=== PATIENT | male | born 1945 | race Caucasian/White ===

== ENCOUNTER 2017-04-23 14:21 | Inpatient (IN) | payer OTHER, BC ==
[2017-04-23 14:28] VITALS: BMI 35.6
--- NOTE | 2017-04-23 14:47 | PDOC ---
History of Present Illness - General History Source: Patient Exam Limitations: No Limitations <Ora Villa - Last Filed: 04/23/17 18:58> <Levon Pathak - Last Filed: 04/24/17 09:22> - General Chief Complaint: Shortness of Breath Stated Complaint: SENT BY PCP Time Seen by Provider: 04/23/17 14:33 - History of Present Illness Initial Comments: 04/23/17 18:59 Patient is a 72 year old female with a significant past medical history of hypertension, hyperlipidemia, type II diabetes, CAD, CABG and pacemaker, legally blind who presents to the ED with SOB. Patient notes that he has been experiencing SOB for over few months that got worse today. Patient states that that he was seen in Dr. Yi in the office yesterday for a routine visit. Patient states that at the rewinder operator his sat O2 level was 81. Patient was sent to Dr. Peres for further evaluation who prompted him to present to the ED today. Patient tawana reports positional dizziness. Patient notes that he is on CPAP at night. Patient was first told that he has low O2 in November. He denies any new pain or chest discomfort. He denies any hx of lung disease or COPD. He denies diarrhea. Resource Coordinator - Dr. Morgan Agricultural Equipment Mechanic - Dr. Peres PCP - Dr. 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) Seizures: No Thyroid Disease: No - Surgical History Abdominal Surgery: Yes (SIGMOID RESECTION, TEMP COLOSTOMY, REVERSED) Appendectomy: Yes Cardiac Surgery: Yes (S/P CABG, PACEMAKER, TRIPLE BYPASS) Cholecystectomy: Yes Lung Surgery: No Neurologic Surgery: No Orthopedic Surgery: No - Psycho/Social/Smoking Cessation Hx Anxiety: No Suicidal Ideation: No Smoking Status: Yes Smoking History: Never smoked Have you smoked in the past 12 months: No Number of Cigarettes Smoked Daily: 0 If you are a former smoker, when did you quit?: 30YRS AGO Hx Alcohol Use: No Drug/Substance Use Hx: No Substance Use Type: None <Levon Pathak - Last Filed: 04/24/17 09:22> - Past Medical History Allergies/Adverse Reactions: Allergies Allergy/AdvReac Type Severity Reaction Status Date / Time codeine [Codeine] Allergy Severe Itching Verified 04/23/17 14:28 Home Medications: Ambulatory Orders Aspirin [Ecotrin] 81 mg PO DAILY 04/23/17 Canagliflozin [Invokana] 100 mg PO DAILY 04/23/17 Ergocalciferol (Vitamin D2) [Vitamin D2] 2,000 unit PO DAILY 04/23/17 Escitalopram Oxalate [Lexapro -] 10 mg PO DAILY 04/23/17 Furosemide [Lasix] 40 mg PO BID 04/23/17 Glimepiride [Amaryl] 2 mg PO BID 04/23/17 Insulin Aspart Prot/Insuln Asp [Novolog Mix 70-30 Flexpen Syrn] 35 unit SQ HS Levothyroxine [Synthroid -] 25 mcg PO DAILY 04/23/17 Metoprolol Succinate [Toprol Xl -] 25 mg PO HS 04/23/17 Mirabegron [Myrbetriq] 25 mg PO DAILY 04/23/17 Naratriptan HCl 2.5 mg PO DAILY 04/23/17 Polyethylene Glycol 3350 [Miralax (For Bowel Prep) -] 17 gm PO DAILY 04/23/17 Spironolactone [Aldactone] 25 mg PO BID 04/23/17 Cardiac Specific PMH - Complaint Specific PMHX Pacemaker: Yes (medtronic. checked 2-3 weeks ago) <Levon Pathak - Last Filed: 04/24/17 09:22> Review of Systems - Review of Systems Able to Perform ROS?: Yes <Ora Villa - Last Filed: 04/23/17 18:58> <Levon Pathak - Last Filed: 04/24/17 09:22> - Review of Systems Comments:: 04/23/17 18:59 CONSTITUTIONAL: No reported: Fever, Chills, Diaphoresis, Generalized Weakness, Malaise, Loss of Appetite HEENT: No reported: Rhinorrhea, Nasal Congestion, Throat Pain, Throat Swelling, Difficulty Swallowing, Mouth Swelling, Ear Pain, Eye Pain, Visual Changes CARDIOVASCULAR: No reported: Chest Pain, Syncope, Palpitations, Irregular Heart Rate, Lightheadedness, Peripheral Edema RESPIRATORY: Reported: cough, SOB, SOB with exertion No reported: Orthopnea, Wheezing, Stridor, Hemoptysis GASTROINTESTINAL: No reported: Abdominal pain, Abdominal Distension, Nausea, Vomiting, Diarrhea, Constipation, Melena, Hematochezia GENITOURINARY: No reported: Dysuria, Frequency, Urgency, Hesitancy, Flank Pain, Genital Pain MUSCULOSKELETAL: No reported: Myalgia, Arthralgia, Joint Swelling, Back pain, Neck Pain SKIN: No reported: Rash, Itching, Pallor HEMEATOLOGIC/IMMUNOLOGIC: No reported: Easy Bleeding, Easy Bruising, Lymphadenopathy, Frequent infections ENDOCRINE: No reported: Unexplained Weight Gain, Unexplained Weight Loss, Heat Intolerance , Cold Intolerance NEUROLOGIC: No reported: Headache, Focal Weakness, Paresthesias, Vertigo, Lightheadedness, Unsteady Gait, Seizure, Mental Status Changes, Incontinence PSYCHIATRIC: No reported: Anxiety, Depression (Ora Villa) *Physical Exam <Ora Villa - Last Filed: 04/23/17 18:58> <Levon Pathak - Last Filed: 04/24/17 09:22> - Vital Signs Last Vital Signs Temp Pulse Resp BP Pulse Ox 97.9 F 72 20 97/51 94 L 04/24/17 05:57 04/24/17 05:57 04/24/17 05:57 04/24/17 05:57 04/23/17 19:00 - Physical Exam Comments: 04/23/17 18:59 GENERAL: The patient is awake, alert, and fully oriented, Nontoxic - in no acute distress. HEAD: Normocephalic, atraumatic. EYES: extraocular movements intact, sclera anicteric, conjunctiva clear. ENT: Normal voice, Moist mucous membranes. NECK: Normal range of motion, supple LUNGS: Breath sounds equal, clear to auscultation bilaterally. No wheezes, no rhonchi, no rales. HEART: Regular rate and rhythm, normal S1 and S2 without murmur, rub or gallop. ABDOMEN: Soft, nontender, normoactive bowel sounds. No guarding, no rebound. . No CVA tenderness EXTREMITIES: Normal range of motion, no edema. No clubbing or cyanosis. No cords, erythema, or tenderness. NEUROLOGICAL: No facial assymetry, Normal speech, PSYCH: Normal mood, normal affect. SKIN: Warm, Dry, normal turgor (Ora Villa) Heart Score/ECG Review <Ora Villa - Last Filed: 04/23/17 18:58> <Levon Pathak - Last Filed: 04/24/17 09:22> - ECG Impressions Comment:: 04/23/17 19:20 ventricular paced rate of 71 no signs of acute ischemia vs sgarbossa criteria (Levon Pathak) ED Treatment Course - LABORATORY CBC & Chemistry Diagram: 04/23/17 14:50 04/23/17 14:50 <Ora Villa - Last Filed: 04/23/17 18:58> - LABORATORY CBC & Chemistry Diagram: 04/24/17 06:00 04/24/17 06:00 <Levon Pathak - Last Filed: 04/24/17 09:22> - ADDITIONAL ORDERS Additional order review: 04/23/17 14:50 RBC 5.48 D MCV 89.9 MCHC 33.0 RDW 15.7 MPV 8.0 Neutrophils % 60.7 Lymphocytes % 22.1 D Monocytes % 12.9 H Eosinophils % 3.1 Basophils % 1.2 - RADIOLOGY Radiology Studies Ordered: Category Date Time Status CHEST CT WITHOUT CONTRAST [CT] Stat CT Scan 04/23/17 16:33 Completed CHEST X-RAY PORTABLE* [RAD] Stat Radiology 04/23/17 14:50 Completed Medical Decision Making <Ora Villa - Last Filed: 04/23/17 18:58> <Levon Pathak - Last Filed: 04/24/17 09:22> - Medical Decision Making 04/23/17 14:45 72y M hx of CAD s/p bypass (2016), chf, moderate , pulm htn, paroxysmal a flutter (not on a/c due to prior esopageal varicies) htn, dm, hl, presents with complaint of sob. for several weeks. noted to be hypoxic by cardiologsit/pulm and sent to ED for evaluation. pt denies any cp, coug,m hemoptsysis, leg swelling. pts exam is unremarakble and vitals notable for severe hypoxia )pt is relatively well appearing relative to his hypoxia) differential includes possible anemia, ?chf, ?pna, will obtain blood work, cxr, pt placed on supplemetnal o2 cardiac monitior will reasess and d/w Pmd 04/23/17 16:33 labs reviewed unremarkble cxr negative fora cute process pt hypxia improved to mid-high 90s on 2L of NC will obtain CT to r/o pathology pts cr isborderline, will defer contrast case was d/w dr. alvarez agree with management will admit to tele for further management Case discussed in detail with admitting physician including history, physical exam and ancillary studies. Admitting physician has assumed care for the patient, will follow all pending diagnostics and will complete the evaluation and treatment. 04/24/17 09:21 (Levon Pathak) *DC/Admit/Observation/Transfer <Ora Villa - Last Filed: 04/23/17 18:58> - Discharge Dispostion Admit: Yes <Levon Pathak - Last Filed: 04/24/17 09:22> Diagnosis at time of Disposition: Hypoxia, SOB (shortness of breath) on exertion - Attestations Scribe Attestion: 04/23/17 18:59 Documentation prepared by UMA Trotter, acting as medical facilities section director for Levon Pathak MD. (Ora Villa)
[2017-04-23 15:21] LABS: VENOUS BLOOD GAS HCO3 24.5 meq/L (19-25); VENOUS PH 7.39 (7.32-7.42)
[2017-04-23 15:31] LABS: BASOPHIL 1.2 % (0-2.0); EOSINOPHIL 3.1 % (0-4.5); MCH 29.7 pg (25.7-33.7); MEAN CELL VOLUME 89.9 fl (80-96); NEUTROPHILS 60.7 % (42.8-82.8); PLATELET COUNT 148 K/MM3 (134-434); RDW 15.7 % (11.9-15.9); WHITE BLOOD COUNT 6.5 K/mm3 (4.0-10.0)
[2017-04-23 15:43] LABS: ALBUMIN 3.4 g/dl (3.4-5.0); ANION GAP 12 (8-16); CALCIUM 8.6 mg/dL (8.5-10.1); CO2 23 mmol/L (21-32); CREATININE 1.6 mg/dL (0.7-1.3); GLUCOSE,RANDOM 112 mg/dL (74-106); SGPT/ALT 44 U/L (12-78)
[2017-04-23 15:47] LABS: ALK PHOS 93 U/L (45-117); BILIRUBIN,TOTAL 2.7 mg/dL (0.2-1.0); TOT PROT 7.3 g/dl (6.4-8.2); TROPONIN I < 0.02 ng/ml (0.00-0.05)
[2017-04-23 15:49] LABS: SGOT/AST 88 U/L (15-37)
[2017-04-23 16:41] LABS: INR 1.08 (0.82-1.09); PROTHROMBIN TIME (PATIENT) 11.9 SEC (9.98-11.88)
[2017-04-23] MEDS ORDERED: ACETAMINOPHEN 325 MG TABLET (FP) PO PRN (16:56)
[2017-04-23] MEDS ORDERED: ONDANSETRON 4 MG/2 ML VIAL IVPB PRN (16:56)
[2017-04-23] MEDS ORDERED: SODIUM CHLORIDE 1,000 ML IV SCH ×2 (17:00→17:15)
--- NOTE | 2017-04-23 17:10 | HP ---
Admitting History and Physical - Primary Care Physician PCP: Addison Reyes - Admission Chief Complaint: Oliverio quiñones History of Present Illness: Mr Rodriguez is a very pleasant 72 year old male who comes in with shortness of breath. He says it began in August. At that time it was minimal and he thought it was secondary to allergies. However even after the allergies were treated, he did not improve. In fact he slowly worsened. He was seen by his child care attendant school and says he had multiple tests done, particularly concerning his valve. These were within normal limits. He continued to worsen and was referred to pulmonary. He went there today and was found to be hypoxic and sent here. He says that he is short of breath at rest and on exertion, but worse with exertion. He cannot walk more than 10 feet without getting short of breath. If he exerts himself too much he becomes lightheaded, but has not passed out. He says it is worse lying flat, but this improved with CPAP. He has chest pain associated with the shortness of breath. He has a productive cough with it as well. He denies fevers, chills, abdominal pain, nausea, vomiting, diarrhea, constipation, difficulty or pain on urination. He has swelling secondary to his liver but this is improved with diuresis. 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: Other (congenital glaucoma with blindness) Cardiovascular: Yes: CAD, HTN Gastrointestinal: Yes: GERD Hepatobiliary: Yes: Cirrhosis (NAFLD) Endocrine: Yes: Diabetes Mellitus - Past Surgical History Past Surgical History: Yes: CABG (3v), Cholecystectomy, Permanent Pacemaker, TURP - Smoking History Smoking history: Never smoked Have you smoked in the past 12 months: No Aproximately how many cigarettes per day: 0 If you are a former smoker, when did you quit?: 30YRS AGO - Alcohol/Substance Use Hx Alcohol Use: No History of Substance Use: reports: None - Social History Usual Living Arrangement: Yes: With Spouse ADL: Independent History of Recent Travel: No Home Medications - Allergies Allergies/Adverse Reactions: Allergies Allergy/AdvReac Type Severity Reaction Status Date / Time codeine [Codeine] Allergy Severe Itching Verified 04/23/17 14:28 - Home Medications Home Medications: Ambulatory Orders Aspirin [Ecotrin] 81 mg PO DAILY 04/23/17 Canagliflozin [Invokana] 100 mg PO DAILY 04/23/17 Ergocalciferol (Vitamin D2) [Vitamin D2] 2,000 unit PO DAILY 04/23/17 Escitalopram Oxalate [Lexapro -] 10 mg PO DAILY 04/23/17 Furosemide [Lasix] 40 mg PO BID 04/23/17 Glimepiride [Amaryl] 2 mg PO BID 04/23/17 Insulin Aspart Prot/Insuln Asp [Novolog Mix 70-30 Flexpen Syrn] 35 unit SQ HS Levothyroxine [Synthroid -] 25 mcg PO DAILY 04/23/17 Metoprolol Succinate [Toprol Xl -] 25 mg PO HS 04/23/17 Mirabegron [Myrbetriq] 25 mg PO DAILY 04/23/17 Naratriptan HCl 2.5 mg PO DAILY 04/23/17 Polyethylene Glycol 3350 [Miralax (For Bowel Prep) -] 17 gm PO DAILY 04/23/17 Spironolactone [Aldactone] 25 mg PO BID 04/23/17 Family Disease History - Family Disease History Family Disease History: Heart Disease: Father, Mother Review of Systems Findings/Remarks: full review of systems obtained, as per HPI and otherwise negative Physical Examination Vital Signs: Vital Signs Temperature 97.5 F L 04/23/17 14:25 Pulse Rate 70 04/23/17 15:27 Respiratory Rate 20 04/23/17 15:27 Blood Pressure 96/58 04/23/17 15:27 O2 Sat by Pulse Oximetry (%) 100 04/23/17 15:27 Constitutional: Yes: No Distress, Calm, Obese HENT: Yes: Atraumatic, Normocephalic Cardiovascular: Yes: Regular Rate and Rhythm. No: Gallop, Murmur, Rub Respiratory: Yes: Regular, CTA Bilaterally, Cough, Other (visibly short of breath on exam). No: Rales, Rhonchi, Wheezes Gastrointestinal: Yes: Normal Bowel Sounds, Soft, Ascites. No: Tenderness Extremities: Yes: WNL Edema: No Labs: CBC, BMP 04/23/17 14:50 04/23/17 14:50 Imaging - Results Chest X-ray: Report Reviewed, Image Reviewed Problem List - Problems (1) Hypoxia Assessment/Plan: -unclear source -case d/w Dr Malcolm, has undergone extensive cardiac work up which was negative -CT scan ordered -ABG ordered -admit to telemetry -pulmonary consult -lung exam sounds clear, will hold on bronchodilators until seen by pulmonary -supplemental oxygen Code(s): R09.02 - HYPOXEMIA (2) Hyperkalemia Assessment/Plan: -secondary to diuresis and aldactone -hydration -hold aldactone -recheck in tonight and in am Code(s): E87.5 - HYPERKALEMIA (3) LEFTY (acute kidney injury) Assessment/Plan: -secondary to overdiuresis -hold lasix and aldactone -hydration Code(s): N17.9 - ACUTE KIDNEY FAILURE, UNSPECIFIED (4) CAD (coronary artery disease) Assessment/Plan: -quiescent -cardiology consult -continue home regimen Code(s): I25.10 - ATHSCL HEART DISEASE OF [place] CORONARY ARTERY W/O ANG PCTRS (5) HTN (hypertension) Assessment/Plan: -low normal today -hold diuretics -continue toprol -hydration Code(s): I10 - ESSENTIAL (PRIMARY) HYPERTENSION (6) Diabetes Assessment/Plan: -continue home regimen -diabetic diet -FSBS and SSI Code(s): E11.9 - TYPE 2 DIABETES MELLITUS WITHOUT COMPLICATIONS
[2017-04-23] MEDS: GLIMEPIRIDE 2 MG TABLET (FP) PO SCH (21:52)
[2017-04-23] MEDS: INSULIN DETEMIR 100 UNITS/ML MDV SQ SCH (21:52)
[2017-04-23] MEDS: INSULIN SLIDING SCALE (NOVOLOG) 1 VIAL SQ SCH (21:53)
[2017-04-23] MEDS: METOPROLOL SUCCINATE 25 MG TAB.SR.24H (FP) PO SCH (22:00)
[2017-04-23] MEDS: HEPARIN NA (PORCINE) 5,000 UNITS/ML 1ML VIAL SQ SCH (22:00)
[2017-04-23] MEDS ORDERED: PATIENT'S OWN MEDICATION (NON-FORMULARY) (Insulin Aspart Prot/Insuln Asp [Novolog Mix 70-3 SQ SCH (22:00)
[2017-04-24] MEDS: GLIMEPIRIDE 2 MG TABLET (FP) PO SCH ×2 (06:09→17:41)
[2017-04-24] MEDS: HEPARIN NA (PORCINE) 5,000 UNITS/ML 1ML VIAL SQ SCH ×2 (06:09→18:25)
[2017-04-24] MEDS: INSULIN SLIDING SCALE (NOVOLOG) 1 VIAL SQ SCH ×4 (06:09→22:18)
[2017-04-24 07:40] LABS: EOSINOPHIL 5.6 % (0-4.5); MCH 30.2 pg (25.7-33.7); MCHC 33.4 g/dl (32.0-35.9); MEAN CELL VOLUME 90.5 fl (80-96); MEAN PLT VOLUME 7.2 fl (7.5-11.1); NEUTROPHILS 57.5 % (42.8-82.8); PLATELET COUNT 102 K/MM3 (134-434); RDW 15.4 % (11.9-15.9); WHITE BLOOD COUNT 4.3 K/mm3 (4.0-10.0)
[2017-04-24 08:41] LABS: ALBUMIN 3.3 g/dl (3.4-5.0); ALK PHOS 71 U/L (45-117); ANION GAP 10 (8-16); BILIRUBIN,TOTAL 2.7 mg/dL (0.2-1.0); CALCIUM 8.7 mg/dL (8.5-10.1); CO2 28 mmol/L (21-32); CREATININE 1.1 mg/dL (0.7-1.3); GLUCOSE,RANDOM 87 mg/dL (74-106); MAGNESIUM 2.4 mg/dL (1.8-2.4); PHOSPHOROUS 3.5 mg/dL (2.5-4.9); SGOT/AST 37 U/L (15-37); SGPT/ALT 38 U/L (12-78); TOT PROT 6.4 g/dl (6.4-8.2)
[2017-04-24] MEDS ORDERED: PATIENT'S OWN MEDICATION (NON-FORMULARY) (Mirabegron [Myrbetriq] 25 MG) PO SCH (10:00)
[2017-04-24] MEDS ORDERED: PATIENT'S OWN MEDICATION (NON-FORMULARY) (Canagliflozin [Invokana] 100 MG) PO SCH ×2 (10:00)
[2017-04-24] MEDS ORDERED: NARATRIPTAN HCL 2.5 MG PO SCH (10:00)
[2017-04-24] MEDS ORDERED: POLYETHYLENE GLYCOL 3350 255 GM BTL PO SCH (10:00)
--- NOTE | 2017-04-24 10:00 | PN ---
Progress Note (short form) - Note Progress Note: Patient seen and examined.
[2017-04-24] MEDS: POLYETHYLENE GLYCOL 3350 119 GM BTL PO SCH ×2 (10:03→22:27)
--- NOTE | 2017-04-24 10:20 | CON.PULM ---
Consult Consult Specialty:: PULMONARY Referred by:: JOSE D Reason for Consultation:: HYPOXEMIA - History of Present Illness Chief Complaint: SOB History of Present Illness: Mr Rodriguez was sent from my office with spo2 84% on room air and sob. He says it began in August. At that time it was minimal and he thought it was secondary to allergies. However even after the allergies were treated, he did not improve. In fact he slowly worsened. He was seen by his windmill mechanic and says he had multiple tests done. These were within normal limits. He continued to worsen and was referred to me. He says that he is short of breath at rest and on exertion, but worse with exertion. He cannot walk more than 10 feet without getting short of breath. If he exerts himself too much he becomes lightheaded, but has not passed out. He says it is worse lying flat, but this improved with CPAP. He has chest pain associated with the shortness of breath. He has a productive cough with it as well. He denies fevers, chills, abdominal pain, nausea, vomiting, diarrhea, constipation. 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 No: Alzheimer's Cardio/Vascular: Yes: Aortic Stenosis, CAD, HTN Pulmonary: Yes: O2 Dependent, Pulmonary Fibrosis, Sleep Apnea Gastrointestinal: Yes: GERD Hepatobiliary: Yes: Cirrhosis (NAFLD) Renal/: Yes: Renal Inusuff Heme/Onc: No: Anemia Infectious Disease: No: AIDS Psych: No: Addictions Endocrine: Yes: Diabetes Mellitus - Past Surgical History Past Surgical History: Yes: CABG (3v), Cholecystectomy, Permanent Pacemaker, TURP - Alcohol/Substance Use Hx Alcohol Use: No History of Substance Use: reports: None - Smoking History Smoking history: Never smoked Have you smoked in the past 12 months: No Aproximately how many cigarettes per day: 0 If you are a former smoker, when did you quit?: 30YRS AGO - Social History Usual Living Arrangement: With Spouse ADL: Independent Place of : [facility] History of Recent Travel: No Home Medications - Allergies Allergies/Adverse Reactions: Allergies Allergy/AdvReac Type Severity Reaction Status Date / Time codeine [Codeine] Allergy Severe Itching Verified 04/23/17 14:28 - Home Medications Home Medications: Ambulatory Orders Aspirin [Ecotrin] 81 mg PO DAILY 04/23/17 Canagliflozin [Invokana] 100 mg PO DAILY 04/23/17 Ergocalciferol (Vitamin D2) [Vitamin D2] 2,000 unit PO DAILY 04/23/17 Escitalopram Oxalate [Lexapro -] 10 mg PO DAILY 04/23/17 Furosemide [Lasix] 40 mg PO BID 04/23/17 Glimepiride [Amaryl] 2 mg PO BID 04/23/17 Insulin Aspart Prot/Insuln Asp [Novolog Mix 70-30 Flexpen Syrn] 35 unit SQ HS Levothyroxine [Synthroid -] 25 mcg PO DAILY 04/23/17 Metoprolol Succinate [Toprol Xl -] 25 mg PO HS 04/23/17 Mirabegron [Myrbetriq] 25 mg PO DAILY 04/23/17 Naratriptan HCl 2.5 mg PO DAILY 04/23/17 Polyethylene Glycol 3350 [Miralax (For Bowel Prep) -] 17 gm PO DAILY 04/23/17 Spironolactone [Aldactone] 25 mg PO BID 04/23/17 Family Disease History - Family Disease History Family Disease History: Heart Disease: Father, Mother Review of Systems - Review of Systems Constitutional: denies: Chills Eyes: reports: Other (blindness) HENT: reports: No Symptoms Neck: reports: No Symptoms Cardiovascular: reports: Chest Pain, Shortness of Breath Respiratory: reports: SOB, SOB on Exertion. denies: Hemoptysis Gastrointestinal: reports: No Symptoms Integumentary: reports: No Symptoms Neurological: reports: No Symptoms Physical Exam Vital Sings: Vital Signs Temperature 97.9 F 04/24/17 05:57 Pulse Rate 72 04/24/17 05:57 Respiratory Rate 20 04/24/17 05:57 Blood Pressure 97/51 04/24/17 05:57 O2 Sat by Pulse Oximetry (%) 94 L 04/23/17 19:00 Constitutional: Yes: Calm Eyes: Yes: EOM Intact HENT: Yes: Normocephalic Neck: Yes: Trachea Midline Cardiovascular: Yes: Regular Rate and Rhythm, S1, S2 Respiratory: Yes: Rales (chronic sounding b/l insp crackles) ...Clubbing: No Gastrointestinal: Yes: Normal Bowel Sounds Renal/: Yes: WNL Breast(s): Yes: WNL Musculoskeletal: Yes: WNL Edema: No Neurological: Yes: Alert Labs: CBC, BMP 04/24/17 06:00 04/24/17 06:00 rest reviewed Imaging - Results Chest X-ray: Image Reviewed Cat Scan: Image Reviewed Problem List - Problems (1) CAD (coronary artery disease) Code(s): I25.10 - ATHSCL HEART DISEASE OF [place] CORONARY ARTERY W/O ANG PCTRS (2) Diabetes Code(s): E11.9 - TYPE 2 DIABETES MELLITUS WITHOUT COMPLICATIONS (3) HTN (hypertension) Code(s): I10 - ESSENTIAL (PRIMARY) HYPERTENSION (4) Hypoxia Code(s): R09.02 - HYPOXEMIA (5) SOB (shortness of breath) on exertion Code(s): R06.02 - SHORTNESS OF BREATH (6) Acute respiratory failure with hypoxia Code(s): J96.01 - ACUTE RESPIRATORY FAILURE WITH HYPOXIA Assessment/Plan ACUTE HYPOXEMIC RESP FAILURE ON BASIS OF PROGRESSIVE ILD ETIOLOGY OF WHICH IS TO BE DETERMINED OF NOTE IS A CT ABD DONE 2011 WITH CLEAR B/L MID AND BASILAR LUNG LAWSON MULTIPLE CO-MORBID CONDITIONS A LISTED WOULD TRIAL COURSE OF STEROIDS/DIURETICS WILL NEED HOME O2 UPON DISCHARGE WITH O2 TITRATED INTO HIS NIPPV FOR OSAS WILL FOLLOW [facility] JC MD
--- NOTE | 2017-04-24 10:31 | CON.CARD ---
Consult Consult Specialty:: Cardiology Referred by:: Addison Reyes MD Reason for Consultation:: Hypoxia - History of Present Illness Chief Complaint: Dyspnea on exertion History of Present Illness: Mr Rodriguez is a 72 year old male h/o CAD s/p CABG 05/2006 (MCCAULEY->LAD, free radial ->LAD-D1, SVG->RPDA) patent on 11/03/2016 cath, diastolic dysfunction, paroxysmal aflutter post cardioversion on no a/c therapy due to chronic liver disease with varices, sick sinus syndrome post PPM, mod-severe NICK 1.4 cm^2, severe pulm HTN PA pressure 71/25, hypertensive cardiovascular disease, DM, chol, OSAS presented with spo2 84% on room air and sob. He says it began in August. At that time it was minimal and he thought it was secondary to allergies. However even after the allergies were treated, he did not improve. In fact he slowly worsened. 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 These were within normal limits. He continued to worsen and was referred to me. He says that he is short of breath at rest and on exertion, but worse with exertion. He cannot walk more than 10 feet without getting short of breath. If he exerts himself too much he becomes lightheaded, but has not passed out. He says it is worse lying flat, but this improved with CPAP. He has chest pain associated with the shortness of breath. He has a productive cough with it as well. He denies fevers, chills, abdominal pain, nausea, vomiting, diarrhea, constipation, palpitations, near or true syncope, PND or LE edema. - History Source History Provided By: Patient Limitations to Obtaining History: No Limitations - Past Medical History BUSINESS OBJECTS CONSULTANT: Yes: Other (congenital glaucoma with blindness). No: Alzheimer's Cardio/Vascular: Yes: Aortic Stenosis, CAD, HTN Pulmonary: Yes: O2 Dependent, Pulmonary Fibrosis, Sleep Apnea Gastrointestinal: Yes: GERD Hepatobiliary: Yes: Cirrhosis (NAFLD) Renal/: Yes: Renal Inusuff Infectious Disease: No: AIDS Psych: No: Addictions Endocrine: Yes: Diabetes Mellitus - Past Surgical History Past Surgical History: Yes: CABG (3v), Cholecystectomy, Permanent Pacemaker, TURP - Alcohol/Substance Use Hx Alcohol Use: No History of Substance Use: reports: None - Smoking History Smoking history: Never smoked Have you smoked in the past 12 months: No Aproximately how many cigarettes per day: 0 If you are a former smoker, when did you quit?: 30YRS AGO - Social History Usual Living Arrangement: With Spouse ADL: Independent History of Recent Travel: No Home Medications - Allergies Allergies/Adverse Reactions: Allergies Allergy/AdvReac Type Severity Reaction Status Date / Time codeine [Codeine] Allergy Severe Itching Verified 04/23/17 14:28 - Home Medications Home Medications: Ambulatory Orders Aspirin [Ecotrin] 81 mg PO DAILY 04/23/17 Canagliflozin [Invokana] 100 mg PO DAILY 04/23/17 Ergocalciferol (Vitamin D2) [Vitamin D2] 2,000 unit PO DAILY 04/23/17 Escitalopram Oxalate [Lexapro -] 10 mg PO DAILY 04/23/17 Furosemide [Lasix] 40 mg PO BID 04/23/17 Glimepiride [Amaryl] 2 mg PO BID 04/23/17 Insulin Aspart Prot/Insuln Asp [Novolog Mix 70-30 Flexpen Syrn] 35 unit SQ HS Levothyroxine [Synthroid -] 25 mcg PO DAILY 04/23/17 Metoprolol Succinate [Toprol Xl -] 25 mg PO HS 04/23/17 Mirabegron [Myrbetriq] 25 mg PO DAILY 04/23/17 Naratriptan HCl 2.5 mg PO DAILY 04/23/17 Polyethylene Glycol 3350 [Miralax (For Bowel Prep) -] 17 gm PO DAILY 04/23/17 Spironolactone [Aldactone] 25 mg PO BID 04/23/17 Family Disease History - Family Disease History Family Disease History: Heart Disease: Father, Mother Review of Systems - Review of Systems Respiratory: reports: Cough, Exercise Intolerance, SOB on Exertion Vital Signs: Vital Signs Temperature 97.9 F 04/24/17 05:57 Pulse Rate 72 04/24/17 05:57 Respiratory Rate 20 04/24/17 05:57 Blood Pressure 97/51 04/24/17 05:57 O2 Sat by Pulse Oximetry (%) 94 L 04/23/17 19:00 Constitutional: Yes: No Distress, Calm Neck: Yes: Supple Respiratory: Yes: Regular, Diminished, On Nasal O2, SOB on Exertion Gastrointestinal: Yes: Normal Bowel Sounds, Soft, Abdomen, Obese Cardiovascular: Yes: Regular Rate and Rhythm JVD: No Carotid Bruit: No Heart Sounds: Yes: S1, S2 Murmur: Yes: Systolic Murmur, Grade 2 Edema: No - Other Data Labs, Other Data: CBC, BMP 04/24/17 06:00 04/24/17 06:00 INR, PTT INR 1.08 (0.82-1.09) 04/23/17 16:00 V-paced at 71 Prior Cardiac Procedures: CABG, Cardiac Catheterization Ejection Fraction %: LVEF > or = 40 % Imaging - Results Cat Scan: Report Reviewed (Bilateral interstitial thickening, hepatic cirrhosis , splenomegaly) Problem List - Problems (1) Acute respiratory failure with hypoxia Code(s): J96.01 - ACUTE RESPIRATORY FAILURE WITH HYPOXIA (2) CAD (coronary artery disease) Code(s): I25.10 - ATHSCL HEART DISEASE OF [place] CORONARY ARTERY W/O ANG PCTRS Qualifiers: Coronary Disease-Associated Artery/Lesion type: [place] artery [place] vs. transplanted heart: [place] heart Associated angina: without angina Qualified Code(s): I25.10 - Atherosclerotic heart disease of [place] coronary artery without angina pectoris (3) Diabetes Code(s): E11.9 - TYPE 2 DIABETES MELLITUS WITHOUT COMPLICATIONS Qualifiers: Diabetes mellitus type: type 2 Diabetes mellitus complication status: with ophthalmic complications Diabetes mellitus complication detail: with diabetic retinopathy (4) HTN (hypertension) Code(s): I10 - ESSENTIAL (PRIMARY) HYPERTENSION Qualifiers: Hypertension type: essential hypertension Qualified Code(s): I10 - Essential (primary) hypertension (5) SOB (shortness of breath) on exertion Code(s): R06.02 - SHORTNESS OF BREATH (6) S/P CABG x 3 Code(s): Z95.1 - PRESENCE OF AORTOCORONARY BYPASS GRAFT (7) Hypothyroidism Code(s): E03.9 - HYPOTHYROIDISM, UNSPECIFIED Qualifiers: Hypothyroidism type: unspecified Qualified Code(s): E03.9 - Hypothyroidism, unspecified (8) Pulmonary hypertension Code(s): I27.2 - OTHER SECONDARY PULMONARY HYPERTENSION (9) Interstitial lung disease Code(s): J84.9 - INTERSTITIAL PULMONARY DISEASE, UNSPECIFIED (10) Moderate aortic valve stenosis Code(s): I35.0 - NONRHEUMATIC AORTIC (VALVE) STENOSIS (11) LEFTY (acute kidney injury) Code(s): N17.9 - ACUTE KIDNEY FAILURE, UNSPECIFIED (12) Hyperkalemia Code(s): E87.5 - HYPERKALEMIA Assessment/Plan 12/09/2016 Echo: Mod degree of LVH, normal LV function EF 75%, mild LAE 4.5 cm, mod NICK 1.4 cm^2, MG 20 mmHg 11/03/2016 R&LHC: 3 vessel CAD patent MCCAULEY->LAD, free radial->LAD-D1, SVG->RPDA, normal LVEF 55%, MG 26 mmHg, NICK 0.93 cm^2, severe pulm HTN PAP 71/25 mmHg, PCWP 21 mmHg, LVEDP 17 mmHg 10/07/2016 Lexiscan MPI: No ischemia, LVEF 65% 02/17/2017 PFTs Mild restriction, moderate decrease in DLCO 1. Acute hypoxemic respiratory failure referable to progressive ILD 2. CAD s/p CABG, angina pectoris 3. HTN 4. Type 2 DM 5. OSAS 6. Diastolic dysfunction with moderate NICK 0.93 cm^2 MG 26 mmHg and severe pulm HTN 7. SSS s/p PPM ([employer]) 8. Persistent afib, paroxysmal aflutter not on a/c due to liver cirrhosis and esophageal varices 9. Labile HTN/HCVD with orthostasis 10. Type 2 DM 11. Hyperlipidemia 12. Hypothyroidisn 13. LEFTY resolving P:1. Trial of steroids, BD, O2 as needed, cpap nightly, V/Q scan rule out chronic PE 2. Continue Toprol XL 25 qd, Accupril 5 qd, ASA 81 qd, resume at lower dose Lasix 40 qd and Aldactone 25 qd 3. Thank you for consultative opportunity
[2017-04-24] MEDS: CHOLECALCIFEROL (VITAMIN D3) 1,000 UNIT TABLET (FP) PO SCH (10:39)
[2017-04-24] MEDS: ESCITALOPRAM OXALATE 10 MG TABLET (FP) PO SCH (10:40)
[2017-04-24] MEDS: ASPIRIN COATED 81 MG TABLET.EC PO SCH (10:40)
[2017-04-24] MEDS: QUINAPRIL HCL 5 MG TABLET (FP) PO SCH (13:03)
--- NOTE | 2017-04-24 17:25 | EKG ---
Test Reason : Blood Pressure : / mmHG Vent. Rate : 071 BPM Atrial Rate : 064 BPM P-R Int : 000 ms QRS Dur : 214 ms QT Int : 536 ms P-R-T Axes : 000 -55 126 degrees QTc Int : 582 ms Ventricular-paced rhythm ABNORMAL ECG WHEN COMPARED WITH ECG OF 14-JUL-2013 12:09, NO SIGNIFICANT CHANGE WAS FOUND Confirmed by MD POTTS GREGORY ([id number]) on 04/24/2017 5:24:55 PM Referred By: Confirmed By:ADAMA POTTS MD
--- NOTE | 2017-04-24 19:06 | PN ---
Progress Note, Physician Chief Complaint: Shortness of breath even on a few steps of exertion. History of Present Illness: Patient with multiple comorbidities including diabetes mellitus, cirrhosis, esophageal varices, history of CHF, blindness and obesity has been having progressive shortness of breath over several months. He has been followed recently by the pulmonary Dr. who suspected he might have interstitial lung disease. He has seen a heart failure specialist associated with [facility] and has visited Dr. Gerry Yuan. An outpatient trial of diuretics did not succeed in improving his shortness of breath. When seen in the drapery maker office yesterday his O2 sat was 84 and admission to the hospital was advised. He is now on nasal O2 and is feeling more comfortable. Pulmonology and cardiology recommended a trial of steroids and resuming diuretics with both Lasix and Aldactone and those medications have been ordered.a CAT scan in the ER without contrast revealed evidence of interstitial lung disease but no CHF or tumor mass. - Current Medication List Current Medications: Active Medications Acetaminophen (Tylenol -) 650 mg PO Q4H PRN PRN Reason: FEVER OR PAIN Aspirin (Ecotrin -) 81 mg PO DAILY [facility] Last Admin: 04/24/17 10:40 Dose: 81 mg Cholecalciferol (Vitamin D3 -) 2,000 unit PO DAILY [facility] Last Admin: 04/24/17 10:39 Dose: 2,000 unit Escitalopram Oxalate (Lexapro -) 10 mg PO DAILY [facility] Last Admin: 04/24/17 10:40 Dose: 10 mg Furosemide (Lasix -) 40 mg PO DAILY [facility] Glimepiride (Amaryl -) 2 mg PO BIDAC [facility] Last Admin: 04/24/17 17:41 Dose: 2 mg Heparin Sodium (Porcine) (Heparin -) 5,000 unit SQ Q8H-IV [facility] Last Admin: 04/24/17 06:09 Dose: 5,000 unit Insulin Aspart (Novolog Vial Sliding Scale -) 0 vial SQ ACHS [facility] PRN Reason: Protocol Last Admin: 04/24/17 17:42 Dose: 2 units Insulin Detemir (Levemir Vial) 35 units SQ HS [facility] Last Admin: 04/23/17 21:52 Dose: Not Given Levothyroxine Sodium (Synthroid -) 25 mcg PO DAILY@0700 [facility] Metoprolol Succinate (Toprol Xl -) 25 mg PO HS [facility] Last Admin: 04/23/17 22:00 Dose: 25 mg Non-Formulary Medication (Mirabegron [Myrbetriq]) 25 mg PO DAILY [facility] Non-Formulary Medication (Naratriptan Hcl [Naratriptan Hcl]) 2.5 mg PO DAILY [facility] Non-Formulary Medication (Canagliflozin [Invokana]) 100 mg PO DAILY [facility] Ondansetron HCl (Zofran Injection) 4 mg IVPB Q6H PRN PRN Reason: NAUSEA Polyethylene Glycol (Miralax (For Daily Use) -) 17 gm PO BID [facility] Last Admin: 04/24/17 10:03 Dose: 17 grams Quinapril HCl (Accupril -) 5 mg PO DAILY [facility] Last Admin: 04/24/17 13:03 Dose: 5 mg Spironolactone (Aldactone -) 25 mg PO DAILY [facility] - Objective Vital Signs: Vital Signs Temperature 98 F 04/24/17 14:53 Pulse Rate 70 04/24/17 14:53 Respiratory Rate 20 04/24/17 14:53 Blood Pressure 132/62 04/24/17 14:53 O2 Sat by Pulse Oximetry (%) 93 L 04/24/17 10:55 Constitutional: Yes: Calm Eyes: Yes: Other (corneal opacities noted) HENT: Yes: Atraumatic Neck: Yes: Supple Cardiovascular: Yes: Regular Rate and Rhythm Respiratory: Yes: Diminished, On Nasal O2, Other (rare rhonchi at the bases) Gastrointestinal: Yes: Soft, Hepatomegaly Genitourinary: No: Sinclair Present Edema: No Neurological: Yes: Alert, Oriented ( Patient is blind) Labs: CBC, BMP 04/24/17 06:00 04/24/17 06:00 INR, PTT INR 1.08 (0.82-1.09) 04/23/17 16:00 - ....Imaging Cat Scan: Report Reviewed Problem List - Problems (1) Interstitial lung disease Assessment/Plan: CAT scan shows evidence of interstitial lung disease Question his etiology and whether treatment can help Code(s): J84.9 - INTERSTITIAL PULMONARY DISEASE, UNSPECIFIED (2) Hypoxia Assessment/Plan: O2 sat 84 in the ER. O2 sat was improved to 94 this morning on nasal O2 Code(s): R09.02 - HYPOXEMIA (3) Diabetes Assessment/Plan: BGM ordered. Glucose may become elevated, although low dose steroid, prednisone 10 mg twice a day was ordered as per suggestion from cardiology and pulmonary Dr. Code(s): E11.9 - TYPE 2 DIABETES MELLITUS WITHOUT COMPLICATIONS Qualifiers: Diabetes mellitus type: type 2 Diabetes mellitus complication status: with ophthalmic complications Diabetes mellitus complication detail: with diabetic retinopathy (4) CAD (coronary artery disease) Assessment/Plan: history of triple bypass. Recent cardiology workup demonstrates no cardiac cause for current problems Code(s): I25.10 - ATHSCL HEART DISEASE OF [place] CORONARY ARTERY W/O ANG PCTRS Qualifiers: Coronary Disease-Associated Artery/Lesion type: [place] artery [place] vs. transplanted heart: [place] heart Associated angina: without angina Qualified Code(s): I25.10 - Atherosclerotic heart disease of [place] coronary artery without angina pectoris (5) S/P CABG x 3 Assessment/Plan: stable regarding recent workup Code(s): Z95.1 - PRESENCE OF AORTOCORONARY BYPASS GRAFT
[2017-04-24] MEDS: predniSONE 10 MG TABLET (UD) PO SCH (22:15)
[2017-04-24] MEDS: METOPROLOL SUCCINATE 25 MG TAB.SR.24H (FP) PO SCH (22:15)
[2017-04-24] MEDS: INSULIN DETEMIR 100 UNITS/ML MDV SQ SCH (22:16)
[2017-04-25] MEDS: HEPARIN NA (PORCINE) 5,000 UNITS/ML 1ML VIAL SQ SCH ×3 (01:00→21:18)
[2017-04-25] MEDS: LEVOTHYROXINE NA 25 MCG TABLET (FP) PO SCH (06:28)
[2017-04-25] MEDS: INSULIN SLIDING SCALE (NOVOLOG) 1 VIAL SQ SCH ×4 (06:29→21:13)
[2017-04-25] MEDS: GLIMEPIRIDE 2 MG TABLET (FP) PO SCH ×2 (06:29→17:17)
--- NOTE | 2017-04-25 07:06 | PN ---
Progress Note (short form) - Note Progress Note: Chief Complaint: Events noted, notes reviewed, dyspnea persists with minimal physical exertion, denies any chest pain History of Present Illness: Seen and examined on telemetry. Events noted, notes reviewed, dyspnea persists with minimal physical exertion, denies any chest pain Echocardiography dated 12/09/2016 revealed moderate degree of LVH, normal LV systolic function with LV EF 75%, mild LAE 4.5 cm, moderate NICK 1.4 cm^2, Right and left heart cardiac catherterization coronary angiography dated 2016 revealed 3 vessel CAD patent MCCAULEY->LAD, patent free radial->LAD-D1, patent SVG->RPDA, normal LVEF 55%, NICK 0.93 cm^2, severe pulm HTN PAP 71/25 mmHg, PCWP 21 mmHg, LVEDP 17 mmHg Medications: Current Medications Acetaminophen (Tylenol -) 650 mg PO Q4H PRN PRN Reason: FEVER OR PAIN Aspirin (Ecotrin -) 81 mg PO DAILY [facility] Last Admin: 04/24/17 10:40 Dose: 81 mg Cholecalciferol (Vitamin D3 -) 2,000 unit PO DAILY [facility] Last Admin: 04/24/17 10:39 Dose: 2,000 unit Escitalopram Oxalate (Lexapro -) 10 mg PO DAILY [facility] Last Admin: 04/24/17 10:40 Dose: 10 mg Furosemide (Lasix -) 40 mg PO DAILY [facility] Glimepiride (Amaryl -) 2 mg PO BIDAC [facility] Last Admin: 04/25/17 06:29 Dose: 2 mg Heparin Sodium (Porcine) (Heparin -) 5,000 unit SQ Q8H-IV [facility] Last Admin: 04/25/17 01:00 Dose: 5,000 unit Insulin Aspart (Novolog Vial Sliding Scale -) 0 vial SQ ACHS [facility] PRN Reason: Protocol Last Admin: 04/25/17 06:29 Dose: 2 units Insulin Detemir (Levemir Vial) 35 units SQ [facility] Last Admin: 04/24/17 22:16 Dose: Not Given Levothyroxine Sodium (Synthroid -) 25 mcg PO DAILY@0700 [facility] Last Admin: 04/25/17 06:28 Dose: 25 mcg Metoprolol Succinate (Toprol Xl -) 25 mg PO [facility] Last Admin: 04/24/17 22:15 Dose: 25 mg Non-Formulary Medication (Mirabegron [Myrbetriq]) 25 mg PO DAILY [facility] Non-Formulary Medication (Naratriptan Hcl [Naratriptan Hcl]) 2.5 mg PO DAILY [facility] Non-Formulary Medication (Canagliflozin [Invokana]) 100 mg PO DAILY [facility] Ondansetron HCl (Zofran Injection) 4 mg IVPB Q6H PRN PRN Reason: NAUSEA Polyethylene Glycol (Miralax (For Daily Use) -) 17 gm PO BID [facility] Last Admin: 04/24/17 22:27 Dose: 17 grams Prednisone (Deltasone -) 10 mg PO BID [facility] Last Admin: 04/24/17 22:15 Dose: 10 mg Quinapril HCl (Accupril -) 5 mg PO DAILY [facility] Last Admin: 04/24/17 13:03 Dose: 5 mg Spironolactone (Aldactone -) 25 mg PO DAILY [facility] Review of Systems Cardiovascular: As noted above Respiratory: denies: Cough or Sputum Production Gastrointestinal: denies: Nausea, Vomiting, Diarrhea, Constipation or Abdominal Discomfort Musculoskeletal: No Symptoms Reported Endocrine: No Symptoms Reported Vital Signs: Last Vital Signs Temp Pulse Resp BP Pulse Ox 97.4 F L 71 18 141/57 93 L 04/25/17 01:00 04/25/17 05:00 04/25/17 05:00 04/25/17 05:00 04/24/17 21:00 Constitutional: No Distress, Calm Neck: Supple Negative JVD Respiratory: Bilateral Course Crepitus Cardiovascular: S1 S2 Regular Rate and Rhythm Grade 2/6 SAM Gastrointestinal: Soft Benign Normal Bowel Sounds Ext: No Edema Labs: CBC, BMP 04/25/17 05:35 04/25/17 05:35 Hepatic Panel Total Bilirubin 2.7 mg/dL (0.2-1.0) H 04/24/17 06:00 AST 37 U/L (15-37) D 04/24/17 06:00 ALT 38 U/L (12-78) 04/24/17 06:00 Alkaline Phosphatase 71 U/L (45-117) D 04/24/17 06:00 Albumin 3.3 g/dl (3.4-5.0) L 04/24/17 06:00 INR, PTT INR 1.08 (0.82-1.09) 04/23/17 16:00 Assessment/Plan ASSESSMENT: 1. Acute hypoxemic respiratory failure referable to progressive ILD ( interstitial lung disease) 2. CAD post CABG, angina pectoris 3. Diastolic dysfunction with chronic class I-II DANIELLE classification LV failure , compensated 4. Moderate 5. Severe pulm HTN 6. Persistent atrail fibrillation, paroxysmal atrial flutter not on A/C due to liver cirrhosis and esophageal varices 7. Sick sinus syndrome post PPM 8. HTN 9. DM 10. Hypothyroidism 11. OSAS 13. Acute renal insufficiency, resolving PLAN: 1. Steroids and bronchodilators as per pulmonary team 2. Continue Toprol XL 3. Continue Accupril 4. Continue Lasix and Aldactone with caution and close monitoring of renal function 5. Continue ASA 6. Evaluation of causes of ILD (interstitial lung disease) as per the pulmonary team Brayan Yi M.D.
[2017-04-25 07:35] LABS: BASOPHIL 0.9 % (0-2.0); EOSINOPHIL 0.9 % (0-4.5); MCH 29.8 pg (25.7-33.7); MCHC 33.1 g/dl (32.0-35.9); MEAN CELL VOLUME 90.1 fl (80-96); MEAN PLT VOLUME 7.5 fl (7.5-11.1); NEUTROPHILS 71.7 % (42.8-82.8); PLATELET COUNT 100 K/MM3 (134-434); RDW 14.9 % (11.9-15.9); WHITE BLOOD COUNT 3.6 K/mm3 (4.0-10.0)
[2017-04-25 08:39] LABS: ANION GAP 9 (8-16); CALCIUM 8.6 mg/dL (8.5-10.1); CO2 25 mmol/L (21-32); GLUCOSE,RANDOM 166 mg/dL (74-106)
[2017-04-25] MEDS: FUROSEMIDE 40 MG TABLET (FP) PO SCH (10:22)
[2017-04-25] MEDS: SPIRONOLACTONE 25 MG TABLET (FP) PO SCH (10:22)
[2017-04-25] MEDS: ASPIRIN COATED 81 MG TABLET.EC PO SCH (10:22)
[2017-04-25] MEDS: predniSONE 10 MG TABLET (UD) PO SCH (10:22)
[2017-04-25] MEDS: ESCITALOPRAM OXALATE 10 MG TABLET (FP) PO SCH (10:22)
[2017-04-25] MEDS: CHOLECALCIFEROL (VITAMIN D3) 1,000 UNIT TABLET (FP) PO SCH (10:22)
[2017-04-25] MEDS ORDERED: PT OWN MED DRAWER 7, Y5N ONE (10:24)
[2017-04-25] MEDS: QUINAPRIL HCL 5 MG TABLET (FP) PO SCH (10:25)
[2017-04-25] MEDS: POLYETHYLENE GLYCOL 3350 119 GM BTL PO SCH ×3 (10:49→21:18)
--- NOTE | 2017-04-25 13:21 | PN ---
Progress Note (short form) - Note Progress Note: PULMONARY SUBJECTIVE IMPROVEMENT VSS ANICTERIC B/L INSP CRACKLES S1S2 OBESE MILD LOWER EXT EDEMA LABS/MEDS/NOTES/IMAGING REVIEWED ACUTE HYPOXEMIC RESP FAILURE ON BASIS OF PROGRESSIVE ILD ETIOLOGY OF WHICH IS TO BE DETERMINED OF NOTE IS A CT ABD DONE 2011 WITH CLEAR B/L MID AND BASILAR LUNG LAWOSN MULTIPLE CO-MORBID CONDITIONS A LISTED WOULD TRIAL COURSE OF STEROIDS (ORAL PRED STOPPED,SHORT COURSE MEDROL ORDERED)/ DIURETICS WILL NEED HOME O2 UPON DISCHARGE WITH O2 TITRATED INTO HIS NIPPV FOR OSAS R BAIBTA TAYLOR Problem List - Problems (1) CAD (coronary artery disease) Code(s): I25.10 - ATHSCL HEART DISEASE OF [place] CORONARY ARTERY W/O ANG PCTRS Qualifiers: Coronary Disease-Associated Artery/Lesion type: [place] artery [place] vs. transplanted heart: [place] heart Associated angina: without angina Qualified Code(s): I25.10 - Atherosclerotic heart disease of [place] coronary artery without angina pectoris (2) Diabetes Code(s): E11.9 - TYPE 2 DIABETES MELLITUS WITHOUT COMPLICATIONS Qualifiers: Diabetes mellitus type: type 2 Diabetes mellitus complication status: with ophthalmic complications Diabetes mellitus complication detail: with diabetic retinopathy (3) HTN (hypertension) Code(s): I10 - ESSENTIAL (PRIMARY) HYPERTENSION Qualifiers: Hypertension type: essential hypertension Qualified Code(s): I10 - Essential (primary) hypertension (4) Hypoxia Code(s): R09.02 - HYPOXEMIA (5) SOB (shortness of breath) on exertion Code(s): R06.02 - SHORTNESS OF BREATH (6) Acute respiratory failure with hypoxia Code(s): J96.01 - ACUTE RESPIRATORY FAILURE WITH HYPOXIA
[2017-04-25] MEDS: methylPREDNISolone NA SUCC 40 MG/1 ML VIAL IVPB SCH ×2 (14:25→17:17)
--- NOTE | 2017-04-25 16:04 | PN ---
Progress Note (short form) - Note Progress Note: Breathing is OK No fever or chest pain O/E Vital Signs Period Temp Pulse Resp BP Sys/Levi Pulse Ox Last 24 Hr 97.4 F-98.4 F 64-75 18-20 123-160/57-96 93-94 Heart regular\ Lungs fw scattered rales+ Abd soft Ext no edema Current Medications Acetaminophen (Tylenol -) 650 mg PO Q4H PRN PRN Reason: FEVER OR PAIN Aspirin (Ecotrin -) 81 mg PO DAILY [facility] Last Admin: 04/25/17 10:22 Dose: 81 mg Cholecalciferol (Vitamin D3 -) 2,000 unit PO DAILY [facility] Last Admin: 04/25/17 10:22 Dose: 2,000 unit Escitalopram Oxalate (Lexapro -) 10 mg PO DAILY [facility] Last Admin: 04/25/17 10:22 Dose: 10 mg Furosemide (Lasix -) 40 mg PO DAILY [facility] Last Admin: 04/25/17 10:22 Dose: 40 mg Glimepiride (Amaryl -) 2 mg PO BIDAC [facility] Last Admin: 04/25/17 06:29 Dose: 2 mg Heparin Sodium (Porcine) (Heparin -) 5,000 unit SQ Q8H-IV [facility] Last Admin: 04/25/17 10:23 Dose: 5,000 unit Insulin Aspart (Novolog Vial Sliding Scale -) 0 vial SQ ACHS [facility] PRN Reason: Protocol Last Admin: 04/25/17 11:49 Dose: 4 units Insulin Detemir (Levemir Vial) 35 units SQ HS [facility] Last Admin: 04/24/17 22:16 Dose: Not Given Levothyroxine Sodium (Synthroid -) 25 mcg PO DAILY@0700 [facility] Last Admin: 04/25/17 06:28 Dose: 25 mcg Methylprednisolone Sodium Succinate (Solu-Medrol -) 40 mg IVPB Q8H-IV [facility] Last Admin: 04/25/17 14:25 Dose: 40 mg Metoprolol Succinate (Toprol Xl -) 25 mg PO HS [facility] Last Admin: 04/24/17 22:15 Dose: 25 mg Non-Formulary Medication (Mirabegron [Myrbetriq]) 25 mg PO DAILY [facility] Non-Formulary Medication (Naratriptan Hcl [Naratriptan Hcl]) 2.5 mg PO DAILY [facility] Non-Formulary Medication (Canagliflozin [Invokana]) 100 mg PO DAILY [facility] Ondansetron HCl (Zofran Injection) 4 mg IVPB Q6H PRN PRN Reason: NAUSEA Polyethylene Glycol (Miralax (For Daily Use) -) 17 gm PO BID [facility] Last Admin: 04/25/17 10:49 Dose: 17 grams Quinapril HCl (Accupril -) 5 mg PO DAILY [facility] Last Admin: 04/25/17 10:25 Dose: 5 mg Spironolactone (Aldactone -) 25 mg PO DAILY [facility] Last Admin: 04/25/17 10:22 Dose: 25 mg Laboratory Results - last 24 hr 04/24/17 04/25/17 04/25/17 22:14 05:35 05:35 WBC 3.6 L RBC 5.28 Hgb 15.7 Hct 47.6 MCV 90.1 MCHC 33.1 RDW 14.9 Plt Count 100 L MPV 7.5 Neutrophils % 71.7 D Lymphocytes % 18.6 Monocytes % 7.9 Eosinophils % 0.9 D Basophils % 0.9 Sodium 138 Potassium 5.0 Chloride 104 Carbon Dioxide 25 Anion Gap 9 BUN 24 H D Creatinine 1.0 POC Glucometer 154 Random Glucose 166 H D Calcium 8.6 04/25/17 04/25/17 06:05 11:36 WBC RBC Hgb Hct MCV MCHC RDW Plt Count MPV Neutrophils % Lymphocytes % Monocytes % Eosinophils % Basophils % Sodium Potassium Chloride Carbon Dioxide Anion Gap BUN Creatinine POC Glucometer 157 226 Random Glucose Calcium - Problems (1) Interstitial lung disease Assessment/Plan: CAT scan shows evidence of interstitial lung disease cont present care and evaluated for home Oxygen Code(s): J84.9 - INTERSTITIAL PULMONARY DISEASE, UNSPECIFIED (2) Hypoxia Assessment/Plan: O2 sat 84 in the ER. O2 sat was improved to 94 . Is awaiting Resp for Oxygen eval Code(s): R09.02 - HYPOXEMIA (3) Diabetes Assessment/Plan: Cont present care Code(s): E11.9 - TYPE 2 DIABETES MELLITUS WITHOUT COMPLICATIONS Qualifiers: Diabetes mellitus type: type 2 Diabetes mellitus complication status: with ophthalmic complications Diabetes mellitus complication detail: with diabetic retinopathy (4) CAD (coronary artery disease) Assessment/Plan: history of triple bypass. Recent cardiology workup demonstrates no cardiac cause for current problems Code(s): I25.10 - ATHSCL HEART DISEASE OF [place] CORONARY ARTERY W/O ANG PCTRS Qualifiers: Coronary Disease-Associated Artery/Lesion type: [place] artery [place] vs. transplanted heart: [place] heart Associated angina: without angina Qualified Code(s): I25.10 - Atherosclerotic heart disease of [place] coronary artery without angina pectoris (5) S/P CABG x 3 Assessment/Plan: stable regarding recent workup Code(s): Z95.1 - PRESENCE OF AORTOCORONARY BYPASS GRAFT
[2017-04-25] MEDS: INSULIN DETEMIR 100 UNITS/ML MDV SQ SCH (21:13)
[2017-04-25] MEDS: METOPROLOL SUCCINATE 25 MG TAB.SR.24H (FP) PO SCH (21:14)
[2017-04-26] MEDS: HEPARIN NA (PORCINE) 5,000 UNITS/ML 1ML VIAL SQ SCH ×3 (02:05→17:21)
[2017-04-26] MEDS: methylPREDNISolone NA SUCC 40 MG/1 ML VIAL IVPB SCH ×3 (02:06→17:21)
[2017-04-26] MEDS: INSULIN SLIDING SCALE (NOVOLOG) 1 VIAL SQ SCH ×4 (06:27→22:42)
[2017-04-26] MEDS: GLIMEPIRIDE 2 MG TABLET (FP) PO SCH ×2 (06:27→17:21)
[2017-04-26] MEDS: LEVOTHYROXINE NA 25 MCG TABLET (FP) PO SCH (06:27)
--- NOTE | 2017-04-26 08:53 | PN ---
Progress Note (short form) - Note Progress Note: Chief Complaint: Events noted, notes reviewed, dyspnea persists but improving with therapy, denies any chest pain History of Present Illness: Seen and examined on telemetry. Events noted, notes reviewed, dyspnea persists but improving with therapy, denies any chest pain Echocardiography dated 12/09/2016 revealed moderate degree of LVH, normal LV systolic function with LV EF 75%, mild LAE 4.5 cm, moderate NICK 1.4 cm^2, Right and left heart cardiac catherterization coronary angiography dated 2016 revealed 3 vessel CAD patent MCCAULEY->LAD, patent free radial->LAD-D1, patent SVG->RPDA, normal LVEF 55%, NICK 0.93 cm^2, severe pulm HTN PAP 71/25 mmHg, PCWP 21 mmHg, LVEDP 17 mmHg Medications: Current Medications Acetaminophen (Tylenol -) 650 mg PO Q4H PRN PRN Reason: FEVER OR PAIN Aspirin (Ecotrin -) 81 mg PO DAILY [facility] Last Admin: 04/25/17 10:22 Dose: 81 mg Cholecalciferol (Vitamin D3 -) 2,000 unit PO DAILY [facility] Last Admin: 04/25/17 10:22 Dose: 2,000 unit Escitalopram Oxalate (Lexapro -) 10 mg PO DAILY [facility] Last Admin: 04/25/17 10:22 Dose: 10 mg Furosemide (Lasix -) 40 mg PO DAILY [facility] Last Admin: 04/25/17 10:22 Dose: 40 mg Glimepiride (Amaryl -) 2 mg PO BIDAC [facility] Last Admin: 04/26/17 06:27 Dose: 2 mg Heparin Sodium (Porcine) (Heparin -) 5,000 unit SQ Q8H-IV [facility] Last Admin: 04/26/17 02:05 Dose: 5,000 unit Insulin Aspart (Novolog Vial Sliding Scale -) 0 vial SQ ACHS [facility] PRN Reason: Protocol Last Admin: 04/26/17 06:27 Dose: 2 units Insulin Detemir (Levemir Vial) 35 units SQ HS [facility] Last Admin: 04/25/17 21:13 Dose: 35 unit Levothyroxine Sodium (Synthroid -) 25 mcg PO DAILY@0700 [facility] Last Admin: 04/26/17 06:27 Dose: 25 mcg Methylprednisolone Sodium Succinate (Solu-Medrol -) 40 mg IVPB Q8H-IV [facility] Last Admin: 04/26/17 02:06 Dose: 40 mg Metoprolol Succinate (Toprol Xl -) 25 mg PO HS [facility] Last Admin: 04/25/17 21:14 Dose: 25 mg Non-Formulary Medication (Mirabegron [Myrbetriq]) 25 mg PO DAILY [facility] Non-Formulary Medication (Naratriptan Hcl [Naratriptan Hcl]) 2.5 mg PO DAILY [facility] Non-Formulary Medication (Canagliflozin [Invokana]) 100 mg PO DAILY [facility] Ondansetron HCl (Zofran Injection) 4 mg IVPB Q6H PRN PRN Reason: NAUSEA Polyethylene Glycol (Miralax (For Daily Use) -) 17 gm PO BID [facility] Last Admin: 04/25/17 21:18 Dose: Not Given Quinapril HCl (Accupril -) 5 mg PO DAILY [facility] Last Admin: 04/25/17 10:25 Dose: 5 mg Spironolactone (Aldactone -) 25 mg PO DAILY [facility] Last Admin: 04/25/17 10:22 Dose: 25 mg Review of Systems Cardiovascular: As noted above Respiratory: denies: Cough or Sputum Production Gastrointestinal: denies: Nausea, Vomiting, Diarrhea, Constipation or Abdominal Discomfort Musculoskeletal: No Symptoms Reported Endocrine: No Symptoms Reported Vital Signs: Last Vital Signs Temp Pulse Resp BP Pulse Ox 98 F 79 20 147/72 94 L 04/26/17 02:00 04/26/17 06:00 04/26/17 06:00 04/26/17 06:00 04/25/17 09:00 Constitutional: No Distress, Calm Neck: Supple Negative JVD Respiratory: Bilateral Course Crepitus Cardiovascular: S1 S2 Regular Rate and Rhythm Grade 2/6 SAM Gastrointestinal: Soft Benign Normal Bowel Sounds Ext: No Edema Labs: CBC, BMP 04/25/17 05:35 04/25/17 05:35 Assessment/Plan ASSESSMENT: 1. Acute hypoxemic respiratory failure referable to progressive ILD ( interstitial lung disease) 2. CAD post CABG, angina pectoris 3. Diastolic dysfunction with chronic class I-II DANIELLE classification LV failure , compensated (euvolemic) 4. Moderate 5. Severe pulm HTN 6. Persistent atrail fibrillation, paroxysmal atrial flutter not on A/C due to liver cirrhosis and esophageal varices, [id number] score of 5 7. Sick sinus syndrome post PPM 8. HTN 9. DM 10. Hypothyroidism 11. OSAS 13. Acute renal insufficiency, resolving PLAN: 1. Steroids and bronchodilators as per pulmonary team, patient will require home O2 therapy 2. Continue Toprol XL 3. Continue Accupril 4. Continue Lasix and Aldactone with caution and close monitoring of renal function 5. Continue ASA 6. Evaluation of causes of ILD (interstitial lung disease) as per the pulmonary team Brayan Yi M.D.
[2017-04-26] MEDS ORDERED: PT OWN MED DRAWER 7, Y5N ONE (09:49)
[2017-04-26] MEDS: FUROSEMIDE 40 MG TABLET (FP) PO SCH (09:50)
[2017-04-26] MEDS: QUINAPRIL HCL 5 MG TABLET (FP) PO SCH (09:50)
[2017-04-26] MEDS: ASPIRIN COATED 81 MG TABLET.EC PO SCH (09:51)
[2017-04-26] MEDS: CHOLECALCIFEROL (VITAMIN D3) 1,000 UNIT TABLET (FP) PO SCH (09:51)
[2017-04-26] MEDS: SPIRONOLACTONE 25 MG TABLET (FP) PO SCH (09:51)
[2017-04-26] MEDS: ESCITALOPRAM OXALATE 10 MG TABLET (FP) PO SCH (09:52)
[2017-04-26] MEDS: POLYETHYLENE GLYCOL 3350 119 GM BTL PO SCH ×2 (09:52→22:42)
--- NOTE | 2017-04-26 12:42 | PN ---
Progress Note (short form) - Note Progress Note: PULMONARY SUBJECTIVE IMPROVEMENT ON MEDROL VSS ANICTERIC B/L INSP CRACKLES S1S2 OBESE MILD LOWER EXT EDEMA LABS/MEDS/NOTES/IMAGING REVIEWED ACUTE HYPOXEMIC RESP FAILURE ON BASIS OF PROGRESSIVE ILD ETIOLOGY OF WHICH IS TO BE DETERMINED OF NOTE IS A CT ABD DONE 2011 WITH CLEAR B/L MID AND BASILAR LUNG [place] MULTIPLE CO-MORBID CONDITIONS A LISTED WOULD TRIAL COURSE OF STEROIDS (ORAL PRED STOPPED,SHORT COURSE MEDROL ORDERED)/ DIURETICS WILL NEED HOME O2 UPON DISCHARGE WITH O2 TITRATED INTO HIS NIPPV FOR OSAS DECISION FOR VAT WEDGE WILL BE MADE IF CLINICAL SX PROGRESS R BABITA TAYLOR Problem List - Problems (1) CAD (coronary artery disease) Code(s): I25.10 - ATHSCL HEART DISEASE OF [place] CORONARY ARTERY W/O ANG PCTRS Qualifiers: Coronary Disease-Associated Artery/Lesion type: [place] artery [place] vs. transplanted heart: [place] heart Associated angina: without angina Qualified Code(s): I25.10 - Atherosclerotic heart disease of [place] coronary artery without angina pectoris (2) Diabetes Code(s): E11.9 - TYPE 2 DIABETES MELLITUS WITHOUT COMPLICATIONS Qualifiers: Diabetes mellitus type: type 2 Diabetes mellitus complication status: with ophthalmic complications Diabetes mellitus complication detail: with diabetic retinopathy (3) HTN (hypertension) Code(s): I10 - ESSENTIAL (PRIMARY) HYPERTENSION Qualifiers: Hypertension type: essential hypertension Qualified Code(s): I10 - Essential (primary) hypertension (4) Hypoxia Code(s): R09.02 - HYPOXEMIA (5) SOB (shortness of breath) on exertion Code(s): R06.02 - SHORTNESS OF BREATH (6) Acute respiratory failure with hypoxia Code(s): J96.01 - ACUTE RESPIRATORY FAILURE WITH HYPOXIA
--- NOTE | 2017-04-26 12:56 | PN ---
Progress Note (short form) - Note Progress Note: Breathing is better No chest pain O/E Heart regular Lungs clear Abd soft Ext no edema Laboratory Results - last 24 hr 04/25/17 04/25/17 04/26/17 17:11 21:09 06:25 POC Glucometer 292 326 182 04/26/17 11:42 POC Glucometer 240 Current Medications Acetaminophen (Tylenol -) 650 mg PO Q4H PRN PRN Reason: FEVER OR PAIN Aspirin (Ecotrin -) 81 mg PO DAILY [facility] Last Admin: 04/26/17 09:51 Dose: 81 mg Cholecalciferol (Vitamin D3 -) 2,000 unit PO DAILY [facility] Last Admin: 04/26/17 09:51 Dose: 2,000 unit Escitalopram Oxalate (Lexapro -) 10 mg PO DAILY [facility] Last Admin: 04/26/17 09:52 Dose: 10 mg Furosemide (Lasix -) 40 mg PO DAILY [facility] Last Admin: 04/26/17 09:50 Dose: 40 mg Glimepiride (Amaryl -) 2 mg PO BIDAC [facility] Last Admin: 04/26/17 06:27 Dose: 2 mg Heparin Sodium (Porcine) (Heparin -) 5,000 unit SQ Q8H-IV [facility] Last Admin: 04/26/17 09:51 Dose: 5,000 unit Insulin Aspart (Novolog Vial Sliding Scale -) 0 vial SQ ACHS [facility] PRN Reason: Protocol Last Admin: 04/26/17 11:48 Dose: 2 units Insulin Detemir (Levemir Vial) 35 units SQ HS [facility] Last Admin: 04/25/17 21:13 Dose: 35 unit Levothyroxine Sodium (Synthroid -) 25 mcg PO DAILY@0700 [facility] Last Admin: 04/26/17 06:27 Dose: 25 mcg Methylprednisolone Sodium Succinate (Solu-Medrol -) 40 mg IVPB Q8H-IV [facility] Last Admin: 04/26/17 09:50 Dose: 40 mg Metoprolol Succinate (Toprol Xl -) 25 mg PO HS [facility] Last Admin: 04/25/17 21:14 Dose: 25 mg Non-Formulary Medication (Mirabegron [Myrbetriq]) 25 mg PO DAILY [facility] Non-Formulary Medication (Naratriptan Hcl [Naratriptan Hcl]) 2.5 mg PO DAILY [facility] Non-Formulary Medication (Canagliflozin [Invokana]) 100 mg PO DAILY [facility] Ondansetron HCl (Zofran Injection) 4 mg IVPB Q6H PRN PRN Reason: NAUSEA Polyethylene Glycol (Miralax (For Daily Use) -) 17 gm PO BID [facility] Last Admin: 04/26/17 09:52 Dose: 17 grams Quinapril HCl (Accupril -) 5 mg PO DAILY [facility] Last Admin: 04/26/17 09:50 Dose: 5 mg Spironolactone (Aldactone -) 25 mg PO DAILY [facility] Last Admin: 04/26/17 09:51 Dose: 25 mg Vital Signs Period Temp Pulse Resp BP Sys/Levi Pulse Ox Last 24 Hr 98 F-98.4 F 70-79 18-20 134-166/64-79 Problems (1) Interstitial lung disease Assessment/Plan: CAT scan shows evidence of interstitial lung disease cont present care and evaluated for home Oxygen Code(s): J84.9 - INTERSTITIAL PULMONARY DISEASE, UNSPECIFIED (2) Hypoxia Assessment/Plan: O2 sat 84 in the ER. O2 sat was improved to 94 . Still awaiting Resp for Oxygen eval and proceed with discharge planning Code(s): R09.02 - HYPOXEMIA (3) Diabetes Assessment/Plan: Cont present care Code(s): E11.9 - TYPE 2 DIABETES MELLITUS WITHOUT COMPLICATIONS Qualifiers: Diabetes mellitus type: type 2 Diabetes mellitus complication status: with ophthalmic complications Diabetes mellitus complication detail: with diabetic retinopathy (4) CAD (coronary artery disease) Assessment/Plan: history of triple bypass. Recent cardiology workup demonstrates no cardiac cause for current problems Code(s): I25.10 - ATHSCL HEART DISEASE OF [place] CORONARY ARTERY W/O ANG PCTRS Qualifiers: Coronary Disease-Associated Artery/Lesion type: [place] artery [place] vs. transplanted heart: [place] heart Associated angina: without angina Qualified Code(s): I25.10 - Atherosclerotic heart disease of [place] coronary artery without angina pectoris (5) S/P CABG x 3 Assessment/Plan: stable regarding recent workup Code(s): Z95.1 - PRESENCE OF AORTOCORONARY BYPASS GRAFT
[2017-04-26] MEDS: METOPROLOL SUCCINATE 25 MG TAB.SR.24H (FP) PO SCH (22:42)
[2017-04-26] MEDS: INSULIN DETEMIR 100 UNITS/ML MDV SQ SCH (22:42)
[2017-04-27] MEDS: HEPARIN NA (PORCINE) 5,000 UNITS/ML 1ML VIAL SQ SCH ×3 (03:00→18:05)
[2017-04-27] MEDS: methylPREDNISolone NA SUCC 40 MG/1 ML VIAL IVPB SCH ×3 (03:00→18:05)
[2017-04-27] MEDS: GLIMEPIRIDE 2 MG TABLET (FP) PO SCH ×2 (06:25→18:05)
[2017-04-27] MEDS: LEVOTHYROXINE NA 25 MCG TABLET (FP) PO SCH (06:25)
[2017-04-27] MEDS: INSULIN SLIDING SCALE (NOVOLOG) 1 VIAL SQ SCH ×4 (06:27→22:47)
[2017-04-27 07:23] LABS: BASOPHIL 0.1 % (0-2.0); MCH 29.7 pg (25.7-33.7); MCHC 33.1 g/dl (32.0-35.9); MEAN CELL VOLUME 89.7 fl (80-96); MEAN PLT VOLUME 7.5 fl (7.5-11.1); PLATELET COUNT 104 K/MM3 (134-434); RDW 15.2 % (11.9-15.9); WHITE BLOOD COUNT 6.8 K/mm3 (4.0-10.0)
[2017-04-27 07:53] LABS: ANION GAP 10 (8-16); CO2 23 mmol/L (21-32); GLUCOSE,RANDOM 114 mg/dL (74-106)
--- NOTE | 2017-04-27 09:32 | PN ---
Progress Note, Physician History of Present Illness: Dyspnea slowly improving. - Current Medication List Current Medications: Active Medications Acetaminophen (Tylenol -) 650 mg PO Q4H PRN PRN Reason: FEVER OR PAIN Aspirin (Ecotrin -) 81 mg PO DAILY [facility] Last Admin: 04/26/17 09:51 Dose: 81 mg Cholecalciferol (Vitamin D3 -) 2,000 unit PO DAILY [facility] Last Admin: 04/26/17 09:51 Dose: 2,000 unit Escitalopram Oxalate (Lexapro -) 10 mg PO DAILY [facility] Last Admin: 04/26/17 09:52 Dose: 10 mg Furosemide (Lasix -) 40 mg PO DAILY [facility] Last Admin: 04/26/17 09:50 Dose: 40 mg Glimepiride (Amaryl -) 2 mg PO BIDAC [facility] Last Admin: 04/27/17 06:25 Dose: 2 mg Heparin Sodium (Porcine) (Heparin -) 5,000 unit SQ Q8H-IV [facility] Last Admin: 04/27/17 03:00 Dose: 5,000 unit Insulin Aspart (Novolog Vial Sliding Scale -) 0 vial SQ ACHS [facility] PRN Reason: Protocol Last Admin: 04/27/17 06:27 Dose: Not Given Insulin Detemir (Levemir Vial) 35 units SQ HS [facility] Last Admin: 04/26/17 22:42 Dose: 35 unit Levothyroxine Sodium (Synthroid -) 25 mcg PO DAILY@0700 [facility] Last Admin: 04/27/17 06:25 Dose: 25 mcg Methylprednisolone Sodium Succinate (Solu-Medrol -) 40 mg IVPB Q8H-IV [facility] Last Admin: 04/27/17 03:00 Dose: 40 mg Metoprolol Succinate (Toprol Xl -) 25 mg PO HS [facility] Last Admin: 04/26/17 22:42 Dose: 25 mg Non-Formulary Medication (Mirabegron [Myrbetriq]) 25 mg PO DAILY [facility] Non-Formulary Medication (Naratriptan Hcl [Naratriptan Hcl]) 2.5 mg PO DAILY [facility] Non-Formulary Medication (Canagliflozin [Invokana]) 100 mg PO DAILY [facility] Ondansetron HCl (Zofran Injection) 4 mg IVPB Q6H PRN PRN Reason: NAUSEA Polyethylene Glycol (Miralax (For Daily Use) -) 17 gm PO BID [facility] Last Admin: 04/26/17 22:42 Dose: Not Given Quinapril HCl (Accupril -) 5 mg PO DAILY [facility] Last Admin: 04/26/17 09:50 Dose: 5 mg Spironolactone (Aldactone -) 25 mg PO DAILY [facility] Last Admin: 04/26/17 09:51 Dose: 25 mg - Objective Vital Signs: Vital Signs Temperature 97.4 F L 04/27/17 06:00 Pulse Rate 76 04/27/17 06:00 Respiratory Rate 20 04/27/17 06:00 Blood Pressure 118/65 04/27/17 06:00 O2 Sat by Pulse Oximetry (%) 96 04/26/17 21:00 Constitutional: Yes: No Distress, Calm Neck: Yes: Supple Cardiovascular: Yes: Regular Rate and Rhythm, Murmur (2/6 SM) Respiratory: Yes: Regular, Diminished, On Nasal O2 Gastrointestinal: Yes: Normal Bowel Sounds, Soft, Abdomen, Obese Edema: No Labs: CBC, BMP 04/27/17 05:35 04/27/17 05:35 INR, PTT INR 1.08 (0.82-1.09) 04/23/17 16:00 - ....Imaging EKG: Report Reviewed (Tele: V-paced) Problem List - Problems (1) Acute respiratory failure with hypoxia Code(s): J96.01 - ACUTE RESPIRATORY FAILURE WITH HYPOXIA (2) CAD (coronary artery disease) Code(s): I25.10 - ATHSCL HEART DISEASE OF [place] CORONARY ARTERY W/O ANG PCTRS Qualifiers: Qualified Code(s): I25.10 - Atherosclerotic heart disease of [place] coronary artery without angina pectoris (3) Diabetes Code(s): E11.9 - TYPE 2 DIABETES MELLITUS WITHOUT COMPLICATIONS (4) HTN (hypertension) Code(s): I10 - ESSENTIAL (PRIMARY) HYPERTENSION Qualifiers: Qualified Code(s): I10 - Essential (primary) hypertension (5) SOB (shortness of breath) on exertion Code(s): R06.02 - SHORTNESS OF BREATH (6) S/P CABG x 3 Code(s): Z95.1 - PRESENCE OF AORTOCORONARY BYPASS GRAFT (7) Hypothyroidism Code(s): E03.9 - HYPOTHYROIDISM, UNSPECIFIED Qualifiers: Qualified Code(s): E03.9 - Hypothyroidism, unspecified (8) Pulmonary hypertension Code(s): I27.2 - OTHER SECONDARY PULMONARY HYPERTENSION (9) Interstitial lung disease Code(s): J84.9 - INTERSTITIAL PULMONARY DISEASE, UNSPECIFIED (10) Moderate aortic valve stenosis Code(s): I35.0 - NONRHEUMATIC AORTIC (VALVE) STENOSIS (11) LEFTY (acute kidney injury) Code(s): N17.9 - ACUTE KIDNEY FAILURE, UNSPECIFIED Assessment/Plan Echocardiography dated 12/09/2016 revealed moderate degree of LVH, normal LV systolic function with LV EF 75%, mild LAE 4.5 cm, moderate NICK 1.4 cm^2, Right and left heart cardiac catherterization coronary angiography dated 2016 revealed 3 vessel CAD patent MCCAULEY->LAD, patent free radial->LAD-D1, patent SVG->RPDA, normal LVEF 55%, NICK 0.93 cm^2, severe pulm HTN PAP 71/25 mmHg, PCWP 21 mmHg, LVEDP 17 mmHg 1. Acute hypoxemic respiratory failure referable to progressive ILD ( interstitial lung disease) 2. CAD post CABG, angina pectoris 3. Diastolic dysfunction with chronic class I-II DANIELLE classification LV failure , compensated (euvolemic) 4. Moderate 5. Severe pulm HTN 6. Persistent atrail fibrillation, paroxysmal atrial flutter not on A/C due to liver cirrhosis and esophageal varices, [id number] score of 5 7. Sick sinus syndrome post PPM 8. HTN 9. DM 10. Hypothyroidism 11. OSAS 12. Acute renal insufficiency, resolving PLAN: 1. IV steroids and bronchodilators as per pulmonary team, patient will require home O2 therapy, NIPPV for OSAS 2. Continue Toprol XL 25 qhs 3. Continue Accupril 5 qd 4. Continue Lasix 40 qd and Aldactone 25 qd with caution and close monitoring of renal function 5. Continue ASA 81 qd 6. Evaluation of causes of ILD (interstitial lung disease) including decision for VATS-wedge as per the pulmonary team
[2017-04-27] MEDS: CHOLECALCIFEROL (VITAMIN D3) 1,000 UNIT TABLET (FP) PO SCH (09:48)
[2017-04-27] MEDS: QUINAPRIL HCL 5 MG TABLET (FP) PO SCH (09:49)
[2017-04-27] MEDS: FUROSEMIDE 40 MG TABLET (FP) PO SCH (09:49)
[2017-04-27] MEDS: ASPIRIN COATED 81 MG TABLET.EC PO SCH (09:49)
[2017-04-27] MEDS: SPIRONOLACTONE 25 MG TABLET (FP) PO SCH (09:49)
[2017-04-27] MEDS: ESCITALOPRAM OXALATE 10 MG TABLET (FP) PO SCH (09:49)
[2017-04-27] MEDS: POLYETHYLENE GLYCOL 3350 119 GM BTL PO SCH ×2 (09:50→22:46)
--- NOTE | 2017-04-27 09:50 | PN ---
Progress Note (short form) - Note Progress Note: Patient feels less SOB on IV steroids and would like to go home Thursday. He is on IV steroids and I will await Pulmonary MD followup Re: outpatient dose of steroids. He is on 3L/min O2 and I can arrange home o2 and VNS. No chest pains or coughing. Seen By Cardiology MD also. Last BGM 117. On Exam: Vital Signs Temp 98.2 F 04/27/17 09:42 Pulse 72 04/27/17 09:42 Resp 16 04/27/17 09:42 BP 126/70 04/27/17 09:42 Pulse Ox 96 04/26/17 21:00 Intake & Output 04/26/17 04/26/17 04/27/17 11:59 23:59 11:59 Weight 201 lb 200 lb 6 oz Other: Voiding Method Toilet Toilet Weight Measurement Method Standing Scale Standing Scale Alert Blind Chest: Decreased breath sounds with a few rhonchi at the bases. 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 dose steroids Home O2 and VNS F/U Lab Redo O2 sat for home O2 Problem List - Problems (1) Interstitial lung disease Code(s): J84.9 - INTERSTITIAL PULMONARY DISEASE, UNSPECIFIED (2) Hypoxia Code(s): R09.02 - HYPOXEMIA (3) Diabetes Code(s): E11.9 - TYPE 2 DIABETES MELLITUS WITHOUT COMPLICATIONS Qualifiers: Diabetes mellitus type: type 2 Diabetes mellitus complication status: with ophthalmic complications Diabetes mellitus complication detail: with diabetic retinopathy (4) CAD (coronary artery disease) Code(s): I25.10 - ATHSCL HEART DISEASE OF [place] CORONARY ARTERY W/O ANG PCTRS Qualifiers: Coronary Disease-Associated Artery/Lesion type: [place] artery [place] vs. transplanted heart: [place] heart Associated angina: without angina Qualified Code(s): I25.10 - Atherosclerotic heart disease of [place] coronary artery without angina pectoris (5) S/P CABG x 3 Code(s): Z95.1 - PRESENCE OF AORTOCORONARY BYPASS GRAFT
--- NOTE | 2017-04-27 10:58 | PN ---
Progress Note, Physician History of Present Illness: pulmonary alert,feeling better,less dyspneic. +O2 desaturation with exercise - Current Medication List Current Medications: Active Medications Acetaminophen (Tylenol -) 650 mg PO Q4H PRN PRN Reason: FEVER OR PAIN Aspirin (Ecotrin -) 81 mg PO DAILY [facility] Last Admin: 04/27/17 09:49 Dose: 81 mg Cholecalciferol (Vitamin D3 -) 2,000 unit PO DAILY [facility] Last Admin: 04/27/17 09:48 Dose: 2,000 unit Escitalopram Oxalate (Lexapro -) 10 mg PO DAILY [facility] Last Admin: 04/27/17 09:49 Dose: 10 mg Furosemide (Lasix -) 40 mg PO DAILY [facility] Last Admin: 04/27/17 09:49 Dose: 40 mg Glimepiride (Amaryl -) 2 mg PO BIDAC [facility] Last Admin: 04/27/17 06:25 Dose: 2 mg Heparin Sodium (Porcine) (Heparin -) 5,000 unit SQ Q8H-IV [facility] Last Admin: 04/27/17 09:49 Dose: 5,000 unit Insulin Aspart (Novolog Vial Sliding Scale -) 0 vial SQ [facility] PRN Reason: Protocol Last Admin: 04/27/17 06:27 Dose: Not Given Insulin Detemir (Levemir Vial) 35 units SQ [facility] Last Admin: 04/26/17 22:42 Dose: 35 unit Levothyroxine Sodium (Synthroid -) 25 mcg PO DAILY@0700 [facility] Last Admin: 04/27/17 06:25 Dose: 25 mcg Methylprednisolone Sodium Succinate (Solu-Medrol -) 40 mg IVPB Q8H-IV [facility] Last Admin: 04/27/17 09:49 Dose: 40 mg Metoprolol Succinate (Toprol Xl -) 25 mg PO HS [facility] Last Admin: 04/26/17 22:42 Dose: 25 mg Non-Formulary Medication (Mirabegron [Myrbetriq]) 25 mg PO DAILY [facility] Non-Formulary Medication (Naratriptan Hcl [Naratriptan Hcl]) 2.5 mg PO DAILY [facility] Non-Formulary Medication (Canagliflozin [Invokana]) 100 mg PO DAILY [facility] Ondansetron HCl (Zofran Injection) 4 mg IVPB Q6H PRN PRN Reason: NAUSEA Polyethylene Glycol (Miralax (For Daily Use) -) 17 gm PO BID [facility] Last Admin: 04/27/17 09:50 Dose: 17 grams Quinapril HCl (Accupril -) 5 mg PO DAILY [facility] Last Admin: 04/27/17 09:49 Dose: 5 mg Spironolactone (Aldactone -) 25 mg PO DAILY [facility] Last Admin: 04/27/17 09:49 Dose: 25 mg - Objective Vital Signs: Vital Signs Temperature 98.2 F 04/27/17 09:42 Pulse Rate 72 04/27/17 09:42 Respiratory Rate 16 04/27/17 09:42 Blood Pressure 126/70 04/27/17 09:42 O2 Sat by Pulse Oximetry (%) 96 04/26/17 21:00 Constitutional: Yes: Well Nourished, Calm Eyes: Yes: WNL HENT: Yes: WNL Neck: Yes: WNL Cardiovascular: Yes: Pulse Irregular, S1, S2 Respiratory: Yes: Rales (BIBASILAR CRACKLES) Gastrointestinal: Yes: Normal Bowel Sounds, Soft Extremities: Yes: WNL Edema: No Labs: CBC, BMP 04/27/17 05:35 04/27/17 05:35 INR, PTT INR 1.08 (0.82-1.09) 04/23/17 16:00 Assessment/Plan ACUTE HYPOXEMIC RESP FAILURE ON BASIS OF PROGRESSIVE ILD DIASTOLIC HF ASHD S/P CABG AFIB PUL HTN DM OLLIE PLAN STEROIDS HOME O2 INHALED BRONCHODILATORS PREDNISONE PULMONARY REHAB DR DAS Problem List - Problems (1) CAD (coronary artery disease) Code(s): I25.10 - ATHSCL HEART DISEASE OF [place] CORONARY ARTERY W/O ANG PCTRS Qualifiers: Coronary Disease-Associated Artery/Lesion type: [place] artery [place] vs. transplanted heart: [place] heart Associated angina: without angina Qualified Code(s): I25.10 - Atherosclerotic heart disease of [place] coronary artery without angina pectoris (2) Diabetes Code(s): E11.9 - TYPE 2 DIABETES MELLITUS WITHOUT COMPLICATIONS Qualifiers: Diabetes mellitus type: type 2 Diabetes mellitus complication status: with ophthalmic complications Diabetes mellitus complication detail: with diabetic retinopathy (3) HTN (hypertension) Code(s): I10 - ESSENTIAL (PRIMARY) HYPERTENSION Qualifiers: Hypertension type: essential hypertension Qualified Code(s): I10 - Essential (primary) hypertension (4) Hypoxia Code(s): R09.02 - HYPOXEMIA (5) SOB (shortness of breath) on exertion Code(s): R06.02 - SHORTNESS OF BREATH (6) Acute respiratory failure with hypoxia Code(s): J96.01 - ACUTE RESPIRATORY FAILURE WITH HYPOXIA
[2017-04-27] MEDS: METOPROLOL SUCCINATE 25 MG TAB.SR.24H (FP) PO SCH (22:42)
[2017-04-27] MEDS: INSULIN DETEMIR 100 UNITS/ML MDV SQ SCH (22:46)
[2017-04-28] MEDS: HEPARIN NA (PORCINE) 5,000 UNITS/ML 1ML VIAL SQ SCH ×2 (03:26→10:04)
[2017-04-28] MEDS: INSULIN SLIDING SCALE (NOVOLOG) 1 VIAL SQ SCH (06:02)
[2017-04-28] MEDS: LEVOTHYROXINE NA 25 MCG TABLET (FP) PO SCH (06:02)
[2017-04-28] MEDS: GLIMEPIRIDE 2 MG TABLET (FP) PO SCH (06:02)
[2017-04-28 08:37] LABS: ANION GAP 6 (8-16); CALCIUM 9.5 mg/dL (8.5-10.1); CO2 30 mmol/L (21-32); GLUCOSE,RANDOM 64 mg/dL (74-106)
[2017-04-28 08:44] LABS: THYROID STIMULATING HORMONE 1.74 uIU/ml (0.358-3.74)
[2017-04-28 08:45] VITALS: BP 126/70; PULSE 70; TEMP 98.2
--- NOTE | 2017-04-28 09:41 | PN ---
Progress Note, Physician Chief Complaint: PULMONARY ALET,NAD,-CP ,LESS DYSPNEIC - Current Medication List Current Medications: Active Medications Acetaminophen (Tylenol -) 650 mg PO Q4H PRN PRN Reason: FEVER OR PAIN Aspirin (Ecotrin -) 81 mg PO DAILY [facility] Last Admin: 04/27/17 09:49 Dose: 81 mg Cholecalciferol (Vitamin D3 -) 2,000 unit PO DAILY [facility] Last Admin: 04/27/17 09:48 Dose: 2,000 unit Escitalopram Oxalate (Lexapro -) 10 mg PO DAILY [facility] Last Admin: 04/27/17 09:49 Dose: 10 mg Furosemide (Lasix -) 40 mg PO DAILY [facility] Last Admin: 04/27/17 09:49 Dose: 40 mg Glimepiride (Amaryl -) 2 mg PO BIDAC [facility] Last Admin: 04/28/17 06:02 Dose: 2 mg Heparin Sodium (Porcine) (Heparin -) 5,000 unit SQ Q8H-IV [facility] Last Admin: 04/28/17 03:26 Dose: 5,000 unit Insulin Aspart (Novolog Vial Sliding Scale -) 0 vial SQ [facility] PRN Reason: Protocol Last Admin: 04/28/17 06:02 Dose: Not Given Insulin Detemir (Levemir Vial) 35 units SQ [facility] Last Admin: 04/27/17 22:46 Dose: 35 unit Levothyroxine Sodium (Synthroid -) 25 mcg PO DAILY@0700 [facility] Last Admin: 04/28/17 06:02 Dose: 25 mcg Metoprolol Succinate (Toprol Xl -) 25 mg PO HS [facility] Last Admin: 04/27/17 22:42 Dose: 25 mg Non-Formulary Medication (Mirabegron [Myrbetriq]) 25 mg PO DAILY [facility] Non-Formulary Medication (Naratriptan Hcl [Naratriptan Hcl]) 2.5 mg PO DAILY [facility] Non-Formulary Medication (Canagliflozin [Invokana]) 100 mg PO DAILY [facility] Ondansetron HCl (Zofran Injection) 4 mg IVPB Q6H PRN PRN Reason: NAUSEA Polyethylene Glycol (Miralax (For Daily Use) -) 17 gm PO BID [facility] Last Admin: 04/27/17 22:46 Dose: 17 grams Prednisone (Deltasone -) 60 mg PO DAILY [facility] Quinapril HCl (Accupril -) 5 mg PO DAILY [facility] Last Admin: 04/27/17 09:49 Dose: 5 mg Spironolactone (Aldactone -) 25 mg PO DAILY [facility] Last Admin: 04/27/17 09:49 Dose: 25 mg - Objective Vital Signs: Vital Signs Temperature 98.2 F 04/28/17 08:00 Pulse Rate 70 04/28/17 08:00 Respiratory Rate 14 04/28/17 08:00 Blood Pressure 126/70 04/28/17 08:00 O2 Sat by Pulse Oximetry (%) 94 L 04/27/17 21:00 Constitutional: Yes: Well Nourished, Calm Eyes: Yes: WNL HENT: Yes: WNL Neck: Yes: WNL Cardiovascular: Yes: Regular Rate and Rhythm, S1, S2 Respiratory: Yes: Rales (VIDA CRACKLES) Gastrointestinal: Yes: Normal Bowel Sounds, Soft Extremities: Yes: WNL Edema: No Labs: CBC, BMP 04/28/17 05:48 INR, PTT INR 1.08 (0.82-1.09) 04/23/17 16:00 Assessment/Plan ACUTE HYPOXEMIC RESP FAILURE ON BASIS OF PROGRESSIVE ILD DIASTOLIC HF ASHD S/P CABG AFIB PUL HTN DM OLLIE PLAN HOME O2 INHALED BRONCHODILATORS PREDNISONE PULMONARY REHAB DR DAS Problem List - Problems (1) CAD (coronary artery disease) Code(s): I25.10 - ATHSCL HEART DISEASE OF [place] CORONARY ARTERY W/O ANG PCTRS Qualifiers: Coronary Disease-Associated Artery/Lesion type: [place] artery [place] vs. transplanted heart: [place] heart Associated angina: without angina Qualified Code(s): I25.10 - Atherosclerotic heart disease of [place] coronary artery without angina pectoris (2) Diabetes Code(s): E11.9 - TYPE 2 DIABETES MELLITUS WITHOUT COMPLICATIONS Qualifiers: Diabetes mellitus type: type 2 Diabetes mellitus complication status: with ophthalmic complications Diabetes mellitus complication detail: with diabetic retinopathy (3) HTN (hypertension) Code(s): I10 - ESSENTIAL (PRIMARY) HYPERTENSION Qualifiers: Hypertension type: essential hypertension Qualified Code(s): I10 - Essential (primary) hypertension (4) Hypoxia Code(s): R09.02 - HYPOXEMIA (5) SOB (shortness of breath) on exertion Code(s): R06.02 - SHORTNESS OF BREATH (6) Acute respiratory failure with hypoxia Code(s): J96.01 - ACUTE RESPIRATORY FAILURE WITH HYPOXIA
[2017-04-28] MEDS ORDERED: predniSONE 20 MG TABLET (UD) PO SCH (10:00)
[2017-04-28] MEDS: SPIRONOLACTONE 25 MG TABLET (FP) PO SCH (10:04)
[2017-04-28] MEDS: FUROSEMIDE 40 MG TABLET (FP) PO SCH (10:04)
[2017-04-28] MEDS: ESCITALOPRAM OXALATE 10 MG TABLET (FP) PO SCH (10:04)
[2017-04-28] MEDS: CHOLECALCIFEROL (VITAMIN D3) 1,000 UNIT TABLET (FP) PO SCH (10:04)
[2017-04-28] MEDS: QUINAPRIL HCL 5 MG TABLET (FP) PO SCH (10:05)
[2017-04-28] MEDS: ASPIRIN COATED 81 MG TABLET.EC PO SCH (10:05)
[2017-04-28] MEDS: POLYETHYLENE GLYCOL 3350 119 GM BTL PO SCH (10:06)
--- NOTE | 2017-04-28 10:41 | PN ---
Progress Note, Physician History of Present Illness: Dyspnea slowly improving. - Current Medication List Current Medications: Active Medications Acetaminophen (Tylenol -) 650 mg PO Q4H PRN PRN Reason: FEVER OR PAIN Aspirin (Ecotrin -) 81 mg PO DAILY [facility] Last Admin: 04/28/17 10:05 Dose: 81 mg Cholecalciferol (Vitamin D3 -) 2,000 unit PO DAILY [facility] Last Admin: 04/28/17 10:04 Dose: 2,000 unit Escitalopram Oxalate (Lexapro -) 10 mg PO DAILY [facility] Last Admin: 04/28/17 10:04 Dose: 10 mg Furosemide (Lasix -) 40 mg PO DAILY [facility] Last Admin: 04/28/17 10:04 Dose: 40 mg Glimepiride (Amaryl -) 2 mg PO BIDAC [facility] Last Admin: 04/28/17 06:02 Dose: 2 mg Heparin Sodium (Porcine) (Heparin -) 5,000 unit SQ Q8H-IV [facility] Last Admin: 04/28/17 10:04 Dose: 5,000 unit Insulin Aspart (Novolog Vial Sliding Scale -) 0 vial SQ [facility] PRN Reason: Protocol Last Admin: 04/28/17 06:02 Dose: Not Given Insulin Detemir (Levemir Vial) 35 units SQ HS [facility] Last Admin: 04/27/17 22:46 Dose: 35 unit Levothyroxine Sodium (Synthroid -) 25 mcg PO DAILY@0700 [facility] Last Admin: 04/28/17 06:02 Dose: 25 mcg Metoprolol Succinate (Toprol Xl -) 25 mg PO HS [facility] Last Admin: 04/27/17 22:42 Dose: 25 mg Non-Formulary Medication (Mirabegron [Myrbetriq]) 25 mg PO DAILY [facility] Non-Formulary Medication (Naratriptan Hcl [Naratriptan Hcl]) 2.5 mg PO DAILY [facility] Non-Formulary Medication (Canagliflozin [Invokana]) 100 mg PO DAILY [facility] Ondansetron HCl (Zofran Injection) 4 mg IVPB Q6H PRN PRN Reason: NAUSEA Polyethylene Glycol (Miralax (For Daily Use) -) 17 gm PO BID [facility] Last Admin: 04/28/17 10:06 Dose: 17 grams Prednisone (Deltasone -) 60 mg PO DAILY [facility] Last Admin: 04/28/17 10:04 Dose: 60 mg Quinapril HCl (Accupril -) 5 mg PO DAILY [facility] Last Admin: 04/28/17 10:05 Dose: 5 mg Spironolactone (Aldactone -) 25 mg PO DAILY [facility] Last Admin: 04/28/17 10:04 Dose: 25 mg - Objective Vital Signs: Vital Signs Temperature 98.2 F 04/28/17 08:00 Pulse Rate 70 04/28/17 08:00 Respiratory Rate 14 04/28/17 08:00 Blood Pressure 126/70 04/28/17 08:00 O2 Sat by Pulse Oximetry (%) 94 L 04/27/17 21:00 Constitutional: Yes: No Distress, Calm Neck: Yes: Supple Cardiovascular: Yes: Regular Rate and Rhythm, Murmur (2/6 SM) Respiratory: Yes: Regular, Diminished Gastrointestinal: Yes: Normal Bowel Sounds, Soft, Abdomen, Obese Edema: No Labs: CBC, BMP 04/27/17 05:35 04/28/17 05:48 INR, PTT INR 1.08 (0.82-1.09) 04/23/17 16:00 - ....Imaging EKG: Report Reviewed (Tele: Underlying afib, v-paced) Problem List - Problems (1) Acute respiratory failure with hypoxia Code(s): J96.01 - ACUTE RESPIRATORY FAILURE WITH HYPOXIA (2) CAD (coronary artery disease) Code(s): I25.10 - ATHSCL HEART DISEASE OF [place] CORONARY ARTERY W/O ANG PCTRS Qualifiers: Coronary Disease-Associated Artery/Lesion type: [place] artery [place] vs. transplanted heart: [place] heart Associated angina: without angina Qualified Code(s): I25.10 - Atherosclerotic heart disease of [place] coronary artery without angina pectoris (3) Diabetes Code(s): E11.9 - TYPE 2 DIABETES MELLITUS WITHOUT COMPLICATIONS Qualifiers: Diabetes mellitus type: type 2 Diabetes mellitus complication status: with ophthalmic complications Diabetes mellitus complication detail: with diabetic retinopathy (4) HTN (hypertension) Code(s): I10 - ESSENTIAL (PRIMARY) HYPERTENSION Qualifiers: Hypertension type: essential hypertension Qualified Code(s): I10 - Essential (primary) hypertension (5) SOB (shortness of breath) on exertion Code(s): R06.02 - SHORTNESS OF BREATH (6) S/P CABG x 3 Code(s): Z95.1 - PRESENCE OF AORTOCORONARY BYPASS GRAFT (7) Hypothyroidism Code(s): E03.9 - HYPOTHYROIDISM, UNSPECIFIED Qualifiers: Hypothyroidism type: unspecified Qualified Code(s): E03.9 - Hypothyroidism, unspecified (8) Pulmonary hypertension Code(s): I27.2 - OTHER SECONDARY PULMONARY HYPERTENSION (9) Interstitial lung disease Code(s): J84.9 - INTERSTITIAL PULMONARY DISEASE, UNSPECIFIED (10) Moderate aortic valve stenosis Code(s): I35.0 - NONRHEUMATIC AORTIC (VALVE) STENOSIS (11) LEFTY (acute kidney injury) Code(s): N17.9 - ACUTE KIDNEY FAILURE, UNSPECIFIED Assessment/Plan Echocardiography dated 12/09/2016 revealed moderate degree of LVH, normal LV systolic function with LV EF 75%, mild LAE 4.5 cm, moderate NICK 1.4 cm^2, Right and left heart cardiac catherterization coronary angiography dated 2016 revealed 3 vessel CAD patent MCCAULEY->LAD, patent free radial->LAD-D1, patent SVG->RPDA, normal LVEF 55%, NICK 0.93 cm^2, severe pulm HTN PAP 71/25 mmHg, PCWP 21 mmHg, LVEDP 17 mmHg 1. Acute hypoxemic respiratory failure referable to progressive ILD ( interstitial lung disease) 2. CAD post CABG, angina pectoris 3. Diastolic dysfunction with chronic class I-II DANIELLE classification LV failure , compensated (euvolemic) 4. Moderate 5. Severe pulm HTN 6. Persistent atrail fibrillation, paroxysmal atrial flutter not on A/C due to liver cirrhosis and esophageal varices, [id number] score of 5 7. Sick sinus syndrome post PPM 8. HTN 9. DM 10. Hypothyroidism 11. OSAS 12. Acute renal insufficiency, resolving PLAN: 1. Oral steroid taper and bronchodilators as per pulmonary team, patient will require home O2 therapy, NIPPV for OSAS, pulmonary rehab 2. Continue Toprol XL 25 qhs 3. Continue Accupril 5 qd 4. Continue Lasix 40 qd and Aldactone 25 qd with caution and close monitoring of renal function 5. Continue ASA 81 qd 6. Evaluation of causes of ILD (interstitial lung disease) including decision for VATS-wedge as per the pulmonary team
--- NOTE | 2017-04-28 10:55 | DS ---
Physical Examination Vital Signs: Vital Signs Temperature 98.2 F 04/28/17 08:00 Pulse Rate 70 04/28/17 08:00 Respiratory Rate 14 04/28/17 08:00 Blood Pressure 126/70 04/28/17 08:00 O2 Sat by Pulse Oximetry (%) 94 L 04/27/17 21:00 Constitutional: Yes: Calm Eyes: Yes: Other (opaque sclera) HENT: No: Hoarseness Cardiovascular: Yes: Regular Rate and Rhythm (pacemaker rhythm) Respiratory: Yes: Diminished. No: Rales, Wheezes Gastrointestinal: Yes: Soft, Abdomen, Obese. No: Tenderness Edema: LLE: Trace, RLE: Trace Neurological: Yes: Alert, Oriented Labs: CBC, BMP 04/27/17 05:35 04/28/17 05:48 Discharge Summary Reason For Visit: SHORTNESS OF BREATH ON EXERTION; HYPOXIA Current Active Problems LEFTY (acute kidney injury) (Acute) Acute respiratory failure with hypoxia (Acute) CAD (coronary artery disease) (Acute) Diabetes (Acute) HTN (hypertension) (Acute) Hyperkalemia (Acute) Hypothyroidism (Acute) Hypoxia (Acute) Interstitial lung disease (Acute) Moderate aortic valve stenosis (Acute) Pulmonary hypertension (Acute) S/P CABG x 3 (Acute) SOB (shortness of breath) on exertion (Acute) Pacemaker 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 While you while home. We will taper down his prednisone from 60 mg a day for 2 days down to 40 mg for 7 days down to 30 mg until you see the pulmonary DrParul as an outpatient. Your sugar may be elevated because of these changes. Try to followup with both Dr. Reyes and Dr. Ferrer within 2 weeks. VNS will visit tomorrow. The heart MD here has lowered your lasix and spironolactone to once a day and added Quinapril 1 tab a day. Referrals: Quoc Ferrer MD [Staff Physician] - Brayan Yi MD [Staff Physician] - Addison Reyes MD [Primary Care Provider] - [facility] - Home Medications Comprehensive Discharge Medication List: Ambulatory Orders Aspirin [Ecotrin] 81 mg PO DAILY 04/23/17 Canagliflozin [Invokana] 100 mg PO DAILY 04/23/17 Ergocalciferol (Vitamin D2) [Vitamin D2] 2,000 unit PO DAILY 04/23/17 Escitalopram Oxalate [Lexapro -] 10 mg PO DAILY 04/23/17 Glimepiride [Amaryl] 2 mg PO BID 04/23/17 Insulin Aspart Prot/Insuln Asp [Novolog Mix 70-30 Flexpen Syrn] 35 unit SQ HS Levothyroxine [Synthroid -] 25 mcg PO DAILY 04/23/17 Metoprolol Succinate [Toprol XL -] 25 mg PO HS 04/23/17 Mirabegron [Myrbetriq] 25 mg PO DAILY 04/23/17 Naratriptan HCl 2.5 mg PO DAILY 04/23/17 Polyethylene Glycol 3350 [Miralax 255 gm Btl -] 17 gm PO DAILY 04/23/17 Acetaminophen [Tylenol .Regular Strength -] 650 mg PO Q4H PRN #0 tablet Furosemide [Lasix -] 40 mg PO DAILY tablet 04/28/17 Prednisone [Deltasone -] 60 mg PO DAILY #90 tablet 04/28/17 Quinapril HCl [Accupril -] 5 mg PO DAILY #0 tablet 04/28/17 Spironolactone [Aldactone -] 25 mg PO DAILY tablet 04/28/17
[2017-04-30 00:07] LABS: A/G RATIO 1.1 (0.7-1.7); ALBUMIN 3.6 g/dL (2.9-4.4); ALPHA-1-GLOBULIN 0.2 g/dL (0.0-0.4); BETA GLOBULIN 1.3 g/dL (0.7-1.3); GAMMA GLOBULIN 1.1 g/dL (0.4-1.8); GLOBULIN, TOTAL 3.4 g/dL (2.2-3.9); M-SPIKE Not Observed g/dL (Not Observed)
== END 2017-04-28 13:13 | disposition home health service (06) | DRG 196 ==
LOC: JER 14:21 → JERBED 16:38 → J4W 19:22
PROVIDERS: ADMIT Internal Medicine; ATTEND Internal Medicine
DX: J84.9 Interstitial pulmonary disease, unspecified (principal); J96.01 Acute respiratory failure with hypoxia; I48.92 Unspecified atrial flutter; N17.9 Acute kidney failure, unspecified; I48.1 Persistent atrial fibrillation; I50.32 Chronic diastolic (congestive) heart failure; E87.5 Hyperkalemia; E11.9 Type 2 diabetes mellitus without complications; I25.10 Atherosclerotic heart disease of native coronary artery without angina pectoris; Z95.0 Presence of cardiac pacemaker; H54.8 Legal blindness, as defined in USA; Z95.1 Presence of aortocoronary bypass graft; Z79.4 Long term (current) use of insulin; I35.0 Nonrheumatic aortic (valve) stenosis; I27.2 Other secondary pulmonary hypertension; I11.0 Hypertensive heart disease with heart failure; G47.33 Obstructive sleep apnea (adult) (pediatric); E78.5 Hyperlipidemia, unspecified; E03.9 Hypothyroidism, unspecified; K74.60 Unspecified cirrhosis of liver; E66.9 Obesity, unspecified; Z68.35 Body mass index [BMI] 35.0-35.9, adult
CPT/HCPCS: 36415; 71010-TC; 71250-TC; 80048; 80053; 82550; 82784; 82803; 83735; 83880; 84100; 84155; 84165; 84443; 84484; 85025; 85379; 85610; 85651; 86038; 86334; 87040; 93005; 93010; 94761; 99283-25; J1644

== ENCOUNTER 2018-02-13 11:22 | Inpatient (IN) | payer OTHER, BC ==
[2018-02-13 11:30] VITALS: BMI 39.1
--- NOTE | 2018-02-13 11:59 | PDOC ---
History of Present Illness - General Chief Complaint: Shortness of Breath Stated Complaint: SOB (PCP SENT) Time Seen by Provider: 02/13/18 11:58 History Source: Patient, Spouse Exam Limitations: No Limitations - History of Present Illness Initial Comments: 02/13/18 16:21 Pt is a blind 72 yo M with PMHx of ILD and COPD, LEFTY, CAD, DM, PHTN, Cirrhosis secondary to LUNA, gastric varices presenting today with worsenign shortness of breath and weight gain. Patient uses home oxygen for ILD, but has noticed increased breathlessness resulting from generalized fluid retention despite lasix and spironolone. A week ago, pt tripped over the pet dog and scrapped his LUQ and R wallace. Pt takes aspirin and plavix but did not hit his head. He has increased urinary frequency, which he attributes to the diuretics, but no hematuria, no dysuria, no cough or palpitations. No syncope, seizures or weakness of any side of the body. This morning, the patient's made a call to his outdoor adventure leader, Dr Yi, who asked them to come to the emergency room. 02/13/18 16:43 Timing/Duration: getting worse Severity: moderate Associated Symptoms: denies: chest pain, cough, fever/chills, headaches Past History - Travel Traveled outside of the country in the last 30 days: No Close contact w/someone who was outside of country & ill: No - Past Medical History Allergies/Adverse Reactions: Allergies Allergy/AdvReac Type Severity Reaction Status Date / Time codeine [Codeine] Allergy Severe Itching Verified 02/13/18 11:29 Home Medications: Ambulatory Orders Aspirin [Ecotrin] 81 mg PO DAILY 04/23/17 Canagliflozin [Invokana] 100 mg PO DAILY 04/23/17 Ergocalciferol (Vitamin D2) [Vitamin D2] 2,000 unit PO DAILY 04/23/17 Escitalopram Oxalate [Lexapro -] 10 mg PO DAILY 04/23/17 Glimepiride [Amaryl] 2 mg PO BID 04/23/17 Insulin Aspart Prot/Insuln Asp [Novolog Mix 70-30 Flexpen Syrn] 20 unit SQ HS Levothyroxine [Synthroid -] 25 mcg PO DAILY 04/23/17 Metoprolol Succinate [Toprol XL -] 25 mg PO HS 04/23/17 Naratriptan HCl 2.5 mg PO DAILY 04/23/17 Polyethylene Glycol 3350 [Miralax 255 gm Btl -] 17 gm PO DAILY 04/23/17 Acetaminophen [Tylenol .Regular Strength -] 650 mg PO Q4H PRN #0 tablet Furosemide [Lasix -] 40 mg PO DAILY tablet 04/28/17 Quinapril HCl [Accupril -] 5 mg PO DAILY #0 tablet 04/28/17 Spironolactone [Aldactone -] 25 mg PO DAILY tablet 04/28/17 Clopidogrel Bisulfate [Plavix] 75 mg PO DAILY 02/13/18 Tadalafil [Adcirca] 20 mg PO DAILY 02/13/18 predniSONE [Deltasone -] 10 mg PO DAILY 02/13/18 Anemia: No Asthma: No Cancer: No Cardiac Disorders: Yes (ASHD, AF) CVA: No COPD: Yes CHF: Yes Dementia: No Diabetes: Yes (IDDM) GI Disorders: Yes (GERD, HH, DIVERTICULITIS, ULCER) Disorders: No HTN: Yes Hypercholesterolemia: No Liver Disease: Yes (CIRRHOSIS SECONDARY TO LUNA) Seizures: No Thyroid Disease: No Other medical history: intersticial lung disease - Surgical History Abdominal Surgery: Yes (SIGMOID RESECTION, TEMP COLOSTOMY, REVERSED) Appendectomy: Yes Cardiac Surgery: Yes (S/P CABG, PACEMAKER, TRIPLE BYPASS) Cholecystectomy: Yes Lung Surgery: No Neurologic Surgery: No Orthopedic Surgery: No - Suicide/Smoking/Psychosocial Hx Smoking Status: Yes Smoking History: Never smoked Have you smoked in the past 12 months: No Number of Cigarettes Smoked Daily: 0 If you are a former smoker, when did you quit?: 30YRS AGO Hx Alcohol Use: No Drug/Substance Use Hx: No Substance Use Type: None *Physical Exam - Vital Signs Last Vital Signs Temp Pulse Resp BP Pulse Ox 98 F 75 20 131/62 97 02/13/18 11:24 02/13/18 11:24 02/13/18 11:24 02/13/18 11:24 02/13/18 11:24 - Physical Exam General Appearance: Yes: Apparent Distress HEENT: negative: Scleral Icterus (L), Sinus Tenderness Neck: positive: Supple Respiratory/Chest: positive: Crackles (bilateral basal creps) Cardiovascular: positive: Regular Rate, S1, S2, Murmur (systolic ejection murmur grade 3/6 L sternal border radiating to apex) Vascular Pulses: Dorsalis-Pedis (R): 2+, Doralis-Pedis (L): 2+ Gastrointestinal/Abdominal: positive: Distended (dull to percussion) Musculoskeletal: positive: Other (L costochondral bruise) Extremity: positive: Other (R wallace bruise, ) Neurologic: positive: Alert, Other (Opaque L cornea). negative: Abnormal Cranial NS, EOM Palsy, Numbness ED Treatment Course - LABORATORY CBC & Chemistry Diagram: 02/13/18 12:25 02/13/18 12:25 Medical Decision Making - Medical Decision Making 02/13/18 16:35 EKG, trops, ABG, CBC, CMPs, Coags, UA, Urine culture, CXR, BNP, Lactic acid were ordered Patient received iv 8omg lasix 02/13/18 16:51 BNP is greater than 1000 With his ILD CXR was difficult to interprete based on report but increased cardiac silhouette noted 02/13/18 17:11 Pt is able to pass urine and is feeling less dyspneic Is however being admitted to Tele under Dr Reyes's service 02/13/18 17:16 *DC/Admit/Observation/Transfer Diagnosis at time of Disposition: Acute respiratory failure with hypoxia, Pulmonary hypertension, SOB (shortness of breath) on exertion, CHF (congestive heart failure) Diabetes Qualifiers: Diabetes mellitus type: type 2 Diabetes mellitus complication status: with ophthalmic complications Diabetes mellitus complication detail: with diabetic retinopathy CAD (coronary artery disease) Qualifiers: Coronary Disease-Associated Artery/Lesion type: [place] artery [place] vs. transplanted heart: [place] heart Associated angina: without angina Qualified Code(s): I25.10 - Atherosclerotic heart disease of [place] coronary artery without angina pectoris HTN (hypertension) Qualifiers: Hypertension type: essential hypertension Qualified Code(s): I10 - Essential ( primary) hypertension - Discharge Dispostion Condition at time of disposition: Fair Admit: Yes Decision to Admit order Date/Time: 02/13/18 16:12 Dr Knox spoke with Dr Reyes and he has accepted Mr Rodriguez 's admission under him for telemetry - Referrals Referrals: Addison Reyes MD [Primary Care Provider] - - Patient Instructions - Post Discharge Activity - Attestations Physician Attestion: 02/13/18 16:12 Jayna Hopkins MD
--- NOTE | 2018-02-13 12:12 | PDOC ---
Attending Attestation - Resident Resident Name: Jayna Hopkins I - HPI HPI: 02/13/18 14:05 The patient is a year old male, with a significant past medical history of hypertension, hyperlipidemia, type II diabetes, CAD, CABG and pacemaker, legally blind, ILD (2 liters in the morning and 3 liters at night), LEFTY, and cirrhosis, who presents to the emergency department with, abdominal distention, edema, and increased weight gain. As per patient, he fell when walking his dog a week ago and acquired multiple bruises and feels uncomfortable. He reports to be on Lasix. Secondary to his symptoms, he reports his chronic shortness of breath to worsen since the abdominal distension occurred. He denies any recent fevers, chills, headache or dizziness. He denies any recent nausea, vomit, diarrhea or constipation. He denies any recent chest pain or shortness of breath. He denies any recent dysuria, frequency, urgency or hematuria. Allergies: Codeine. Primary Care Physician: Dr. Reyes - Physicial Exam PE: 02/13/18 15:45 GENERAL: The patient is awake, alert, and fully oriented, Nontoxic - in no acute distress. HEAD: Normocephalic, atraumatic. EYES: Legally blind. Opaque left cornea. ENT: Normal voice, moist mucous membranes. NECK: Normal range of motion, supple without lymphadenopathy, JVD, or masses. (+)LUNGS: Crackles. No wheezes, no rales. HEART: Regular rate and rhythm, normal S1 and S2 without murmur, rub or gallop. (+)ABDOMEN: Distended. Ascites with thrills. Soft, nontender, normoactive bowel sounds. No guarding, no rebound. No masses. (+)EXTREMITIES: Edema of the bilateral lower extremities. Normal range of motion. No clubbing or cyanosis. No cords, erythema, or tenderness. NEUROLOGICAL: Fully Oriented, Alert, Normal Mood/Affect, Motor Strength 5/5. No facial assymetry, Normal speech (+)SKIN: Bruises without branches on the bilateral lower extremities and upper abdomen (healing) from a fall 1 week ago. Warm, Dry, normal turgor, no rashes or lesions noted. - Medical Decision Making 02/13/18 15:18 EKG performed at: 13 February 2018 Vent Rate 72 bpm ND interval 186 ms QRS duration 164 ms QT/QTc 496/543 ms P-R-T axes * -48 138 AV dual-paced rhythm Abnormal ECG <Ashok Carroll - Last Filed: 02/13/18 15:53> - Medical Decision Making I, Dr. Laura Knox, attest that the scribes documentation that appears above has been prepared under my direction and personally reviewed by me. I confirmed that the note above accurately reflects all work, treatment, procedures, and medical decision-making performed by me. Pt's labs noted and reviewed, Pt given lasix 80mg IVP in ED to help with sob, Pt is feeling better after lasix but will admit to tele and continue to monitor pt and continue diuresis. 02/13/18 16:33 02/13/18 16:36 Case discussed with admitting physician Dr. Reyes <Laura Knox - Last Filed: 02/13/18 16:36> Attestations - Attestations 02/13/18 14:06 Documentation prepared by Ashok Carroll, acting as medical records custodian for Laura Knox MD. <Ashok Carroll - Last Filed: 02/13/18 15:53>
[2018-02-13 12:36] LABS: MCH 31.9 pg (25.7-33.7)
[2018-02-13 12:37] LABS: VENOUS PC02 45.5 mmHg (38-52); VENOUS PH 7.39 (7.32-7.42)
[2018-02-13 12:44] LABS: BASO % 0.8 % (0-2.0); EOS % 2.8 % (0-4.5); HEMATOCRIT 31.5 % (35.4-49); HEMOGLOBIN 10.6 GM/dL (11.7-16.9); LYMPH % 11.9 % (8-40); MCHC 33.5 g/dl (32.0-35.9); MEAN PLT VOLUME 7.2 fl (7.5-11.1); MONO % 7.9 % (3.8-10.2); NEUT % 76.6 % (42.8-82.8); PLATELET COUNT 99 K/MM3 (134-434); RBC 3.32 M/mm3 (4.00-5.60); RDW 17.2 % (11.9-15.9); WHITE BLOOD COUNT 4.5 K/mm3 (4.0-10.0)
[2018-02-13] MEDS ORDERED: FUROSEMIDE 100 MG/10 ML INJECTABLE VIAL IVPB ONE (12:54)
[2018-02-13 13:03] LABS: PROTHROMBIN TIME (PATIENT) 11.3 SEC (9.98-11.88)
[2018-02-13 13:08] LABS: ALBUMIN 3.4 g/dl (3.4-5.0); ALK PHOS 79 U/L (45-117); ANION GAP 6 (8-16); BILIRUBIN,TOTAL 1.1 mg/dL (0.2-1.0); BLOOD UREA NITROGEN 46 mg/dL (7-18); CALCIUM 8.5 mg/dL (8.5-10.1); CHLORIDE 106 mmol/L (98-107); CO2 29 mmol/L (21-32); CREATININE 1.6 mg/dL (0.7-1.3); GLUCOSE,RANDOM 195 mg/dL (74-106); POTASSIUM 4.6 mmol/L (3.5-5.1); SGOT/AST 37 U/L (15-37); SGPT/ALT 32 U/L (12-78); SODIUM 141 mmol/L (136-145)
[2018-02-13 13:11] LABS: URINE APPEARANCE CLEAR; URINE BILIRUBIN NEGATIVE (<2.0 mg/dL); URINE COLOR STRAW; URINE GLUCOSE (UA) 3+ (NEGATIVE); URINE KETONE NEGATIVE (NEGATIVE); URINE LEUK ESTERASE NEGATIVE (NEGATIVE); URINE NITRITE NEGATIVE (NEGATIVE); URINE PROTEIN NEGATIVE (NEGATIVE); URINE UROBILINOGEN NEGATIVE mg/dL (0.2-1.0)
[2018-02-13 13:20] LABS: N-TERMINAL BNP 1044.21 pg/ml (5-125)
[2018-02-13] MEDS ORDERED: FUROSEMIDE 40 MG/4 ML INJECTABLE VIAL ONE (13:46)
--- NOTE | 2018-02-13 15:06 | PN ---
Progress Note (short form) - Note Progress Note: Chief Complaint: Events noted, reviewed, Persistent/progressive dyspnea in a patient with known history of coronary artery disease post coronary artery bypass grafting status post percutaneous coronary intervention stenting angina pectoris, diastolic left ventricular dysfunction, paroxysmal atrial fibrillation , sick sinus syndrome post permanent pacemaker implantation, interstitial lung disease and advance pulmonary hypertension. History of Present Illness: Seen and examined in the emergency room. Full consult dictated Right and left heart cardiac catheterization coronary angiography performed at [facility] under care of Dr. Ronnie Sanon August 26, 2017 revealed evidence of triple vessel obstructive coronary artery disease, patent MCCAULEY to LAD, patent free radial artery to LAD-D1, patent SVG to RPDA, obstructive LCx proximal and mid lesions for which rotational atherectomy and JORDI implant was performed successfully, RV pressure of 57 over 3 mmHg, PA pressure of 56 over 12 mmHg and moderate degree of aortic valve stenosis (no valve area calculation). Echocardiography performed October 15, 2017 revealed concentric left ventricular hypertrophy with overall preserved left ventricular systolic function, left atrial dilatation measuring 4.7 cm, aortic valve leaflet sclerosis and calcification with a mean trans-valvular gradient of 33 mmHg and a peak trans-valvular gradient of 57 mmHg and calculated aortic valve area of 0.6 cm consistent with severe degree of aortic valve stenosis, aortic root sclerosis, mitral annular calcification, mild mitral and tricuspid valve regurgitation with no evidence of pulmonary hypertension CT scan of the chest without contrast performed April 23, 2017 revealed nonspecific diffuse bilateral interstitial thickening seen in both upper and lower lung daniels differential diagnosis of which included infectious, inflammatory, toxic, allergic or neoplastic. CT angiogram of the chest performed December 11, 2016 revealed no evidence of pulmonary embolus, main pulmonary artery borderline enlarged, pulmonary hypertension to be excluded clinically, questionable slight nodularity of the partially included liver and partially included spleen appears prominent, no evidence of significant fibrotic changes within the lung with scattered minimal linear scarring. Echocardiography performed December 09, 2016 revealed moderate degree of left ventricular hypertrophy with normal left ventricular systolic function and estimated left ventricular ejection fraction of 75%, left atrial dilatation measuring 4.5 cm, moderate degree of aortic valve calcification with calculated aortic valve area of 1.4 cm consistent with moderate degree of aortic valve stenosis and mean trans-valvular gradient of 20 mmHg, no mitral or aortic valve regurgitation was noted (technically suboptimal study). [employer]etium PYP study performed December 18, 2016 revealed no significant uptake of isotope within the myocardium (study not suggestive of TTR/Transthyretin cardiac amyloidosis). Sleep study performed December 12, 2016 revealed mild degree of obstructive sleep apnea. Right and left heart cardiac catheterization coronary angiography performed November 03, 2016 revealed evidence of triple vessel obstructive coronary artery disease, patent MCCAULEY to mid LAD, patent free radial artery to LAD-D1 branch and patent SVG to RPDA, normal left ventricular systolic function with estimated left ventricular ejection fraction of 55%, mean trans-valvular gradient across the aortic valve of 26 mmHg and a peak trans-valvular gradient across the aortic valve of 37 mmHg and calculated aortic valve area 0.93 cm consistent with moderate degree of aortic valve stenosis, moderate to severe degree of pulmonary hypertension (PA pressure of 71/25 mmHg), pulmonary artery wedge pressure of 21 mmHg and left ventricular end-diastolic pressure of 17 mmHg ( mild gradient across the mitral valve). Carotid Doppler study performed October 01, 2016 revealed mild heterogeneous plaque in the common carotid artery bifurcation bilaterally extending into the internal carotid artery with less than 50% diameter stenosis. Echocardiography performed September 26, 2016 revealed concentric left ventricular hypertrophy with overall preserved left ventricular systolic function, aortic valve leaflet sclerosis and calcification with a mean trans- valvular gradient of 19 mmHg and a peak trans-valvular gradient of 30 mmHg and calculated aortic valve area of 0.8 cm consistent with moderate to severe degree of aortic valve stenosis, aortic root sclerosis, mitral annular calcification, mild mitral and tricuspid valve regurgitation with no evidence of pulmonary hypertension. Pharmacologic Lexiscan myocardial perfusion imaging study performed September revealed moderate size inferior wall defect compatible with diaphragmatic attenuation with normal left ventricular contraction pattern on LV gated analysis with calculated left ventricular ejection fraction of 65% at rest and 62% post Lexiscan infusion. Carotid Doppler study performed September 25, 2015 revealed moderate degree of atherosclerotic plaque with evidence of 60-79% diameter stenosis of the right internal carotid artery. Echocardiography performed November 08, 2015 revealed concentric left ventricular hypertrophy with overall preserved left ventricular systolic function, aortic valve leaflet sclerosis and calcification with transvalvular gradient and calculated aortic valve area of 0.8 cm consistent with moderate to severe degree of aortic valve stenosis, aortic root sclerosis, mitral annular calcification, mild mitral and tricuspid valve regurgitation with no evidence of pulmonary hypertension. Pharmacologic Dipyridamole myocardial perfusion imaging study performed November 12, 2010 reveal small to moderate size inferior wall defect compatible with diaphragmatic attenuation with normal left ventricular contraction pattern on LV gated analysis with calculated left ventricular ejection fraction of 67%. Allergies: Codeine intolerance. Medical therapy currently includes: 1. Toprol-XL 25 mg once a day. 2. Accupril 5 mg once a day, Therapy currently on hold. 3. Lasix 40 mg once to twice a day, depending on daily weights. 4. Aldactone 25 mg once to twice a day, depending on daily weights. 5. Ecotrin 81 mg once a day. 6. Plavix 75 mg once a day. 7. Adcirca 20 mg once a day. 8. Amaryl 2 mg twice a day. 9. Invokana (Canagliflozin) 100 mg once a day, Therapy currently on hold. 10. Insulin as prescribed by his primary care provider. 11. Levothyroxine 25 g once a day. 12. Zantac 150 mg twice a day. 13. Vitamin D 2000 IUs once a day. 14. Naratriptan (Amerge) 2.5 mg once a day as needed. 15. Lexapro 10 mg once a day. 16. MiraLax 17 g once a day as needed. 17. Prednisone 10 mg once a day, note decrease in dosage. 18. Eyedrops including Temaril-P (Trimeprazine/Prednisolone) as prescribed. Review of Systems: Constitutional: Denies fever, chills or weight loss Head and Neck: Denies headache, legally blind as noted above Respiratory: Denies cough or sputum production Cardiovascular: As noted above Gastrointestinal: Denies nausea, vomiting, diarrhea, constipation or abdominal discomfort Genitourinary: Denies frequency, urgency or hesitancy Musculoskeletal: No symptoms reported Endocrine: Hypothyroidism and insulin-dependent diabetes mellitus Physical Examination: Last Vital Signs Temp Pulse Resp BP Pulse Ox 98 F 75 20 131/62 97 02/13/18 11:24 02/13/18 11:24 02/13/18 11:24 02/13/18 11:24 02/13/18 11:24 Intake & Output 02/10/18 02/11/18 02/12/18 02/13/18 23:59 23:59 23:59 23:59 Weight 221 lb Constitutional: Awake, alert, oriented and calm Eyes: Bilateral corneal opacification noted external ocular muscles are intact anicteric sclera Neck: Supple negative JVD no bruits appreciated Heart: S1-S2 regular grade 2-3/6 systolic ejection murmur no clicks or gallops Lungs: Bilateral coarse crepitus at the apices and bases bilaterally Chest: No chest wall deformity or chest wall tenderness Abdomen: Protuberant soft benign normoactive bowel sounds no organomegaly Extremities: 1+ bilateral edema and intact distal pulses no calf tenderness ECG: Atrial pacing with AV sequential ventricular pacing appropriate sensing and capture. Lab Data: Troponin, BNP 02/13/18 12:25 Troponin I 0.03 D B-Natriuretic Peptide 1044.21 H CBC, BMP 02/13/18 12:25 02/13/18 12:25 Hepatic Panel Total Bilirubin 1.1 mg/dL (0.2-1.0) H D 02/13/18 12:25 AST 37 U/L (15-37) 02/13/18 12:25 ALT 32 U/L (12-78) D 02/13/18 12:25 Alkaline Phosphatase 79 U/L (45-117) 02/13/18 12:25 Albumin 3.4 g/dl (3.4-5.0) 02/13/18 12:25 INR, PTT INR 1.00 (0.82-1.09) 02/13/18 12:25 ASSESSMENT: 1. Clinical presentation is consistent with acute on chronic class I-II [place] [employer] classification left ventricular failure, 2. In addition right-sided heart failure related to pulmonary hypertension exacerbated by probable chronic liver disease/hepatic cirrhosis 3. Coronary artery disease status post coronary artery bypass grafting negative pharmacologic Lexiscan myocardial perfusion imaging study for myocardial ischemia with patent grafts on coronary angiography November 03, 2016 and August 26, 2017 post percutaneous coronary intervention JORDI LCx August angina pectoris. 4. Aortic valve disease aortic valve stenosis severe in severity aortic valve area of 0.6 cm on echocardiography performed October 15, 2017, 0.8 cm on echocardiography performed September 26, 2016, 0.93 cm on cardiac catheterization coronary angiography performed November 03, 2016 and aortic valve area of 1.4 cm on echocardiography performed December 09, 2016. 5. Idiopathic interstitial lung disease/pulmonary fibrosis with pulmonary hypertension moderate to severe in severity (PA pressure of 71/25 mmHg on right heart cardiac catheterization November 03, 2016 and PA pressure of 56/12 mmHg on right heart cardiac catheterization August 26, 2017). 6. Paroxysmal atrial fibrillation in a patient with known history of paroxysmal atrial flutter status post cardioversion [id number] score of 5 currently on no anti-coagulation therapy related to history of chronic liver disease with esophageal varices. 7. Sick sinus syndrome post permanent pacemaker implantation ([employer] device). 8. Mitral valve regurgitation mild in severity of no clinical significance. 9. Tricuspid valve regurgitation mild in severity. 10. History of hypertensive cardiovascular disease. 11. Insulin-dependent diabetes mellitus. 12. Hypercholesterolemia. 13. Carotid artery disease mild in severity, asymptomatic. 14. History of migraine headaches. 15. History of diabetic retinopathy. 16. History of glaucoma, legally blind. 17. Hypothyroidism. 18. History of obstructive sleep apnea. 19. History of chronic liver disease/hepatic cirrhosis with esophageal varices. 20. Anemia/thrombocytopenia 21. Exogenous obesity. PLAN: 1. Initiate IV diuretics Lasix at 40 mg twice daily with close monitoring of renal function and electrolytes. 2. Continue Aldactone therapy at 25 mg twice daily with close monitoring of renal function and electrolytes. 3. Continue Toprol-XL therapy. 4. Continue Adcirca therapy. 5. Continue dual antiplatelet agent therapy administration, Ecotrin and Plavix with caution considering the above-noted anemia/thrombocytopenia. 6. Obtain abdominal ultrasound for evaluation of ascites and if significant ascites is noted consideration for paracentesis. Brayan Yi M.D.
--- NOTE | 2018-02-13 16:41 | CONS ---
DATE OF CONSULTATION: 02/13/[address] Reyes. CHIEF COMPLAINT: Increasing dyspnea, increasing bilateral lower extremity edema. A 72-year-old, morbidly obese male, well known to our service, with known history of coronary artery disease post-coronary artery bypass grafting May 2006, status post percutaneous coronary intervention/drug-eluting stent August 26, 2017, angina pectoris, diastolic left ventricular dysfunction with chronic class I to II [place] Heart [employer] classification left ventricular failure, paroxysmal atrial fibrillation, CHADS-Vasc score of 5, on no anticoagulation therapy related to a history of chronic liver disease with esophageal varices, paroxysmal atrial flutter post cardioversion, sick sinus syndrome post permanent pacemaker implantation, aortic valve disease, aortic valve stenosis moderate to severe in severity, aortic valve area 0.8 cm square on echocardiography performed September 26, 2016, and 0.6 cm square on echocardiography performed October 15, 2017, a [id number] degree of pulmonary hypertension, mitral valve regurgitation mild in severity, tricuspid valve regurgitation mild in severity, hypertensive cardiovascular disease, insulin-dependent diabetes mellitus, hypercholesterolemia, carotid stenosis mild in severity, diabetic retinopathy, glaucoma, legally blind, migraine headaches, hypothyroidism, interstitial pulmonary fibrosis, recently initiated on CellCept therapy and subsequently CellCept therapy was discontinued, obstructive sleep apnea, chronic liver disease, hepatic cirrhosis with esophageal varices, who was evaluated in the office January 18, 2018. Subsequent to the above evaluation, patient reported progressive exertional dyspnea. Symptoms worsened today, in view of which patient presented to the emergency room for further evaluation and management. Dyspnea has been noted with minimal physical activity and in addition, the patient reported increasing bilateral lower extremity edema. The patient reported orthopnea, but denied any paroxysmal nocturnal dyspnea. The patient denies any chest discomfort. The patient denies any palpitations, but reports intermittent dizziness which is exacerbated by postural changes. The patient denies any syncopal episodes. The patient has been reporting progressive fatigue and tiredness. PAST MEDICAL HISTORY: Coronary artery disease, post coronary artery bypass grafting; angina pectoris, post percutaneous coronary intervention/drug-eluting stent; diastolic left ventricular dysfunction with chronic class I to II [place] Heart [employer] classification left ventricular failure; paroxysmal atrial fibrillation with CHADS-Vasc score of 5 on no anticoagulation therapy; paroxysmal atrial flutter, post cardioversion; sick sinus syndrome, post permanent pacemaker implantation; aortic valve stenosis, moderate to severe in severity; pulmonary hypertension; mitral valve regurgitation, mild in severity; tricuspid valve regurgitation, mild in severity; hypertensive cardiovascular disease; insulin-dependent diabetes mellitus; hypercholesterolemia; carotid stenosis, mild in severity; diabetic retinopathy; glaucoma; legally blind; migraine headaches; hypothyroidism; interstitial pulmonary fibrosis; obstructive sleep apnea; and chronic liver disease with hepatic cirrhosis and esophageal varices. SOCIAL HISTORY: Remote history of smoking. FAMILY HISTORY: Positive coronary artery disease. ALLERGIES: Intolerant to CODEINE. MEDICAL THERAPY AT HOME: Included: 1. Toprol XL of 25 mg once a day. 2. Lasix 40 mg once to twice a day depending on daily weights. 3. Aldactone 25 mg once to twice a day depending on daily weights. 4. Ecotrin 81 mg once a day. 5. Plavix 75 mg once a day. 6. Adcirca 20 mg once a day. 7. Amaryl of 2 mg twice a day. 8. Insulin as prescribed. 9. Levothyroxine 25 mcg once a day. 10. Zantac 150 mg twice a day. 11. Vitamin D of 2000 units once a day. 12. Naratriptan 2.5 mg once a day as needed. 13. Lexapro 10 mg once a day. 14. MiraLAX 17 g once a day. 15. Prednisone as prescribed. 16. Eye drops as prescribed. REVIEW OF SYSTEMS: Head and neck: Denies headache, photophobia, blurring of vision. Respiratory: No cough or sputum production. Cardiovascular: As noted above. Gastrointestinal: Denies nausea, vomiting, diarrhea, but reports abdominal distention. Genitourinary: No symptoms reported. Musculoskeletal: Gait instability. PHYSICAL EXAMINATION: Vital signs: Blood pressure 131/62 mmHg, pulse rate is 75 beats per minute. Head and neck: Bilateral corneal opacification. External ocular muscles are intact. Anicteric sclerae. Neck supple. Negative JVD. No bruit appreciated. Chest: Bilateral course crepitus. Cardiovascular: S1, S2, regular. A grade 2 to 3 over 6 systolic ejection murmur. No clicks or gallops. Abdomen: Protuberant. Soft. Benign. Normoactive bowel sounds. Extremities: Bilateral 1+ edema. Intact distal pulses. No calf tenderness. Electrocardiogram reveals atrial pacing with AV sequential ventricular pacing, appropriate sensing and capture. Chest x-ray was noted. Troponin 0.03, b-type natriuretic peptide was 1044. CBC revealed a white cell count of 4.5, hemoglobin 10.6, platelet count 99. Basic metabolic profile revealed a sodium of 141, potassium 4.6, BUN of 46, creatinine 1.6, glucose 195. ASSESSMENT: 1. Clinical presentation consistent with acute on chronic class I to II [place] [employer] classification left ventricle failure. 2. In addition, right-sided heart failure related to the above-noted pulmonary hypertension exacerbated by probable chronic liver disease/hepatic cirrhosis. 3. Coronary artery disease. Post coronary artery bypass grafting. Negative pharmacologic Lexiscan myocardial perfusion imaging study for myocardial ischemia. Post percutaneous coronary intervention, drug-eluting stent, August 26, 2017. Angina pectoris. 4. Aortic valve disease, aortic valve stenosis moderate to severe in severity. 5. Idiopathic interstitial lung disease, pulmonary fibrosis, with moderate-to- severe degree of pulmonary hypertension. 6. Paroxysmal atrial fibrillation and paroxysmal atrial flutter, post cardioversion. CHADS-Vasc score of 5. Currently on no anticoagulation therapy related to a history of chronic liver disease with esophageal varices. 7. Sick sinus syndrome. Post permanent pacemaker implantation. 8. Mitral valve regurgitation, mild in severity. 9. Tricuspid valve regurgitation, mild in severity. 10. Hypertensive cardiovascular disease. Currently normotensive and intermittent hypotension symptomatic. 11. Insulin-dependent diabetes mellitus. 12. Hypercholesterolemia. 13. Carotid artery disease, mild in severity, asymptomatic. 14. History of migraine headaches. 15. History of diabetic retinopathy. 16. History of glaucoma, legally blind. 17. Hypothyroidism. 18. History of obstructive sleep apnea. 19. History of chronic liver disease, hepatic cirrhosis, with esophageal varices. 20. Anemia/thrombocytopenia. 21. Exogenous obesity. RECOMMENDATIONS: 1. Initiation of IV diuretics with Lasix at 40 mg twice daily with close monitoring of renal function and electrolytes. 2. Continuation of Aldactone therapy 25 mg twice daily with close monitoring of renal function. 3. Continuation of Toprol XL therapy. 4. Continuation of Adcirca. 5. Continue dual-antiplatelet agent therapy administration Ecotrin and Plavix with caution, considering the above-noted anemia/thrombocytopenia. 6. Obtain abdominal ultrasound for evaluation of ascites and if significant ascites is noted, consideration for paracentesis. Thank you for the kind referral. NATHALIE VASQUEZ M.D. [id number] MTDD
[2018-02-13] MEDS ORDERED: ACETAMINOPHEN 325 MG TABLET (FP) PO PRN (17:29)
[2018-02-13] MEDS ORDERED: INSULIN REGULAR HUMAN 100 UNITS/ML *VIAL SQ ONE (18:23)
[2018-02-13] MEDS ORDERED: INSULIN REGULAR HUMAN 100 UNITS/ML *VIAL ONE (18:26)
[2018-02-13 19:21] LABS: ANION GAP 8 (8-16); BLOOD UREA NITROGEN 51 mg/dL (7-18); CALCIUM 8.3 mg/dL (8.5-10.1); CHLORIDE 102 mmol/L (98-107); CO2 27 mmol/L (21-32); POTASSIUM 5.4 mmol/L (3.5-5.1); SODIUM 137 mmol/L (136-145)
[2018-02-13 19:22] LABS: GLUCOSE,RANDOM 456 mg/dL (74-106)
[2018-02-13] MEDS: metoPROLOL SUCCINATE 25 MG TAB.SR.24H (FP) PO SCH (21:35)
[2018-02-13] MEDS ORDERED: INSULIN (LEVEMIR) 100 UNITS/ML UNITS SQ SCH (22:00)
--- NOTE | 2018-02-13 22:24 | EKG ---
Test Reason : Blood Pressure : / mmHG Vent. Rate : 072 BPM Atrial Rate : 068 BPM P-R Int : 000 ms QRS Dur : 164 ms QT Int : 496 ms P-R-T Axes : 000 -48 138 degrees QTc Int : 543 ms AV dual-paced rhythm ABNORMAL ECG WHEN COMPARED WITH ECG OF 23-APR-2017 15:20, NO SIGNIFICANT CHANGE WAS FOUND Confirmed by MAR LINARES MD ([id number]) on 02/13/2018 10:24:09 PM Referred By: Confirmed By:MAR LINARES MD
[2018-02-14] MEDS: LEVOTHYROXINE NA 25 MCG TABLET (FP) PO SCH (06:17)
[2018-02-14] MEDS: INSULIN SLIDING SCALE (NOVOLOG) 1 VIAL SQ SCH ×3 (06:17→17:33)
[2018-02-14] MEDS ORDERED: INSULIN (NOVOLOG) ASPART 100 UNITS/ML 10ML VIAL ONE (06:23)
[2018-02-14 08:01] LABS: EOS % 3.9 % (0-4.5); HEMATOCRIT 33.9 % (35.4-49); HEMOGLOBIN 11.2 GM/dL (11.7-16.9); LYMPH % 18.7 % (8-40); MCHC 33.2 g/dl (32.0-35.9); MEAN CELL VOLUME 96.4 fl (80-96); MEAN PLT VOLUME 7.4 fl (7.5-11.1); MONO % 8.8 % (3.8-10.2); NEUT % 67.6 % (42.8-82.8); PLATELET COUNT 100 K/MM3 (134-434); RBC 3.51 M/mm3 (4.00-5.60); RDW 17.4 % (11.9-15.9); WHITE BLOOD COUNT 4.2 K/mm3 (4.0-10.0)
[2018-02-14 08:27] LABS: ALBUMIN 3.4 g/dl (3.4-5.0); ANION GAP 8 (8-16); BLOOD UREA NITROGEN 47 mg/dL (7-18); CALCIUM 8.4 mg/dL (8.5-10.1); CHLORIDE 105 mmol/L (98-107); CO2 27 mmol/L (21-32); CREATININE 1.5 mg/dL (0.7-1.3); GLUCOSE,RANDOM 158 mg/dL (74-106); POTASSIUM 4.4 mmol/L (3.5-5.1); SGOT/AST 32 U/L (15-37); SGPT/ALT 30 U/L (12-78); SODIUM 140 mmol/L (136-145)
[2018-02-14 08:38] LABS: ALK PHOS 67 U/L (45-117); BILIRUBIN,TOTAL 1.3 mg/dL (0.2-1.0); TOT PROT 6.1 g/dl (6.4-8.2)
[2018-02-14] MEDS ORDERED: PT OWN MED DRAWER 7, Y5N ONE ×2 (09:08→09:43)
[2018-02-14] MEDS: CLOPIDOGREL BISULFATE 75 MG TABLET (FP) PO SCH (09:13)
[2018-02-14] MEDS: predniSONE 10 MG TABLET (UD) PO SCH (09:13)
[2018-02-14] MEDS: ESCITALOPRAM OXALATE 10 MG TABLET (FP) PO SCH (09:13)
[2018-02-14] MEDS: ASPIRIN COATED 81 MG TABLET.EC PO SCH (09:13)
[2018-02-14] MEDS: SPIRONOLACTONE 25 MG TABLET (FP) PO SCH (09:13)
[2018-02-14] MEDS: CHOLECALCIFEROL (VITAMIN D3) 1,000 UNIT TABLET (FP) PO SCH (09:13)
[2018-02-14] MEDS: POLYETHYLENE GLYCOL 3350 255 GM BTL PO SCH (09:14)
--- NOTE | 2018-02-14 09:52 | PN ---
Progress Note (short form) - Note Progress Note: Chief Complaint: Events noted, reviewed, dyspnea persists but improved, denies any chest pain, reports persistent bilateral peripheral edema. History of Present Illness: Seen and examined on telemetry. Events noted, reviewed, dyspnea persists but improved, denies any chest pain, reports persistent bilateral peripheral edema. Abdominal U/S small amount of scattered ascitis noted Right and left heart cardiac catheterization coronary angiography performed at [facility] under care of Dr. Ronnie Sanon August 26, 2017 revealed evidence of triple vessel obstructive coronary artery disease, patent MCCAULEY to LAD, patent free radial artery to LAD-D1, patent SVG to RPDA, obstructive LCx proximal and mid lesions for which rotational atherectomy and JORDI implant was performed successfully, RV pressure of 57 over 3 mmHg, PA pressure of 56 over 12 mmHg and moderate degree of aortic valve stenosis (no valve area calculation). Echocardiography performed October 15, 2017 revealed concentric left ventricular hypertrophy with overall preserved left ventricular systolic function, left atrial dilatation measuring 4.7 cm, aortic valve leaflet sclerosis and calcification with a mean trans-valvular gradient of 33 mmHg and a peak trans-valvular gradient of 57 mmHg and calculated aortic valve area of 0.6 cm consistent with severe degree of aortic valve stenosis, aortic root sclerosis, mitral annular calcification, mild mitral and tricuspid valve regurgitation with no evidence of pulmonary hypertension CT scan of the chest without contrast performed April 23, 2017 revealed nonspecific diffuse bilateral interstitial thickening seen in both upper and lower lung daniels differential diagnosis of which included infectious, inflammatory, toxic, allergic or neoplastic. CT angiogram of the chest performed December 11, 2016 revealed no evidence of pulmonary embolus, main pulmonary artery borderline enlarged, pulmonary hypertension to be excluded clinically, questionable slight nodularity of the partially included liver and partially included spleen appears prominent, no evidence of significant fibrotic changes within the lung with scattered minimal linear scarring. Echocardiography performed December 09, 2016 revealed moderate degree of left ventricular hypertrophy with normal left ventricular systolic function and estimated left ventricular ejection fraction of 75%, left atrial dilatation measuring 4.5 cm, moderate degree of aortic valve calcification with calculated aortic valve area of 1.4 cm consistent with moderate degree of aortic valve stenosis and mean trans-valvular gradient of 20 mmHg, no mitral or aortic valve regurgitation was noted (technically suboptimal study). Technetium PYP study performed December 18, 2016 revealed no significant uptake of isotope within the myocardium (study not suggestive of TTR/Transthyretin cardiac amyloidosis). Sleep study performed December 12, 2016 revealed mild degree of obstructive sleep apnea. Right and left heart cardiac catheterization coronary angiography performed November 03, 2016 revealed evidence of triple vessel obstructive coronary artery disease, patent MCCAULEY to mid LAD, patent free radial artery to LAD-D1 branch and patent SVG to RPDA, normal left ventricular systolic function with estimated left ventricular ejection fraction of 55%, mean trans-valvular gradient across the aortic valve of 26 mmHg and a peak trans-valvular gradient across the aortic valve of 37 mmHg and calculated aortic valve area 0.93 cm consistent with moderate degree of aortic valve stenosis, moderate to severe degree of pulmonary hypertension (PA pressure of 71/25 mmHg), pulmonary artery wedge pressure of 21 mmHg and left ventricular end-diastolic pressure of 17 mmHg ( mild gradient across the mitral valve). Carotid Doppler study performed October 01, 2016 revealed mild heterogeneous plaque in the common carotid artery bifurcation bilaterally extending into the internal carotid artery with less than 50% diameter stenosis. Echocardiography performed September 26, 2016 revealed concentric left ventricular hypertrophy with overall preserved left ventricular systolic function, aortic valve leaflet sclerosis and calcification with a mean trans- valvular gradient of 19 mmHg and a peak trans-valvular gradient of 30 mmHg and calculated aortic valve area of 0.8 cm consistent with moderate to severe degree of aortic valve stenosis, aortic root sclerosis, mitral annular calcification, mild mitral and tricuspid valve regurgitation with no evidence of pulmonary hypertension. Pharmacologic Lexiscan myocardial perfusion imaging study performed September revealed moderate size inferior wall defect compatible with diaphragmatic attenuation with normal left ventricular contraction pattern on LV gated analysis with calculated left ventricular ejection fraction of 65% at rest and 62% post Lexiscan infusion. Carotid Doppler study performed September 25, 2015 revealed moderate degree of atherosclerotic plaque with evidence of 60-79% diameter stenosis of the right internal carotid artery. Echocardiography performed November 08, 2015 revealed concentric left ventricular hypertrophy with overall preserved left ventricular systolic function, aortic valve leaflet sclerosis and calcification with transvalvular gradient and calculated aortic valve area of 0.8 cm consistent with moderate to severe degree of aortic valve stenosis, aortic root sclerosis, mitral annular calcification, mild mitral and tricuspid valve regurgitation with no evidence of pulmonary hypertension. Pharmacologic Dipyridamole myocardial perfusion imaging study performed November 12, 2010 reveal small to moderate size inferior wall defect compatible with diaphragmatic attenuation with normal left ventricular contraction pattern on LV gated analysis with calculated left ventricular ejection fraction of 67%. Allergies: Codeine intolerance. Current Medications Acetaminophen (Tylenol -) 650 mg PO Q4H PRN PRN Reason: FEVER Aspirin (Ecotrin -) 81 mg PO DAILY [facility] Last Admin: 02/14/18 09:13 Dose: 81 mg Cholecalciferol (Vitamin D3 -) 2,000 unit PO DAILY [facility] Last Admin: 02/14/18 09:13 Dose: 2,000 unit Clopidogrel Bisulfate (Plavix -) 75 mg PO DAILY [facility] Last Admin: 02/14/18 09:13 Dose: 75 mg Escitalopram Oxalate (Lexapro -) 10 mg PO DAILY [facility] Last Admin: 02/14/18 09:13 Dose: 10 mg Insulin Aspart (Novolog Vial Sliding Scale -) 1 vial SQ TIDAC [facility] PRN Reason: Protocol Last Admin: 02/14/18 06:17 Dose: 2 units Insulin Detemir (Levemir Vial) 12 units SQ [facility] Last Admin: 02/13/18 21:35 Dose: 12 unit Levothyroxine Sodium (Synthroid -) 25 mcg PO ACBK [facility] Last Admin: 02/14/18 06:17 Dose: 25 mcg Metoprolol Succinate (Toprol Xl -) 25 mg PO HS [facility] Last Admin: 02/13/18 21:35 Dose: 25 mg Non-Formulary Medication (Naratriptan Hcl [Naratriptan Hcl]) 2.5 mg PO DAILY [facility] Non-Formulary Medication (Tadalafil [Adcirca]) 20 mg PO DAILY [facility] Polyethylene Glycol (Miralax (For Bowel Prep) -) 17 gm PO DAILY [facility] Last Admin: 02/14/18 09:14 Dose: 17 gm Prednisone (Deltasone -) 10 mg PO DAILY [facility] Last Admin: 02/14/18 09:13 Dose: 10 mg Spironolactone (Aldactone -) 25 mg PO DAILY [facility] Last Admin: 02/14/18 09:13 Dose: 25 mg Review of Systems: Constitutional: Denies fever, chills or weight loss Head and Neck: Denies headache, legally blind as noted above Respiratory: Denies cough or sputum production Cardiovascular: As noted above Gastrointestinal: Denies nausea, vomiting, diarrhea, constipation or abdominal discomfort Genitourinary: Denies frequency, urgency or hesitancy Musculoskeletal: No symptoms reported Endocrine: Hypothyroidism and insulin-dependent diabetes mellitus Physical Examination: Last Vital Signs Temp Pulse Resp BP Pulse Ox 97.9 F 75 22 127/63 97 02/14/18 05:20 02/14/18 05:20 02/14/18 05:20 02/14/18 05:20 02/13/18 20:30 Intake & Output 02/11/18 02/12/18 02/13/18 02/14/18 23:59 23:59 23:59 23:59 Intake Total 110 100 Output Total 250 160 Balance -140 -60 Weight 221 lb 218 lb 12.8 oz Constitutional: Awake, alert, oriented and calm Eyes: Bilateral corneal opacification noted external ocular muscles are intact anicteric sclera Neck: Supple negative JVD no bruits appreciated Heart: S1-S2 regular grade 2-3/6 systolic ejection murmur no clicks or gallops Lungs: Bilateral coarse crepitus at the apices and bases bilaterally Chest: No chest wall deformity or chest wall tenderness Abdomen: Protuberant soft benign normoactive bowel sounds no organomegaly Extremities: 1+ bilateral edema and intact distal pulses no calf tenderness ECG: Atrial pacing with AV sequential ventricular pacing appropriate sensing and capture. Lab Data: Troponin, BNP 02/13/18 12:25 Troponin I 0.03 D B-Natriuretic Peptide 1044.21 H CBC, BMP 02/14/18 06:00 02/14/18 06:00 Hepatic Panel Total Bilirubin 1.3 mg/dL (0.2-1.0) H 02/14/18 06:00 AST 32 U/L (15-37) 02/14/18 06:00 ALT 30 U/L (12-78) 02/14/18 06:00 Alkaline Phosphatase 67 U/L (45-117) 02/14/18 06:00 Albumin 3.4 g/dl (3.4-5.0) 02/14/18 06:00 INR, PTT INR 1.00 (0.82-1.09) 02/13/18 12:25 ASSESSMENT: 1. Clinical presentation is consistent with acute on chronic class I-II [place] [employer] classification left ventricular failure, resolving 2. In addition right-sided heart failure related to pulmonary hypertension exacerbated by probable chronic liver disease/hepatic cirrhosis 3. Coronary artery disease status post coronary artery bypass grafting negative pharmacologic Lexiscan myocardial perfusion imaging study for myocardial ischemia with patent grafts on coronary angiography November 03, 2016 and August 26, 2017 post percutaneous coronary intervention JORDI LCx August angina pectoris. 4. Aortic valve disease aortic valve stenosis severe in severity aortic valve area of 0.6 cm on echocardiography performed October 15, 2017, 0.8 cm on echocardiography performed September 26, 2016, 0.93 cm on cardiac catheterization coronary angiography performed November 03, 2016 and aortic valve area of 1.4 cm on echocardiography performed December 09, 2016. 5. Idiopathic interstitial lung disease/pulmonary fibrosis with pulmonary hypertension moderate to severe in severity (PA pressure of 71/25 mmHg on right heart cardiac catheterization November 03, 2016 and PA pressure of 56/12 mmHg on right heart cardiac catheterization August 26, 2017). 6. Paroxysmal atrial fibrillation in a patient with known history of paroxysmal atrial flutter status post cardioversion [id number] score of 5 currently on no anti-coagulation therapy related to history of chronic liver disease with esophageal varices. 7. Sick sinus syndrome post permanent pacemaker implantation ([employer] device). 8. Mitral valve regurgitation mild in severity of no clinical significance. 9. Tricuspid valve regurgitation mild in severity. 10. History of hypertensive cardiovascular disease. 11. Insulin-dependent diabetes mellitus. 12. Hypercholesterolemia. 13. Carotid artery disease mild in severity, asymptomatic. 14. History of migraine headaches. 15. History of diabetic retinopathy. 16. History of glaucoma, legally blind. 17. Hypothyroidism. 18. History of obstructive sleep apnea. 19. History of chronic liver disease/hepatic cirrhosis with esophageal varices. 20. Anemia/thrombocytopenia 21. Exogenous obesity. PLAN: 1. Continue IV Lasix at 40 mg twice daily with close monitoring of renal function and electrolytes. 2. Continue Aldactone therapy at 25 mg twice daily with close monitoring of renal function and electrolytes. 3. Continue Toprol-XL therapy. 4. Continue Adcirca therapy. 5. Continue dual antiplatelet agent therapy administration, Ecotrin and Plavix with caution considering the above-noted anemia/thrombocytopenia. Brayan Yi M.D.
[2018-02-14] MEDS ORDERED: NARATRIPTAN HCL 2.5 MG PO SCH (10:00)
--- NOTE | 2018-02-14 11:36 | HP ---
Admitting History and Physical - Primary Care Physician PCP: Addison Reyes - Admission Chief Complaint: Worsening swelling and SOB History of Present Illness: 72 yrs old man multiple medical C0-morbidities including HTN, T2DM< CAD , dHF, Pulmonary fibrosis, Morbid Obesity, OLLIE, Pulmonary HTN, predominant Rt sided HF chronic ascites and LE edema, yesterday present to ED with c/o gradually worsening SOB, LE and abdominal distention with wt gain came to Ed for evaluation, in the ED w/ushows Decompensated CHF admitted for further management of decompensated CHF, in the ED evaluated by his PMD Extrusion Technician, denies ant chest pain, Plapittaion, fever abd pain, nausea or vomiting. - Past Medical History COLLEGE RECRUITER: Yes: Other (congenital glaucoma with blindness). No: Alzheimer's Cardiovascular: Yes: Aortic Stenosis, CAD, HTN Pulmonary: Yes: O2 Dependent, Pulmonary Fibrosis, Sleep Apnea Gastrointestinal: Yes: GERD Hepatobiliary: Yes: Cirrhosis (NAFLD) Renal/: Yes: Renal Inusuff Endocrine: Yes: Diabetes Mellitus - Past Surgical History Past Surgical History: Yes: CABG (3v), Cholecystectomy, Permanent Pacemaker, TURP - Smoking History Smoking history: Former smoker Have you smoked in the past 12 months: No Aproximately how many cigarettes per day: 0 If you are a former smoker, when did you quit?: 20 YRS AGO - Alcohol/Substance Use Hx Alcohol Use: No History of Substance Use: reports: None - Social History ADL: Independent History of Recent Travel: No Home Medications - Allergies Allergies/Adverse Reactions: Allergies Allergy/AdvReac Type Severity Reaction Status Date / Time codeine [Codeine] Allergy Severe Itching Verified 02/13/18 11:29 - Home Medications Home Medications: Ambulatory Orders Aspirin [Ecotrin] 81 mg PO DAILY 04/23/17 Canagliflozin [Invokana] 100 mg PO DAILY 04/23/17 Ergocalciferol (Vitamin D2) [Vitamin D2] 2,000 unit PO DAILY 04/23/17 Escitalopram Oxalate [Lexapro -] 10 mg PO DAILY 04/23/17 Glimepiride [Amaryl] 2 mg PO BID 04/23/17 Insulin Aspart Prot/Insuln Asp [Novolog Mix 70-30 Flexpen Syrn] 20 unit SQ HS Levothyroxine [Synthroid -] 25 mcg PO DAILY 04/23/17 Metoprolol Succinate [Toprol XL -] 25 mg PO HS 04/23/17 Naratriptan HCl 2.5 mg PO DAILY 04/23/17 Polyethylene Glycol 3350 [Miralax 255 gm Btl -] 17 gm PO DAILY 04/23/17 Acetaminophen [Tylenol .Regular Strength -] 650 mg PO Q4H PRN #0 tablet Furosemide [Lasix -] 40 mg PO DAILY tablet 04/28/17 Spironolactone [Aldactone -] 25 mg PO DAILY tablet 04/28/17 Clopidogrel Bisulfate [Plavix] 75 mg PO DAILY 02/13/18 Tadalafil [Adcirca] 20 mg PO DAILY 02/13/18 predniSONE [Deltasone -] 10 mg PO DAILY 02/13/18 Family Disease History - Family Disease History Family Disease History: Heart Disease: Father, Mother Review of Systems - Review of Systems Constitutional: denies: Chills, Diaphoresis Eyes: denies: Blurred Vision, Double Vision HENT: denies: Difficult Swallowing, Ear Discharge, Epistaxis Neck: denies: Decreased ROM, Lumps, Pain on Movement Cardiovascular: reports: Edema, Shortness of Breath. denies: Chest Pain, Palpitations Respiratory: reports: Exercise Intolerance, Orthopnea, PND, Snoring, SOB, SOB on Exertion. denies: Hemoptysis Gastrointestinal: reports: Bloating. denies: Melena, Nausea, Rectal Bleeding Genitourinary: denies: Burning, Discharge, Flank Pain Musculoskeletal: reports: Back Pain. denies: Crepitus, Decreased ROM Integumentary: reports: Change in Color. denies: Blister, Bruising Neurological: denies: Change in LOC, Change in Speech, Confusion Endocrine: denies: Excessive Sweating, Flushing, Increased Hunger Hematology/Lymphatic: denies: Easily Bruised, Excessive Bleeding Physical Examination Vital Signs: Vital Signs Temperature 98.4 F 02/14/18 09:56 Pulse Rate 76 02/14/18 09:56 Respiratory Rate 18 02/14/18 09:56 Blood Pressure 115/53 02/14/18 09:56 O2 Sat by Pulse Oximetry (%) 97 02/14/18 09:00 Elderly man c/o SOB mild distress HEENT: Mm moist, anemia, PERRLA, EOMI NECK: JVD +, no Bruit CHEST: B/L Crepts CVS: S1S2 R SM AA ABD: Distended non tebder BS + EXT: ++ Edema, chronic Venous stasis COLLEGE RECRUITER: AOX3 non focal Labs: CBC, BMP 02/14/18 06:00 02/14/18 06:00 Imaging - Results X-ray: Report Reviewed (Cardiomegaly Pulmonary congestion) EKG: Report Reviewed (Paced Rhythm) Problem List - Problems (1) Heart failure, diastolic, with acute decompensation Assessment/Plan: Known case of diastolic HF predominant Rt sided present with worsening SOB, LE swelling and CAMARENA, elevated BNP< Pulmonary congestion, recived O2 inhalation, IV Lasix, feels improved will F/U ECHO and cardiology recommendations. Code(s): I50.33 - ACUTE ON CHRONIC DIASTOLIC (CONGESTIVE) HEART FAILURE (2) T2DM (type 2 diabetes mellitus) Assessment/Plan: F/U accuchecks, cont current regimen optimize Glycemic control as per FS. Code(s): E11.9 - TYPE 2 DIABETES MELLITUS WITHOUT COMPLICATIONS Qualifiers: Diabetes mellitus retirement insulin use: with retirement use Diabetes mellitus complication status: with kidney complications Diabetes mellitus complication detail: with nephropathy Qualified Code(s): E11.21 - Type 2 diabetes mellitus with diabetic nephropathy; Z79.4 - MCFP (current) use of insulin; Z79.4 - MCFP (current) use of insulin; Z79.4 - MCFP (current ) use of insulin; Z79.4 - MCFP (current) use of insulin (3) HTN (hypertension) Assessment/Plan: ConT all home meds optimize as indicated Code(s): I10 - ESSENTIAL (PRIMARY) HYPERTENSION Qualifiers: Hypertension type: essential hypertension Qualified Code(s): I10 - Essential (primary) hypertension (4) Pulmonary hypertension Assessment/Plan: Due to OLLIE cont CPAP at night Code(s): I27.2 - OTHER SECONDARY PULMONARY HYPERTENSION * DO NOT USE * (5) ILD (interstitial lung disease) Assessment/Plan: Cont IV Steroids F/U Pulmonary input and Duo Neb treatment. Code(s): J84.9 - INTERSTITIAL PULMONARY DISEASE, UNSPECIFIED (6) Hypothyroidism Assessment/Plan: Cont Levothyroxine F/U TSH Code(s): E03.9 - HYPOTHYROIDISM, UNSPECIFIED Qualifiers: Hypothyroidism type: unspecified Qualified Code(s): E03.9 - Hypothyroidism , unspecified (7) Morbidly obese Assessment/Plan: Nutritional consult as out patient Code(s): E66.01 - MORBID (SEVERE) OBESITY DUE TO EXCESS CALORIES (8) Cirrhosis Assessment/Plan: Most likely LUNA F/U LFTs and GI Prophylaxis Code(s): K74.60 - UNSPECIFIED CIRRHOSIS OF LIVER Qualifiers: Hepatic cirrhosis type: unspecified hepatic cirrhosis Ascites presence: with ascites Qualified Code(s): K74.60 - Unspecified cirrhosis of liver
[2018-02-14] MEDS: FUROSEMIDE 100 MG/10 ML INJECTABLE VIAL IVPB SCH (15:17)
[2018-02-14] MEDS ORDERED: INSULIN (NOVOLOG) ASPART 100 UNITS/ML 10ML VIAL SQ ONE (17:30)
[2018-02-14] MEDS: metoPROLOL SUCCINATE 25 MG TAB.SR.24H (FP) PO SCH (21:36)
[2018-02-14] MEDS: INSULIN (LEVEMIR) 100 UNITS/ML UNITS SQ SCH (21:37)
[2018-02-15] MEDS: INSULIN SLIDING SCALE (NOVOLOG) 1 VIAL SQ SCH ×3 (06:14→17:41)
[2018-02-15] MEDS: FUROSEMIDE 100 MG/10 ML INJECTABLE VIAL IVPB SCH ×2 (06:14→13:33)
[2018-02-15] MEDS: LEVOTHYROXINE NA 25 MCG TABLET (FP) PO SCH (06:15)
[2018-02-15 07:38] LABS: BASO % 0.8 % (0-2.0); EOS % 3.9 % (0-4.5); HEMOGLOBIN 10.6 GM/dL (11.7-16.9); LYMPH % 18.8 % (8-40); MCH 32.1 pg (25.7-33.7); MCHC 34.1 g/dl (32.0-35.9); MEAN CELL VOLUME 94.2 fl (80-96); MEAN PLT VOLUME 7.3 fl (7.5-11.1); NEUT % 66.5 % (42.8-82.8); PLATELET COUNT 96 K/MM3 (134-434); RBC 3.29 M/mm3 (4.00-5.60); RDW 17.3 % (11.9-15.9); WHITE BLOOD COUNT 3.9 K/mm3 (4.0-10.0)
[2018-02-15 08:19] LABS: ALBUMIN 3.2 g/dl (3.4-5.0); ANION GAP 6 (8-16); BLOOD UREA NITROGEN 44 mg/dL (7-18); CALCIUM 8.5 mg/dL (8.5-10.1); CHLORIDE 106 mmol/L (98-107); CO2 29 mmol/L (21-32); GLUCOSE,RANDOM 194 mg/dL (74-106); POTASSIUM 4.4 mmol/L (3.5-5.1); SODIUM 141 mmol/L (136-145)
[2018-02-15 08:22] LABS: ALK PHOS 74 U/L (45-117); BILIRUBIN,TOTAL 1.4 mg/dL (0.2-1.0); CREATININE 1.3 mg/dL (0.7-1.3); SGOT/AST 30 U/L (15-37); SGPT/ALT 29 U/L (12-78); TOT PROT 5.9 g/dl (6.4-8.2)
[2018-02-15] MEDS: SPIRONOLACTONE 25 MG TABLET (FP) PO SCH (09:01)
[2018-02-15] MEDS: CLOPIDOGREL BISULFATE 75 MG TABLET (FP) PO SCH (09:01)
[2018-02-15] MEDS: CHOLECALCIFEROL (VITAMIN D3) 1,000 UNIT TABLET (FP) PO SCH (09:01)
[2018-02-15] MEDS: predniSONE 10 MG TABLET (UD) PO SCH (09:01)
[2018-02-15] MEDS: ESCITALOPRAM OXALATE 10 MG TABLET (FP) PO SCH (09:01)
[2018-02-15] MEDS: POLYETHYLENE GLYCOL 3350 255 GM BTL PO SCH (09:01)
[2018-02-15] MEDS: ASPIRIN COATED 81 MG TABLET.EC PO SCH (09:01)
--- NOTE | 2018-02-15 09:39 | PN ---
Progress Note, Physician History of Present Illness: Dyspnea and LE edema improved with diuresis. - Current Medication List Current Medications: Active Medications Acetaminophen (Tylenol -) 650 mg PO Q4H PRN PRN Reason: FEVER Aspirin (Ecotrin -) 81 mg PO DAILY [facility] Last Admin: 02/15/18 09:01 Dose: 81 mg Cholecalciferol (Vitamin D3 -) 2,000 unit PO DAILY [facility] Last Admin: 02/15/18 09:01 Dose: 2,000 unit Clopidogrel Bisulfate (Plavix -) 75 mg PO DAILY [facility] Last Admin: 02/15/18 09:01 Dose: 75 mg Escitalopram Oxalate (Lexapro -) 10 mg PO DAILY [facility] Last Admin: 02/15/18 09:01 Dose: 10 mg Furosemide (Lasix Injection -) 40 mg IVPB BIDLASIX [facility] Last Admin: 02/15/18 06:14 Dose: 40 mg Insulin Aspart (Novolog Vial Sliding Scale -) 1 vial SQ TIDAC [facility] PRN Reason: Protocol Last Admin: 02/15/18 06:14 Dose: 4 units Insulin Detemir (Levemir Vial) 15 units SQ HS [facility] Last Admin: 02/14/18 21:37 Dose: 15 units Levothyroxine Sodium (Synthroid -) 25 mcg PO ACBK [facility] Last Admin: 02/15/18 06:15 Dose: 25 mcg Metoprolol Succinate (Toprol Xl -) 25 mg PO HS [facility] Last Admin: 02/14/18 21:36 Dose: 25 mg Non-Formulary Medication (Naratriptan Hcl [Naratriptan Hcl]) 2.5 mg PO DAILY [facility] Non-Formulary Medication (Tadalafil [Adcirca]) 20 mg PO DAILY [facility] Polyethylene Glycol (Miralax (For Bowel Prep) -) 17 gm PO DAILY [facility] Last Admin: 02/15/18 09:01 Dose: 17 gm Prednisone (Deltasone -) 10 mg PO DAILY [facility] Last Admin: 02/15/18 09:01 Dose: 10 mg Spironolactone (Aldactone -) 25 mg PO DAILY [facility] Last Admin: 02/15/18 09:01 Dose: 25 mg - Objective Vital Signs: Vital Signs Temperature 98.2 F 02/15/18 05:30 Pulse Rate 74 02/15/18 05:30 Respiratory Rate 20 02/15/18 05:30 Blood Pressure 118/53 02/15/18 05:30 O2 Sat by Pulse Oximetry (%) 96 02/14/18 21:00 Constitutional: Yes: No Distress, Calm Neck: Yes: Supple Cardiovascular: Yes: Regular Rate and Rhythm, Murmur (2/6 SM) Respiratory: Yes: Regular, Diminished, On Nasal O2 Gastrointestinal: Yes: Normal Bowel Sounds, Soft, Abdomen, Obese Edema: Yes Edema: LLE: 1+, RLE: 1+ Labs: CBC, BMP 02/15/18 06:20 02/15/18 06:20 INR, PTT INR 1.00 (0.82-1.09) 02/13/18 12:25 - ....Imaging Ultrasound: Report Reviewed (02/13/2018 Mild amount of ascites) Problem List - Problems (1) CAD (coronary artery disease) Code(s): I25.10 - ATHSCL HEART DISEASE OF [place] CORONARY ARTERY W/O ANG PCTRS Qualifiers: Coronary Disease-Associated Artery/Lesion type: [place] artery [place] vs. transplanted heart: [place] heart Associated angina: without angina Qualified Code(s): I25.10 - Atherosclerotic heart disease of [place] coronary artery without angina pectoris (2) CHF (congestive heart failure) Code(s): I50.9 - HEART FAILURE, UNSPECIFIED Qualifiers: Heart failure type: diastolic Heart failure chronicity: acute on chronic Qualified Code(s): I50.33 - Acute on chronic diastolic (congestive) heart failure (3) Cirrhosis Code(s): K74.60 - UNSPECIFIED CIRRHOSIS OF LIVER Qualifiers: Hepatic cirrhosis type: unspecified hepatic cirrhosis Ascites presence: with ascites Qualified Code(s): K74.60 - Unspecified cirrhosis of liver (4) HTN (hypertension) Code(s): I10 - ESSENTIAL (PRIMARY) HYPERTENSION Qualifiers: Hypertension type: essential hypertension Qualified Code(s): I10 - Essential (primary) hypertension (5) Heart failure, diastolic, with acute decompensation Code(s): I50.33 - ACUTE ON CHRONIC DIASTOLIC (CONGESTIVE) HEART FAILURE (6) ILD (interstitial lung disease) Code(s): J84.9 - INTERSTITIAL PULMONARY DISEASE, UNSPECIFIED (7) Morbidly obese Code(s): E66.01 - MORBID (SEVERE) OBESITY DUE TO EXCESS CALORIES (8) Pulmonary hypertension Code(s): I27.2 - OTHER SECONDARY PULMONARY HYPERTENSION * DO NOT USE * (9) SOB (shortness of breath) on exertion Code(s): R06.02 - SHORTNESS OF BREATH (10) T2DM (type 2 diabetes mellitus) Code(s): E11.9 - TYPE 2 DIABETES MELLITUS WITHOUT COMPLICATIONS (11) LEFTY (acute kidney injury) Code(s): N17.9 - ACUTE KIDNEY FAILURE, UNSPECIFIED (12) Hypothyroidism Code(s): E03.9 - HYPOTHYROIDISM, UNSPECIFIED Qualifiers: Hypothyroidism type: unspecified Qualified Code(s): E03.9 - Hypothyroidism , unspecified (13) Interstitial lung disease Code(s): J84.9 - INTERSTITIAL PULMONARY DISEASE, UNSPECIFIED (14) Moderate aortic valve stenosis Code(s): I35.0 - NONRHEUMATIC AORTIC (VALVE) STENOSIS (15) S/P CABG x 3 Code(s): Z95.1 - PRESENCE OF AORTOCORONARY BYPASS GRAFT (16) S/P coronary artery stent placement Code(s): Z95.5 - PRESENCE OF CORONARY ANGIOPLASTY IMPLANT AND GRAFT Assessment/Plan Right and left heart cardiac catheterization coronary angiography performed at [facility] under care of Dr. Ronnie Sanon August 26, 2017 revealed evidence of triple vessel obstructive coronary artery disease, patent MCCAULEY to LAD, patent free radial artery to LAD-D1, patent SVG to RPDA, obstructive LCx proximal and mid lesions for which rotational atherectomy and JORDI implant was performed successfully, RV pressure of 57 over 3 mmHg, PA pressure of 56 over 12 mmHg and moderate degree of aortic valve stenosis (no valve area calculation). Echocardiography performed October 15, 2017 revealed concentric left ventricular hypertrophy with overall preserved left ventricular systolic function, left atrial dilatation measuring 4.7 cm, aortic valve leaflet sclerosis and calcification with a mean trans-valvular gradient of 33 mmHg and a peak trans-valvular gradient of 57 mmHg and calculated aortic valve area of 0.6 cm consistent with severe degree of aortic valve stenosis, aortic root sclerosis, mitral annular calcification, mild mitral and tricuspid valve regurgitation with no evidence of pulmonary hypertension 1. Clinical presentation is consistent with acute on chronic class I-II [place] Heart [employer] classification left ventricular failure, resolving 2. In addition right-sided heart failure related to pulmonary hypertension exacerbated by probable chronic liver disease/hepatic cirrhosis 3. Coronary artery disease status post coronary artery bypass grafting negative pharmacologic Lexiscan myocardial perfusion imaging study for myocardial ischemia with patent grafts on coronary angiography November 03, 2016 and August 26, 2017 post percutaneous coronary intervention JORDI LCx August angina pectoris. 4. Aortic valve disease aortic valve stenosis severe in severity aortic valve area of 0.6 cm on echocardiography performed October 15, 2017, 0.8 cm on echocardiography performed September 26, 2016, 0.93 cm on cardiac catheterization coronary angiography performed November 03, 2016 and aortic valve area of 1.4 cm on echocardiography performed December 09, 2016. 5. Idiopathic interstitial lung disease/pulmonary fibrosis with pulmonary hypertension moderate to severe in severity (PA pressure of 71/25 mmHg on right heart cardiac catheterization November 03, 2016 and PA pressure of 56/12 mmHg on right heart cardiac catheterization August 26, 2017). 6. Paroxysmal atrial fibrillation in a patient with known history of paroxysmal atrial flutter status post cardioversion [id number] score of 5 currently on no anti-coagulation therapy related to history of chronic liver disease with esophageal varices. 7. Sick sinus syndrome post permanent pacemaker implantation ([employer] device). 8. Mitral valve regurgitation mild in severity of no clinical significance. 9. Tricuspid valve regurgitation mild in severity. 10. History of hypertensive cardiovascular disease. 11. Insulin-dependent diabetes mellitus. 12. Hypercholesterolemia. 13. Carotid artery disease mild in severity, asymptomatic. 14. History of migraine headaches. 15. History of diabetic retinopathy. 16. History of glaucoma, legally blind. 17. Hypothyroidism. 18. History of obstructive sleep apnea. 19. History of chronic liver disease/hepatic cirrhosis with esophageal varices. 20. Anemia/thrombocytopenia 21. Exogenous obesity. 22. Acute on CKD improving PLAN: 1. Continue IV Lasix at 40 mg twice daily with close monitoring of diuretic response, renal function and electrolytes. 2. Continue Aldactone therapy at 25 mg daily with close monitoring of renal function and electrolytes. 3. Continue Toprol-XL 25 qhs therapy. 4. Continue Adcirca therapy. 5. Continue dual antiplatelet agent therapy administration, Ecotrin 81 qd and Plavix 75 qd with caution considering the above-noted anemia/thrombocytopenia.
--- NOTE | 2018-02-15 09:57 | PN ---
Progress Note (short form) - Note Progress Note: Dr. Hull / LAKSHMI Mart will document today.
--- NOTE | 2018-02-15 11:55 | PN ---
Progress Note, Physician Chief Complaint: Mr Rodriguez says he is feeling better. He is still short of breath but much improved. No cp or n/v. - Current Medication List Current Medications: Active Medications Acetaminophen (Tylenol -) 650 mg PO Q4H PRN PRN Reason: FEVER Aspirin (Ecotrin -) 81 mg PO DAILY [facility] Last Admin: 02/15/18 09:01 Dose: 81 mg Cholecalciferol (Vitamin D3 -) 2,000 unit PO DAILY [facility] Last Admin: 02/15/18 09:01 Dose: 2,000 unit Clopidogrel Bisulfate (Plavix -) 75 mg PO DAILY [facility] Last Admin: 02/15/18 09:01 Dose: 75 mg Escitalopram Oxalate (Lexapro -) 10 mg PO DAILY [facility] Last Admin: 02/15/18 09:01 Dose: 10 mg Furosemide (Lasix Injection -) 40 mg IVPB BIDLASIX [facility] Last Admin: 02/15/18 06:14 Dose: 40 mg Insulin Aspart (Novolog Vial Sliding Scale -) 1 vial SQ TIDAC [facility] PRN Reason: Protocol Last Admin: 02/15/18 06:14 Dose: 4 units Insulin Detemir (Levemir Vial) 15 units SQ HS [facility] Last Admin: 02/14/18 21:37 Dose: 15 units Levothyroxine Sodium (Synthroid -) 25 mcg PO ACBK [facility] Last Admin: 02/15/18 06:15 Dose: 25 mcg Metoprolol Succinate (Toprol Xl -) 25 mg PO HS [facility] Last Admin: 02/14/18 21:36 Dose: 25 mg Non-Formulary Medication (Naratriptan Hcl [Naratriptan Hcl]) 2.5 mg PO DAILY [facility] Non-Formulary Medication (Tadalafil [Adcirca]) 20 mg PO DAILY [facility] Polyethylene Glycol (Miralax (For Bowel Prep) -) 17 gm PO DAILY [facility] Last Admin: 02/15/18 09:01 Dose: 17 gm Prednisone (Deltasone -) 10 mg PO DAILY [facility] Last Admin: 02/15/18 09:01 Dose: 10 mg Spironolactone (Aldactone -) 25 mg PO DAILY [facility] Last Admin: 02/15/18 09:01 Dose: 25 mg - Objective Vital Signs: Vital Signs Temperature 37.1 C 02/15/18 10:10 Pulse Rate 77 04/23/18 10:10 Respiratory Rate 18 02/15/18 10:10 Blood Pressure 98/38 02/15/18 10:10 O2 Sat by Pulse Oximetry (%) 96 02/15/18 09:00 Constitutional: Yes: No Distress, Calm, Obese Cardiovascular: Yes: Regular Rate and Rhythm, Murmur. No: Gallop, Rub Respiratory: Yes: Regular, CTA Bilaterally, On Nasal O2. No: Rales, Rhonchi, Wheezes Gastrointestinal: Yes: Normal Bowel Sounds, Soft. No: Distention, Tenderness Extremities: Yes: WNL Edema: Yes Edema: LLE: 1+, RLE: 1+ Labs: CBC, BMP 02/15/18 06:20 02/15/18 06:20 INR, PTT INR 1.00 (0.82-1.09) 02/13/18 12:25 Problem List - Problems (1) CHF (congestive heart failure) Assessment/Plan: -appreciate cardiology assistance and case discussed -continue lasix 40mg IV bid -continue aldactone -continue toprol xl -improving but not at baseline Code(s): I50.9 - HEART FAILURE, UNSPECIFIED Qualifiers: Heart failure type: diastolic Heart failure chronicity: acute on chronic Qualified Code(s): I50.33 - Acute on chronic diastolic (congestive) heart failure (2) Diabetes Assessment/Plan: -glucose elevated yesterday -monitor on levemir 15 units qhs -may benefit from bid dosing -continue diabetic diet and SSI Code(s): E11.9 - TYPE 2 DIABETES MELLITUS WITHOUT COMPLICATIONS Qualifiers: Diabetes mellitus type: type 2 Diabetes mellitus complication status: with ophthalmic complications Diabetes mellitus complication detail: with diabetic retinopathy (3) HTN (hypertension) Assessment/Plan: -controlled -continue home dose of aldactone and toprol xl -continue lasix 40mg IV bid Code(s): I10 - ESSENTIAL (PRIMARY) HYPERTENSION Qualifiers: Hypertension type: essential hypertension Qualified Code(s): I10 - Essential (primary) hypertension (4) CAD (coronary artery disease) Assessment/Plan: -quiescent -continue aspirin -continue home regimen Code(s): I25.10 - ATHSCL HEART DISEASE OF [place] CORONARY ARTERY W/O ANG PCTRS Qualifiers: Coronary Disease-Associated Artery/Lesion type: [place] artery [place] vs. transplanted heart: [place] heart Associated angina: without angina Qualified Code(s): I25.10 - Atherosclerotic heart disease of [place] coronary artery without angina pectoris (5) Cirrhosis Assessment/Plan: -continue diuretics Code(s): K74.60 - UNSPECIFIED CIRRHOSIS OF LIVER Qualifiers: Hepatic cirrhosis type: unspecified hepatic cirrhosis Ascites presence: with ascites Qualified Code(s): K74.60 - Unspecified cirrhosis of liver (6) ILD (interstitial lung disease) Assessment/Plan: -continue prednisone Code(s): J84.9 - INTERSTITIAL PULMONARY DISEASE, UNSPECIFIED (7) Pulmonary hypertension Assessment/Plan: -continue tadalafil Code(s): I27.2 - OTHER SECONDARY PULMONARY HYPERTENSION * DO NOT USE * (8) Hypothyroidism Assessment/Plan: -continue levothyroxine Code(s): E03.9 - HYPOTHYROIDISM, UNSPECIFIED Qualifiers: Hypothyroidism type: unspecified Qualified Code(s): E03.9 - Hypothyroidism , unspecified
[2018-02-15] MEDS: metoPROLOL SUCCINATE 25 MG TAB.SR.24H (FP) PO SCH (22:03)
[2018-02-15] MEDS: INSULIN (LEVEMIR) 100 UNITS/ML UNITS SQ SCH (22:03)
[2018-02-16] MEDS: FUROSEMIDE 100 MG/10 ML INJECTABLE VIAL IVPB SCH ×2 (05:36→14:01)
[2018-02-16] MEDS: INSULIN SLIDING SCALE (NOVOLOG) 1 VIAL SQ SCH ×3 (06:02→17:19)
[2018-02-16] MEDS: LEVOTHYROXINE NA 25 MCG TABLET (FP) PO SCH (06:04)
[2018-02-16 07:29] LABS: BASO % 1.1 % (0-2.0); EOS % 4.1 % (0-4.5); HEMATOCRIT 32.5 % (35.4-49); LYMPH % 18.3 % (8-40); MCH 31.9 pg (25.7-33.7); MCHC 33.8 g/dl (32.0-35.9); MEAN CELL VOLUME 94.4 fl (80-96); MEAN PLT VOLUME 7.3 fl (7.5-11.1); MONO % 8.5 % (3.8-10.2); PLATELET COUNT 104 K/MM3 (134-434); RBC 3.45 M/mm3 (4.00-5.60); RDW 17.3 % (11.9-15.9); WHITE BLOOD COUNT 4.4 K/mm3 (4.0-10.0)
[2018-02-16 07:59] LABS: ANION GAP 6 (8-16); BLOOD UREA NITROGEN 43 mg/dL (7-18); CALCIUM 8.4 mg/dL (8.5-10.1); CHLORIDE 106 mmol/L (98-107); CO2 27 mmol/L (21-32); GLUCOSE,RANDOM 220 mg/dL (74-106); MAGNESIUM 2.3 mg/dL (1.8-2.4); POTASSIUM 4.3 mmol/L (3.5-5.1); SODIUM 139 mmol/L (136-145)
--- NOTE | 2018-02-16 07:59 | PN ---
Progress Note (short form) - Note Progress Note: Chief Complaint: Events noted, reviewed, dyspnea persists but continues to improve, denies any chest pain, reports persistent bilateral peripheral edema but improving. History of Present Illness: Seen and examined on telemetry. Events noted, reviewed, dyspnea persists but continues to improve, denies any chest pain, reports persistent bilateral peripheral edema but improving Abdominal U/S small amount of scattered ascitis noted Right and left heart cardiac catheterization coronary angiography performed at [facility] under care of Dr. Ronnie Sanon August 26, 2017 revealed evidence of triple vessel obstructive coronary artery disease, patent MCCAULEY to LAD, patent free radial artery to LAD-D1, patent SVG to RPDA, obstructive LCx proximal and mid lesions for which rotational atherectomy and JORDI implant was performed successfully, RV pressure of 57 over 3 mmHg, PA pressure of 56 over 12 mmHg and moderate degree of aortic valve stenosis (no valve area calculation). Echocardiography performed October 15, 2017 revealed concentric left ventricular hypertrophy with overall preserved left ventricular systolic function, left atrial dilatation measuring 4.7 cm, aortic valve leaflet sclerosis and calcification with a mean trans-valvular gradient of 33 mmHg and a peak trans-valvular gradient of 57 mmHg and calculated aortic valve area of 0.6 cm consistent with severe degree of aortic valve stenosis, aortic root sclerosis, mitral annular calcification, mild mitral and tricuspid valve regurgitation with no evidence of pulmonary hypertension CT scan of the chest without contrast performed April 23, 2017 revealed nonspecific diffuse bilateral interstitial thickening seen in both upper and lower lung daniels differential diagnosis of which included infectious, inflammatory, toxic, allergic or neoplastic. CT angiogram of the chest performed December 11, 2016 revealed no evidence of pulmonary embolus, main pulmonary artery borderline enlarged, pulmonary hypertension to be excluded clinically, questionable slight nodularity of the partially included liver and partially included spleen appears prominent, no evidence of significant fibrotic changes within the lung with scattered minimal linear scarring. Echocardiography performed December 09, 2016 revealed moderate degree of left ventricular hypertrophy with normal left ventricular systolic function and estimated left ventricular ejection fraction of 75%, left atrial dilatation measuring 4.5 cm, moderate degree of aortic valve calcification with calculated aortic valve area of 1.4 cm consistent with moderate degree of aortic valve stenosis and mean trans-valvular gradient of 20 mmHg, no mitral or aortic valve regurgitation was noted (technically suboptimal study). Technetium PYP study performed December 18, 2016 revealed no significant uptake of isotope within the myocardium (study not suggestive of TTR/Transthyretin cardiac amyloidosis). Sleep study performed December 12, 2016 revealed mild degree of obstructive sleep apnea. Right and left heart cardiac catheterization coronary angiography performed November 03, 2016 revealed evidence of triple vessel obstructive coronary artery disease, patent MCCAULEY to mid LAD, patent free radial artery to LAD-D1 branch and patent SVG to RPDA, normal left ventricular systolic function with estimated left ventricular ejection fraction of 55%, mean trans-valvular gradient across the aortic valve of 26 mmHg and a peak trans-valvular gradient across the aortic valve of 37 mmHg and calculated aortic valve area 0.93 cm consistent with moderate degree of aortic valve stenosis, moderate to severe degree of pulmonary hypertension (PA pressure of 71/25 mmHg), pulmonary artery wedge pressure of 21 mmHg and left ventricular end-diastolic pressure of 17 mmHg ( mild gradient across the mitral valve). Carotid Doppler study performed October 01, 2016 revealed mild heterogeneous plaque in the common carotid artery bifurcation bilaterally extending into the internal carotid artery with less than 50% diameter stenosis. Echocardiography performed September 26, 2016 revealed concentric left ventricular hypertrophy with overall preserved left ventricular systolic function, aortic valve leaflet sclerosis and calcification with a mean trans- valvular gradient of 19 mmHg and a peak trans-valvular gradient of 30 mmHg and calculated aortic valve area of 0.8 cm consistent with moderate to severe degree of aortic valve stenosis, aortic root sclerosis, mitral annular calcification, mild mitral and tricuspid valve regurgitation with no evidence of pulmonary hypertension. Pharmacologic Lexiscan myocardial perfusion imaging study performed September revealed moderate size inferior wall defect compatible with diaphragmatic attenuation with normal left ventricular contraction pattern on LV gated analysis with calculated left ventricular ejection fraction of 65% at rest and 62% post Lexiscan infusion. Carotid Doppler study performed September 25, 2015 revealed moderate degree of atherosclerotic plaque with evidence of 60-79% diameter stenosis of the right internal carotid artery. Echocardiography performed November 08, 2015 revealed concentric left ventricular hypertrophy with overall preserved left ventricular systolic function, aortic valve leaflet sclerosis and calcification with transvalvular gradient and calculated aortic valve area of 0.8 cm consistent with moderate to severe degree of aortic valve stenosis, aortic root sclerosis, mitral annular calcification, mild mitral and tricuspid valve regurgitation with no evidence of pulmonary hypertension. Pharmacologic Dipyridamole myocardial perfusion imaging study performed November 12, 2010 reveal small to moderate size inferior wall defect compatible with diaphragmatic attenuation with normal left ventricular contraction pattern on LV gated analysis with calculated left ventricular ejection fraction of 67%. Allergies: Codeine intolerance Medical therapy currently. Current Medications Acetaminophen (Tylenol -) 650 mg PO Q4H PRN PRN Reason: FEVER Aspirin (Ecotrin -) 81 mg PO DAILY [facility] Last Admin: 02/15/18 09:01 Dose: 81 mg Cholecalciferol (Vitamin D3 -) 2,000 unit PO DAILY [facility] Last Admin: 02/15/18 09:01 Dose: 2,000 unit Clopidogrel Bisulfate (Plavix -) 75 mg PO DAILY [facility] Last Admin: 02/15/18 09:01 Dose: 75 mg Escitalopram Oxalate (Lexapro -) 10 mg PO DAILY [facility] Last Admin: 02/15/18 09:01 Dose: 10 mg Furosemide (Lasix Injection -) 40 mg IVPB BIDLASIX [facility] Last Admin: 02/16/18 05:36 Dose: 40 mg Insulin Aspart (Novolog Vial Sliding Scale -) 1 vial SQ TIDAC [facility] PRN Reason: Protocol Last Admin: 02/16/18 06:02 Dose: 8 units Insulin Detemir (Levemir Vial) 15 units SQ [facility] Last Admin: 02/15/18 22:03 Dose: 15 units Levothyroxine Sodium (Synthroid -) 25 mcg PO ACBK [facility] Last Admin: 02/16/18 06:04 Dose: 25 mcg Metoprolol Succinate (Toprol Xl -) 25 mg PO [facility] Last Admin: 02/15/18 22:03 Dose: 25 mg Non-Formulary Medication (Naratriptan Hcl [Naratriptan Hcl]) 2.5 mg PO DAILY [facility] Non-Formulary Medication (Tadalafil [Adcirca]) 20 mg PO DAILY [facility] Polyethylene Glycol (Miralax (For Bowel Prep) -) 17 gm PO DAILY [facility] Last Admin: 02/15/18 09:01 Dose: 17 gm Prednisone (Deltasone -) 10 mg PO DAILY [facility] Last Admin: 02/15/18 09:01 Dose: 10 mg Spironolactone (Aldactone -) 25 mg PO DAILY [facility] Last Admin: 02/15/18 09:01 Dose: 25 mg Review of Systems: Constitutional: Denies fever, chills or weight loss Head and Neck: Denies headache, legally blind as noted above Respiratory: Denies cough or sputum production Cardiovascular: As noted above Gastrointestinal: Denies nausea, vomiting, diarrhea, constipation or abdominal discomfort Genitourinary: Denies frequency, urgency or hesitancy Musculoskeletal: No symptoms reported Endocrine: Hypothyroidism and insulin-dependent diabetes mellitus Physical Examination: Last Vital Signs Temp Pulse Resp BP Pulse Ox 98.2 F 72 18 109/52 96 02/16/18 05:14 02/16/18 05:14 02/16/18 05:14 02/16/18 05:14 02/15/18 20:46 Intake & Output 02/13/18 02/14/18 02/15/18 02/16/18 23:59 23:59 23:59 23:59 Intake Total 110 500 780 120 Output Total 188 487 4066 400 Balance -140 340 -1820 -280 Weight 221 lb 218 lb 12.8 oz 217 lb 9.6 oz 217 lb Constitutional: Awake, alert, oriented and calm Eyes: Bilateral corneal opacification noted external ocular muscles are intact anicteric sclera Neck: Supple negative JVD no bruits appreciated Heart: S1-S2 regular grade 2-3/6 systolic ejection murmur no clicks or gallops Lungs: Bilateral coarse crepitus at the apices and bases bilaterally Chest: No chest wall deformity or chest wall tenderness Abdomen: Protuberant soft benign normoactive bowel sounds no organomegaly Extremities: 1+ bilateral edema and intact distal pulses no calf tenderness Lab Data: CBC, BMP 02/16/18 06:37 Hepatic Panel Total Bilirubin 1.4 mg/dL (0.2-1.0) H 02/15/18 06:20 AST 30 U/L (15-37) 02/15/18 06:20 ALT 29 U/L (12-78) 02/15/18 06:20 Alkaline Phosphatase 74 U/L (45-117) 02/15/18 06:20 Albumin 3.2 g/dl (3.4-5.0) L 02/15/18 06:20 ASSESSMENT: 1. Diastolic LV dysfunction with acute on chronic class I-II [place] [employer] classification left ventricular failure, resolving 2. In addition right-sided heart failure related to pulmonary hypertension exacerbated by probable chronic liver disease/hepatic cirrhosis 3. Coronary artery disease status post coronary artery bypass grafting post percutaneous coronary intervention JORDI LCx angina pectoris. 4. Aortic valve disease aortic valve stenosis severe in severity aortic valve area of 0.6 cm on echocardiography performed October 15, 2017, 0.8 cm on echocardiography performed September 26, 2016, 0.93 cm on cardiac catheterization coronary angiography performed November 03, 2016 and aortic valve area of 1.4 cm on echocardiography performed December 09, 2016. 5. Idiopathic interstitial lung disease/pulmonary fibrosis with pulmonary hypertension moderate to severe in severity (PA pressure of 71/25 mmHg on right heart cardiac catheterization November 03, 2016 and PA pressure of 56/12 mmHg on right heart cardiac catheterization August 26, 2017). 6. Paroxysmal atrial fibrillation in a patient with known history of paroxysmal atrial flutter status post cardioversion [id number] score of 5 currently on no anti-coagulation therapy related to history of chronic liver disease with esophageal varices. 7. Sick sinus syndrome post permanent pacemaker implantation ([employer] device). 8. Mitral valve regurgitation mild in severity of no clinical significance. 9. Tricuspid valve regurgitation mild in severity. 10. History of hypertensive cardiovascular disease. 11. Insulin-dependent diabetes mellitus. 12. Hypercholesterolemia. 13. Carotid artery disease mild in severity, asymptomatic. 14. History of migraine headaches. 15. History of diabetic retinopathy. 16. History of glaucoma, legally blind. 17. Hypothyroidism. 18. History of obstructive sleep apnea. 19. History of chronic liver disease/hepatic cirrhosis with esophageal varices. 20. Anemia/thrombocytopenia 21. Exogenous obesity. PLAN: 1. Continue IV Lasix but increase dosage to 60 mg twice daily with close monitoring of renal function and electrolytes. 2. Continue Aldactone therapy at 25 mg twice daily with close monitoring of renal function and electrolytes. 3. Continue Toprol-XL therapy. 4. Continue Adcirca therapy. 5. Continue dual antiplatelet agent therapy administration, Ecotrin and Plavix with caution considering the above-noted anemia/thrombocytopenia. Brayan Yi M.D.
[2018-02-16 08:00] LABS: CREATININE 1.2 mg/dL (0.7-1.3); PHOSPHOROUS 3.2 mg/dL (2.5-4.9)
[2018-02-16] MEDS ORDERED: FUROSEMIDE 40 MG/4 ML INJECTABLE VIAL IVPUSH ONE (08:00)
[2018-02-16] MEDS ORDERED: PT OWN MED DRAWER 7, Y5N ONE (09:27)
[2018-02-16] MEDS: predniSONE 10 MG TABLET (UD) PO SCH (09:34)
[2018-02-16] MEDS: CLOPIDOGREL BISULFATE 75 MG TABLET (FP) PO SCH (09:34)
[2018-02-16] MEDS: ASPIRIN COATED 81 MG TABLET.EC PO SCH (09:34)
[2018-02-16] MEDS: SPIRONOLACTONE 25 MG TABLET (FP) PO SCH ×2 (09:34→21:50)
[2018-02-16] MEDS: ESCITALOPRAM OXALATE 10 MG TABLET (FP) PO SCH (09:35)
[2018-02-16] MEDS: CHOLECALCIFEROL (VITAMIN D3) 1,000 UNIT TABLET (FP) PO SCH (09:35)
[2018-02-16] MEDS: POLYETHYLENE GLYCOL 3350 255 GM BTL PO SCH (09:36)
[2018-02-16] MEDS ORDERED: INSULIN (NOVOLOG) ASPART 100 UNITS/ML 10ML VIAL ONE (12:11)
--- NOTE | 2018-02-16 12:21 | PN ---
Progress Note, Physician Chief Complaint: Mr Rodriguez says he is feels better today but still with some shortness of breath. No cp or n/v. - Current Medication List Current Medications: Active Medications Acetaminophen (Tylenol -) 650 mg PO Q4H PRN PRN Reason: FEVER Aspirin (Ecotrin -) 81 mg PO DAILY [facility] Last Admin: 02/16/18 09:34 Dose: 81 mg Cholecalciferol (Vitamin D3 -) 2,000 unit PO DAILY [facility] Last Admin: 02/16/18 09:35 Dose: 2,000 unit Clopidogrel Bisulfate (Plavix -) 75 mg PO DAILY [facility] Last Admin: 02/16/18 09:34 Dose: 75 mg Escitalopram Oxalate (Lexapro -) 10 mg PO DAILY [facility] Last Admin: 02/16/18 09:35 Dose: 10 mg Furosemide (Lasix Injection -) 60 mg IVPB BIDLASIX [facility] Insulin Aspart (Novolog Vial Sliding Scale -) 1 vial SQ TIDAC [facility] PRN Reason: Protocol Last Admin: 02/16/18 12:13 Dose: 8 units Insulin Detemir (Levemir Vial) 15 units SQ BID@0700,2200 [facility] Levothyroxine Sodium (Synthroid -) 25 mcg PO ACBK [facility] Last Admin: 02/16/18 06:04 Dose: 25 mcg Metoprolol Succinate (Toprol Xl -) 25 mg PO HS [facility] Last Admin: 02/15/18 22:03 Dose: 25 mg Non-Formulary Medication (Naratriptan Hcl [Naratriptan Hcl]) 2.5 mg PO DAILY [facility] Non-Formulary Medication (Tadalafil [Adcirca]) 20 mg PO DAILY [facility] Polyethylene Glycol (Miralax (For Bowel Prep) -) 17 gm PO DAILY [facility] Last Admin: 02/16/18 09:36 Dose: 17 gm Prednisone (Deltasone -) 10 mg PO DAILY [facility] Last Admin: 02/16/18 09:34 Dose: 10 mg Spironolactone (Aldactone -) 25 mg PO BID [facility] Last Admin: 02/16/18 09:34 Dose: 25 mg - Objective Vital Signs: Vital Signs Temperature 36.6 C 02/16/18 09:00 Pulse Rate 74 02/16/18 09:00 Respiratory Rate 18 02/16/18 09:00 Blood Pressure 113/61 02/16/18 09:00 O2 Sat by Pulse Oximetry (%) 98 02/16/18 09:00 Constitutional: Yes: No Distress, Calm, Obese Cardiovascular: Yes: Regular Rate and Rhythm, Murmur. No: Gallop, Rub Respiratory: Yes: Regular, On Nasal O2, Rales. No: CTA Bilaterally, Rhonchi, Wheezes Gastrointestinal: Yes: Normal Bowel Sounds, Soft. No: Distention, Tenderness, Rebound Extremities: Yes: WNL Edema: Yes Edema: LLE: 1+, RLE: 1+ Labs: CBC, BMP 02/16/18 06:37 02/16/18 06:37 INR, PTT INR 1.00 (0.82-1.09) 02/13/18 12:25 Problem List - Problems (1) CHF (congestive heart failure) Code(s): I50.9 - HEART FAILURE, UNSPECIFIED Qualifiers: Heart failure type: diastolic Heart failure chronicity: acute on chronic Qualified Code(s): I50.33 - Acute on chronic diastolic (congestive) heart failure (2) Diabetes Code(s): E11.9 - TYPE 2 DIABETES MELLITUS WITHOUT COMPLICATIONS Qualifiers: Diabetes mellitus type: type 2 Diabetes mellitus complication status: with ophthalmic complications Diabetes mellitus complication detail: with diabetic retinopathy (3) HTN (hypertension) Code(s): I10 - ESSENTIAL (PRIMARY) HYPERTENSION Qualifiers: Hypertension type: essential hypertension Qualified Code(s): I10 - Essential (primary) hypertension (4) CAD (coronary artery disease) Code(s): I25.10 - ATHSCL HEART DISEASE OF [place] CORONARY ARTERY W/O ANG PCTRS Qualifiers: Coronary Disease-Associated Artery/Lesion type: [place] artery [place] vs. transplanted heart: [place] heart Associated angina: without angina Qualified Code(s): I25.10 - Atherosclerotic heart disease of [place] coronary artery without angina pectoris (5) Cirrhosis Code(s): K74.60 - UNSPECIFIED CIRRHOSIS OF LIVER Qualifiers: Hepatic cirrhosis type: unspecified hepatic cirrhosis Ascites presence: with ascites Qualified Code(s): K74.60 - Unspecified cirrhosis of liver (6) ILD (interstitial lung disease) Code(s): J84.9 - INTERSTITIAL PULMONARY DISEASE, UNSPECIFIED (7) Pulmonary hypertension Code(s): I27.2 - OTHER SECONDARY PULMONARY HYPERTENSION * DO NOT USE * (8) Hypothyroidism Code(s): E03.9 - HYPOTHYROIDISM, UNSPECIFIED Qualifiers: Hypothyroidism type: unspecified Qualified Code(s): E03.9 - Hypothyroidism , unspecified Assessment/Plan (1) CHF (congestive heart failure) Assessment/Plan: -appreciate cardiology assistance and note reviewed -increase lasix to 60mg IV bid -increase aldactone to 25mg bid -continue toprol xl -improving Code(s): I50.9 - HEART FAILURE, UNSPECIFIED Qualifiers: Heart failure type: diastolic Heart failure chronicity: acute on chronic Qualified Code(s): I50.33 - Acute on chronic diastolic (congestive) heart failure (2) Diabetes Assessment/Plan: -case d/w patient and -on bid 70/30 at home -will increase levemir to 15 units bid -continue diabetic diet and SSI Code(s): E11.9 - TYPE 2 DIABETES MELLITUS WITHOUT COMPLICATIONS Qualifiers: Diabetes mellitus type: type 2 Diabetes mellitus complication status: with ophthalmic complications Diabetes mellitus complication detail: with diabetic retinopathy (3) HTN (hypertension) Assessment/Plan: -controlled -aldactone and lasix increased -continue toprol xl Code(s): I10 - ESSENTIAL (PRIMARY) HYPERTENSION Qualifiers: Hypertension type: essential hypertension Qualified Code(s): I10 - Essential (primary) hypertension (4) CAD (coronary artery disease) Assessment/Plan: -quiescent -continue aspirin and plavix per cardiology -continue home regimen Code(s): I25.10 - ATHSCL HEART DISEASE OF [place] CORONARY ARTERY W/O ANG PCTRS Qualifiers: Coronary Disease-Associated Artery/Lesion type: [place] artery [place] vs. transplanted heart: [place] heart Associated angina: without angina Qualified Code(s): I25.10 - Atherosclerotic heart disease of [place] coronary artery without angina pectoris (5) Cirrhosis Assessment/Plan: -continue diuretics Code(s): K74.60 - UNSPECIFIED CIRRHOSIS OF LIVER Qualifiers: Hepatic cirrhosis type: unspecified hepatic cirrhosis Ascites presence: with ascites Qualified Code(s): K74.60 - Unspecified cirrhosis of liver (6) ILD (interstitial lung disease) Assessment/Plan: -continue prednisone Code(s): J84.9 - INTERSTITIAL PULMONARY DISEASE, UNSPECIFIED (7) Pulmonary hypertension Assessment/Plan: -instructed to bring in home adcirca as not on formulary here and is currently not receiving Code(s): I27.2 - OTHER SECONDARY PULMONARY HYPERTENSION * DO NOT USE * (8) Hypothyroidism Assessment/Plan: -continue levothyroxine Code(s): E03.9 - HYPOTHYROIDISM, UNSPECIFIED Qualifiers: Hypothyroidism type: unspecified Qualified Code(s): E03.9 - Hypothyroidism , unspecified
[2018-02-16] MEDS ORDERED: INSULIN (NOVOLOG) ASPART 100 UNITS/ML 10ML VIAL SQ ONE ×2 (18:15→22:30)
[2018-02-16] MEDS: INSULIN (LEVEMIR) 100 UNITS/ML UNITS SQ SCH (21:48)
[2018-02-16] MEDS: metoPROLOL SUCCINATE 25 MG TAB.SR.24H (FP) PO SCH (21:48)
[2018-02-17] MEDS: INSULIN (LEVEMIR) 100 UNITS/ML UNITS SQ SCH ×2 (06:12→22:06)
[2018-02-17] MEDS: FUROSEMIDE 100 MG/10 ML INJECTABLE VIAL IVPB SCH (06:13)
[2018-02-17] MEDS: INSULIN SLIDING SCALE (NOVOLOG) 1 VIAL SQ SCH ×4 (06:13→22:18)
[2018-02-17] MEDS: LEVOTHYROXINE NA 25 MCG TABLET (FP) PO SCH (06:26)
[2018-02-17 06:50] LABS: BASO % 0.9 % (0-2.0); EOS % 3.8 % (0-4.5); HEMATOCRIT 31.4 % (35.4-49); HEMOGLOBIN 10.7 GM/dL (11.7-16.9); MCH 32.1 pg (25.7-33.7); MCHC 34.1 g/dl (32.0-35.9); MEAN CELL VOLUME 94.2 fl (80-96); MEAN PLT VOLUME 7.4 fl (7.5-11.1); MONO % 11.8 % (3.8-10.2); NEUT % 64.5 % (42.8-82.8); PLATELET COUNT 94 K/MM3 (134-434); RBC 3.33 M/mm3 (4.00-5.60); RDW 17.4 % (11.9-15.9); WHITE BLOOD COUNT 4.7 K/mm3 (4.0-10.0)
[2018-02-17 07:23] LABS: ANION GAP 5 (8-16); BLOOD UREA NITROGEN 45 mg/dL (7-18); CALCIUM 8.4 mg/dL (8.5-10.1); CHLORIDE 105 mmol/L (98-107); CO2 30 mmol/L (21-32); CREATININE 1.2 mg/dL (0.7-1.3); GLUCOSE,RANDOM 187 mg/dL (74-106); MAGNESIUM 2.4 mg/dL (1.8-2.4); PHOSPHOROUS 3.7 mg/dL (2.5-4.9); POTASSIUM 4.1 mmol/L (3.5-5.1); SODIUM 140 mmol/L (136-145)
[2018-02-17] MEDS ORDERED: INSULIN SLIDING SCALE (NOVOLOG) 1 VIAL SQ SCH (09:05)
--- NOTE | 2018-02-17 09:07 | PN ---
Progress Note (short form) - Note Progress Note: Dr. 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 BP lower and Glucose higher HS
--- NOTE | 2018-02-17 09:31 | PN ---
Progress Note, Physician History of Present Illness: Dyspnea and LE edema improved with diuresis. - Current Medication List Current Medications: Active Medications Acetaminophen (Tylenol -) 650 mg PO Q4H PRN PRN Reason: FEVER Aspirin (Ecotrin -) 81 mg PO DAILY [facility] Last Admin: 02/16/18 09:34 Dose: 81 mg Cholecalciferol (Vitamin D3 -) 2,000 unit PO DAILY [facility] Last Admin: 02/16/18 09:35 Dose: 2,000 unit Clopidogrel Bisulfate (Plavix -) 75 mg PO DAILY [facility] Last Admin: 02/16/18 09:34 Dose: 75 mg Escitalopram Oxalate (Lexapro -) 10 mg PO DAILY [facility] Last Admin: 02/16/18 09:35 Dose: 10 mg Furosemide (Lasix Injection -) 60 mg IVPB BIDLASIX [facility] Last Admin: 02/17/18 06:13 Dose: 60 mg Insulin Aspart (Novolog Vial Sliding Scale -) 1 vial SQ ACHS [facility] PRN Reason: Protocol Insulin Detemir (Levemir Vial) 15 units SQ BID@0700,2200 [facility] Last Admin: 02/17/18 06:12 Dose: 15 units Levothyroxine Sodium (Synthroid -) 25 mcg PO ACBK [facility] Last Admin: 02/17/18 06:26 Dose: 25 mcg Metoprolol Succinate (Toprol Xl -) 25 mg PO HS [facility] Last Admin: 02/16/18 21:48 Dose: 25 mg Non-Formulary Medication (Naratriptan Hcl [Naratriptan Hcl]) 2.5 mg PO DAILY [facility] Non-Formulary Medication (Tadalafil [Adcirca]) 20 mg PO DAILY [facility] Polyethylene Glycol (Miralax (For Bowel Prep) -) 17 gm PO DAILY [facility] Last Admin: 02/16/18 09:36 Dose: 17 gm Prednisone (Deltasone -) 10 mg PO DAILY [facility] Last Admin: 02/16/18 09:34 Dose: 10 mg Spironolactone (Aldactone -) 25 mg PO BID [facility] Last Admin: 02/16/18 21:50 Dose: 25 mg - Objective Vital Signs: Vital Signs Temperature 97.8 F 02/17/18 02:00 Pulse Rate 76 02/17/18 02:00 Respiratory Rate 20 02/17/18 02:00 Blood Pressure 101/52 02/17/18 02:00 O2 Sat by Pulse Oximetry (%) 98 02/16/18 20:17 Constitutional: Yes: No Distress, Calm Neck: Yes: Supple Cardiovascular: Yes: Regular Rate and Rhythm, Murmur (2/6 SM) Respiratory: Yes: Regular, Diminished, On Nasal O2 Gastrointestinal: Yes: Normal Bowel Sounds, Soft, Abdomen, Obese Edema: Yes Edema: LLE: 1+, RLE: 1+ Labs: CBC, BMP 02/17/18 06:25 02/17/18 06:25 INR, PTT INR 1.00 (0.82-1.09) 02/13/18 12:25 Problem List - Problems (1) CAD (coronary artery disease) Code(s): I25.10 - ATHSCL HEART DISEASE OF [place] CORONARY ARTERY W/O ANG PCTRS Qualifiers: Coronary Disease-Associated Artery/Lesion type: [place] artery [place] vs. transplanted heart: [place] heart Associated angina: without angina Qualified Code(s): I25.10 - Atherosclerotic heart disease of [place] coronary artery without angina pectoris (2) CHF (congestive heart failure) Code(s): I50.9 - HEART FAILURE, UNSPECIFIED Qualifiers: Heart failure type: diastolic Heart failure chronicity: acute on chronic Qualified Code(s): I50.33 - Acute on chronic diastolic (congestive) heart failure (3) Cirrhosis Code(s): K74.60 - UNSPECIFIED CIRRHOSIS OF LIVER Qualifiers: Hepatic cirrhosis type: unspecified hepatic cirrhosis Ascites presence: with ascites Qualified Code(s): K74.60 - Unspecified cirrhosis of liver (4) HTN (hypertension) Code(s): I10 - ESSENTIAL (PRIMARY) HYPERTENSION Qualifiers: Hypertension type: essential hypertension Qualified Code(s): I10 - Essential (primary) hypertension (5) Heart failure, diastolic, with acute decompensation Code(s): I50.33 - ACUTE ON CHRONIC DIASTOLIC (CONGESTIVE) HEART FAILURE (6) ILD (interstitial lung disease) Code(s): J84.9 - INTERSTITIAL PULMONARY DISEASE, UNSPECIFIED (7) Morbidly obese Code(s): E66.01 - MORBID (SEVERE) OBESITY DUE TO EXCESS CALORIES (8) Pulmonary hypertension Code(s): I27.2 - OTHER SECONDARY PULMONARY HYPERTENSION * DO NOT USE * (9) SOB (shortness of breath) on exertion Code(s): R06.02 - SHORTNESS OF BREATH (10) T2DM (type 2 diabetes mellitus) Code(s): E11.9 - TYPE 2 DIABETES MELLITUS WITHOUT COMPLICATIONS (11) LEFTY (acute kidney injury) Code(s): N17.9 - ACUTE KIDNEY FAILURE, UNSPECIFIED (12) Hypothyroidism Code(s): E03.9 - HYPOTHYROIDISM, UNSPECIFIED Qualifiers: Hypothyroidism type: unspecified Qualified Code(s): E03.9 - Hypothyroidism , unspecified (13) Interstitial lung disease Code(s): J84.9 - INTERSTITIAL PULMONARY DISEASE, UNSPECIFIED (14) Moderate aortic valve stenosis Code(s): I35.0 - NONRHEUMATIC AORTIC (VALVE) STENOSIS (15) S/P CABG x 3 Code(s): Z95.1 - PRESENCE OF AORTOCORONARY BYPASS GRAFT (16) S/P coronary artery stent placement Code(s): Z95.5 - PRESENCE OF CORONARY ANGIOPLASTY IMPLANT AND GRAFT Assessment/Plan Right and left heart cardiac catheterization coronary angiography performed at [facility] under care of Dr. Ronnie Sanon August 26, 2017 revealed evidence of triple vessel obstructive coronary artery disease, patent MCCAULEY to LAD, patent free radial artery to LAD-D1, patent SVG to RPDA, obstructive LCx proximal and mid lesions for which rotational atherectomy and JORDI implant was performed successfully, RV pressure of 57 over 3 mmHg, PA pressure of 56 over 12 mmHg and moderate degree of aortic valve stenosis (no valve area calculation). Echocardiography performed October 15, 2017 revealed concentric left ventricular hypertrophy with overall preserved left ventricular systolic function, left atrial dilatation measuring 4.7 cm, aortic valve leaflet sclerosis and calcification with a mean trans-valvular gradient of 33 mmHg and a peak trans-valvular gradient of 57 mmHg and calculated aortic valve area of 0.6 cm consistent with severe degree of aortic valve stenosis, aortic root sclerosis, mitral annular calcification, mild mitral and tricuspid valve regurgitation with no evidence of pulmonary hypertension 1. Clinical presentation is consistent with acute on chronic class I-II [place] Heart [employer] classification left ventricular failure, resolving 2. In addition right-sided heart failure related to pulmonary hypertension exacerbated by probable chronic liver disease/hepatic cirrhosis 3. Coronary artery disease status post coronary artery bypass grafting negative pharmacologic Lexiscan myocardial perfusion imaging study for myocardial ischemia with patent grafts on coronary angiography November 03, 2016 and August 26, 2017 post percutaneous coronary intervention JORDI LCx August angina pectoris. 4. Aortic valve disease aortic valve stenosis severe in severity aortic valve area of 0.6 cm on echocardiography performed October 15, 2017, 0.8 cm on echocardiography performed September 26, 2016, 0.93 cm on cardiac catheterization coronary angiography performed November 03, 2016 and aortic valve area of 1.4 cm on echocardiography performed December 09, 2016. 5. Idiopathic interstitial lung disease/pulmonary fibrosis with pulmonary hypertension moderate to severe in severity (PA pressure of 71/25 mmHg on right heart cardiac catheterization November 03, 2016 and PA pressure of 56/12 mmHg on right heart cardiac catheterization August 26, 2017). 6. Paroxysmal atrial fibrillation in a patient with known history of paroxysmal atrial flutter status post cardioversion [id number] score of 5 currently on no anti-coagulation therapy related to history of chronic liver disease with esophageal varices. 7. Sick sinus syndrome post permanent pacemaker implantation ([employer] device). 8. Mitral valve regurgitation mild in severity of no clinical significance. 9. Tricuspid valve regurgitation mild in severity. 10. History of hypertensive cardiovascular disease. 11. Insulin-dependent diabetes mellitus. 12. Hypercholesterolemia. 13. Carotid artery disease mild in severity, asymptomatic. 14. History of migraine headaches. 15. History of diabetic retinopathy. 16. History of glaucoma, legally blind. 17. Hypothyroidism. 18. History of obstructive sleep apnea. 19. History of chronic liver disease/hepatic cirrhosis with esophageal varices. 20. Anemia/thrombocytopenia 21. Exogenous obesity. 22. Acute on CKD improving PLAN: 1. Decrease Lasix 40 mg IV twice daily with close monitoring of diuretic response, renal function and electrolytes. 2. Continue Aldactone therapy at 25 mg daily with close monitoring of renal function and electrolytes. 3. Continue Toprol-XL 25 qhs therapy. 4. Continue Adcirca therapy. 5. Continue dual antiplatelet agent therapy administration, Ecotrin 81 qd and Plavix 75 qd with caution considering the above-noted anemia/thrombocytopenia.
[2018-02-17] MEDS: ASPIRIN COATED 81 MG TABLET.EC PO SCH (09:53)
[2018-02-17] MEDS: CHOLECALCIFEROL (VITAMIN D3) 1,000 UNIT TABLET (FP) PO SCH (09:53)
[2018-02-17] MEDS: predniSONE 10 MG TABLET (UD) PO SCH (09:53)
[2018-02-17] MEDS: SPIRONOLACTONE 25 MG TABLET (FP) PO SCH ×2 (09:53→22:06)
[2018-02-17] MEDS: ESCITALOPRAM OXALATE 10 MG TABLET (FP) PO SCH (09:53)
[2018-02-17] MEDS: CLOPIDOGREL BISULFATE 75 MG TABLET (FP) PO SCH (09:53)
[2018-02-17] MEDS: POLYETHYLENE GLYCOL 3350 255 GM BTL PO SCH (09:53)
--- NOTE | 2018-02-17 11:47 | PN ---
Progress Note, Physician Chief Complaint: Mr Rodriguez continues to improve. Says walking around and is less short of breath. No cp or n/v. Still with leg selling that is unchanged. - Current Medication List Current Medications: Active Medications Acetaminophen (Tylenol -) 650 mg PO Q4H PRN PRN Reason: FEVER Aspirin (Ecotrin -) 81 mg PO DAILY [facility] Last Admin: 02/17/18 09:53 Dose: 81 mg Cholecalciferol (Vitamin D3 -) 2,000 unit PO DAILY [facility] Last Admin: 02/17/18 09:53 Dose: 2,000 unit Clopidogrel Bisulfate (Plavix -) 75 mg PO DAILY [facility] Last Admin: 02/17/18 09:53 Dose: 75 mg Escitalopram Oxalate (Lexapro -) 10 mg PO DAILY [facility] Last Admin: 02/17/18 09:53 Dose: 10 mg Furosemide (Lasix Injection -) 40 mg IVPB BIDLASIX [facility] Insulin Aspart (Novolog Vial Sliding Scale -) 1 vial SQ ACHS [facility] PRN Reason: Protocol Insulin Detemir (Levemir Vial) 15 units SQ BID@0700,2200 [facility] Last Admin: 02/17/18 06:12 Dose: 15 units Levothyroxine Sodium (Synthroid -) 25 mcg PO ACBK [facility] Last Admin: 02/17/18 06:26 Dose: 25 mcg Metoprolol Succinate (Toprol Xl -) 25 mg PO HS [facility] Last Admin: 02/16/18 21:48 Dose: 25 mg Non-Formulary Medication (Naratriptan Hcl [Naratriptan Hcl]) 2.5 mg PO DAILY [facility] Polyethylene Glycol (Miralax (For Bowel Prep) -) 17 gm PO DAILY [facility] Last Admin: 02/17/18 09:53 Dose: 17 gm Prednisone (Deltasone -) 10 mg PO DAILY [facility] Last Admin: 02/17/18 09:53 Dose: 10 mg Spironolactone (Aldactone -) 25 mg PO BID [facility] Last Admin: 02/17/18 09:53 Dose: 25 mg - Objective Vital Signs: Vital Signs Temperature 36.6 C 02/17/18 09:45 Pulse Rate 77 02/17/18 09:45 Respiratory Rate 20 02/17/18 09:45 Blood Pressure 99/52 02/17/18 09:45 O2 Sat by Pulse Oximetry (%) 97 02/17/18 09:00 Constitutional: Yes: No Distress, Calm, Obese Cardiovascular: Yes: Regular Rate and Rhythm. No: Gallop, Murmur, Rub Respiratory: Yes: Regular, CTA Bilaterally, On Nasal O2. No: Rales, Rhonchi, Wheezes Gastrointestinal: Yes: Normal Bowel Sounds, Soft. No: Distention, Tenderness Extremities: Yes: WNL Edema: LLE: 2+, RLE: 2+ Labs: CBC, BMP 02/17/18 06:25 02/17/18 06:25 INR, PTT INR 1.00 (0.82-1.09) 02/13/18 12:25 Problem List - Problems (1) CHF (congestive heart failure) Code(s): I50.9 - HEART FAILURE, UNSPECIFIED Qualifiers: Heart failure type: diastolic Heart failure chronicity: acute on chronic Qualified Code(s): I50.33 - Acute on chronic diastolic (congestive) heart failure (2) Diabetes Code(s): E11.9 - TYPE 2 DIABETES MELLITUS WITHOUT COMPLICATIONS Qualifiers: Diabetes mellitus type: type 2 Diabetes mellitus complication status: with ophthalmic complications Diabetes mellitus complication detail: with diabetic retinopathy (3) HTN (hypertension) Code(s): I10 - ESSENTIAL (PRIMARY) HYPERTENSION Qualifiers: Hypertension type: essential hypertension Qualified Code(s): I10 - Essential (primary) hypertension (4) CAD (coronary artery disease) Code(s): I25.10 - ATHSCL HEART DISEASE OF [place] CORONARY ARTERY W/O ANG PCTRS Qualifiers: Coronary Disease-Associated Artery/Lesion type: [place] artery [place] vs. transplanted heart: [place] heart Associated angina: without angina Qualified Code(s): I25.10 - Atherosclerotic heart disease of [place] coronary artery without angina pectoris (5) Cirrhosis Code(s): K74.60 - UNSPECIFIED CIRRHOSIS OF LIVER Qualifiers: Hepatic cirrhosis type: unspecified hepatic cirrhosis Ascites presence: with ascites Qualified Code(s): K74.60 - Unspecified cirrhosis of liver (6) ILD (interstitial lung disease) Code(s): J84.9 - INTERSTITIAL PULMONARY DISEASE, UNSPECIFIED (7) Pulmonary hypertension Code(s): I27.2 - OTHER SECONDARY PULMONARY HYPERTENSION * DO NOT USE * (8) Hypothyroidism Code(s): E03.9 - HYPOTHYROIDISM, UNSPECIFIED Qualifiers: Hypothyroidism type: unspecified Qualified Code(s): E03.9 - Hypothyroidism , unspecified Assessment/Plan (1) CHF (congestive heart failure) Assessment/Plan: -continues to improve -case d/w cardiology -lasix decreased to 40mg IV bid secondary to hypotension -continue toprol xl and aldactone at current dose Code(s): I50.9 - HEART FAILURE, UNSPECIFIED Qualifiers: Heart failure type: diastolic Heart failure chronicity: acute on chronic Qualified Code(s): I50.33 - Acute on chronic diastolic (congestive) heart failure (2) Diabetes Assessment/Plan: -levemir increased to 15 units bid -first morning dose today -already received 8 units today -will change levemir to 20 units bid and see if improves Code(s): E11.9 - TYPE 2 DIABETES MELLITUS WITHOUT COMPLICATIONS Qualifiers: Diabetes mellitus type: type 2 Diabetes mellitus complication status: with ophthalmic complications Diabetes mellitus complication detail: with diabetic retinopathy (3) HTN (hypertension) Assessment/Plan: -low normal today -aldactone increased this admission -lasix decreased to 40mg IV bid -continue toprol xl Code(s): I10 - ESSENTIAL (PRIMARY) HYPERTENSION Qualifiers: Hypertension type: essential hypertension Qualified Code(s): I10 - Essential (primary) hypertension (4) CAD (coronary artery disease) Assessment/Plan: -quiescent -continue aspirin and plavix per cardiology -continue home regimen Code(s): I25.10 - ATHSCL HEART DISEASE OF [place] CORONARY ARTERY W/O ANG PCTRS Qualifiers: Coronary Disease-Associated Artery/Lesion type: [place] artery [place] vs. transplanted heart: [place] heart Associated angina: without angina Qualified Code(s): I25.10 - Atherosclerotic heart disease of [place] coronary artery without angina pectoris (5) Cirrhosis Assessment/Plan: -continue diuretics Code(s): K74.60 - UNSPECIFIED CIRRHOSIS OF LIVER Qualifiers: Hepatic cirrhosis type: unspecified hepatic cirrhosis Ascites presence: with ascites Qualified Code(s): K74.60 - Unspecified cirrhosis of liver (6) ILD (interstitial lung disease) Assessment/Plan: -continue prednisone Code(s): J84.9 - INTERSTITIAL PULMONARY DISEASE, UNSPECIFIED (7) Pulmonary hypertension Assessment/Plan: - brought in adcirca from home -to start tonight Code(s): I27.2 - OTHER SECONDARY PULMONARY HYPERTENSION * DO NOT USE * (8) Hypothyroidism Assessment/Plan: -continue levothyroxine Code(s): E03.9 - HYPOTHYROIDISM, UNSPECIFIED Qualifiers: Hypothyroidism type: unspecified Qualified Code(s): E03.9 - Hypothyroidism , unspecified
[2018-02-17] MEDS: TADALAFIL 20 MG PO SCH ×2 (11:57→22:08)
[2018-02-17] MEDS: FUROSEMIDE 40 MG/4 ML INJECTABLE VIAL IVPB SCH (14:10)
[2018-02-17] MEDS ORDERED: PT OWN MED DRAWER 7, Y5N ONE (15:01)
[2018-02-17] MEDS ORDERED: Insulin (LOG) Aspart 100 UNITS/ML VIAL SQ ONE (18:08)
[2018-02-17] MEDS: metoPROLOL SUCCINATE 25 MG TAB.SR.24H (FP) PO SCH (22:09)
[2018-02-17] MEDS ORDERED: INSULIN (NOVOLOG) ASPART 100 UNITS/ML 10ML VIAL SQ ONE (23:15)
[2018-02-18] MEDS: LEVOTHYROXINE NA 25 MCG TABLET (FP) PO SCH (06:43)
[2018-02-18] MEDS: FUROSEMIDE 40 MG/4 ML INJECTABLE VIAL IVPB SCH ×2 (06:43→13:13)
[2018-02-18] MEDS: INSULIN (LEVEMIR) 100 UNITS/ML UNITS SQ SCH ×2 (06:55→21:18)
[2018-02-18] MEDS: INSULIN SLIDING SCALE (NOVOLOG) 1 VIAL SQ SCH ×3 (06:56→21:19)
[2018-02-18 07:12] LABS: EOS % 3.8 % (0-4.5); HEMATOCRIT 30.5 % (35.4-49); HEMOGLOBIN 10.5 GM/dL (11.7-16.9); LYMPH % 19.4 % (8-40); MCH 32.2 pg (25.7-33.7); MCHC 34.5 g/dl (32.0-35.9); MEAN CELL VOLUME 93.3 fl (80-96); MEAN PLT VOLUME 7.5 fl (7.5-11.1); MONO % 9.8 % (3.8-10.2); PLATELET COUNT 93 K/MM3 (134-434); RBC 3.27 M/mm3 (4.00-5.60); RDW 17.2 % (11.9-15.9); WHITE BLOOD COUNT 3.7 K/mm3 (4.0-10.0)
[2018-02-18 07:15] LABS: ANION GAP 6 (8-16); BLOOD UREA NITROGEN 48 mg/dL (7-18); CALCIUM 8.4 mg/dL (8.5-10.1); CHLORIDE 106 mmol/L (98-107); CO2 29 mmol/L (21-32); CREATININE 1.2 mg/dL (0.7-1.3); GLUCOSE,RANDOM 192 mg/dL (74-106); MAGNESIUM 2.4 mg/dL (1.8-2.4); PHOSPHOROUS 3.6 mg/dL (2.5-4.9); POTASSIUM 4.2 mmol/L (3.5-5.1); SODIUM 141 mmol/L (136-145)
--- NOTE | 2018-02-18 08:51 | PN ---
Progress Note (short form) - Note Progress Note: Dr. 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 Weight no change at 213 lbs. He had been on Invokana at home for DM but not on formulary here.
[2018-02-18] MEDS: SPIRONOLACTONE 25 MG TABLET (FP) PO SCH ×2 (09:06→21:18)
[2018-02-18] MEDS: CHOLECALCIFEROL (VITAMIN D3) 1,000 UNIT TABLET (FP) PO SCH (09:06)
[2018-02-18] MEDS: ESCITALOPRAM OXALATE 10 MG TABLET (FP) PO SCH (09:06)
[2018-02-18] MEDS: ASPIRIN COATED 81 MG TABLET.EC PO SCH (09:06)
[2018-02-18] MEDS: CLOPIDOGREL BISULFATE 75 MG TABLET (FP) PO SCH (09:06)
[2018-02-18] MEDS: predniSONE 10 MG TABLET (UD) PO SCH (09:06)
[2018-02-18] MEDS: POLYETHYLENE GLYCOL 3350 255 GM BTL PO SCH (09:07)
--- NOTE | 2018-02-18 10:04 | PN ---
Progress Note, Physician Chief Complaint: Events noted Clinically improving with IV diuretics History of Present Illness: Patient was seen and examined. Awake and alert. Chart was reviewed Denies chest pain, less SOB and no palpitations - Current Medication List Current Medications: Active Medications Acetaminophen (Tylenol -) 650 mg PO Q4H PRN PRN Reason: FEVER Aspirin (Ecotrin -) 81 mg PO DAILY [facility] Last Admin: 02/18/18 09:06 Dose: 81 mg Cholecalciferol (Vitamin D3 -) 2,000 unit PO DAILY [facility] Last Admin: 02/18/18 09:06 Dose: 2,000 unit Clopidogrel Bisulfate (Plavix -) 75 mg PO DAILY [facility] Last Admin: 02/18/18 09:06 Dose: 75 mg Escitalopram Oxalate (Lexapro -) 10 mg PO DAILY [facility] Last Admin: 02/18/18 09:06 Dose: 10 mg Furosemide (Lasix Injection -) 40 mg IVPB BIDLASIX [facility] Last Admin: 02/18/18 06:43 Dose: 40 mg Insulin Aspart (Novolog Vial Sliding Scale -) 1 vial SQ [facility] PRN Reason: Protocol Last Admin: 02/18/18 06:56 Dose: 6 units Insulin Detemir (Levemir Vial) 20 units SQ BID@0700,2200 [facility] Last Admin: 02/18/18 06:55 Dose: 20 units Levothyroxine Sodium (Synthroid -) 25 mcg PO ACBK [facility] Last Admin: 02/18/18 06:43 Dose: 25 mcg Metoprolol Succinate (Toprol Xl -) 25 mg PO [facility] Last Admin: 02/17/18 22:09 Dose: 25 mg Non-Formulary Medication (Naratriptan Hcl [Naratriptan Hcl]) 2.5 mg PO DAILY [facility] Non-Formulary Medication (Tadalafil [Adcirca]) 20 mg PO HS [facility] Last Admin: 02/17/18 22:08 Dose: 20 mg Polyethylene Glycol (Miralax (For Bowel Prep) -) 17 gm PO DAILY [facility] Last Admin: 02/18/18 09:07 Dose: 17 gm Prednisone (Deltasone -) 10 mg PO DAILY [facility] Last Admin: 02/18/18 09:06 Dose: 10 mg Spironolactone (Aldactone -) 25 mg PO BID [facility] Last Admin: 02/18/18 09:06 Dose: 25 mg - Objective Vital Signs: Vital Signs Temperature 97.1 F L 02/18/18 05:00 Pulse Rate 74 02/18/18 05:00 Respiratory Rate 20 02/18/18 05:00 Blood Pressure 101/71 02/18/18 05:00 O2 Sat by Pulse Oximetry (%) 96 02/17/18 20:04 Neck: Yes: Supple Cardiovascular: Yes: Regular Rate and Rhythm, Murmur (SAM), S1, S2 Respiratory: Yes: CTA Bilaterally Gastrointestinal: Yes: Normal Bowel Sounds, Soft, Abdomen, Obese. No: Tenderness Edema: Yes Edema: LLE: 1+, RLE: 1+ Labs: CBC, BMP 02/18/18 06:20 02/18/18 06:20 Problem List - Problems (1) Acute respiratory failure with hypoxia Code(s): J96.01 - ACUTE RESPIRATORY FAILURE WITH HYPOXIA (2) CAD (coronary artery disease) Code(s): I25.10 - ATHSCL HEART DISEASE OF [place] CORONARY ARTERY W/O ANG PCTRS Qualifiers: Coronary Disease-Associated Artery/Lesion type: [place] artery [place] vs. transplanted heart: [place] heart Associated angina: without angina Qualified Code(s): I25.10 - Atherosclerotic heart disease of [place] coronary artery without angina pectoris (3) CHF (congestive heart failure) Code(s): I50.9 - HEART FAILURE, UNSPECIFIED Qualifiers: Heart failure type: diastolic Heart failure chronicity: acute on chronic Qualified Code(s): I50.33 - Acute on chronic diastolic (congestive) heart failure (4) Cirrhosis Code(s): K74.60 - UNSPECIFIED CIRRHOSIS OF LIVER Qualifiers: Hepatic cirrhosis type: unspecified hepatic cirrhosis Ascites presence: with ascites Qualified Code(s): K74.60 - Unspecified cirrhosis of liver (5) HTN (hypertension) Code(s): I10 - ESSENTIAL (PRIMARY) HYPERTENSION Qualifiers: Hypertension type: essential hypertension Qualified Code(s): I10 - Essential (primary) hypertension (6) ILD (interstitial lung disease) Code(s): J84.9 - INTERSTITIAL PULMONARY DISEASE, UNSPECIFIED (7) Pulmonary hypertension Code(s): I27.2 - OTHER SECONDARY PULMONARY HYPERTENSION * DO NOT USE * (8) S/P coronary artery stent placement Code(s): Z95.5 - PRESENCE OF CORONARY ANGIOPLASTY IMPLANT AND GRAFT (9) T2DM (type 2 diabetes mellitus) Code(s): E11.9 - TYPE 2 DIABETES MELLITUS WITHOUT COMPLICATIONS (10) Moderate aortic valve stenosis Code(s): I35.0 - NONRHEUMATIC AORTIC (VALVE) STENOSIS (11) S/P CABG x 3 Code(s): Z95.1 - PRESENCE OF AORTOCORONARY BYPASS GRAFT Assessment/Plan 1. Clinical presentation is consistent with acute on chronic class I-II [place] [employer] classification left ventricular failure - improving 2. Right-sided heart failure related to pulmonary hypertension exacerbated by probable chronic liver disease/hepatic cirrhosis 3. Coronary artery disease status post coronary artery bypass grafting negative pharmacologic Lexiscan myocardial perfusion imaging study for myocardial ischemia with patent grafts on coronary angiography, post percutaneous coronary intervention JORDI LCx, angina pectoris. 4. Aortic valve disease aortic valve stenosis severe in severity aortic valve area of 0.6 cm on echocardiography performed October 15, 2017, 0.8 cm on echocardiography performed September 26, 2016, 0.93 cm on cardiac catheterization coronary angiography performed November 03, 2016 and aortic valve area of 1.4 cm on echocardiography performed December 09, 2016. 5. Idiopathic interstitial lung disease/pulmonary fibrosis with pulmonary hypertension moderate to severe in severity 6. Paroxysmal atrial fibrillation in a patient with known history of paroxysmal atrial flutter status post cardioversion [id number] score of 5 currently on no anti-coagulation therapy related to history of chronic liver disease with esophageal varices. 7. Sick sinus syndrome post permanent pacemaker implantation ([employer] device) . 8. Mitral valve regurgitation mild in severity of no clinical significance. 9. Tricuspid valve regurgitation mild in severity. 10. History of hypertensive cardiovascular disease. 11. Insulin-dependent diabetes mellitus. 12. Hypercholesterolemia. 13. Carotid artery disease mild in severity, asymptomatic. 14. History of migraine headaches. 15. History of diabetic retinopathy. 16. History of glaucoma, legally blind. 17. Hypothyroidism. 18. History of obstructive sleep apnea. 19. History of chronic liver disease/hepatic cirrhosis with esophageal varices. 20. Anemia/thrombocytopenia 21. Exogenous obesity. 22. Acute on CKD improving PLAN: 1. Continue Lasix IV with close monitoring of renal function and electrolytes. 2. Continue Aldactone therapy with close monitoring of renal function and electrolytes. 3. Continue Toprol-XL 4. Continue Adcirca therapy. 5. Continue dual antiplatelet agent therapy administration, Ecotrin 81 qd and Plavix 75 qd with caution considering the above-noted anemia/thrombocytopenia. Further plans are to follow Deejay Martínez MD
--- NOTE | 2018-02-18 12:33 | PN ---
Progress Note, Physician Chief Complaint: Mr Rodriguez says he is feeling better but not at baseline. Still CAMARE[place] but SOB at rest improved. Adcirca causes lightheadedness which he says is not new. No cp or n/v. - Current Medication List Current Medications: Active Medications Acetaminophen (Tylenol -) 650 mg PO Q4H PRN PRN Reason: FEVER Aspirin (Ecotrin -) 81 mg PO DAILY [facility] Last Admin: 02/18/18 09:06 Dose: 81 mg Cholecalciferol (Vitamin D3 -) 2,000 unit PO DAILY [facility] Last Admin: 02/18/18 09:06 Dose: 2,000 unit Clopidogrel Bisulfate (Plavix -) 75 mg PO DAILY [facility] Last Admin: 02/18/18 09:06 Dose: 75 mg Escitalopram Oxalate (Lexapro -) 10 mg PO DAILY [facility] Last Admin: 02/18/18 09:06 Dose: 10 mg Furosemide (Lasix Injection -) 40 mg IVPB BIDLASIX [facility] Last Admin: 02/18/18 06:43 Dose: 40 mg Insulin Aspart (Novolog Vial Sliding Scale -) 1 vial SQ ACHS [facility] PRN Reason: Protocol Last Admin: 02/18/18 11:37 Dose: 6 units Insulin Detemir (Levemir Vial) 20 units SQ HS [facility] Insulin Detemir (Levemir Vial) 30 units SQ AM [facility] Levothyroxine Sodium (Synthroid -) 25 mcg PO ACBK [facility] Last Admin: 02/18/18 06:43 Dose: 25 mcg Metoprolol Succinate (Toprol Xl -) 25 mg PO HS [facility] Last Admin: 02/17/18 22:09 Dose: 25 mg Non-Formulary Medication (Naratriptan Hcl [Naratriptan Hcl]) 2.5 mg PO DAILY [facility] Non-Formulary Medication (Tadalafil [Adcirca]) 20 mg PO HS [facility] Last Admin: 02/17/18 22:08 Dose: 20 mg Polyethylene Glycol (Miralax (For Bowel Prep) -) 17 gm PO DAILY [facility] Last Admin: 02/18/18 09:07 Dose: 17 gm Prednisone (Deltasone -) 10 mg PO DAILY [facility] Last Admin: 02/18/18 09:06 Dose: 10 mg Spironolactone (Aldactone -) 25 mg PO BID [facility] Last Admin: 02/18/18 09:06 Dose: 25 mg - Objective Vital Signs: Vital Signs Temperature 36.6 C 02/18/18 09:00 Pulse Rate 70 02/18/18 09:00 Respiratory Rate 18 02/18/18 09:00 Blood Pressure 100/40 02/18/18 09:00 O2 Sat by Pulse Oximetry (%) 97 02/18/18 09:00 Constitutional: Yes: No Distress, Calm, Obese Cardiovascular: Yes: Regular Rate and Rhythm. No: Gallop, Murmur, Rub Respiratory: Yes: Regular, CTA Bilaterally, On Nasal O2. No: Rales, Rhonchi, Wheezes Gastrointestinal: Yes: Normal Bowel Sounds, Soft. No: Distention, Tenderness Extremities: Yes: WNL Edema: No Labs: CBC, BMP 02/18/18 06:20 02/18/18 06:20 INR, PTT INR 1.00 (0.82-1.09) 02/13/18 12:25 Problem List - Problems (1) CHF (congestive heart failure) Code(s): I50.9 - HEART FAILURE, UNSPECIFIED Qualifiers: Heart failure type: diastolic Heart failure chronicity: acute on chronic Qualified Code(s): I50.33 - Acute on chronic diastolic (congestive) heart failure (2) Diabetes Code(s): E11.9 - TYPE 2 DIABETES MELLITUS WITHOUT COMPLICATIONS Qualifiers: Diabetes mellitus type: type 2 Diabetes mellitus complication status: with ophthalmic complications Diabetes mellitus complication detail: with diabetic retinopathy (3) HTN (hypertension) Code(s): I10 - ESSENTIAL (PRIMARY) HYPERTENSION Qualifiers: Hypertension type: essential hypertension Qualified Code(s): I10 - Essential (primary) hypertension (4) CAD (coronary artery disease) Code(s): I25.10 - ATHSCL HEART DISEASE OF [place] CORONARY ARTERY W/O ANG PCTRS Qualifiers: Coronary Disease-Associated Artery/Lesion type: [place] artery [place] vs. transplanted heart: [place] heart Associated angina: without angina Qualified Code(s): I25.10 - Atherosclerotic heart disease of [place] coronary artery without angina pectoris (5) Cirrhosis Code(s): K74.60 - UNSPECIFIED CIRRHOSIS OF LIVER Qualifiers: Hepatic cirrhosis type: unspecified hepatic cirrhosis Ascites presence: with ascites Qualified Code(s): K74.60 - Unspecified cirrhosis of liver (6) ILD (interstitial lung disease) Code(s): J84.9 - INTERSTITIAL PULMONARY DISEASE, UNSPECIFIED (7) Pulmonary hypertension Code(s): I27.2 - OTHER SECONDARY PULMONARY HYPERTENSION * DO NOT USE * (8) Hypothyroidism Code(s): E03.9 - HYPOTHYROIDISM, UNSPECIFIED Qualifiers: Hypothyroidism type: unspecified Qualified Code(s): E03.9 - Hypothyroidism , unspecified Assessment/Plan (1) CHF (congestive heart failure) Assessment/Plan: -continues to improve -case d/w cardiology -continue lasix 40mg IV bid -continue toprol xl and aldactone at current dose Code(s): I50.9 - HEART FAILURE, UNSPECIFIED Qualifiers: Heart failure type: diastolic Heart failure chronicity: acute on chronic Qualified Code(s): I50.33 - Acute on chronic diastolic (congestive) heart failure (2) Diabetes Assessment/Plan: -d/w family home dose -on SSI -will change to levemir 30 units qam and 20 units qhs Code(s): E11.9 - TYPE 2 DIABETES MELLITUS WITHOUT COMPLICATIONS Qualifiers: Diabetes mellitus type: type 2 Diabetes mellitus complication status: with ophthalmic complications Diabetes mellitus complication detail: with diabetic retinopathy (3) HTN (hypertension) Assessment/Plan: -continue current regimen Code(s): I10 - ESSENTIAL (PRIMARY) HYPERTENSION Qualifiers: Hypertension type: essential hypertension Qualified Code(s): I10 - Essential (primary) hypertension (4) CAD (coronary artery disease) Assessment/Plan: -quiescent -continue aspirin and plavix per cardiology -continue home regimen Code(s): I25.10 - ATHSCL HEART DISEASE OF [place] CORONARY ARTERY W/O ANG PCTRS Qualifiers: Coronary Disease-Associated Artery/Lesion type: [place] artery [place] vs. transplanted heart: [place] heart Associated angina: without angina Qualified Code(s): I25.10 - Atherosclerotic heart disease of [place] coronary artery without angina pectoris (5) Cirrhosis Assessment/Plan: -continue diuretics Code(s): K74.60 - UNSPECIFIED CIRRHOSIS OF LIVER Qualifiers: Hepatic cirrhosis type: unspecified hepatic cirrhosis Ascites presence: with ascites Qualified Code(s): K74.60 - Unspecified cirrhosis of liver (6) ILD (interstitial lung disease) Assessment/Plan: -continue prednisone Code(s): J84.9 - INTERSTITIAL PULMONARY DISEASE, UNSPECIFIED (7) Pulmonary hypertension Assessment/Plan: -adcirca started -makes lightheaded Code(s): I27.2 - OTHER SECONDARY PULMONARY HYPERTENSION * DO NOT USE * (8) Hypothyroidism Assessment/Plan: -continue levothyroxine Code(s): E03.9 - HYPOTHYROIDISM, UNSPECIFIED Qualifiers: Hypothyroidism type: unspecified Qualified Code(s): E03.9 - Hypothyroidism , unspecified
[2018-02-18] MEDS ORDERED: Insulin (LOG) Aspart 100 UNITS/ML VIAL SQ ONE ×2 (17:30→17:56)
[2018-02-18] MEDS: metoPROLOL SUCCINATE 25 MG TAB.SR.24H (FP) PO SCH (21:18)
[2018-02-18] MEDS: TADALAFIL 20 MG PO SCH (21:19)
[2018-02-18] MEDS ORDERED: INSULIN (NOVOLOG) ASPART 100 UNITS/ML 10ML VIAL ONE (21:22)
[2018-02-19] MEDS: FUROSEMIDE 40 MG/4 ML INJECTABLE VIAL IVPB SCH ×2 (06:47→13:04)
[2018-02-19] MEDS: LEVOTHYROXINE NA 25 MCG TABLET (FP) PO SCH (06:48)
[2018-02-19] MEDS: INSULIN SLIDING SCALE (NOVOLOG) 1 VIAL SQ SCH ×5 (06:48→21:50)
[2018-02-19] MEDS: INSULIN (LEVEMIR) 100 UNITS/ML UNITS SQ SCH ×2 (06:48→21:50)
[2018-02-19 07:01] LABS: BASO % 0.8 % (0-2.0); EOS % 4.4 % (0-4.5); HEMATOCRIT 30.1 % (35.4-49); HEMOGLOBIN 10.4 GM/dL (11.7-16.9); MCH 32.4 pg (25.7-33.7); MCHC 34.7 g/dl (32.0-35.9); MEAN CELL VOLUME 93.3 fl (80-96); MEAN PLT VOLUME 7.5 fl (7.5-11.1); MONO % 10.6 % (3.8-10.2); NEUT % 64.2 % (42.8-82.8); PLATELET COUNT 90 K/MM3 (134-434); RBC 3.23 M/mm3 (4.00-5.60); RDW 16.9 % (11.9-15.9); WHITE BLOOD COUNT 4.3 K/mm3 (4.0-10.0)
[2018-02-19 07:38] LABS: ANION GAP 4 (8-16); BLOOD UREA NITROGEN 47 mg/dL (7-18); CALCIUM 8.2 mg/dL (8.5-10.1); CHLORIDE 107 mmol/L (98-107); CO2 30 mmol/L (21-32); CREATININE 1.1 mg/dL (0.7-1.3); GLUCOSE,RANDOM 67 mg/dL (74-106); MAGNESIUM 2.3 mg/dL (1.8-2.4); PHOSPHOROUS 3.7 mg/dL (2.5-4.9); SODIUM 141 mmol/L (136-145)
[2018-02-19] MEDS: predniSONE 10 MG TABLET (UD) PO SCH (09:11)
[2018-02-19] MEDS: SPIRONOLACTONE 25 MG TABLET (FP) PO SCH ×2 (09:11→21:49)
[2018-02-19] MEDS: ASPIRIN COATED 81 MG TABLET.EC PO SCH (09:11)
[2018-02-19] MEDS: CHOLECALCIFEROL (VITAMIN D3) 1,000 UNIT TABLET (FP) PO SCH (09:11)
[2018-02-19] MEDS: CLOPIDOGREL BISULFATE 75 MG TABLET (FP) PO SCH (09:11)
[2018-02-19] MEDS: ESCITALOPRAM OXALATE 10 MG TABLET (FP) PO SCH (09:11)
[2018-02-19] MEDS: POLYETHYLENE GLYCOL 3350 255 GM BTL PO SCH (09:12)
--- NOTE | 2018-02-19 09:56 | PN ---
Progress Note (short form) - Note Progress Note: Dr. 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 Very lightheaded from Adcirca which may contribute to his pedal edema. Was on Fe as outpt for Iron Def anemia. BGM Coverage may be too much for his renal status
--- NOTE | 2018-02-19 10:44 | PN ---
Progress Note, Physician History of Present Illness: Dyspnea and LE edema improved with diuresis. Reports dizziness with Adcirca. - Current Medication List Current Medications: Active Medications Acetaminophen (Tylenol -) 650 mg PO Q4H PRN PRN Reason: FEVER Aspirin (Ecotrin -) 81 mg PO DAILY [facility] Last Admin: 02/19/18 09:11 Dose: 81 mg Cholecalciferol (Vitamin D3 -) 2,000 unit PO DAILY [facility] Last Admin: 02/19/18 09:11 Dose: 2,000 unit Clopidogrel Bisulfate (Plavix -) 75 mg PO DAILY [facility] Last Admin: 02/19/18 09:11 Dose: 75 mg Escitalopram Oxalate (Lexapro -) 10 mg PO DAILY [facility] Last Admin: 02/19/18 09:11 Dose: 10 mg Furosemide (Lasix Injection -) 40 mg IVPB BIDLASIX [facility] Last Admin: 02/19/18 06:47 Dose: 40 mg Insulin Aspart (Novolog Vial Sliding Scale -) 1 vial SQ ACHS [facility] PRN Reason: Protocol Last Admin: 02/19/18 06:48 Dose: Not Given Insulin Detemir (Levemir Vial) 20 units SQ HS [facility] Last Admin: 02/18/18 21:18 Dose: 20 units Insulin Detemir (Levemir Vial) 30 units SQ AM [facility] Last Admin: 02/19/18 06:48 Dose: Not Given Levothyroxine Sodium (Synthroid -) 25 mcg PO ACBK [facility] Last Admin: 02/19/18 06:48 Dose: 25 mcg Metoprolol Succinate (Toprol Xl -) 25 mg PO HS [facility] Last Admin: 02/18/18 21:18 Dose: 25 mg Non-Formulary Medication (Naratriptan Hcl [Naratriptan Hcl]) 2.5 mg PO DAILY [facility] Non-Formulary Medication (Tadalafil [Adcirca]) 20 mg PO HS [facility] Last Admin: 02/18/18 21:19 Dose: 20 mg Polyethylene Glycol (Miralax (For Bowel Prep) -) 17 gm PO DAILY [facility] Last Admin: 02/19/18 09:12 Dose: 17 gm Prednisone (Deltasone -) 10 mg PO DAILY [facility] Last Admin: 02/19/18 09:11 Dose: 10 mg Spironolactone (Aldactone -) 25 mg PO BID [facility] Last Admin: 02/19/18 09:11 Dose: 25 mg - Objective Vital Signs: Vital Signs Temperature 98 F 02/19/18 10:00 Pulse Rate 70 02/19/18 10:00 Respiratory Rate 20 02/19/18 10:00 Blood Pressure 126/53 02/19/18 10:00 O2 Sat by Pulse Oximetry (%) 96 02/19/18 09:00 Constitutional: Yes: No Distress, Calm Neck: Yes: Supple Cardiovascular: Yes: Regular Rate and Rhythm Respiratory: Yes: Regular, Diminished, On Nasal O2 Gastrointestinal: Yes: Normal Bowel Sounds, Soft, Abdomen, Obese Edema: Yes Edema: LLE: 1+, RLE: 1+ Labs: CBC, BMP 02/19/18 05:00 02/19/18 05:00 INR, PTT INR 1.00 (0.82-1.09) 02/13/18 12:25 - ....Imaging EKG: Report Reviewed (Tele: [facility]) Problem List - Problems (1) CAD (coronary artery disease) Code(s): I25.10 - ATHSCL HEART DISEASE OF [place] CORONARY ARTERY W/O ANG PCTRS Qualifiers: Coronary Disease-Associated Artery/Lesion type: [place] artery [place] vs. transplanted heart: [place] heart Associated angina: without angina Qualified Code(s): I25.10 - Atherosclerotic heart disease of [place] coronary artery without angina pectoris (2) CHF (congestive heart failure) Code(s): I50.9 - HEART FAILURE, UNSPECIFIED Qualifiers: Heart failure type: diastolic Heart failure chronicity: acute on chronic Qualified Code(s): I50.33 - Acute on chronic diastolic (congestive) heart failure (3) Cirrhosis Code(s): K74.60 - UNSPECIFIED CIRRHOSIS OF LIVER Qualifiers: Hepatic cirrhosis type: unspecified hepatic cirrhosis Ascites presence: with ascites Qualified Code(s): K74.60 - Unspecified cirrhosis of liver (4) HTN (hypertension) Code(s): I10 - ESSENTIAL (PRIMARY) HYPERTENSION Qualifiers: Hypertension type: essential hypertension Qualified Code(s): I10 - Essential (primary) hypertension (5) Heart failure, diastolic, with acute decompensation Code(s): I50.33 - ACUTE ON CHRONIC DIASTOLIC (CONGESTIVE) HEART FAILURE (6) ILD (interstitial lung disease) Code(s): J84.9 - INTERSTITIAL PULMONARY DISEASE, UNSPECIFIED (7) Morbidly obese Code(s): E66.01 - MORBID (SEVERE) OBESITY DUE TO EXCESS CALORIES (8) Pulmonary hypertension Code(s): I27.2 - OTHER SECONDARY PULMONARY HYPERTENSION * DO NOT USE * (9) SOB (shortness of breath) on exertion Code(s): R06.02 - SHORTNESS OF BREATH (10) T2DM (type 2 diabetes mellitus) Code(s): E11.9 - TYPE 2 DIABETES MELLITUS WITHOUT COMPLICATIONS (11) LEFTY (acute kidney injury) Code(s): N17.9 - ACUTE KIDNEY FAILURE, UNSPECIFIED (12) Hypothyroidism Code(s): E03.9 - HYPOTHYROIDISM, UNSPECIFIED Qualifiers: Hypothyroidism type: unspecified Qualified Code(s): E03.9 - Hypothyroidism , unspecified (13) Interstitial lung disease Code(s): J84.9 - INTERSTITIAL PULMONARY DISEASE, UNSPECIFIED (14) Moderate aortic valve stenosis Code(s): I35.0 - NONRHEUMATIC AORTIC (VALVE) STENOSIS (15) S/P CABG x 3 Code(s): Z95.1 - PRESENCE OF AORTOCORONARY BYPASS GRAFT (16) S/P coronary artery stent placement Code(s): Z95.5 - PRESENCE OF CORONARY ANGIOPLASTY IMPLANT AND GRAFT Assessment/Plan Right and left heart cardiac catheterization coronary angiography performed at [facility] under care of Dr. Ronnie Sanon August 26, 2017 revealed evidence of triple vessel obstructive coronary artery disease, patent MCCAULEY to LAD, patent free radial artery to LAD-D1, patent SVG to RPDA, obstructive LCx proximal and mid lesions for which rotational atherectomy and JORDI implant was performed successfully, RV pressure of 57 over 3 mmHg, PA pressure of 56 over 12 mmHg and moderate degree of aortic valve stenosis (no valve area calculation). Echocardiography performed October 15, 2017 revealed concentric left ventricular hypertrophy with overall preserved left ventricular systolic function, left atrial dilatation measuring 4.7 cm, aortic valve leaflet sclerosis and calcification with a mean trans-valvular gradient of 33 mmHg and a peak trans-valvular gradient of 57 mmHg and calculated aortic valve area of 0.6 cm consistent with severe degree of aortic valve stenosis, aortic root sclerosis, mitral annular calcification, mild mitral and tricuspid valve regurgitation with no evidence of pulmonary hypertension 1. Clinical presentation is consistent with acute on chronic class I-II [place] Heart [employer] classification left ventricular failure - improving 2. Right-sided heart failure related to pulmonary hypertension exacerbated by probable chronic liver disease/hepatic cirrhosis 3. Coronary artery disease status post coronary artery bypass grafting negative pharmacologic Lexiscan myocardial perfusion imaging study for myocardial ischemia with patent grafts on coronary angiography, post percutaneous coronary intervention JORDI LCx, angina pectoris. 4. Aortic valve disease aortic valve stenosis severe in severity aortic valve area of 0.6 cm on echocardiography performed October 15, 2017, 0.8 cm on echocardiography performed September 26, 2016, 0.93 cm on cardiac catheterization coronary angiography performed November 03, 2016 and aortic valve area of 1.4 cm on echocardiography performed December 09, 2016. 5. Idiopathic interstitial lung disease/pulmonary fibrosis with pulmonary hypertension moderate to severe in severity 6. Paroxysmal atrial fibrillation in a patient with known history of paroxysmal atrial flutter status post cardioversion [id number] score of 5 currently on no anti-coagulation therapy related to history of chronic liver disease with esophageal varices. 7. Sick sinus syndrome post permanent pacemaker implantation ([employer] device) . 8. Mitral valve regurgitation mild in severity of no clinical significance. 9. Tricuspid valve regurgitation mild in severity. 10. History of hypertensive cardiovascular disease. 11. Insulin-dependent diabetes mellitus. 12. Hypercholesterolemia. 13. Carotid artery disease mild in severity, asymptomatic. 14. History of migraine headaches. 15. History of diabetic retinopathy. 16. History of glaucoma, legally blind. 17. Hypothyroidism. 18. History of obstructive sleep apnea. 19. History of chronic liver disease/hepatic cirrhosis with esophageal varices. 20. Anemia/thrombocytopenia 21. Exogenous obesity. 22. Acute on CKD improving PLAN: 1. Decrease Lasix 40 IV qd with close monitoring of renal function and electrolytes. 2. Continue Aldactone 25 bid with close monitoring of renal function and electrolytes. 3. Continue Toprol-XL 25 qhs 4. Continue Adcirca 20 qhs as tolerated 5. Continue dual antiplatelet agent therapy Ecotrin 81 qd and Plavix 75 qd with caution considering the above-noted anemia/thrombocytopenia.
[2018-02-19] MEDS ORDERED: INSULIN (LEVEMIR) 100 UNITS/ML UNITS SQ ONE (12:30)
--- NOTE | 2018-02-19 15:49 | PN ---
Progress Note, Physician Chief Complaint: Mr Rodriguez breathing continues to improve but unclear if close to baseline. Complains of swelling in his legs and abdomen. No cp or n/v. - Current Medication List Current Medications: Active Medications Acetaminophen (Tylenol -) 650 mg PO Q4H PRN PRN Reason: FEVER Aspirin (Ecotrin -) 81 mg PO DAILY [facility] Last Admin: 02/19/18 09:11 Dose: 81 mg Cholecalciferol (Vitamin D3 -) 2,000 unit PO DAILY [facility] Last Admin: 02/19/18 09:11 Dose: 2,000 unit Clopidogrel Bisulfate (Plavix -) 75 mg PO DAILY [facility] Last Admin: 02/19/18 09:11 Dose: 75 mg Escitalopram Oxalate (Lexapro -) 10 mg PO DAILY [facility] Last Admin: 02/19/18 09:11 Dose: 10 mg Furosemide (Lasix Injection -) 40 mg IVPB BIDLASIX [facility] Stop: 02/20/18 06:00 Last Admin: 02/19/18 13:04 Dose: 40 mg Furosemide (Lasix Injection -) 40 mg IVPB DAILY [facility] Insulin Aspart (Novolog Vial Sliding Scale -) 1 vial SQ ACHS [facility] PRN Reason: Protocol Last Admin: 02/19/18 11:32 Dose: Not Given Insulin Detemir (Levemir Vial) 20 units SQ HS [facility] Last Admin: 02/18/18 21:18 Dose: 20 units Insulin Detemir (Levemir Vial) 30 units SQ AM [facility] Last Admin: 02/19/18 06:48 Dose: Not Given Levothyroxine Sodium (Synthroid -) 25 mcg PO ACBK [facility] Last Admin: 02/19/18 06:48 Dose: 25 mcg Metoprolol Succinate (Toprol Xl -) 25 mg PO HS [facility] Last Admin: 02/18/18 21:18 Dose: 25 mg Non-Formulary Medication (Naratriptan Hcl [Naratriptan Hcl]) 2.5 mg PO DAILY [facility] Non-Formulary Medication (Tadalafil [Adcirca]) 20 mg PO HS [facility] Last Admin: 02/18/18 21:19 Dose: 20 mg Polyethylene Glycol (Miralax (For Bowel Prep) -) 17 gm PO DAILY [facility] Last Admin: 02/19/18 09:12 Dose: 17 gm Prednisone (Deltasone -) 10 mg PO DAILY [facility] Last Admin: 02/19/18 09:11 Dose: 10 mg Spironolactone (Aldactone -) 25 mg PO BID [facility] Last Admin: 02/19/18 09:11 Dose: 25 mg - Objective Vital Signs: Vital Signs Temperature 36.6 C 02/19/18 14:00 Pulse Rate 72 02/19/18 14:00 Respiratory Rate 20 02/19/18 14:00 Blood Pressure 103/46 02/19/18 14:00 O2 Sat by Pulse Oximetry (%) 96 02/19/18 09:00 Constitutional: Yes: No Distress, Calm, Obese Cardiovascular: Yes: Regular Rate and Rhythm. No: Gallop, Murmur, Rub Respiratory: Yes: Regular, CTA Bilaterally, On Nasal O2. No: Rales, Rhonchi, Wheezes Gastrointestinal: Yes: Normal Bowel Sounds, Soft. No: Distention, Tenderness Extremities: Yes: WNL Edema: Yes Edema: LLE: 2+, RLE: 2+ Labs: CBC, BMP 02/19/18 05:00 02/19/18 05:00 INR, PTT INR 1.00 (0.82-1.09) 02/13/18 12:25 Problem List - Problems (1) CHF (congestive heart failure) Code(s): I50.9 - HEART FAILURE, UNSPECIFIED Qualifiers: Heart failure type: diastolic Heart failure chronicity: acute on chronic Qualified Code(s): I50.33 - Acute on chronic diastolic (congestive) heart failure (2) Diabetes Code(s): E11.9 - TYPE 2 DIABETES MELLITUS WITHOUT COMPLICATIONS Qualifiers: Diabetes mellitus type: type 2 Diabetes mellitus complication status: with ophthalmic complications Diabetes mellitus complication detail: with diabetic retinopathy (3) HTN (hypertension) Code(s): I10 - ESSENTIAL (PRIMARY) HYPERTENSION Qualifiers: Hypertension type: essential hypertension Qualified Code(s): I10 - Essential (primary) hypertension (4) CAD (coronary artery disease) Code(s): I25.10 - ATHSCL HEART DISEASE OF [place] CORONARY ARTERY W/O ANG PCTRS Qualifiers: Coronary Disease-Associated Artery/Lesion type: [place] artery [place] vs. transplanted heart: [place] heart Associated angina: without angina Qualified Code(s): I25.10 - Atherosclerotic heart disease of [place] coronary artery without angina pectoris (5) Cirrhosis Code(s): K74.60 - UNSPECIFIED CIRRHOSIS OF LIVER Qualifiers: Hepatic cirrhosis type: unspecified hepatic cirrhosis Ascites presence: with ascites Qualified Code(s): K74.60 - Unspecified cirrhosis of liver (6) ILD (interstitial lung disease) Code(s): J84.9 - INTERSTITIAL PULMONARY DISEASE, UNSPECIFIED (7) Pulmonary hypertension Code(s): I27.2 - OTHER SECONDARY PULMONARY HYPERTENSION * DO NOT USE * (8) Hypothyroidism Code(s): E03.9 - HYPOTHYROIDISM, UNSPECIFIED Qualifiers: Hypothyroidism type: unspecified Qualified Code(s): E03.9 - Hypothyroidism , unspecified Assessment/Plan (1) CHF (congestive heart failure) Assessment/Plan: -continues to improve -case d/w cardiology -decrease lasix to 40mg daily -continue toprol xl and aldactone at current dose Code(s): I50.9 - HEART FAILURE, UNSPECIFIED Qualifiers: Heart failure type: diastolic Heart failure chronicity: acute on chronic Qualified Code(s): I50.33 - Acute on chronic diastolic (congestive) heart failure (2) Diabetes Assessment/Plan: -d/w family home dose -on SSI -will change to levemir 30 units qam and 20 units qhs Code(s): E11.9 - TYPE 2 DIABETES MELLITUS WITHOUT COMPLICATIONS Qualifiers: Diabetes mellitus type: type 2 Diabetes mellitus complication status: with ophthalmic complications Diabetes mellitus complication detail: with diabetic retinopathy (3) HTN (hypertension) Assessment/Plan: -continue current regimen Code(s): I10 - ESSENTIAL (PRIMARY) HYPERTENSION Qualifiers: Hypertension type: essential hypertension Qualified Code(s): I10 - Essential (primary) hypertension (4) CAD (coronary artery disease) Assessment/Plan: -quiescent -continue aspirin and plavix per cardiology -continue home regimen Code(s): I25.10 - ATHSCL HEART DISEASE OF [place] CORONARY ARTERY W/O ANG PCTRS Qualifiers: Coronary Disease-Associated Artery/Lesion type: [place] artery [place] vs. transplanted heart: [place] heart Associated angina: without angina Qualified Code(s): I25.10 - Atherosclerotic heart disease of [place] coronary artery without angina pectoris (5) Cirrhosis Assessment/Plan: -continue diuretics Code(s): K74.60 - UNSPECIFIED CIRRHOSIS OF LIVER Qualifiers: Hepatic cirrhosis type: unspecified hepatic cirrhosis Ascites presence: with ascites Qualified Code(s): K74.60 - Unspecified cirrhosis of liver (6) ILD (interstitial lung disease) Assessment/Plan: -continue prednisone Code(s): J84.9 - INTERSTITIAL PULMONARY DISEASE, UNSPECIFIED (7) Pulmonary hypertension Assessment/Plan: -continue adcirca -makes lightheaded Code(s): I27.2 - OTHER SECONDARY PULMONARY HYPERTENSION * DO NOT USE * (8) Hypothyroidism Assessment/Plan: -continue levothyroxine Code(s): E03.9 - HYPOTHYROIDISM, UNSPECIFIED Qualifiers: Hypothyroidism type: unspecified Qualified Code(s): E03.9 - Hypothyroidism , unspecified
[2018-02-19] MEDS ORDERED: INSULIN (NOVOLOG) ASPART 100 UNITS/ML 10ML VIAL SQ ONE (16:56)
[2018-02-19] MEDS: TADALAFIL 20 MG PO SCH (21:49)
[2018-02-19] MEDS: metoPROLOL SUCCINATE 25 MG TAB.SR.24H (FP) PO SCH (21:49)
[2018-02-20] MEDS: INSULIN SLIDING SCALE (NOVOLOG) 1 VIAL SQ SCH ×4 (06:48→22:00)
[2018-02-20] MEDS: INSULIN (LEVEMIR) 100 UNITS/ML UNITS SQ SCH ×2 (06:54→22:00)
[2018-02-20] MEDS: FUROSEMIDE 40 MG/4 ML INJECTABLE VIAL IVPB SCH ×2 (06:54→10:22)
[2018-02-20] MEDS: LEVOTHYROXINE NA 25 MCG TABLET (FP) PO SCH (06:55)
[2018-02-20 07:57] LABS: EOS % 4.5 % (0-4.5); HEMATOCRIT 31.3 % (35.4-49); LYMPH % 24.2 % (8-40); MCH 32.5 pg (25.7-33.7); MCHC 35.2 g/dl (32.0-35.9); MEAN CELL VOLUME 92.3 fl (80-96); MEAN PLT VOLUME 7.5 fl (7.5-11.1); MONO % 9.8 % (3.8-10.2); NEUT % 60.5 % (42.8-82.8); PLATELET COUNT 99 K/MM3 (134-434); RBC 3.39 M/mm3 (4.00-5.60); RDW 17.3 % (11.9-15.9); WHITE BLOOD COUNT 4.6 K/mm3 (4.0-10.0)
[2018-02-20 08:43] LABS: ANION GAP 8 (8-16); BLOOD UREA NITROGEN 45 mg/dL (7-18); CALCIUM 8.7 mg/dL (8.5-10.1); CHLORIDE 106 mmol/L (98-107); CO2 29 mmol/L (21-32); CREATININE 1.2 mg/dL (0.7-1.3); GLUCOSE,RANDOM 52 mg/dL (74-106); MAGNESIUM 2.4 mg/dL (1.8-2.4); POTASSIUM 3.9 mmol/L (3.5-5.1); SODIUM 143 mmol/L (136-145)
[2018-02-20] MEDS: CLOPIDOGREL BISULFATE 75 MG TABLET (FP) PO SCH (10:22)
[2018-02-20] MEDS: SPIRONOLACTONE 25 MG TABLET (FP) PO SCH ×2 (10:22→22:00)
[2018-02-20] MEDS: ESCITALOPRAM OXALATE 10 MG TABLET (FP) PO SCH (10:22)
[2018-02-20] MEDS: ASPIRIN COATED 81 MG TABLET.EC PO SCH (10:22)
[2018-02-20] MEDS: predniSONE 10 MG TABLET (UD) PO SCH (10:22)
[2018-02-20] MEDS: CHOLECALCIFEROL (VITAMIN D3) 1,000 UNIT TABLET (FP) PO SCH (10:23)
[2018-02-20] MEDS: POLYETHYLENE GLYCOL 3350 255 GM BTL PO SCH (11:22)
--- NOTE | 2018-02-20 15:53 | PN ---
Progress Note, Physician History of Present Illness: Dyspnea and LE edema improved with diuresis. - Current Medication List Current Medications: Active Medications Acetaminophen (Tylenol -) 650 mg PO Q4H PRN PRN Reason: FEVER Aspirin (Ecotrin -) 81 mg PO DAILY [facility] Last Admin: 02/20/18 10:22 Dose: 81 mg Cholecalciferol (Vitamin D3 -) 2,000 unit PO DAILY [facility] Last Admin: 02/20/18 10:23 Dose: 2,000 unit Clopidogrel Bisulfate (Plavix -) 75 mg PO DAILY [facility] Last Admin: 02/20/18 10:22 Dose: 75 mg Escitalopram Oxalate (Lexapro -) 10 mg PO DAILY [facility] Last Admin: 02/20/18 10:22 Dose: 10 mg Furosemide (Lasix Injection -) 40 mg IVPB DAILY [facility] Last Admin: 02/20/18 10:22 Dose: 40 mg Insulin Aspart (Novolog Vial Sliding Scale -) 1 vial SQ ACHS [facility] PRN Reason: Protocol Last Admin: 02/20/18 12:38 Dose: 8 units Insulin Detemir (Levemir Vial) 20 units SQ HS [facility] Last Admin: 02/19/18 21:50 Dose: 20 units Insulin Detemir (Levemir Vial) 30 units SQ AM [facility] Last Admin: 02/20/18 06:54 Dose: 30 units Levothyroxine Sodium (Synthroid -) 25 mcg PO ACBK [facility] Last Admin: 02/20/18 06:55 Dose: 25 mcg Metoprolol Succinate (Toprol Xl -) 25 mg PO HS [facility] Last Admin: 02/19/18 21:49 Dose: 25 mg Non-Formulary Medication (Naratriptan Hcl [Naratriptan Hcl]) 2.5 mg PO DAILY [facility] Non-Formulary Medication (Tadalafil [Adcirca]) 20 mg PO HS [facility] Last Admin: 02/19/18 21:49 Dose: 20 mg Polyethylene Glycol (Miralax (For Bowel Prep) -) 17 gm PO DAILY [facility] Last Admin: 02/19/18 09:12 Dose: 17 gm Prednisone (Deltasone -) 10 mg PO DAILY [facility] Last Admin: 02/20/18 10:22 Dose: 10 mg Spironolactone (Aldactone -) 25 mg PO BID [facility] Last Admin: 02/20/18 10:22 Dose: 25 mg - Objective Vital Signs: Vital Signs Temperature 98.2 F 02/20/18 14:05 Pulse Rate 75 02/20/18 14:05 Respiratory Rate 20 02/20/18 14:05 Blood Pressure 126/56 02/20/18 14:05 O2 Sat by Pulse Oximetry (%) 98 02/20/18 09:00 Constitutional: Yes: No Distress, Calm Neck: Yes: Supple Cardiovascular: Yes: Regular Rate and Rhythm, Murmur (2/6 SM) Respiratory: Yes: Regular, Diminished, On Nasal O2 Gastrointestinal: Yes: Normal Bowel Sounds, Soft, Abdomen, Obese Edema: Yes Edema: LLE: 1+, RLE: 1+ Labs: CBC, BMP 02/20/18 06:50 02/20/18 06:50 INR, PTT INR 1.00 (0.82-1.09) 02/13/18 12:25 Problem List - Problems (1) CAD (coronary artery disease) Code(s): I25.10 - ATHSCL HEART DISEASE OF [place] CORONARY ARTERY W/O ANG PCTRS Qualifiers: Coronary Disease-Associated Artery/Lesion type: elem artery [place] vs. transplanted heart: elem heart Associated angina: without angina Qualified Code(s): I25.10 - Atherosclerotic heart disease of elem coronary artery without angina pectoris (2) CHF (congestive heart failure) Code(s): I50.9 - HEART FAILURE, UNSPECIFIED Qualifiers: Heart failure type: diastolic Heart failure chronicity: acute on chronic Qualified Code(s): I50.33 - Acute on chronic diastolic (congestive) heart failure (3) Cirrhosis Code(s): K74.60 - UNSPECIFIED CIRRHOSIS OF LIVER Qualifiers: Hepatic cirrhosis type: unspecified hepatic cirrhosis Ascites presence: with ascites Qualified Code(s): K74.60 - Unspecified cirrhosis of liver (4) HTN (hypertension) Code(s): I10 - ESSENTIAL (PRIMARY) HYPERTENSION Qualifiers: Hypertension type: essential hypertension Qualified Code(s): I10 - Essential (primary) hypertension (5) Heart failure, diastolic, with acute decompensation Code(s): I50.33 - ACUTE ON CHRONIC DIASTOLIC (CONGESTIVE) HEART FAILURE (6) ILD (interstitial lung disease) Code(s): J84.9 - INTERSTITIAL PULMONARY DISEASE, UNSPECIFIED (7) Morbidly obese Code(s): E66.01 - MORBID (SEVERE) OBESITY DUE TO EXCESS CALORIES (8) Pulmonary hypertension Code(s): I27.2 - OTHER SECONDARY PULMONARY HYPERTENSION * DO NOT USE * (9) SOB (shortness of breath) on exertion Code(s): R06.02 - SHORTNESS OF BREATH (10) T2DM (type 2 diabetes mellitus) Code(s): E11.9 - TYPE 2 DIABETES MELLITUS WITHOUT COMPLICATIONS (11) LEFTY (acute kidney injury) Code(s): N17.9 - ACUTE KIDNEY FAILURE, UNSPECIFIED (12) Hypothyroidism Code(s): E03.9 - HYPOTHYROIDISM, UNSPECIFIED Qualifiers: Hypothyroidism type: unspecified Qualified Code(s): E03.9 - Hypothyroidism , unspecified (13) Interstitial lung disease Code(s): J84.9 - INTERSTITIAL PULMONARY DISEASE, UNSPECIFIED (14) Moderate aortic valve stenosis Code(s): I35.0 - NONRHEUMATIC AORTIC (VALVE) STENOSIS (15) S/P CABG x 3 Code(s): Z95.1 - PRESENCE OF AORTOCORONARY BYPASS GRAFT (16) S/P coronary artery stent placement Code(s): Z95.5 - PRESENCE OF CORONARY ANGIOPLASTY IMPLANT AND GRAFT Assessment/Plan Right and left heart cardiac catheterization coronary angiography performed at [facility] under care of Dr. Ronnie Sanon August 26, 2017 revealed evidence of triple vessel obstructive coronary artery disease, patent MCCAULEY to LAD, patent free radial artery to LAD-D1, patent SVG to RPDA, obstructive LCx proximal and mid lesions for which rotational atherectomy and JORDI implant was performed successfully, RV pressure of 57 over 3 mmHg, PA pressure of 56 over 12 mmHg and moderate degree of aortic valve stenosis (no valve area calculation). Echocardiography performed October 15, 2017 revealed concentric left ventricular hypertrophy with overall preserved left ventricular systolic function, left atrial dilatation measuring 4.7 cm, aortic valve leaflet sclerosis and calcification with a mean trans-valvular gradient of 33 mmHg and a peak trans-valvular gradient of 57 mmHg and calculated aortic valve area of 0.6 cm consistent with severe degree of aortic valve stenosis, aortic root sclerosis, mitral annular calcification, mild mitral and tricuspid valve regurgitation with no evidence of pulmonary hypertension 1. Clinical presentation is consistent with acute on chronic class I-II [place] [employer] classification left ventricular failure - improving 2. Right-sided heart failure related to pulmonary hypertension exacerbated by probable chronic liver disease/hepatic cirrhosis 3. Coronary artery disease status post coronary artery bypass grafting negative pharmacologic Lexiscan myocardial perfusion imaging study for myocardial ischemia with patent grafts on coronary angiography, post percutaneous coronary intervention JORDI LCx, angina pectoris. 4. Aortic valve disease aortic valve stenosis severe in severity aortic valve area of 0.6 cm on echocardiography performed October 15, 2017, 0.8 cm on echocardiography performed September 26, 2016, 0.93 cm on cardiac catheterization coronary angiography performed November 03, 2016 and aortic valve area of 1.4 cm on echocardiography performed December 09, 2016. 5. Idiopathic interstitial lung disease/pulmonary fibrosis with pulmonary hypertension moderate to severe in severity 6. Paroxysmal atrial fibrillation in a patient with known history of paroxysmal atrial flutter status post cardioversion [id number] score of 5 currently on no anti-coagulation therapy related to history of chronic liver disease with esophageal varices. 7. Sick sinus syndrome post permanent pacemaker implantation (Medtronic device) . 8. Mitral valve regurgitation mild in severity of no clinical significance. 9. Tricuspid valve regurgitation mild in severity. 10. History of hypertensive cardiovascular disease. 11. Insulin-dependent diabetes mellitus. 12. Hypercholesterolemia. 13. Carotid artery disease mild in severity, asymptomatic. 14. History of migraine headaches. 15. History of diabetic retinopathy. 16. History of glaucoma, legally blind. 17. Hypothyroidism. 18. History of obstructive sleep apnea. 19. History of chronic liver disease/hepatic cirrhosis with esophageal varices. 20. Anemia/thrombocytopenia 21. Exogenous obesity. 22. Acute on CKD improving PLAN: 1. Continue Lasix 40 IV qd with close monitoring of renal function and electrolytes. 2. Continue Aldactone 25 bid with close monitoring of renal function and electrolytes. 3. Continue Toprol-XL 25 qhs 4. Continue Adcirca 20 qhs as tolerated 5. Continue dual antiplatelet agent therapy Ecotrin 81 qd and Plavix 75 qd with caution considering the above-noted anemia/thrombocytopenia. 6. Compression therapy
--- NOTE | 2018-02-20 20:14 | PN ---
Physical Exam: SUBJECTIVE: Patient seen and examined Patient has no new complains, comfortable, with no acute distress. OBJECTIVE: Vital Signs Temperature 98.0 F 02/20/18 17:00 Pulse Rate 70 02/20/18 17:00 Respiratory Rate 18 02/20/18 17:00 Blood Pressure 132/60 02/20/18 17:00 O2 Sat by Pulse Oximetry (%) 98 02/20/18 09:00 GENERAL: The patient is awake, alert, and fully oriented, in no acute distress. HEAD: Normal with no signs of trauma. EYES:Legally blind due to glaucoma. extraocular movements intact, sclera anicteric, conjunctiva clear. ENT: Ears normal, oropharynx clear without exudates, moist mucous membranes. NECK: Trachea midline, full range of motion, supple. LUNGS: Breath sounds equal, clear to auscultation bilaterally, no wheezes, no crackles, no accessory muscle use. HEART: Regular rate and rhythm, S1, S2 positive, SAM 2/6 no rub or gallop. ABDOMEN: Soft, nontender, nondistended, normoactive bowel sounds, no guarding, no rebound, no hepatosplenomegaly, no masses. EXTREMITIES: 2+ pulses, warm, well-perfused, 1 plus edema. NEUROLOGICAL: Cranial nerves II through XII grossly intact. Normal speech, gait not observed. PSYCH: Normal mood, normal affect. SKIN: Warm, dry, normal turgor, no rashes or lesions noted CBCD WBC 4.6 K/mm3 (4.0-10.0) 02/20/18 06:50 RBC 3.39 M/mm3 (4.00-5.60) L 02/20/18 06:50 Hgb 11.0 GM/dL (11.7-16.9) L 02/20/18 06:50 Hct 31.3 % (35.4-49) L 02/20/18 06:50 MCV 92.3 fl (80-96) 02/20/18 06:50 MCHC 35.2 g/dl (32.0-35.9) 02/20/18 06:50 RDW 17.3 % (11.9-15.9) H 02/20/18 06:50 Plt Count 99 K/MM3 (134-434) L 02/20/18 06:50 MPV 7.5 fl (7.5-11.1) 02/20/18 06:50 CMP Sodium 143 mmol/L (136-145) 02/20/18 06:50 Potassium 3.9 mmol/L (3.5-5.1) 02/20/18 06:50 Chloride 106 mmol/L (98-107) 02/20/18 06:50 Carbon Dioxide 29 mmol/L (21-32) 02/20/18 06:50 Anion Gap 8 (8-16) 02/20/18 06:50 BUN 45 mg/dL (7-18) H 02/20/18 06:50 Creatinine 1.2 mg/dL (0.7-1.3) 02/20/18 06:50 Creat Clearance w eGFR 54.11 (>60) 02/15/18 06:20 Random Glucose 52 mg/dL (74-106) L D 02/20/18 06:50 Calcium 8.7 mg/dL (8.5-10.1) 02/20/18 06:50 Total Bilirubin 1.4 mg/dL (0.2-1.0) H 02/15/18 06:20 AST 30 U/L (15-37) 02/15/18 06:20 ALT 29 U/L (12-78) 02/15/18 06:20 Alkaline Phosphatase 74 U/L (45-117) 02/15/18 06:20 Total Protein 5.9 g/dl (6.4-8.2) L 02/15/18 06:20 Albumin 3.2 g/dl (3.4-5.0) L 02/15/18 06:20 CARDIAC ENZYMES Creatine Kinase 87 IU/L (39-308) 02/13/18 12:25 Troponin I 0.03 ng/ml (0.00-0.05) D 02/13/18 12:25 Active Medications Generic Name Dose Route Start Last Admin Trade Name Freq PRN Reason Stop Dose Admin Acetaminophen 650 mg 02/13/18 17:29 Tylenol - PO Q4H PRN FEVER Aspirin 81 mg 02/14/18 10:00 02/20/18 10:22 Ecotrin - PO 81 mg DAILY [facility] Administration Cholecalciferol 2,000 unit 02/14/18 10:00 02/20/18 10:23 Vitamin D3 - PO 2,000 unit DAILY [facility] Administration Clopidogrel Bisulfate 75 mg 02/14/18 10:00 02/20/18 10:22 Plavix - PO 75 mg DAILY [facility] Administration Escitalopram Oxalate 10 mg 02/14/18 10:00 02/20/18 10:22 Lexapro - PO 10 mg DAILY [facility] Administration Furosemide 40 mg 02/20/18 10:00 02/20/18 10:22 Lasix Injection - IVPB 40 mg DAILY [facility] Administration Insulin Aspart 1 vial 02/18/18 22:00 02/20/18 17:57 Novolog Vial Sliding Scale - SQ 14 units ACHS [facility] Administration Protocol Insulin Detemir 20 units 02/18/18 22:00 02/19/18 21:50 Levemir Vial SQ 20 units HS [facility] Administration Insulin Detemir 30 units 02/19/18 07:00 02/20/18 06:54 Levemir Vial SQ 30 units AM [facility] Administration Levothyroxine Sodium 25 mcg 02/14/18 07:00 02/20/18 06:55 Synthroid - PO 25 mcg ACBK [facility] Administration Metoprolol Succinate 25 mg 02/13/18 22:00 02/19/18 21:49 Toprol Xl - PO 25 mg HS [facility] Administration Non-Formulary Medication 2.5 mg 02/14/18 10:00 Naratriptan Hcl [Naratriptan Hcl] PO DAILY [facility] Non-Formulary Medication 20 mg 02/17/18 22:00 02/19/18 21:49 Tadalafil [Adcirca] PO 20 mg HS [facility] Administration Polyethylene Glycol 17 gm 02/14/18 10:00 02/20/18 11:22 Miralax (For Bowel Prep) - PO 17 gm DAILY [facility] Administration Prednisone 10 mg 02/14/18 10:00 02/20/18 10:22 Deltasone - PO 10 mg DAILY [facility] Administration Spironolactone 25 mg 02/16/18 10:00 02/20/18 10:22 Aldactone - PO 25 mg BID [facility] Administration Home Medications Medication Instructions Recorded Aspirin [Ecotrin] 81 mg PO DAILY 04/23/17 Canagliflozin [Invokana] 100 mg PO DAILY 04/23/17 Ergocalciferol (Vitamin D2) 2,000 unit PO DAILY 04/23/17 [Vitamin D2] Escitalopram Oxalate [Lexapro -] 10 mg PO DAILY 04/23/17 Glimepiride [Amaryl] 2 mg PO BID 04/23/17 Insulin Aspart Prot/Insuln Asp 20 unit SQ HS 04/23/17 [Novolog Mix 70-30 Flexpen Syrn] Levothyroxine [Synthroid -] 25 mcg PO DAILY 04/23/17 Metoprolol Succinate [Toprol XL -] 25 mg PO HS 04/23/17 Naratriptan HCl 2.5 mg PO DAILY 04/23/17 Polyethylene Glycol 3350 [Miralax 17 gm PO DAILY 04/23/17 255 gm Btl -] Acetaminophen [Tylenol .Regular 650 mg PO Q4H PRN #0 tablet 04/28/17 Strength -] Furosemide [Lasix -] 40 mg PO DAILY tablet 04/28/17 Quinapril HCl [Accupril -] 5 mg PO DAILY #0 tablet 04/28/17 Spironolactone [Aldactone -] 25 mg PO DAILY tablet 04/28/17 Clopidogrel Bisulfate [Plavix] 75 mg PO DAILY 02/13/18 Tadalafil [Adcirca] 20 mg PO DAILY 02/13/18 predniSONE [Deltasone -] 10 mg PO DAILY 02/13/18 Right and left heart cardiac catheterization coronary angiography performed at [facility] under care of Dr. Ronnie Sanon August 26, 2017 revealed evidence of triple vessel obstructive coronary artery disease, patent MCCAULEY to LAD, patent free radial artery to LAD-D1, patent SVG to RPDA, obstructive LCx proximal and mid lesions for which rotational atherectomy and JORDI implant was performed successfully, RV pressure of 57 over 3 mmHg, PA pressure of 56 over 12 mmHg and moderate degree of aortic valve stenosis (no valve area calculation). Echocardiography performed October 15, 2017 revealed concentric left ventricular hypertrophy with overall preserved left ventricular systolic function, left atrial dilatation measuring 4.7 cm, aortic valve leaflet sclerosis and calcification with a mean trans-valvular gradient of 33 mmHg and a peak trans-valvular gradient of 57 mmHg and calculated aortic valve area of 0.6 cm consistent with severe degree of aortic valve stenosis, aortic root sclerosis, mitral annular calcification, mild mitral and tricuspid valve regurgitation with no evidence of pulmonary hypertension ASSESSMENT/PLAN: # acute on chronic CHF due to left ventricular failure exacerbated with chronic Liver disease/cirrhosis on Lasix IV, monitor renal function , continue aldactone # Pulmonary HTN due to ILD /pulmonary fibrosis with pulmonary hypertension moderate to severe in severity on Prednisone and Adcirca renally dosed continue # CAD s/p CABG on Ecotrin, Plavix, Metoprolol # Severe Aortic stenosis as per cardiology note Dr. Malcolm patient has aortic valve area of 0.6 cm on echocardiography performed October 15, 2017, 0.8 cm on echocardiography performed September 26, 2016, 0.93 cm on cardiac catheterization coronary angiography performed November 03, 2016 and aortic valve area of 1.4 cm on echocardiography performed December 09, 2016. # Paroxysmal atrial fibrillation / with history of paroxysmal atrial flutter status post cardioversion with [id number] score of 5 currently on no anti- coagulation therapy due to having chronic liver disease with esophageal varices ; high risk for bleed. # Sick sinus syndrome post permanent pacemaker implantation (Medtronic device). # Mild MR,TR, # Insulin-dependent diabetes mellitus on Levemir(Long acting Insulin) # Hypercholesterolemia. # Carotid artery disease mild in severity, asymptomatic. # Hx of migraine headaches on Natatriptan / Diabetic neuropathy with Glaucoma legally blind . # Hypothyroidism. # History of obstructive sleep apnea. # History of chronic liver disease/hepatic cirrhosis with esophageal varices. # Anemia/thrombocytopenia # Acute on CKD improving DVT Px; Anticoagluation contraindicated due to Esophageal varices with high of bleed. Visit type - Emergency Visit Emergency Visit: Yes ED Registration Date: 02/13/18 Care time: The patient presented to the Emergency Department on the above date and was hospitalized for further evaluation of their emergent condition. - New Patient This patient is new to me today: Yes Date on this admission: 02/20/18 - Critical Care Critical Care patient: No - Discharge Referral Referred to [facility] Med P.C[facility] No
[2018-02-20] MEDS: metoPROLOL SUCCINATE 25 MG TAB.SR.24H (FP) PO SCH (22:00)
[2018-02-20] MEDS ORDERED: PT OWN MED DRAWER 7, Y5N ONE (22:02)
[2018-02-20] MEDS: TADALAFIL 20 MG PO SCH (22:02)
[2018-02-21] MEDS: INSULIN SLIDING SCALE (NOVOLOG) 1 VIAL SQ SCH ×4 (06:59→22:43)
[2018-02-21] MEDS: LEVOTHYROXINE NA 25 MCG TABLET (FP) PO SCH (07:01)
[2018-02-21] MEDS: INSULIN (LEVEMIR) 100 UNITS/ML UNITS SQ SCH ×2 (08:00→22:42)
[2018-02-21] MEDS: FUROSEMIDE 40 MG/4 ML INJECTABLE VIAL IVPB SCH (09:34)
[2018-02-21] MEDS: CLOPIDOGREL BISULFATE 75 MG TABLET (FP) PO SCH (09:34)
[2018-02-21] MEDS: CHOLECALCIFEROL (VITAMIN D3) 1,000 UNIT TABLET (FP) PO SCH (09:34)
[2018-02-21] MEDS: ASPIRIN COATED 81 MG TABLET.EC PO SCH (09:34)
[2018-02-21] MEDS: ESCITALOPRAM OXALATE 10 MG TABLET (FP) PO SCH (09:34)
[2018-02-21] MEDS: predniSONE 10 MG TABLET (UD) PO SCH (09:34)
[2018-02-21] MEDS: SPIRONOLACTONE 25 MG TABLET (FP) PO SCH ×2 (09:34→22:42)
[2018-02-21] MEDS: POLYETHYLENE GLYCOL 3350 255 GM BTL PO SCH (09:35)
--- NOTE | 2018-02-21 11:54 | PN ---
Progress Note, Physician History of Present Illness: Dyspnea and LE edema improved with diuresis. - Current Medication List Current Medications: Active Medications Acetaminophen (Tylenol -) 650 mg PO Q4H PRN PRN Reason: FEVER Aspirin (Ecotrin -) 81 mg PO DAILY [facility] Last Admin: 02/21/18 09:34 Dose: 81 mg Cholecalciferol (Vitamin D3 -) 2,000 unit PO DAILY [facility] Last Admin: 02/21/18 09:34 Dose: 2,000 unit Clopidogrel Bisulfate (Plavix -) 75 mg PO DAILY [facility] Last Admin: 02/21/18 09:34 Dose: 75 mg Escitalopram Oxalate (Lexapro -) 10 mg PO DAILY [facility] Last Admin: 02/21/18 09:34 Dose: 10 mg Furosemide (Lasix Injection -) 40 mg IVPB DAILY [facility] Last Admin: 02/21/18 09:34 Dose: 40 mg Insulin Aspart (Novolog Vial Sliding Scale -) 1 vial SQ ACHS [facility] PRN Reason: Protocol Last Admin: 02/21/18 11:19 Dose: 8 units Insulin Detemir (Levemir Vial) 20 units SQ HS [facility] Last Admin: 02/20/18 22:00 Dose: 20 units Insulin Detemir (Levemir Vial) 30 units SQ AM [facility] Last Admin: 02/21/18 08:00 Dose: 30 units Levothyroxine Sodium (Synthroid -) 25 mcg PO ACBK [facility] Last Admin: 02/21/18 07:01 Dose: 25 mcg Metoprolol Succinate (Toprol Xl -) 25 mg PO HS [facility] Last Admin: 02/20/18 22:00 Dose: 25 mg Non-Formulary Medication (Naratriptan Hcl [Naratriptan Hcl]) 2.5 mg PO DAILY [facility] Non-Formulary Medication (Tadalafil [Adcirca]) 20 mg PO HS [facility] Last Admin: 02/20/18 22:02 Dose: 20 mg Polyethylene Glycol (Miralax (For Bowel Prep) -) 17 gm PO DAILY [facility] Last Admin: 02/21/18 09:35 Dose: 17 gm Prednisone (Deltasone -) 10 mg PO DAILY [facility] Last Admin: 02/21/18 09:34 Dose: 10 mg Spironolactone (Aldactone -) 25 mg PO BID [facility] Last Admin: 02/21/18 09:34 Dose: 25 mg - Objective Vital Signs: Vital Signs Temperature 98.2 F 02/21/18 09:00 Pulse Rate 72 02/21/18 09:00 Respiratory Rate 18 02/21/18 09:00 Blood Pressure 102/46 02/21/18 09:00 O2 Sat by Pulse Oximetry (%) 98 02/21/18 09:00 Constitutional: Yes: No Distress, Calm Neck: Yes: Supple Cardiovascular: Yes: Regular Rate and Rhythm, Murmur (2/6 SM) Respiratory: Yes: Regular, Diminished Gastrointestinal: Yes: Normal Bowel Sounds, Soft, Abdomen, Obese Edema: Yes Edema: LLE: Trace, RLE: Trace Labs: CBC, BMP 02/20/18 06:50 02/20/18 06:50 INR, PTT INR 1.00 (0.82-1.09) 02/13/18 12:25 - ....Imaging EKG: Report Reviewed (Tele: A-V paced) Problem List - Problems (1) CAD (coronary artery disease) Code(s): I25.10 - ATHSCL HEART DISEASE OF [place] CORONARY ARTERY W/O ANG PCTRS Qualifiers: Coronary Disease-Associated Artery/Lesion type: [place] artery [place] vs. transplanted heart: [place] heart Associated angina: without angina Qualified Code(s): I25.10 - Atherosclerotic heart disease of [place] coronary artery without angina pectoris (2) CHF (congestive heart failure) Code(s): I50.9 - HEART FAILURE, UNSPECIFIED Qualifiers: Heart failure type: diastolic Heart failure chronicity: acute on chronic Qualified Code(s): I50.33 - Acute on chronic diastolic (congestive) heart failure (3) Cirrhosis Code(s): K74.60 - UNSPECIFIED CIRRHOSIS OF LIVER Qualifiers: Hepatic cirrhosis type: unspecified hepatic cirrhosis Ascites presence: with ascites Qualified Code(s): K74.60 - Unspecified cirrhosis of liver (4) HTN (hypertension) Code(s): I10 - ESSENTIAL (PRIMARY) HYPERTENSION Qualifiers: Hypertension type: essential hypertension Qualified Code(s): I10 - Essential (primary) hypertension (5) Heart failure, diastolic, with acute decompensation Code(s): I50.33 - ACUTE ON CHRONIC DIASTOLIC (CONGESTIVE) HEART FAILURE (6) ILD (interstitial lung disease) Code(s): J84.9 - INTERSTITIAL PULMONARY DISEASE, UNSPECIFIED (7) Morbidly obese Code(s): E66.01 - MORBID (SEVERE) OBESITY DUE TO EXCESS CALORIES (8) Pulmonary hypertension Code(s): I27.2 - OTHER SECONDARY PULMONARY HYPERTENSION * DO NOT USE * (9) SOB (shortness of breath) on exertion Code(s): R06.02 - SHORTNESS OF BREATH (10) T2DM (type 2 diabetes mellitus) Code(s): E11.9 - TYPE 2 DIABETES MELLITUS WITHOUT COMPLICATIONS (11) LEFTY (acute kidney injury) Code(s): N17.9 - ACUTE KIDNEY FAILURE, UNSPECIFIED (12) Hypothyroidism Code(s): E03.9 - HYPOTHYROIDISM, UNSPECIFIED Qualifiers: Hypothyroidism type: unspecified Qualified Code(s): E03.9 - Hypothyroidism , unspecified (13) Interstitial lung disease Code(s): J84.9 - INTERSTITIAL PULMONARY DISEASE, UNSPECIFIED (14) Moderate aortic valve stenosis Code(s): I35.0 - NONRHEUMATIC AORTIC (VALVE) STENOSIS (15) S/P CABG x 3 Code(s): Z95.1 - PRESENCE OF AORTOCORONARY BYPASS GRAFT (16) S/P coronary artery stent placement Code(s): Z95.5 - PRESENCE OF CORONARY ANGIOPLASTY IMPLANT AND GRAFT Assessment/Plan Right and left heart cardiac catheterization coronary angiography performed at [facility] under care of Dr. Ronnie Sanon August 26, 2017 revealed evidence of triple vessel obstructive coronary artery disease, patent MCCAULEY to LAD, patent free radial artery to LAD-D1, patent SVG to RPDA, obstructive LCx proximal and mid lesions for which rotational atherectomy and JORDI implant was performed successfully, RV pressure of 57 over 3 mmHg, PA pressure of 56 over 12 mmHg and moderate degree of aortic valve stenosis (no valve area calculation). Echocardiography performed October 15, 2017 revealed concentric left ventricular hypertrophy with overall preserved left ventricular systolic function, left atrial dilatation measuring 4.7 cm, aortic valve leaflet sclerosis and calcification with a mean trans-valvular gradient of 33 mmHg and a peak trans-valvular gradient of 57 mmHg and calculated aortic valve area of 0.6 cm consistent with severe degree of aortic valve stenosis, aortic root sclerosis, mitral annular calcification, mild mitral and tricuspid valve regurgitation with no evidence of pulmonary hypertension 1. Clinical presentation is consistent with acute on chronic class I-II [place] Heart [employer] classification left ventricular failure - improving 2. Right-sided heart failure related to pulmonary hypertension exacerbated by probable chronic liver disease/hepatic cirrhosis 3. Coronary artery disease status post coronary artery bypass grafting negative pharmacologic Lexiscan myocardial perfusion imaging study for myocardial ischemia with patent grafts on coronary angiography, post percutaneous coronary intervention JORDI LCx, angina pectoris. 4. Aortic valve disease aortic valve stenosis severe in severity aortic valve area of 0.6 cm on echocardiography performed October 15, 2017, 0.8 cm on echocardiography performed September 26, 2016, 0.93 cm on cardiac catheterization coronary angiography performed November 03, 2016 and aortic valve area of 1.4 cm on echocardiography performed December 09, 2016. 5. Idiopathic interstitial lung disease/pulmonary fibrosis with pulmonary hypertension moderate to severe in severity 6. Paroxysmal atrial fibrillation in a patient with known history of paroxysmal atrial flutter status post cardioversion [id number] score of 5 currently on no anti-coagulation therapy related to history of chronic liver disease with esophageal varices. 7. Sick sinus syndrome post permanent pacemaker implantation (Medtronic device) . 8. Mitral valve regurgitation mild in severity of no clinical significance. 9. Tricuspid valve regurgitation mild in severity. 10. History of hypertensive cardiovascular disease. 11. Insulin-dependent diabetes mellitus. 12. Hypercholesterolemia. 13. Carotid artery disease mild in severity, asymptomatic. 14. History of migraine headaches. 15. History of diabetic retinopathy. 16. History of glaucoma, legally blind. 17. Hypothyroidism. 18. History of obstructive sleep apnea. 19. History of chronic liver disease/hepatic cirrhosis with esophageal varices. 20. Anemia/thrombocytopenia 21. Exogenous obesity. 22. Acute on CKD improving PLAN: 1. Resume Lasix 40 po qd with close monitoring of renal function and electrolytes. 2. Continue Aldactone 25 bid with close monitoring of renal function and electrolytes. 3. Continue Toprol-XL 25 qhs 4. Continue Adcirca 20 qhs as tolerated 5. Continue dual antiplatelet agent therapy Ecotrin 81 qd and Plavix 75 qd with caution considering the above-noted anemia/thrombocytopenia. 6. Compression therapy
--- NOTE | 2018-02-21 12:24 | PN ---
Physical Exam: SUBJECTIVE: Patient seen and examined oob to chair. present. Eating lunch. OBJECTIVE: Vital Signs Period Temp Pulse Resp BP Sys/Levi Pulse Ox Last 24 Hr 97.9 F-98.4 F 70-75 18-20 97-132/37-60 98-98 Neuro: A&Ox3, in no apparent distress. Pulm: Lungs CTA CV: S1, S2, rrr, +murmur Abd: soft, not tender, not distended Lower Ext: 2+ pulses, warm, well-perfused; TEDS on CBCD WBC 4.6 K/mm3 (4.0-10.0) 02/20/18 06:50 RBC 3.39 M/mm3 (4.00-5.60) L 02/20/18 06:50 Hgb 11.0 GM/dL (11.7-16.9) L 02/20/18 06:50 Hct 31.3 % (35.4-49) L 02/20/18 06:50 MCV 92.3 fl (80-96) 02/20/18 06:50 MCHC 35.2 g/dl (32.0-35.9) 02/20/18 06:50 RDW 17.3 % (11.9-15.9) H 02/20/18 06:50 Plt Count 99 K/MM3 (134-434) L 02/20/18 06:50 MPV 7.5 fl (7.5-11.1) 02/20/18 06:50 CMP Sodium 143 mmol/L (136-145) 02/20/18 06:50 Potassium 3.9 mmol/L (3.5-5.1) 02/20/18 06:50 Chloride 106 mmol/L (98-107) 02/20/18 06:50 Carbon Dioxide 29 mmol/L (21-32) 02/20/18 06:50 Anion Gap 8 (8-16) 02/20/18 06:50 BUN 45 mg/dL (7-18) H 02/20/18 06:50 Creatinine 1.2 mg/dL (0.7-1.3) 02/20/18 06:50 Creat Clearance w eGFR 54.11 (>60) 02/15/18 06:20 Calcium 8.7 mg/dL (8.5-10.1) 02/20/18 06:50 Total Bilirubin 1.4 mg/dL (0.2-1.0) H 02/15/18 06:20 AST 30 U/L (15-37) 02/15/18 06:20 ALT 29 U/L (12-78) 02/15/18 06:20 Alkaline Phosphatase 74 U/L (45-117) 02/15/18 06:20 Total Protein 5.9 g/dl (6.4-8.2) L 02/15/18 06:20 Albumin 3.2 g/dl (3.4-5.0) L 02/15/18 06:20 Active Medications Generic Name Dose Route Start Last Admin Trade Name Freq PRN Reason Stop Dose Admin Acetaminophen 650 mg 02/13/18 17:29 Tylenol - PO Q4H PRN FEVER Aspirin 81 mg 02/14/18 10:00 02/21/18 09:34 Ecotrin - PO 81 mg DAILY [facility] Administration Cholecalciferol 2,000 unit 02/14/18 10:00 02/21/18 09:34 Vitamin D3 - PO 2,000 unit DAILY [facility] Administration Clopidogrel Bisulfate 75 mg 02/14/18 10:00 02/21/18 09:34 Plavix - PO 75 mg DAILY [facility] Administration Escitalopram Oxalate 10 mg 02/14/18 10:00 02/21/18 09:34 Lexapro - PO 10 mg DAILY [facility] Administration Furosemide 40 mg 02/22/18 10:00 Lasix - PO DAILY [facility] Insulin Aspart 1 vial 02/18/18 22:00 02/21/18 11:19 Novolog Vial Sliding Scale - SQ 8 units ACHS [facility] Administration Protocol Insulin Detemir 20 units 02/18/18 22:00 02/20/18 22:00 Levemir Vial SQ 20 units HS [facility] Administration Insulin Detemir 30 units 02/19/18 07:00 02/21/18 08:00 Levemir Vial SQ 30 units AM [facility] Administration Levothyroxine Sodium 25 mcg 02/14/18 07:00 02/21/18 07:01 Synthroid - PO 25 mcg ACBK [facility] Administration Metoprolol Succinate 25 mg 02/13/18 22:00 02/20/18 22:00 Toprol Xl - PO 25 mg HS [facility] Administration Non-Formulary Medication 2.5 mg 02/14/18 10:00 Naratriptan Hcl [Naratriptan Hcl] PO DAILY [facility] Non-Formulary Medication 20 mg 02/17/18 22:00 02/20/18 22:02 Tadalafil [Adcirca] PO 20 mg HS [facility] Administration Polyethylene Glycol 17 gm 02/14/18 10:00 02/21/18 09:35 Miralax (For Bowel Prep) - PO 17 gm DAILY [facility] Administration Prednisone 10 mg 02/14/18 10:00 02/21/18 09:34 Deltasone - PO 10 mg DAILY [facility] Administration Spironolactone 25 mg 02/16/18 10:00 02/21/18 09:34 Aldactone - PO 25 mg BID [facility] Administration ASSESSMENT/PLAN: (1) CHF (congestive heart failure) Assessment/Plan: -continues to improve -continue Toprol XL, aldactone, lasix PO 40mg daily (2) Diabetes Assessment/Plan: -Levemir 30U in am, 20U qhs -Novolog sliding scale coverage (3) HTN (hypertension) Assessment/Plan: -continue current regimen (4) CAD (coronary artery disease) Assessment/Plan: -continue aspirin, Plavix, Toprol XL (5) Cirrhosis Assessment/Plan: -continue diuretics (6) ILD (interstitial lung disease) Assessment/Plan: -continue prednisone Code(s): J84.9 - INTERSTITIAL PULMONARY DISEASE, UNSPECIFIED (7) Pulmonary hypertension Assessment/Plan: -continue tadalafil, makes quite dizzy, would like to discuss lowering dose (8) Hypothyroidism Assessment/Plan: -continue levothyroxine Visit type - Emergency Visit Emergency Visit: Yes ED Registration Date: 02/13/18 Care time: The patient presented to the Emergency Department on the above date and was hospitalized for further evaluation of their emergent condition. - New Patient This patient is new to me today: Yes Date on this admission: 02/21/18 - Critical Care Critical Care patient: No
[2018-02-21] MEDS: metoPROLOL SUCCINATE 25 MG TAB.SR.24H (FP) PO SCH (22:42)
[2018-02-21] MEDS: TADALAFIL 20 MG PO SCH (22:43)
[2018-02-22] MEDS: INSULIN SLIDING SCALE (NOVOLOG) 1 VIAL SQ SCH ×2 (06:23→12:16)
[2018-02-22] MEDS: INSULIN (LEVEMIR) 100 UNITS/ML UNITS SQ SCH (06:24)
[2018-02-22] MEDS: LEVOTHYROXINE NA 25 MCG TABLET (FP) PO SCH (06:28)
[2018-02-22 09:08] VITALS: BP 102/39; PULSE 123; TEMP 98
--- NOTE | 2018-02-22 09:49 | PN ---
Progress Note (short form) - Note Progress Note: Patient ready for discharge today pending visit by Dr. Hull.
[2018-02-22] MEDS: ASPIRIN COATED 81 MG TABLET.EC PO SCH (09:50)
[2018-02-22] MEDS: CHOLECALCIFEROL (VITAMIN D3) 1,000 UNIT TABLET (FP) PO SCH (09:50)
[2018-02-22] MEDS: ESCITALOPRAM OXALATE 10 MG TABLET (FP) PO SCH (09:50)
[2018-02-22] MEDS: SPIRONOLACTONE 25 MG TABLET (FP) PO SCH (09:50)
[2018-02-22] MEDS: CLOPIDOGREL BISULFATE 75 MG TABLET (FP) PO SCH (09:50)
[2018-02-22] MEDS: predniSONE 10 MG TABLET (UD) PO SCH (09:50)
[2018-02-22] MEDS: POLYETHYLENE GLYCOL 3350 255 GM BTL PO SCH (09:51)
[2018-02-22] MEDS ORDERED: FUROSEMIDE 40 MG TABLET (FP) PO SCH (10:00)
--- NOTE | 2018-02-22 11:43 | PN ---
Progress Note, Physician Chief Complaint: Events noted Clinically improving Not in distress History of Present Illness: Patient was seen and examined. Awake and alert. Chart was reviewed Denies chest pain, less SOB and no palpitations - Current Medication List Current Medications: Active Medications Acetaminophen (Tylenol -) 650 mg PO Q4H PRN PRN Reason: FEVER Aspirin (Ecotrin -) 81 mg PO DAILY [facility] Last Admin: 02/22/18 09:50 Dose: 81 mg Cholecalciferol (Vitamin D3 -) 2,000 unit PO DAILY [facility] Last Admin: 02/22/18 09:50 Dose: 2,000 unit Clopidogrel Bisulfate (Plavix -) 75 mg PO DAILY [facility] Last Admin: 02/22/18 09:50 Dose: 75 mg Escitalopram Oxalate (Lexapro -) 10 mg PO DAILY [facility] Last Admin: 02/22/18 09:50 Dose: 10 mg Furosemide (Lasix -) 40 mg PO DAILY [facility] Last Admin: 02/22/18 09:50 Dose: 40 mg Insulin Aspart (Novolog Vial Sliding Scale -) 1 vial SQ ACHS [facility] PRN Reason: Protocol Last Admin: 02/22/18 06:23 Dose: 6 units Insulin Detemir (Levemir Vial) 20 units SQ HS [facility] Last Admin: 02/21/18 22:42 Dose: 20 units Insulin Detemir (Levemir Vial) 30 units SQ AM [facility] Last Admin: 02/22/18 06:24 Dose: 30 units Levothyroxine Sodium (Synthroid -) 25 mcg PO ACBK [facility] Last Admin: 02/22/18 06:28 Dose: 25 mcg Metoprolol Succinate (Toprol Xl -) 25 mg PO HS [facility] Last Admin: 02/21/18 22:42 Dose: 25 mg Non-Formulary Medication (Naratriptan Hcl [Naratriptan Hcl]) 2.5 mg PO DAILY [facility] Non-Formulary Medication (Tadalafil [Adcirca]) 20 mg PO HS [facility] Last Admin: 02/21/18 22:43 Dose: 20 mg Polyethylene Glycol (Miralax (For Bowel Prep) -) 17 gm PO DAILY [facility] Last Admin: 02/22/18 09:51 Dose: 17 gm Prednisone (Deltasone -) 10 mg PO DAILY [facility] Last Admin: 02/22/18 09:50 Dose: 10 mg Spironolactone (Aldactone -) 25 mg PO BID [facility] Last Admin: 02/22/18 09:50 Dose: 25 mg - Objective Vital Signs: Vital Signs Temperature 98.0 F 02/22/18 09:06 Pulse Rate 123 H 02/22/18 09:06 Respiratory Rate 20 02/22/18 09:06 Blood Pressure 102/39 02/22/18 09:06 O2 Sat by Pulse Oximetry (%) 98 02/21/18 21:00 Constitutional: Yes: Well Nourished Eyes: Yes: Other (Legaly blind) HENT: Yes: Atraumatic Neck: Yes: Supple Cardiovascular: Yes: Regular Rate and Rhythm, Murmur (SAM), S1, S2 Respiratory: Yes: CTA Bilaterally Gastrointestinal: Yes: Normal Bowel Sounds, Soft, Abdomen, Obese. No: Tenderness Edema: No Additional Findings/Remarks: - Review of Systems Constitutional: denies: Weakness. denies: Chills, Fever Cardiovascular: denies: Chest Pain, Palpitations, Shortness of Breath Respiratory: denies: Cough, denies: Hemoptysis, Orthopnea, PND, SOB, SOB on Exertion Gastrointestinal: denies: Abdominal Pain, Constipation, Diarrhea, Melena, Nausea , Rectal Bleeding, Vomiting Musculoskeletal: denies: Muscle Weakness Neurological: denies: Unsteady Gait, Weakness. denies: Confusion, Dizziness, Headache, Numbness, Seizure, Syncope Problem List - Problems (1) Acute respiratory failure with hypoxia Code(s): J96.01 - ACUTE RESPIRATORY FAILURE WITH HYPOXIA (2) CAD (coronary artery disease) Code(s): I25.10 - ATHSCL HEART DISEASE OF [place] CORONARY ARTERY W/O ANG PCTRS Qualifiers: Coronary Disease-Associated Artery/Lesion type: [place] artery [place] vs. transplanted heart: [place] heart Associated angina: without angina Qualified Code(s): I25.10 - Atherosclerotic heart disease of [place] coronary artery without angina pectoris (3) CHF (congestive heart failure) Code(s): I50.9 - HEART FAILURE, UNSPECIFIED Qualifiers: Heart failure type: diastolic Heart failure chronicity: acute on chronic Qualified Code(s): I50.33 - Acute on chronic diastolic (congestive) heart failure (4) Cirrhosis Code(s): K74.60 - UNSPECIFIED CIRRHOSIS OF LIVER Qualifiers: Hepatic cirrhosis type: unspecified hepatic cirrhosis Ascites presence: with ascites Qualified Code(s): K74.60 - Unspecified cirrhosis of liver (5) HTN (hypertension) Code(s): I10 - ESSENTIAL (PRIMARY) HYPERTENSION Qualifiers: Hypertension type: essential hypertension Qualified Code(s): I10 - Essential (primary) hypertension (6) ILD (interstitial lung disease) Code(s): J84.9 - INTERSTITIAL PULMONARY DISEASE, UNSPECIFIED (7) Pulmonary hypertension Code(s): I27.2 - OTHER SECONDARY PULMONARY HYPERTENSION * DO NOT USE * (8) S/P coronary artery stent placement Code(s): Z95.5 - PRESENCE OF CORONARY ANGIOPLASTY IMPLANT AND GRAFT (9) T2DM (type 2 diabetes mellitus) Code(s): E11.9 - TYPE 2 DIABETES MELLITUS WITHOUT COMPLICATIONS (10) Moderate aortic valve stenosis Code(s): I35.0 - NONRHEUMATIC AORTIC (VALVE) STENOSIS (11) S/P CABG x 3 Code(s): Z95.1 - PRESENCE OF AORTOCORONARY BYPASS GRAFT Assessment/Plan 1. Clinical presentation is consistent with acute on chronic class I-II [place] [employer] classification left ventricular failure - improving 2. Right-sided heart failure related to pulmonary hypertension exacerbated by probable chronic liver disease/hepatic cirrhosis 3. Coronary artery disease status post coronary artery bypass grafting negative pharmacologic Lexiscan myocardial perfusion imaging study for myocardial ischemia with patent grafts on coronary angiography, post percutaneous coronary intervention JORDI LCx, angina pectoris. 4. Aortic valve disease aortic valve stenosis severe in severity aortic valve area of 0.6 cm on echocardiography performed October 15, 2017, 0.8 cm on echocardiography performed September 26, 2016, 0.93 cm on cardiac catheterization coronary angiography performed November 03, 2016 and aortic valve area of 1.4 cm on echocardiography performed December 09, 2016. 5. Idiopathic interstitial lung disease/pulmonary fibrosis with pulmonary hypertension moderate to severe in severity 6. Paroxysmal atrial fibrillation in a patient with known history of paroxysmal atrial flutter status post cardioversion [id number] score of 5 currently on no anti-coagulation therapy related to history of chronic liver disease with esophageal varices. 7. Sick sinus syndrome post permanent pacemaker implantation (Medtronic device) . 8. Mitral valve regurgitation mild in severity of no clinical significance. 9. Tricuspid valve regurgitation mild in severity. 10. History of hypertensive cardiovascular disease. 11. Insulin-dependent diabetes mellitus. 12. Hypercholesterolemia. 13. Carotid artery disease mild in severity, asymptomatic. 14. History of migraine headaches. 15. History of diabetic retinopathy. 16. History of glaucoma, legally blind. 17. Hypothyroidism. 18. History of obstructive sleep apnea. 19. History of chronic liver disease/hepatic cirrhosis with esophageal varices. 20. Anemia/thrombocytopenia 21. Exogenous obesity. 22. Acute on CKD improving PLAN: 1. Continue Lasix with close monitoring of renal function and electrolytes. 2. Continue Aldactone therapy with close monitoring of renal function and electrolytes. 3. Continue Toprol-XL 4. Continue Adcirca therapy. 5. Continue dual antiplatelet agent therapy administration, Ecotrin 81 qd and Plavix 75 qd with caution considering the above-noted anemia/thrombocytopenia. Further plans are to follow. Discharge planning Deejay Martínez MD
--- NOTE | 2018-02-22 12:15 | DS ---
Physical Examination Vital Signs: Vital Signs Temperature 36.7 C 02/22/18 09:06 Pulse Rate 123 H 02/22/18 09:06 Respiratory Rate 20 02/22/18 09:06 Blood Pressure 102/39 02/22/18 09:06 O2 Sat by Pulse Oximetry (%) 98 02/21/18 21:00 Labs: CBC, BMP 02/20/18 06:50 02/20/18 06:50 Discharge Summary Reason For Visit: ACUTE RESPIRATORY FAILURE WITH HYPOXIA Current Active Problems Acute respiratory failure with hypoxia (Acute) CAD (coronary artery disease) (Acute) CHF (congestive heart failure) (Acute) Cirrhosis (Acute) Diabetes (Acute) HTN (hypertension) (Acute) Heart failure, diastolic, with acute decompensation (Acute) ILD (interstitial lung disease) (Acute) Morbidly obese (Acute) Pulmonary hypertension (Acute) S/P coronary artery stent placement (Acute) SOB (shortness of breath) on exertion (Acute) T2DM (type 2 diabetes mellitus) (Acute) Condition: Stable - Instructions Diet, Activity, Other Instructions: resume previous diet and activity Referrals: Addison Reyes MD [Primary Care Provider] - Brayan Yi MD [Staff Physician] - Disposition: HOME - Home Medications Comprehensive Discharge Medication List: Ambulatory Orders Aspirin [Ecotrin] 81 mg PO DAILY 04/23/17 Canagliflozin [Invokana] 100 mg PO DAILY 04/23/17 Ergocalciferol (Vitamin D2) [Vitamin D2] 2,000 unit PO DAILY 04/23/17 Escitalopram Oxalate [Lexapro -] 10 mg PO DAILY 04/23/17 Glimepiride [Amaryl] 2 mg PO BID 04/23/17 Insulin Aspart Prot/Insuln Asp [Novolog Mix 70-30 Flexpen Syrn] 20 unit SQ HS Levothyroxine [Synthroid -] 25 mcg PO DAILY 04/23/17 Metoprolol Succinate [Toprol XL -] 25 mg PO HS 04/23/17 Naratriptan HCl 2.5 mg PO DAILY 04/23/17 Polyethylene Glycol 3350 [Miralax 255 gm Btl -] 17 gm PO DAILY 04/23/17 Acetaminophen [Tylenol .Regular Strength -] 650 mg PO Q4H PRN #0 tablet Furosemide [Lasix -] 40 mg PO DAILY tablet 04/28/17 Spironolactone [Aldactone -] 25 mg PO DAILY tablet 04/28/17 Clopidogrel Bisulfate [Plavix] 75 mg PO DAILY 02/13/18 Tadalafil [Adcirca] 20 mg PO DAILY 02/13/18 predniSONE [Deltasone -] 10 mg PO DAILY 02/13/18
[2018-02-22] MEDS ORDERED: PT OWN MED DRAWER 7, Y5N ONE (13:50)
== END 2018-02-22 14:18 | disposition home or self-care (01) | DRG 291 ==
LOC: JER 11:22 → JERBED 16:13 → J4W 20:22
PROVIDERS: ADMIT Internal Medicine; ATTEND Internal Medicine
DX: I13.0 Hypertensive heart and chronic kidney disease with heart failure and stage 1 through stage 4 chronic kidney disease, or unspecified chronic kidney disease (principal); J96.01 Acute respiratory failure with hypoxia; I50.33 Acute on chronic diastolic (congestive) heart failure; I48.92 Unspecified atrial flutter; N17.9 Acute kidney failure, unspecified; J84.9 Interstitial pulmonary disease, unspecified; J44.9 Chronic obstructive pulmonary disease, unspecified; I25.10 Atherosclerotic heart disease of native coronary artery without angina pectoris; I27.20 Pulmonary hypertension, unspecified; K74.60 Unspecified cirrhosis of liver; K75.81 Nonalcoholic steatohepatitis (NASH); Z79.4 Long term (current) use of insulin; Z95.1 Presence of aortocoronary bypass graft; E11.319 Type 2 diabetes mellitus with unspecified diabetic retinopathy without macular edema; H54.8 Legal blindness, as defined in USA; I34.0 Nonrheumatic mitral (valve) insufficiency; I36.1 Nonrheumatic tricuspid (valve) insufficiency; E78.00 Pure hypercholesterolemia, unspecified; G43.909 Migraine, unspecified, not intractable, without status migrainosus; E03.9 Hypothyroidism, unspecified; G47.33 Obstructive sleep apnea (adult) (pediatric); D64.9 Anemia, unspecified; D69.6 Thrombocytopenia, unspecified; I48.0 Paroxysmal atrial fibrillation; Z68.37 Body mass index [BMI] 37.0-37.9, adult; E66.01 Morbid (severe) obesity due to excess calories; J84.10 Pulmonary fibrosis, unspecified; E11.22 Type 2 diabetes mellitus with diabetic chronic kidney disease; N18.9 Chronic kidney disease, unspecified; D50.9 Iron deficiency anemia, unspecified
CPT/HCPCS: 36415; 71045-TC-FY; 76700-TC; 80048; 80053; 81003; 82550; 82803; 82962; 83605; 83735; 83880; 84100; 84443; 84484; 85025; 85610; 85730; 87086; 93005; 93010; 97116-GP; 97161-GP; 99284-25

== ENCOUNTER 2018-10-07 10:23 | Day surgery (SDC) | payer OTHER, BC ==
[2018-10-06 15:03] VITALS: BMI 37.7
[2018-10-07] MEDS ORDERED: PROPOFOL 20 ML ONE ×3 (11:59)
[2018-10-07] MEDS ORDERED: DEXMEDETOMIDINE HCL 200 MCG/2 ML ML IVPB ONE (12:02)
[2018-10-07] MEDS ORDERED: MIDAZOLAM HCL 2 MG/2 ML SINGLE DOSE VIAL ONE (12:08)
--- NOTE | 2018-10-07 12:21 | HP ---
History & Physical Update - History History: No Change - Physical Physical: No Change - Assessment Assessment: No Change - Plan Plan: No Change
[2018-10-07] MEDS ORDERED: ACETAMINOPHEN 1000 MG/100 ML VIAL (NON FORMULARY) IVPB ONE (12:27)
[2018-10-07] MEDS ORDERED: LACTATED RINGERS SOLUTION 1,000 ML IV SCH (12:30)
[2018-10-07] MEDS ORDERED: DEXTROSE 5%-0.45% SALINE 1,000 ML IV SCH (12:30)
[2018-10-07] MEDS ORDERED: IBUPROFEN 800 MG/8 ML IJ IVPB SCH (12:30)
[2018-10-07] MEDS ORDERED: LIDOCAINE HCL 1%, 10 MG/ML (20ML VIAL) ONE (12:39)
[2018-10-07] MEDS ORDERED: ceFAZolin SODIUM 1 GM VIAL IVPB ONE (12:55)
[2018-10-07] MEDS ORDERED: LIDOCAINE HCL 1%, 10 MG/ML (20ML VIAL) NR ONE ×2 (13:00)
[2018-10-07] MEDS ORDERED: BACITRACIN 15 GM TUBE TOPICAL OINTMENT ONE (16:08)
[2018-10-07 17:21] VITALS: BP 106/70
[2018-10-07 17:34] VITALS: PULSE 67; TEMP 98.1
--- NOTE | 2018-10-08 14:42 | OP ---
DATE OF OPERATION: 10/07/2018 PREOPERATIVE DIAGNOSIS: Urge urinary incontinence. POSTOPERATIVE DIAGNOSIS: Urge urinary incontinence. PROCEDURE: InterStim lead and battery implant. ANESTHESIA: Local with IV sedation. ESTIMATED BLOOD LOSS: Minimal. SURGEON: Addison Wheeler MD PREOPERATIVE INDICATIONS: The patient is 73-year-old male with a history of urge urinary incontinence. He has failed medications. He had a PNE trial in the office which he had a greater than 50% improvement in his symptoms. He comes to the OR today for InterStim implant. THE OPERATION: The patient was brought to the OR, placed on the table in the prone position. All pressure points were protected. Patient was given IV antibiotics and IV sedation. The back was prepped and draped sterilely, and time-out was performed. The S3 foramens bilaterally were identified using fluoroscopy, and finder needles were placed in the S3 foramens bilaterally. On the right side, appropriate motor response and sensation were noted at low amplitude, and the appearance of the needle on both AP and lateral views was optimal. The quadruple lead was then placed using the Seldinger technique. The track was dilated. The lead was placed with appropriate curve on x-ray. It was tested with a response in all 4 leads. This lead was then tunneled underneath the skin, the lateral buttock, where a pocket was made for the battery. The wire was cleaned and connected to the battery. The battery was then placed into the pocket. Wounds were closed in 2 layers with 3-0 and 4-0 sutures. Wounds were dressed. The patient was woken up. Milton [id number]
== END 2018-10-07 17:00 | disposition home or self-care (01) ==
LOC: JASU-SURG 10:23
PROVIDERS: ATTEND Urology
PROC: 01HY0MZ Insertion of Neurostimulator Lead into Peripheral Nerve, Open Approach (ICD-10-PCS; 2018-10-07)
PROC: 0JH70BZ Insertion of Single Array Stimulator Generator into Back Subcutaneous Tissue and Fascia, Open Approach (ICD-10-PCS; principal; 2018-10-07 12:00)
DX: N39.41 Urge incontinence (principal); Z79.4 Long term (current) use of insulin; I12.9 Hypertensive chronic kidney disease with stage 1 through stage 4 chronic kidney disease, or unspecified chronic kidney disease; E11.22 Type 2 diabetes mellitus with diabetic chronic kidney disease; N18.9 Chronic kidney disease, unspecified; K21.9 Gastro-esophageal reflux disease without esophagitis; K44.9 Diaphragmatic hernia without obstruction or gangrene; D64.9 Anemia, unspecified
CPT/HCPCS: 64581; 64590; C1767; C1778; 76000-TC-FY; 94760

== ENCOUNTER 2019-05-20 07:55 | Day surgery (SDC) | payer OTHER, BC ==
[2019-05-19 16:17] VITALS: BMI 36.3
[2019-05-20 09:44] VITALS: TEMP 98.4
[2019-05-20] MEDS ORDERED: CEFAZOLIN 1 GM/D5W 1 GM/50 ML BAG ONE (09:48)
[2019-05-20] MEDS ORDERED: CEFAZOLIN 1 GM/D5W 1 GM/50 ML BAG IVPB ONE (10:15)
[2019-05-20 11:25] VITALS: BP 121/66; PULSE 76
== END 2019-05-20 10:55 | disposition home or self-care (01) ==
LOC: JASU-ENDO 07:55
PROVIDERS: ATTEND Internal Medicine Gastroenterology
PROC: 0DJD8ZZ Inspection of Lower Intestinal Tract, Via Natural or Artificial Opening Endoscopic (ICD-10-PCS; principal; 2019-05-20 09:00)
DX: Z86.010 Personal history of colon polyps (principal); K57.30 Diverticulosis of large intestine without perforation or abscess without bleeding; Z98.0 Intestinal bypass and anastomosis status; K55.20 Angiodysplasia of colon without hemorrhage; K64.8 Other hemorrhoids

== ENCOUNTER 2020-09-24 09:44 | Inpatient (IN) | payer OTHER, BC ==
[2020-09-24 09:54] VITALS: BMI 30.6
[2020-09-24] MEDS ORDERED: PIPERACILLIN/TAZOB 4.5 GM 4.5 GM in DEXTROSE 5%-WATER 100 ML IVPB ONE (10:25)
[2020-09-24] MEDS ORDERED: VANCOMYCIN 1,500 MG in DEXTROSE 5%-WATER - 250 ML IVPB ONE (10:25)
[2020-09-24 11:27] LABS: BASO % 0.6 % (0-2.0); EOS % 1.8 % (0-4.5); HEMATOCRIT 35.3 % (35.4-49); HEMOGLOBIN 11.8 GM/dL (11.7-16.9); LYMPH % 10.7 % (8-40); MCH 29.7 pg (25.7-33.7); MCHC 33.4 g/dl (32.0-35.9); MEAN PLT VOLUME 7.1 fl (7.5-11.1); MONO % 10.5 % (3.8-10.2); NEUT % 76.4 % (42.8-82.8); PLATELET COUNT 123 K/MM3 (134-434); RBC 3.97 M/mm3 (4.00-5.60); RDW 15.5 % (11.9-15.9); WHITE BLOOD COUNT 6.5 K/mm3 (4.0-10.0)
[2020-09-24 11:34] LABS: INR 1.03 (0.83-1.09); PROTHROMBIN TIME (PATIENT) 12.5 SEC (9.7-13.0)
[2020-09-24 11:37] LABS: ACTIVATED PTT 28.1 SECONDS (25.2-36.5)
[2020-09-24 11:53] LABS: POTASSIUM 4.3 mmol/L (3.5-5.1)
[2020-09-24 11:56] LABS: CALCIUM 9.4 mg/dL (8.5-10.1)
[2020-09-24 11:57] LABS: ALBUMIN 3.5 g/dl (3.4-5.0); BLOOD UREA NITROGEN 47.2 mg/dL (7-18)
[2020-09-24 12:00] LABS: CREATININE 1.4 mg/dL (0.55-1.3)
[2020-09-24 12:01] LABS: BILIRUBIN,TOTAL 2.2 mg/dL (0.2-1); TOT PROT 6.7 g/dl (6.4-8.2)
[2020-09-24] MEDS ORDERED: DEXTROSE 5%-WATER - 50 ML IVPB ONE (18:00)
[2020-09-24] MEDS ORDERED: PIPERACILLIN/TAZOBACTAM 3.375 GM VIAL IVPB ONE (18:00)
[2020-09-24] MEDS: PIPERACILLIN/TAZOB 3.375 GM 3.375 GM in DEXTROSE 5%-WATER - 50 ML IVPB SCH (18:03)
[2020-09-24] MEDS ORDERED: ALPRAZolam 0.25 MG TABLET PO PRN (19:15)
[2020-09-24] MEDS ORDERED: NARATRIPTAN HCL 2.5 MG PO PRN (19:15)
[2020-09-24] MEDS ORDERED: INSULIN (NOVOLOG MIX 70/30) 100 UNITS/ML MDV SQ SCH (22:00)
[2020-09-24] MEDS: SPIRONOLACTONE 25 MG TABLET PO SCH (22:37)
[2020-09-24] MEDS: HEPARIN NA (PORCINE) 5,000 UNITS/ML 1ML VIAL SQ SCH (22:37)
[2020-09-24] MEDS: POLYETHYLENE GLYCOL 3350 119 GM BTL PO SCH (22:37)
[2020-09-24] MEDS: INSULIN SLIDING SCALE (NOVOLOG) 1 VIAL SQ SCH (22:37)
[2020-09-24] MEDS: metoPROLOL SUCCINATE 25 MG TAB.SR.24H (FP) PO SCH (22:38)
[2020-09-24] MEDS: ACETAMINOPHEN 325 MG TABLET (FP) PO PRN (23:16)
[2020-09-25] MEDS ORDERED: DEXTROSE 5%-WATER - 50 ML IVPB ONE ×3 (00:56→17:15)
[2020-09-25] MEDS ORDERED: PIPERACILLIN/TAZOBACTAM 3.375 GM VIAL IVPB ONE ×3 (00:56→17:15)
[2020-09-25] MEDS: PIPERACILLIN/TAZOB 3.375 GM 3.375 GM in DEXTROSE 5%-WATER - 50 ML IVPB SCH ×3 (02:01→17:40)
[2020-09-25] MEDS: FUROSEMIDE 40 MG TABLET (FP) PO SCH ×2 (07:10→14:13)
[2020-09-25] MEDS: INSULIN SLIDING SCALE (NOVOLOG) 1 VIAL SQ SCH ×4 (07:10→23:39)
[2020-09-25] MEDS: LEVOTHYROXINE NA 25 MCG TABLET (FP) PO SCH (07:11)
[2020-09-25] MEDS ORDERED: SODIUM CHLORIDE 1,000 ML IV SCH (07:30)
[2020-09-25 08:11] LABS: EOS % 3.1 % (0-4.5); HEMATOCRIT 37.6 % (35.4-49); HEMOGLOBIN 12.5 GM/dL (11.7-16.9); LYMPH % 14.1 % (8-40); MCH 30.2 pg (25.7-33.7); MCHC 33.4 g/dl (32.0-35.9); MEAN CELL VOLUME 90.5 fl (80-96); MEAN PLT VOLUME 7.2 fl (7.5-11.1); NEUT % 71.8 % (42.8-82.8); PLATELET COUNT 129 K/MM3 (134-434); RBC 4.15 M/mm3 (4.00-5.60); RDW 15.4 % (11.9-15.9); WHITE BLOOD COUNT 6.5 K/mm3 (4.0-10.0)
[2020-09-25 08:14] LABS: CHLORIDE 107 mmol/L (98-107); POTASSIUM 4.3 mmol/L (3.5-5.1); SODIUM 139 mmol/L (136-145)
[2020-09-25 08:23] LABS: CALCIUM 8.6 mg/dL (8.5-10.1)
[2020-09-25 08:24] LABS: ALBUMIN 3.1 g/dl (3.4-5.0); BLOOD UREA NITROGEN 45.3 mg/dL (7-18); GLUCOSE,RANDOM 73 mg/dL (74-106)
[2020-09-25 08:25] LABS: ANION GAP 10 MMOL/L (8-16); CO2 23 mmol/L (21-32); MAGNESIUM 2.4 mg/dL (1.8-2.4)
[2020-09-25 08:27] LABS: CREATININE 1.3 mg/dL (0.55-1.3); PHOSPHOROUS 3.9 mg/dL (2.5-4.9); SGOT/AST 32 U/L (15-37); SGPT/ALT 29 U/L (13-61)
[2020-09-25 08:29] LABS: TOT PROT 6.2 g/dl (6.4-8.2)
[2020-09-25 08:30] LABS: ALK PHOS 95 U/L (45-117)
[2020-09-25] MEDS ORDERED: PT OWN MED DRAWER 7, Y5N ONE (08:54)
[2020-09-25] MEDS: CHOLECALCIFEROL (VIT D3) 1,000 UNIT (25 MCG) TABLET PO SCH (09:53)
[2020-09-25] MEDS: LIPASE/PROTEASE/AMYLASE 36,000 UNIT CAPSULE PO SCH ×3 (09:53→17:40)
[2020-09-25] MEDS: SPIRONOLACTONE 25 MG TABLET PO SCH ×2 (09:53→23:39)
[2020-09-25] MEDS: ASPIRIN COATED 81 MG TABLET.EC PO SCH (09:53)
[2020-09-25] MEDS: HEPARIN NA (PORCINE) 5,000 UNITS/ML 1ML VIAL SQ SCH ×2 (09:54→23:39)
[2020-09-25] MEDS: predniSONE 5 MG TABLET (UD) PO SCH (09:54)
[2020-09-25] MEDS ORDERED: INSULIN REGULAR HUMAN 100 UNITS/ML *VIAL SQ SCH (10:00)
[2020-09-25] MEDS ORDERED: INSULIN (NOVOLOG) ASPART 100 UNITS/ML 10ML VIAL ONE ×2 (12:16→17:16)
[2020-09-25] MEDS ORDERED: FAMOTIDINE 20 MG TABLET PO SCH (22:00)
[2020-09-25] MEDS: metoPROLOL SUCCINATE 25 MG TAB.SR.24H (FP) PO SCH (23:39)
[2020-09-25] MEDS: POLYETHYLENE GLYCOL 3350 119 GM BTL PO SCH (23:39)
[2020-09-26] MEDS ORDERED: DEXTROSE 5%-WATER - 50 ML IVPB ONE ×3 (01:10→17:24)
[2020-09-26] MEDS ORDERED: PIPERACILLIN/TAZOBACTAM 3.375 GM VIAL IVPB ONE ×3 (01:10→17:23)
[2020-09-26] MEDS: PIPERACILLIN/TAZOB 3.375 GM 3.375 GM in DEXTROSE 5%-WATER - 50 ML IVPB SCH ×3 (01:31→17:28)
[2020-09-26] MEDS ORDERED: traMADol HCL 50 MG TABLET PO ONE (02:51)
[2020-09-26] MEDS: INSULIN SLIDING SCALE (NOVOLOG) 1 VIAL SQ SCH ×4 (07:27→21:35)
[2020-09-26] MEDS: LEVOTHYROXINE NA 25 MCG TABLET (FP) PO SCH (07:28)
[2020-09-26] MEDS: FUROSEMIDE 40 MG TABLET (FP) PO SCH ×2 (07:28→13:59)
[2020-09-26 08:13] LABS: BASO % 0.9 % (0-2.0); EOS % 3.1 % (0-4.5); HEMATOCRIT 34.1 % (35.4-49); HEMOGLOBIN 11.5 GM/dL (11.7-16.9); LYMPH % 14.6 % (8-40); MCHC 33.6 g/dl (32.0-35.9); MEAN CELL VOLUME 89.1 fl (80-96); MEAN PLT VOLUME 7.2 fl (7.5-11.1); MONO % 10.4 % (3.8-10.2); PLATELET COUNT 116 K/MM3 (134-434); RBC 3.83 M/mm3 (4.00-5.60); RDW 15.4 % (11.9-15.9); WHITE BLOOD COUNT 5.9 K/mm3 (4.0-10.0)
[2020-09-26 08:30] LABS: POTASSIUM 4.1 mmol/L (3.5-5.1)
[2020-09-26 08:38] LABS: BLOOD UREA NITROGEN 44.7 mg/dL (7-18); CALCIUM 8.5 mg/dL (8.5-10.1)
[2020-09-26 08:41] LABS: BILIRUBIN,TOTAL 1.6 mg/dL (0.2-1); CREATININE 1.4 mg/dL (0.55-1.3); TOT PROT 6.1 g/dl (6.4-8.2)
[2020-09-26] MEDS ORDERED: oxyCODONE HCL 5 MG TABLET PO ONE (10:45)
[2020-09-26] MEDS ORDERED: ACETAMINOPHEN 325 MG TABLET (FP) PO ONE (10:45)
[2020-09-26] MEDS ORDERED: INSULIN (NOVOLOG) ASPART 100 UNITS/ML 10ML VIAL ONE (11:07)
[2020-09-26] MEDS: LIPASE/PROTEASE/AMYLASE 36,000 UNIT CAPSULE PO SCH ×3 (11:26→17:28)
[2020-09-26] MEDS: CHOLECALCIFEROL (VIT D3) 1,000 UNIT (25 MCG) TABLET PO SCH (11:30)
[2020-09-26] MEDS: predniSONE 5 MG TABLET (UD) PO SCH (11:33)
[2020-09-26] MEDS: COLLAGENASE CLOSTRIDIUM HIST. 30 GRAMS TUBE TP SCH (11:33)
[2020-09-26] MEDS: PANTOPRAZOLE 40 MG TABLET PO SCH (11:33)
[2020-09-26] MEDS: HEPARIN NA (PORCINE) 5,000 UNITS/ML 1ML VIAL SQ SCH ×2 (11:34→21:35)
[2020-09-26] MEDS: ASPIRIN COATED 81 MG TABLET.EC PO SCH (11:34)
[2020-09-26] MEDS: SPIRONOLACTONE 25 MG TABLET PO SCH ×2 (11:34→21:35)
[2020-09-26] MEDS: POLYETHYLENE GLYCOL 3350 119 GM BTL PO SCH ×2 (21:29→22:50)
[2020-09-26] MEDS: traMADol HCL 50 MG TABLET PO PRN (21:33)
[2020-09-26] MEDS: metoPROLOL SUCCINATE 25 MG TAB.SR.24H (FP) PO SCH (21:35)
[2020-09-27] MEDS: ACETAMINOPHEN 325 MG TABLET (FP) PO PRN (01:07)
[2020-09-27] MEDS ORDERED: PIPERACILLIN/TAZOBACTAM 3.375 GM VIAL IVPB ONE ×3 (01:12→17:06)
[2020-09-27] MEDS ORDERED: DEXTROSE 5%-WATER - 50 ML IVPB ONE ×3 (01:13→17:06)
[2020-09-27] MEDS: PIPERACILLIN/TAZOB 3.375 GM 3.375 GM in DEXTROSE 5%-WATER - 50 ML IVPB SCH ×3 (01:22→17:31)
[2020-09-27] MEDS: INSULIN SLIDING SCALE (NOVOLOG) 1 VIAL SQ SCH ×4 (06:49→21:52)
[2020-09-27] MEDS: LEVOTHYROXINE NA 25 MCG TABLET (FP) PO SCH (06:49)
[2020-09-27] MEDS: FUROSEMIDE 40 MG TABLET (FP) PO SCH ×2 (07:12→14:58)
[2020-09-27 08:25] LABS: BASO % 0.7 % (0-2.0); EOS % 2.7 % (0-4.5); HEMATOCRIT 33.7 % (35.4-49); HEMOGLOBIN 11.5 GM/dL (11.7-16.9); LYMPH % 12.3 % (8-40); MCH 30.1 pg (25.7-33.7); MEAN CELL VOLUME 88.6 fl (80-96); MEAN PLT VOLUME 6.9 fl (7.5-11.1); MONO % 9.3 % (3.8-10.2); PLATELET COUNT 117 K/MM3 (134-434); RBC 3.81 M/mm3 (4.00-5.60); RDW 15.3 % (11.9-15.9); WHITE BLOOD COUNT 5.6 K/mm3 (4.0-10.0)
[2020-09-27 08:35] LABS: POTASSIUM 4.3 mmol/L (3.5-5.1)
[2020-09-27 08:45] LABS: ALBUMIN 3.1 g/dl (3.4-5.0); BLOOD UREA NITROGEN 43.5 mg/dL (7-18); CALCIUM 8.5 mg/dL (8.5-10.1)
[2020-09-27 08:49] LABS: BILIRUBIN,TOTAL 1.4 mg/dL (0.2-1); CREATININE 1.4 mg/dL (0.55-1.3); TOT PROT 6.2 g/dl (6.4-8.2)
[2020-09-27] MEDS ORDERED: PT OWN MED DRAWER 7, Y5N ONE ×2 (09:01→22:07)
[2020-09-27] MEDS: ASPIRIN COATED 81 MG TABLET.EC PO SCH (09:09)
[2020-09-27] MEDS: CHOLECALCIFEROL (VIT D3) 1,000 UNIT (25 MCG) TABLET PO SCH (09:09)
[2020-09-27] MEDS: LIPASE/PROTEASE/AMYLASE 36,000 UNIT CAPSULE PO SCH ×3 (09:09→17:31)
[2020-09-27] MEDS: traMADol HCL 50 MG TABLET PO PRN ×3 (09:10→22:08)
[2020-09-27] MEDS: SPIRONOLACTONE 25 MG TABLET PO SCH ×2 (09:10→21:58)
[2020-09-27] MEDS: PANTOPRAZOLE 40 MG TABLET PO SCH (09:10)
[2020-09-27] MEDS: predniSONE 5 MG TABLET (UD) PO SCH (09:10)
[2020-09-27] MEDS ORDERED: ONDANSETRON 4 MG/2 ML VIAL IVPUSH PRN ×2 (10:52→13:30)
[2020-09-27] MEDS ORDERED: LACTATED RINGERS SOLUTION 1,000 ML IV SCH ×2 (11:00→13:30)
[2020-09-27] MEDS: HEPARIN NA (PORCINE) 5,000 UNITS/ML 1ML VIAL SQ SCH ×2 (11:08→21:57)
[2020-09-27] MEDS ORDERED: MIDAZOLAM HCL 2 MG/2 ML SINGLE DOSE VIAL ONE (11:12)
[2020-09-27] MEDS ORDERED: ceFAZolin SODIUM 1 GM VIAL IVPB ONE (11:19)
[2020-09-27] MEDS ORDERED: PROPOFOL 20 ML ONE (11:22)
[2020-09-27] MEDS ORDERED: SUCCINYLCHOLINE CHLORIDE 200 MG/10 ML SYRINGE ONE (11:22)
[2020-09-27] MEDS ORDERED: LIDOCAINE HCL 1%, 10 MG/ML (20ML VIAL) INF ONE ×2 (11:45)
[2020-09-27 11:55] LABS: ANISOCYTOSIS 1+; MACROCYTOSIS 0; OVALOCYTE 1+; PLATELET ESTIMATE DECREASED; TEAR DROP CELLS 1+
[2020-09-27] MEDS ORDERED: NARATRIPTAN HCL 2.5 MG PO PRN (13:30)
[2020-09-27] MEDS ORDERED: ALPRAZolam 0.25 MG TABLET PO PRN (13:30)
[2020-09-27] MEDS: CLOPIDOGREL BISULFATE 75 MG TABLET (FP) PO SCH (13:37)
[2020-09-27] MEDS: PATIENT'S OWN MEDICATION (NON-FORMULARY) (Timolol [Betimol] 5 ML Drops) OS SCH ×2 (14:40→14:41)
[2020-09-27] MEDS: COLLAGENASE CLOSTRIDIUM HIST. 30 GRAMS TUBE TP SCH (15:26)
[2020-09-27] MEDS ORDERED: TIMOLOL 0.25% OPHTHALMIC SOL 5 ML BOTTLE OU ONE (21:06)
[2020-09-27] MEDS ORDERED: PATIENT'S OWN MEDICATION (NON-FORMULARY) (Timolol [Betimol] 1 DROP) OS SCH (22:00)
[2020-09-27] MEDS: TIMOLOL 0.5% OPHTHALMIC SOL 5 ML BOTTLE OU SCH (22:05)
[2020-09-27] MEDS: metoPROLOL SUCCINATE 25 MG TAB.SR.24H (FP) PO SCH (22:05)
[2020-09-27] MEDS: POLYETHYLENE GLYCOL 3350 119 GM BTL PO SCH (22:13)
[2020-09-28] MEDS ORDERED: PIPERACILLIN/TAZOBACTAM 3.375 GM VIAL IVPB ONE ×3 (01:10→17:29)
[2020-09-28] MEDS ORDERED: DEXTROSE 5%-WATER - 50 ML IVPB ONE ×3 (01:10→17:29)
[2020-09-28] MEDS: PIPERACILLIN/TAZOB 3.375 GM 3.375 GM in DEXTROSE 5%-WATER - 50 ML IVPB SCH ×3 (01:15→17:43)
[2020-09-28] MEDS: ACETAMINOPHEN 325 MG TABLET (FP) PO PRN (01:15)
[2020-09-28] MEDS: FUROSEMIDE 40 MG TABLET (FP) PO SCH ×2 (05:36→13:31)
[2020-09-28] MEDS ORDERED: INSULIN (NOVOLOG) ASPART 100 UNITS/ML 10ML VIAL ONE ×2 (06:21→10:59)
[2020-09-28] MEDS: traMADol HCL 50 MG TABLET PO PRN ×3 (06:30→22:22)
[2020-09-28 06:54] LABS: BASO % 0.6 % (0-2.0); HEMATOCRIT 35.6 % (35.4-49); HEMOGLOBIN 11.8 GM/dL (11.7-16.9); LYMPH % 12.4 % (8-40); MCH 29.7 pg (25.7-33.7); MCHC 33.3 g/dl (32.0-35.9); MEAN CELL VOLUME 89.1 fl (80-96); MEAN PLT VOLUME 6.9 fl (7.5-11.1); MONO % 9.6 % (3.8-10.2); NEUT % 74.4 % (42.8-82.8); PLATELET COUNT 118 K/MM3 (134-434); RBC 3.99 M/mm3 (4.00-5.60); RDW 15.7 % (11.9-15.9); WHITE BLOOD COUNT 5.5 K/mm3 (4.0-10.0)
[2020-09-28 07:07] LABS: POTASSIUM 4.6 mmol/L (3.5-5.1)
[2020-09-28 07:10] LABS: ALBUMIN 3.1 g/dl (3.4-5.0); BLOOD UREA NITROGEN 41.5 mg/dL (7-18)
[2020-09-28] MEDS: LEVOTHYROXINE NA 25 MCG TABLET (FP) PO SCH (07:10)
[2020-09-28] MEDS: INSULIN SLIDING SCALE (NOVOLOG) 1 VIAL SQ SCH ×4 (07:10→22:19)
[2020-09-28 07:11] LABS: CALCIUM 8.6 mg/dL (8.5-10.1)
[2020-09-28 07:13] LABS: CREATININE 1.5 mg/dL (0.55-1.3)
[2020-09-28 07:14] LABS: BILIRUBIN,TOTAL 1.5 mg/dL (0.2-1); TOT PROT 6.5 g/dl (6.4-8.2)
[2020-09-28] MEDS ORDERED: GLYCERIN 1 RECTAL SUPPOSITORY, ADULT RC PRN (08:02)
[2020-09-28] MEDS: LIPASE/PROTEASE/AMYLASE 36,000 UNIT CAPSULE PO SCH ×3 (08:32→17:31)
[2020-09-28] MEDS: PANTOPRAZOLE 40 MG TABLET PO SCH (09:25)
[2020-09-28] MEDS: predniSONE 5 MG TABLET (UD) PO SCH (09:25)
[2020-09-28] MEDS: ASPIRIN COATED 81 MG TABLET.EC PO SCH (09:25)
[2020-09-28] MEDS: CLOPIDOGREL BISULFATE 75 MG TABLET (FP) PO SCH (09:25)
[2020-09-28] MEDS: SPIRONOLACTONE 25 MG TABLET PO SCH ×2 (09:25→22:18)
[2020-09-28] MEDS: HEPARIN NA (PORCINE) 5,000 UNITS/ML 1ML VIAL SQ SCH ×2 (09:26→22:18)
[2020-09-28] MEDS: CHOLECALCIFEROL (VIT D3) 1,000 UNIT (25 MCG) TABLET PO SCH (09:26)
[2020-09-28] MEDS: TIMOLOL 0.5% OPHTHALMIC SOL 5 ML BOTTLE OU SCH ×2 (09:26→22:19)
[2020-09-28] MEDS ORDERED: SODIUM CHLORIDE 500 ML IV STA (10:20)
[2020-09-28] MEDS: COLLAGENASE CLOSTRIDIUM HIST. 30 GRAMS TUBE TP SCH (10:26)
[2020-09-28] MEDS ORDERED: SODIUM CHLORIDE 500 ML IV SCH (11:20)
[2020-09-28 19:58] LABS: POTASSIUM 4.5 mmol/L (3.5-5.1)
[2020-09-28 20:02] LABS: CALCIUM 8.4 mg/dL (8.5-10.1)
[2020-09-28 20:03] LABS: BLOOD UREA NITROGEN 38.4 mg/dL (7-18)
[2020-09-28 20:06] LABS: CREATININE 1.4 mg/dL (0.55-1.3)
[2020-09-28] MEDS: metoPROLOL SUCCINATE 25 MG TAB.SR.24H (FP) PO SCH (22:18)
[2020-09-28] MEDS: POLYETHYLENE GLYCOL 3350 119 GM BTL PO SCH (22:18)
[2020-09-29] MEDS ORDERED: PIPERACILLIN/TAZOBACTAM 3.375 GM VIAL IVPB ONE ×2 (02:04→10:01)
[2020-09-29] MEDS ORDERED: DEXTROSE 5%-WATER - 50 ML IVPB ONE ×2 (02:04→10:02)
[2020-09-29] MEDS: ACETAMINOPHEN 325 MG TABLET (FP) PO PRN (02:06)
[2020-09-29] MEDS: PIPERACILLIN/TAZOB 3.375 GM 3.375 GM in DEXTROSE 5%-WATER - 50 ML IVPB SCH ×2 (02:07→10:11)
[2020-09-29] MEDS: LEVOTHYROXINE NA 25 MCG TABLET (FP) PO SCH (06:19)
[2020-09-29] MEDS: INSULIN SLIDING SCALE (NOVOLOG) 1 VIAL SQ SCH ×2 (06:19→12:34)
[2020-09-29] MEDS: FUROSEMIDE 40 MG TABLET (FP) PO SCH (06:19)
[2020-09-29] MEDS ORDERED: PT OWN MED DRAWER 7, Y5N ONE ×2 (08:18→12:32)
[2020-09-29] MEDS: LIPASE/PROTEASE/AMYLASE 36,000 UNIT CAPSULE PO SCH ×2 (08:27→12:34)
[2020-09-29 09:35] LABS: POTASSIUM 5.1 mmol/L (3.5-5.1)
[2020-09-29 10:01] LABS: CALCIUM 9.1 mg/dL (8.5-10.1)
[2020-09-29 10:02] LABS: ALBUMIN 3.2 g/dl (3.4-5.0); BLOOD UREA NITROGEN 36.5 mg/dL (7-18)
[2020-09-29 10:05] LABS: CREATININE 1.4 mg/dL (0.55-1.3)
[2020-09-29 10:06] LABS: BILIRUBIN,TOTAL 1.7 mg/dL (0.2-1); TOT PROT 6.4 g/dl (6.4-8.2)
[2020-09-29] MEDS: predniSONE 5 MG TABLET (UD) PO SCH (10:10)
[2020-09-29] MEDS: SPIRONOLACTONE 25 MG TABLET PO SCH (10:11)
[2020-09-29] MEDS: CHOLECALCIFEROL (VIT D3) 1,000 UNIT (25 MCG) TABLET PO SCH (10:11)
[2020-09-29] MEDS: CLOPIDOGREL BISULFATE 75 MG TABLET (FP) PO SCH (10:11)
[2020-09-29] MEDS: ASPIRIN COATED 81 MG TABLET.EC PO SCH (10:11)
[2020-09-29] MEDS: HEPARIN NA (PORCINE) 5,000 UNITS/ML 1ML VIAL SQ SCH (10:11)
[2020-09-29] MEDS: TIMOLOL 0.5% OPHTHALMIC SOL 5 ML BOTTLE OU SCH (10:12)
[2020-09-29] MEDS: PANTOPRAZOLE 40 MG TABLET PO SCH (10:13)
[2020-09-29] MEDS: COLLAGENASE CLOSTRIDIUM HIST. 30 GRAMS TUBE TP SCH (10:22)
[2020-09-29 13:40] VITALS: BP 119/51; PULSE 70; TEMP 97.2
[2020-09-30] MEDS ORDERED: LEVOTHYROXINE NA 50 MCG TABLET (FP) PO SCH ×2 (07:00)
== END 2020-09-29 14:40 | disposition home or self-care (01) | DRG 253 ==
LOC: JER 09:44 → JERBED 13:13 → J8W 16:55
PROVIDERS: ADMIT Internal Medicine
PROC: 047R3ZZ Dilation of Right Posterior Tibial Artery, Percutaneous Approach (ICD-10-PCS; 2020-09-27)
PROC: B40DYZZ Plain Radiography of Aorta and Bilateral Lower Extremity Arteries using Other Contrast (ICD-10-PCS; 2020-09-27)
PROC: 047P3ZZ Dilation of Right Anterior Tibial Artery, Percutaneous Approach (ICD-10-PCS; principal; 2020-09-27 10:30)
PROC: 0JH63XZ Insertion of Tunneled Vascular Access Device into Chest Subcutaneous Tissue and Fascia, Percutaneous Approach (ICD-10-PCS; 2020-09-28)
DX: E11.51 Type 2 diabetes mellitus with diabetic peripheral angiopathy without gangrene (principal); M86.9 Osteomyelitis, unspecified; J84.9 Interstitial pulmonary disease, unspecified; J96.10 Chronic respiratory failure, unspecified whether with hypoxia or hypercapnia; I50.42 Chronic combined systolic (congestive) and diastolic (congestive) heart failure; L03.115 Cellulitis of right lower limb; I13.0 Hypertensive heart and chronic kidney disease with heart failure and stage 1 through stage 4 chronic kidney disease, or unspecified chronic kidney disease; E11.69 Type 2 diabetes mellitus with other specified complication; E11.621 Type 2 diabetes mellitus with foot ulcer; L97.519 Non-pressure chronic ulcer of other part of right foot with unspecified severity; I25.10 Atherosclerotic heart disease of native coronary artery without angina pectoris; E03.9 Hypothyroidism, unspecified; N18.30 Chronic kidney disease, stage 3 unspecified; G47.33 Obstructive sleep apnea (adult) (pediatric); Z95.1 Presence of aortocoronary bypass graft; K21.9 Gastro-esophageal reflux disease without esophagitis; F41.9 Anxiety disorder, unspecified; E86.0 Dehydration
CPT/HCPCS: 36415; 36558; 71045-TC-FY; 73630-TC-RT-FY; 76000-TC-FY; 77001-TC-FY; 80048; 80053; 82962; 83605; 83735; 84100; 84443; 84484; 85025; 85610; 85651; 85730; 86140; 86850; 86900; 86901; 87040; 93005; 93010; 94760; 97116-GP; 97161-GP; 99285-25; C1751; C9803; J1644; U0003

== ENCOUNTER 2020-11-13 04:11 | Inpatient (IN) | payer OTHER, BC ==
[2020-11-13] MEDS ORDERED: LIDOCAINE HCL 1%, 10 MG/ML (20ML VIAL) ONE (07:18)
[2020-11-13] MEDS ORDERED: MIDAZOLAM HCL 2 MG/2 ML SINGLE DOSE VIAL ONE (07:32)
[2020-11-13] MEDS ORDERED: PROPOFOL 20 ML ONE (07:32)
[2020-11-13] MEDS ORDERED: LIDOCAINE HCL 1%, 10 MG/ML (20ML VIAL) SQ ONE ×2 (08:34)
[2020-11-13] MEDS ORDERED: oxyCODONE HCL 5 MG TABLET PO PRN (09:43)
[2020-11-13] MEDS ORDERED: ONDANSETRON 4 MG/2 ML VIAL IVPUSH PRN (09:43)
[2020-11-13] MEDS ORDERED: PANTOPRAZOLE 40 MG TABLET PO PRN (13:30)
[2020-11-13] MEDS ORDERED: ACETAMINOPHEN 1000 MG/100 ML VIAL (NON FORMULARY) IVPB ONE ×2 (13:30→14:15)
[2020-11-13] MEDS: INSULIN SLIDING SCALE (NOVOLOG) 1 VIAL SQ SCH ×3 (14:00→21:25)
[2020-11-13] MEDS: INSULIN (LEVEMIR) 100 UNITS/ML UNITS SQ SCH ×3 (14:00→21:25)
[2020-11-13] MEDS ORDERED: ACETAMINOPHEN INJECTION 100 ML IVPB ONE (14:12)
[2020-11-13] MEDS ORDERED: MORPHINE SULFATE 2 MG/ML VIAL IVPUSH PRN (15:06)
[2020-11-13] MEDS ORDERED: MORPHINE SULFATE 2 MG/ML VIAL ONE (15:12)
[2020-11-13] MEDS ORDERED: MORPHINE SULFATE 2 MG/ML VIAL IVPUSH ONE (15:15)
[2020-11-13] MEDS: DOCUSATE SODIUM 100 MG CAPSULE (FP) PO SCH (16:11)
[2020-11-13] MEDS: POLYETHYLENE GLYCOL 3350 119 GM BTL PO SCH (16:14)
[2020-11-13] MEDS: LEVOTHYROXINE NA 25 MCG TABLET (FP) PO SCH (16:14)
[2020-11-13 18:35] LABS: INR 1.07 (0.83-1.09); PROTHROMBIN TIME (PATIENT) 12.9 SEC (9.7-13.0)
[2020-11-13 18:38] LABS: ACTIVATED PTT 24.2 SECONDS (25.2-36.5)
[2020-11-13 18:43] LABS: HEMATOCRIT 34.4 % (35.4-49); HEMOGLOBIN 11.7 GM/dL (11.7-16.9); MCH 30.1 pg (25.7-33.7); MEAN CELL VOLUME 88.5 fl (80-96); RBC 3.88 M/mm3 (4.00-5.60); WHITE BLOOD COUNT 7.5 K/mm3 (4.0-10.0)
[2020-11-13 18:44] LABS: POTASSIUM 4.5 mmol/L (3.5-5.1)
[2020-11-13 18:46] LABS: CALCIUM 8.3 mg/dL (8.5-10.1)
[2020-11-13 18:47] LABS: ALBUMIN 3.2 g/dl (3.4-5.0); BLOOD UREA NITROGEN 41.4 mg/dL (7-18)
[2020-11-13 18:50] LABS: CREATININE 1.2 mg/dL (0.55-1.3)
[2020-11-13 18:51] LABS: BILIRUBIN,TOTAL 2.2 mg/dL (0.2-1); TOT PROT 6.3 g/dl (6.4-8.2)
[2020-11-13 20:49] LABS: ANISOCYTOSIS 1+; MACROCYTOSIS 0; PLATELET ESTIMATE DECREASED
[2020-11-13 21:03] LABS: MEAN PLT VOLUME 8.1 fl (7.5-11.1); PLATELET COUNT 135 K/MM3 (134-434)
[2020-11-13] MEDS: ALPRAZolam 0.25 MG TABLET PO PRN (21:27)
[2020-11-14] MEDS ORDERED: MELATONIN 5 MG TABLETS PO ONE (02:38)
[2020-11-14] MEDS: FUROSEMIDE 40 MG TABLET (FP) PO SCH ×2 (06:22→13:33)
[2020-11-14] MEDS: INSULIN SLIDING SCALE (NOVOLOG) 1 VIAL SQ SCH ×4 (06:22→22:24)
[2020-11-14] MEDS: LEVOTHYROXINE NA 25 MCG TABLET (FP) PO SCH (06:24)
[2020-11-14 09:09] LABS: HEMATOCRIT 35.7 % (35.4-49); HEMOGLOBIN 12.1 GM/dL (11.7-16.9); MEAN CELL VOLUME 88.3 fl (80-96); MEAN PLT VOLUME 7.6 fl (7.5-11.1); PLATELET COUNT 130 K/MM3 (134-434); RBC 4.05 M/mm3 (4.00-5.60); RDW 15.3 % (11.9-15.9); WHITE BLOOD COUNT 7.9 K/mm3 (4.0-10.0)
[2020-11-14 09:31] LABS: POTASSIUM 4.9 mmol/L (3.5-5.1)
[2020-11-14 09:44] LABS: BILIRUBIN,TOTAL 2.2 mg/dL (0.2-1)
[2020-11-14 09:50] LABS: ALBUMIN 3.3 g/dl (3.4-5.0); CALCIUM 8.7 mg/dL (8.5-10.1)
[2020-11-14 09:51] LABS: MAGNESIUM 2.3 mg/dL (1.8-2.4)
[2020-11-14 09:54] LABS: CREATININE 1.1 mg/dL (0.55-1.3); PHOSPHOROUS 2.5 mg/dL (2.5-4.9); TOT PROT 6.2 g/dl (6.4-8.2)
[2020-11-14] MEDS: DOCUSATE SODIUM 100 MG CAPSULE (FP) PO SCH (09:55)
[2020-11-14] MEDS: ASPIRIN COATED 81 MG TABLET.EC PO SCH (09:55)
[2020-11-14] MEDS: predniSONE 5 MG TABLET (UD) PO SCH (09:55)
[2020-11-14] MEDS: CHOLECALCIFEROL (VIT D3) 1,000 UNIT (25 MCG) TABLET PO SCH (09:55)
[2020-11-14] MEDS: PANTOPRAZOLE 40 MG TABLET PO SCH (09:55)
[2020-11-14] MEDS: INSULIN (LEVEMIR) 100 UNITS/ML UNITS SQ SCH ×2 (09:55→21:59)
[2020-11-14] MEDS: CLOPIDOGREL BISULFATE 75 MG TABLET (FP) PO SCH (09:55)
[2020-11-14] MEDS: SPIRONOLACTONE 25 MG TABLET PO SCH ×2 (09:55→21:22)
[2020-11-14] MEDS ORDERED: FUROSEMIDE 20 MG TABLET (FP) PO SCH (10:00)
[2020-11-14] MEDS ORDERED: predniSONE 20 MG TABLET (UD) PO SCH (10:00)
[2020-11-14] MEDS ORDERED: ACETAMINOPHEN 1000 MG/100 ML VIAL (NON FORMULARY) IVPB PRN (10:14)
[2020-11-14] MEDS: traMADol HCL 50 MG TABLET PO PRN ×2 (11:09→20:17)
[2020-11-14] MEDS: POLYETHYLENE GLYCOL 3350 119 GM BTL PO SCH (11:09)
[2020-11-14] MEDS: ALPRAZolam 0.25 MG TABLET PO PRN (11:10)
[2020-11-14] MEDS ORDERED: VANCOMYCIN 1 GM in D5W (PRE-DOCKED) 1,000 MG/250 ML IVPB SCH ×2 (18:15→18:30)
[2020-11-14] MEDS ORDERED: PIPERACILLIN/TAZOBACTAM 4.5 GM VIAL IVPB ONE (20:01)
[2020-11-14] MEDS ORDERED: DEXTROSE 5%-WATER 100 ML IVPB ONE (20:01)
[2020-11-14] MEDS: PIPERACILLIN/TAZOB 4.5 GM 4.5 GM in DEXTROSE 5%-WATER 100 ML IVPB SCH (20:20)
[2020-11-14] MEDS: metoPROLOL SUCCINATE 25 MG TAB.SR.24H (FP) PO SCH (21:23)
[2020-11-15] MEDS ORDERED: PIPERACILLIN/TAZOBACTAM 4.5 GM VIAL IVPB ONE ×2 (03:59→10:32)
[2020-11-15] MEDS ORDERED: DEXTROSE 5%-WATER 100 ML IVPB ONE ×2 (03:59→10:33)
[2020-11-15] MEDS: PIPERACILLIN/TAZOB 4.5 GM 4.5 GM in DEXTROSE 5%-WATER 100 ML IVPB SCH ×2 (04:04→10:48)
[2020-11-15] MEDS: traMADol HCL 50 MG TABLET PO PRN ×3 (05:06→21:55)
[2020-11-15] MEDS: FUROSEMIDE 40 MG TABLET (FP) PO SCH ×2 (06:12→15:00)
[2020-11-15] MEDS: LEVOTHYROXINE NA 25 MCG TABLET (FP) PO SCH (06:12)
[2020-11-15] MEDS: INSULIN SLIDING SCALE (NOVOLOG) 1 VIAL SQ SCH ×4 (06:13→21:56)
[2020-11-15] MEDS ORDERED: PT OWN MED DRAWER 7, Y5N ONE (06:49)
[2020-11-15 08:53] LABS: BASO % 0.3 % (0-2.0); EOS % 0.9 % (0-4.5); HEMATOCRIT 32.1 % (35.4-49); HEMOGLOBIN 11.2 GM/dL (11.7-16.9); LYMPH % 9.4 % (8-40); MCH 30.3 pg (25.7-33.7); MCHC 34.9 g/dl (32.0-35.9); MEAN CELL VOLUME 86.7 fl (80-96); MEAN PLT VOLUME 7.3 fl (7.5-11.1); MONO % 11.4 % (3.8-10.2); PLATELET COUNT 100 K/MM3 (134-434); WHITE BLOOD COUNT 9.7 K/mm3 (4.0-10.0)
[2020-11-15 08:56] LABS: POTASSIUM 4.7 mmol/L (3.5-5.1)
[2020-11-15 09:02] LABS: ALBUMIN 2.9 g/dl (3.4-5.0); BLOOD UREA NITROGEN 32.4 mg/dL (7-18); CALCIUM 8.6 mg/dL (8.5-10.1)
[2020-11-15 09:03] LABS: MAGNESIUM 2.2 mg/dL (1.8-2.4)
[2020-11-15 09:04] LABS: BILIRUBIN,TOTAL 2.9 mg/dL (0.2-1)
[2020-11-15 09:05] LABS: PHOSPHOROUS 2.9 mg/dL (2.5-4.9)
[2020-11-15 09:06] LABS: CREATININE 1.1 mg/dL (0.55-1.3)
[2020-11-15 09:07] LABS: TOT PROT 5.5 g/dl (6.4-8.2)
[2020-11-15] MEDS: SPIRONOLACTONE 25 MG TABLET PO SCH ×2 (10:47→21:56)
[2020-11-15] MEDS: PANTOPRAZOLE 40 MG TABLET PO SCH (10:47)
[2020-11-15] MEDS: ASPIRIN COATED 81 MG TABLET.EC PO SCH (10:47)
[2020-11-15] MEDS: CHOLECALCIFEROL (VIT D3) 1,000 UNIT (25 MCG) TABLET PO SCH (10:47)
[2020-11-15] MEDS: predniSONE 5 MG TABLET (UD) PO SCH (10:47)
[2020-11-15] MEDS: CLOPIDOGREL BISULFATE 75 MG TABLET (FP) PO SCH (10:48)
[2020-11-15] MEDS: POLYETHYLENE GLYCOL 3350 119 GM BTL PO SCH (10:48)
[2020-11-15] MEDS: INSULIN (LEVEMIR) 100 UNITS/ML UNITS SQ SCH ×2 (11:03→21:56)
[2020-11-15] MEDS: DOCUSATE SODIUM 100 MG CAPSULE (FP) PO SCH (11:03)
[2020-11-15] MEDS: ALPRAZolam 0.25 MG TABLET PO PRN (12:08)
[2020-11-15] MEDS ORDERED: DEXTROSE 5%-WATER - 50 ML IVPB ONE (17:21)
[2020-11-15] MEDS ORDERED: PIPERACILLIN/TAZOBACTAM 3.375 GM VIAL IVPB ONE (17:21)
[2020-11-15] MEDS: PIPERACILLIN/TAZOB 3.375 GM 3.375 GM in DEXTROSE 5%-WATER - 50 ML IVPB SCH (17:39)
[2020-11-15] MEDS ORDERED: PIPERACILLIN/TAZOB 4.5 GM 4.5 GM in DEXTROSE 5%-WATER 100 ML IVPB SCH (18:12)
[2020-11-15] MEDS: metoPROLOL SUCCINATE 25 MG TAB.SR.24H (FP) PO SCH (21:56)
[2020-11-16] MEDS ORDERED: DEXTROSE 5%-WATER - 50 ML IVPB ONE ×3 (01:38→18:16)
[2020-11-16] MEDS ORDERED: PIPERACILLIN/TAZOBACTAM 3.375 GM VIAL IVPB ONE ×3 (01:38→18:15)
[2020-11-16] MEDS: ALPRAZolam 0.25 MG TABLET PO PRN (02:10)
[2020-11-16] MEDS: PIPERACILLIN/TAZOB 3.375 GM 3.375 GM in DEXTROSE 5%-WATER - 50 ML IVPB SCH ×3 (02:11→18:29)
[2020-11-16] MEDS: FUROSEMIDE 40 MG TABLET (FP) PO SCH ×2 (06:48→14:11)
[2020-11-16] MEDS: LEVOTHYROXINE NA 25 MCG TABLET (FP) PO SCH (06:48)
[2020-11-16] MEDS: traMADol HCL 50 MG TABLET PO PRN ×3 (06:48→21:40)
[2020-11-16] MEDS: INSULIN SLIDING SCALE (NOVOLOG) 1 VIAL SQ SCH ×4 (07:51→21:47)
[2020-11-16 09:32] LABS: BASO % 0.4 % (0-2.0); HEMATOCRIT 36.1 % (35.4-49); HEMOGLOBIN 12.3 GM/dL (11.7-16.9); LYMPH % 10.8 % (8-40); MCH 29.8 pg (25.7-33.7); MCHC 34.1 g/dl (32.0-35.9); MEAN CELL VOLUME 87.4 fl (80-96); MEAN PLT VOLUME 7.3 fl (7.5-11.1); MONO % 9.9 % (3.8-10.2); NEUT % 76.9 % (42.8-82.8); PLATELET COUNT 127 K/MM3 (134-434); RBC 4.13 M/mm3 (4.00-5.60); RDW 15.4 % (11.9-15.9); WHITE BLOOD COUNT 10.8 K/mm3 (4.0-10.0)
[2020-11-16 09:59] LABS: POTASSIUM 3.8 mmol/L (3.5-5.1)
[2020-11-16] MEDS: INSULIN (LEVEMIR) 100 UNITS/ML UNITS SQ SCH ×2 (10:00→21:46)
[2020-11-16 10:05] LABS: CALCIUM 8.2 mg/dL (8.5-10.1)
[2020-11-16 10:06] LABS: ALBUMIN 2.9 g/dl (3.4-5.0); BLOOD UREA NITROGEN 30.1 mg/dL (7-18); MAGNESIUM 2.2 mg/dL (1.8-2.4)
[2020-11-16 10:08] LABS: BILIRUBIN,TOTAL 2.3 mg/dL (0.2-1); TOT PROT 6.2 g/dl (6.4-8.2)
[2020-11-16 10:09] LABS: CREATININE 1.2 mg/dL (0.55-1.3); PHOSPHOROUS 3.3 mg/dL (2.5-4.9)
[2020-11-16] MEDS: DOCUSATE SODIUM 100 MG CAPSULE (FP) PO SCH (11:00)
[2020-11-16] MEDS: ASPIRIN COATED 81 MG TABLET.EC PO SCH (11:00)
[2020-11-16] MEDS: POLYETHYLENE GLYCOL 3350 119 GM BTL PO SCH (11:00)
[2020-11-16] MEDS: CLOPIDOGREL BISULFATE 75 MG TABLET (FP) PO SCH (11:00)
[2020-11-16] MEDS: PANTOPRAZOLE 40 MG TABLET PO SCH (11:00)
[2020-11-16] MEDS: predniSONE 5 MG TABLET (UD) PO SCH (11:00)
[2020-11-16] MEDS: SPIRONOLACTONE 25 MG TABLET PO SCH ×2 (11:00→21:40)
[2020-11-16] MEDS: CHOLECALCIFEROL (VIT D3) 1,000 UNIT (25 MCG) TABLET PO SCH (11:00)
[2020-11-16] MEDS ORDERED: ALPRAZolam 0.25 MG TABLET PO ONE (21:27)
[2020-11-16] MEDS: metoPROLOL SUCCINATE 25 MG TAB.SR.24H (FP) PO SCH (21:45)
[2020-11-16 22:55] VITALS: BMI 28.7
[2020-11-17] MEDS ORDERED: PIPERACILLIN/TAZOBACTAM 3.375 GM VIAL IVPB ONE ×3 (02:09→17:54)
[2020-11-17] MEDS ORDERED: DEXTROSE 5%-WATER - 50 ML IVPB ONE ×3 (02:10→17:54)
[2020-11-17] MEDS: PIPERACILLIN/TAZOB 3.375 GM 3.375 GM in DEXTROSE 5%-WATER - 50 ML IVPB SCH ×3 (02:17→17:55)
[2020-11-17] MEDS: traMADol HCL 50 MG TABLET PO PRN ×3 (04:49→21:33)
[2020-11-17] MEDS: LEVOTHYROXINE NA 25 MCG TABLET (FP) PO SCH (06:44)
[2020-11-17] MEDS: FUROSEMIDE 40 MG TABLET (FP) PO SCH ×2 (06:44→13:57)
[2020-11-17] MEDS: INSULIN SLIDING SCALE (NOVOLOG) 1 VIAL SQ SCH ×4 (07:14→21:35)
[2020-11-17] MEDS: AMINO ACIDS/PROTEIN HYDROLYS 30 ML LIQUID.PKT PO SCH (09:50)
[2020-11-17] MEDS: SPIRONOLACTONE 25 MG TABLET PO SCH ×2 (09:51→21:34)
[2020-11-17] MEDS: CLOPIDOGREL BISULFATE 75 MG TABLET (FP) PO SCH (09:51)
[2020-11-17] MEDS: ASPIRIN COATED 81 MG TABLET.EC PO SCH (09:51)
[2020-11-17] MEDS: PANTOPRAZOLE 40 MG TABLET PO SCH (09:51)
[2020-11-17] MEDS: DOCUSATE SODIUM 100 MG CAPSULE (FP) PO SCH (09:51)
[2020-11-17] MEDS: predniSONE 5 MG TABLET (UD) PO SCH (09:51)
[2020-11-17] MEDS: CHOLECALCIFEROL (VIT D3) 1,000 UNIT (25 MCG) TABLET PO SCH (09:51)
[2020-11-17] MEDS: POLYETHYLENE GLYCOL 3350 119 GM BTL PO SCH (09:54)
[2020-11-17] MEDS: INSULIN (LEVEMIR) 100 UNITS/ML UNITS SQ SCH ×2 (11:09→21:34)
[2020-11-17] MEDS ORDERED: LACTULOSE 20 GM/30 ML UDC (FOR ORAL USE ONLY) PO ONE (21:10)
[2020-11-17] MEDS: metoPROLOL SUCCINATE 25 MG TAB.SR.24H (FP) PO SCH (21:33)
[2020-11-18] MEDS ORDERED: PIPERACILLIN/TAZOBACTAM 3.375 GM VIAL IVPB ONE ×2 (01:31→08:36)
[2020-11-18] MEDS ORDERED: DEXTROSE 5%-WATER - 50 ML IVPB ONE ×4 (01:32→16:46)
[2020-11-18] MEDS: PIPERACILLIN/TAZOB 3.375 GM 3.375 GM in DEXTROSE 5%-WATER - 50 ML IVPB SCH ×2 (02:27→10:03)
[2020-11-18] MEDS: INSULIN SLIDING SCALE (NOVOLOG) 1 VIAL SQ SCH ×4 (06:28→21:44)
[2020-11-18] MEDS: traMADol HCL 50 MG TABLET PO PRN ×3 (06:28→22:39)
[2020-11-18] MEDS: FUROSEMIDE 40 MG TABLET (FP) PO SCH ×3 (06:29→13:12)
[2020-11-18] MEDS: DOCUSATE SODIUM 100 MG CAPSULE (FP) PO SCH (09:58)
[2020-11-18] MEDS: AMINO ACIDS/PROTEIN HYDROLYS 30 ML LIQUID.PKT PO SCH (09:58)
[2020-11-18] MEDS: SPIRONOLACTONE 25 MG TABLET PO SCH ×2 (09:58→21:43)
[2020-11-18] MEDS: ASPIRIN COATED 81 MG TABLET.EC PO SCH (10:00)
[2020-11-18] MEDS: predniSONE 5 MG TABLET (UD) PO SCH (10:00)
[2020-11-18] MEDS: INSULIN (LEVEMIR) 100 UNITS/ML UNITS SQ SCH ×2 (10:00→21:44)
[2020-11-18] MEDS: CHOLECALCIFEROL (VIT D3) 1,000 UNIT (25 MCG) TABLET PO SCH (10:01)
[2020-11-18] MEDS: PANTOPRAZOLE 40 MG TABLET PO SCH (10:01)
[2020-11-18] MEDS: CLOPIDOGREL BISULFATE 75 MG TABLET (FP) PO SCH (10:01)
[2020-11-18] MEDS: POLYETHYLENE GLYCOL 3350 119 GM BTL PO SCH (10:03)
[2020-11-18] MEDS ORDERED: cefTAZidime PENTAHYDRATE 1 GM VIAL (RESTRICTED TO ID) ONE ×2 (10:50→16:45)
[2020-11-18] MEDS: CEFTAZIDIME PENTAHYDRATE 1 GM in DEXTROSE 5%-WATER - 50 ML IVPB SCH ×2 (10:54→17:05)
[2020-11-18] MEDS ORDERED: INSULIN (NOVOLOG) ASPART 100 UNITS/ML 10ML VIAL ONE ×2 (10:59→21:32)
[2020-11-18] MEDS: DAPTOMYCIN 400 MG in SODIUM CHLORIDE 50 ML IVPB SCH (13:06)
[2020-11-18] MEDS ORDERED: ALPRAZolam 1 MG TABLET PO ONE (15:36)
[2020-11-18] MEDS: GENTAMICIN SULFATE 0.3% OPHTHALMIC (EYE DROPS) 5ML BOTTLE OD SCH ×2 (15:58→22:33)
[2020-11-18] MEDS: metoPROLOL SUCCINATE 25 MG TAB.SR.24H (FP) PO SCH (21:43)
[2020-11-19] MEDS ORDERED: cefTAZidime PENTAHYDRATE 1 GM VIAL (RESTRICTED TO ID) ONE ×3 (01:32→16:49)
[2020-11-19] MEDS ORDERED: DEXTROSE 5%-WATER - 50 ML IVPB ONE ×3 (01:32→16:49)
[2020-11-19] MEDS: CEFTAZIDIME PENTAHYDRATE 1 GM in DEXTROSE 5%-WATER - 50 ML IVPB SCH ×3 (01:34→16:53)
[2020-11-19] MEDS: traMADol HCL 50 MG TABLET PO PRN (04:54)
[2020-11-19] MEDS: INSULIN SLIDING SCALE (NOVOLOG) 1 VIAL SQ SCH ×2 (06:05→11:55)
[2020-11-19] MEDS: LEVOTHYROXINE NA 25 MCG TABLET (FP) PO SCH (06:06)
[2020-11-19] MEDS: FUROSEMIDE 40 MG TABLET (FP) PO SCH ×3 (06:06→17:03)
[2020-11-19 07:07] VITALS: BP 129/61; PULSE 70; TEMP 98.4
[2020-11-19 09:09] LABS: BASO % 0.6 % (0-2.0); EOS % 1.6 % (0-4.5); HEMATOCRIT 34.7 % (35.4-49); HEMOGLOBIN 11.6 GM/dL (11.7-16.9); LYMPH % 11.2 % (8-40); MCHC 33.5 g/dl (32.0-35.9); MEAN CELL VOLUME 86.5 fl (80-96); MONO % 9.6 % (3.8-10.2); PLATELET COUNT 175 K/MM3 (134-434); RBC 4.02 M/mm3 (4.00-5.60); RDW 15.1 % (11.9-15.9); WHITE BLOOD COUNT 10.2 K/mm3 (4.0-10.0)
[2020-11-19 10:02] LABS: POTASSIUM 3.8 mmol/L (3.5-5.1)
[2020-11-19 10:24] LABS: BLOOD UREA NITROGEN 40.1 mg/dL (7-18)
[2020-11-19 10:27] LABS: CREATININE 1.1 mg/dL (0.55-1.3)
[2020-11-19 10:28] LABS: TOT PROT 6.3 g/dl (6.4-8.2)
[2020-11-19 10:30] LABS: BILIRUBIN,TOTAL 1.7 mg/dL (0.2-1)
[2020-11-19] MEDS ORDERED: ALPRAZolam 1 MG TABLET PO ONE (10:37)
[2020-11-19] MEDS ORDERED: PT OWN MED DRAWER 7, Y5N ONE (11:21)
[2020-11-19] MEDS: ASPIRIN COATED 81 MG TABLET.EC PO SCH (11:33)
[2020-11-19] MEDS: PANTOPRAZOLE 40 MG TABLET PO SCH (11:33)
[2020-11-19] MEDS: SPIRONOLACTONE 25 MG TABLET PO SCH (11:33)
[2020-11-19] MEDS: CHOLECALCIFEROL (VIT D3) 1,000 UNIT (25 MCG) TABLET PO SCH (11:33)
[2020-11-19] MEDS: predniSONE 5 MG TABLET (UD) PO SCH (11:34)
[2020-11-19] MEDS: AMINO ACIDS/PROTEIN HYDROLYS 30 ML LIQUID.PKT PO SCH (11:34)
[2020-11-19] MEDS: CLOPIDOGREL BISULFATE 75 MG TABLET (FP) PO SCH (11:34)
[2020-11-19] MEDS: DOCUSATE SODIUM 100 MG CAPSULE (FP) PO SCH (11:34)
[2020-11-19] MEDS: GENTAMICIN SULFATE 0.3% OPHTHALMIC (EYE DROPS) 5ML BOTTLE OD SCH (11:35)
[2020-11-19] MEDS: INSULIN (LEVEMIR) 100 UNITS/ML UNITS SQ SCH (11:46)
[2020-11-19] MEDS: POLYETHYLENE GLYCOL 3350 119 GM BTL PO SCH (11:46)
[2020-11-19] MEDS: DAPTOMYCIN 400 MG in SODIUM CHLORIDE 50 ML IVPB SCH (12:30)
== END 2020-11-19 19:01 | disposition home or self-care (01) | DRG 623 ==
LOC: J2C 04:11 → EDSTATUS 11:51 → J6S 15:55
PROVIDERS: ADMIT Student in an Organized Health Care Education/Training Program; ATTEND Student in an Organized Health Care Education/Training Program
PROC: 0KBV0ZZ Excision of Right Foot Muscle, Open Approach (ICD-10-PCS; 2020-11-13)
PROC: 0HRMXK3 Replacement of Right Foot Skin with Nonautologous Tissue Substitute, Full Thickness, External Approach (ICD-10-PCS; 2020-11-13)
PROC: 0QR Lower Bones, Replacement (ICD-10-PCS; 2020-11-13)
PROC: 0QBL0ZZ Excision of Right Tarsal, Open Approach (ICD-10-PCS; principal; 2020-11-13 08:00)
DX: E11.69 Type 2 diabetes mellitus with other specified complication (principal); M86.171 Other acute osteomyelitis, right ankle and foot; J96.10 Chronic respiratory failure, unspecified whether with hypoxia or hypercapnia; L97.418 Non-pressure chronic ulcer of right heel and midfoot with other specified severity; I25.10 Atherosclerotic heart disease of native coronary artery without angina pectoris; E03.9 Hypothyroidism, unspecified; K21.9 Gastro-esophageal reflux disease without esophagitis; I48.91 Unspecified atrial fibrillation; K70.10 Alcoholic hepatitis without ascites; E11.51 Type 2 diabetes mellitus with diabetic peripheral angiopathy without gangrene; I12.9 Hypertensive chronic kidney disease with stage 1 through stage 4 chronic kidney disease, or unspecified chronic kidney disease; E11.22 Type 2 diabetes mellitus with diabetic chronic kidney disease; N18.30 Chronic kidney disease, stage 3 unspecified; F41.9 Anxiety disorder, unspecified; E11.621 Type 2 diabetes mellitus with foot ulcer; H40.9 Unspecified glaucoma; H54.8 Legal blindness, as defined in USA; B95.2 Enterococcus as the cause of diseases classified elsewhere; Z95.1 Presence of aortocoronary bypass graft; Z95.0 Presence of cardiac pacemaker
CPT/HCPCS: 36415; 73630-TC-RT-FY; 80053; 80061; 82962; 83036; 83721; 83735; 83880; 84100; 84443; 85025; 85027; 85610; 85730; 87070; 87076; 87186; 87205; 88305-TC; 88311-TC; 94760; J0131; J0878

== ENCOUNTER 2020-12-05 15:14 | Inpatient (IN) | payer OTHER, BC ==
[2020-12-05] MEDS ORDERED: cefTAZidime PENTAHYDRATE 1 GM/50ML PRE-DOCKED (RESTRICTED TO ID) IVPB ONE (21:07)
[2020-12-05 21:53] LABS: BASO % 0.9 % (0-2.0); EOS % 1.3 % (0-4.5); HEMATOCRIT 29.1 % (35.4-49); HEMOGLOBIN 9.7 GM/dL (11.7-16.9); MCH 29.2 pg (25.7-33.7); MCHC 33.2 g/dl (32.0-35.9); MEAN PLT VOLUME 7.2 fl (7.5-11.1); MONO % 7.3 % (3.8-10.2); NEUT % 75.5 % (42.8-82.8); PLATELET COUNT 102 K/MM3 (134-434); RBC 3.31 M/mm3 (4.00-5.60); RDW 16.1 % (11.9-15.9); WHITE BLOOD COUNT 5.6 K/mm3 (4.0-10.0)
[2020-12-05 22:07] LABS: INR 1.09 (0.83-1.09); PROTHROMBIN TIME (PATIENT) 13.4 SEC (9.7-13.0)
[2020-12-05 22:21] LABS: POTASSIUM 4.7 mmol/L (3.5-5.1)
[2020-12-05 22:23] LABS: ALBUMIN 2.3 g/dl (3.4-5.0); CALCIUM 8.9 mg/dL (8.5-10.1)
[2020-12-05 22:27] LABS: CREATININE 1.6 mg/dL (0.55-1.3)
[2020-12-05 22:28] LABS: BILIRUBIN,TOTAL 0.8 mg/dL (0.2-1); TOT PROT 6.3 g/dl (6.4-8.2)
[2020-12-06] MEDS ORDERED: LIDOCAINE HCL 1%, 10 MG/ML (20ML VIAL) INF ONE
[2020-12-06] MEDS ORDERED: morphine CARPU-JECT 2 MG/1 ML DISP.SYRIN IM PRN (02:20)
[2020-12-06] MEDS ORDERED: morphine CARPU-JECT 2 MG/1 ML DISP.SYRIN IVPUSH PRN (02:23)
[2020-12-06] MEDS ORDERED: MORPHINE SULFATE 2 MG/ML VIAL ONE ×2 (02:27→06:13)
[2020-12-06] MEDS ORDERED: MORPHINE SULFATE 2 MG/ML VIAL IVPUSH PRN (04:03)
[2020-12-06] MEDS ORDERED: LEVOTHYROXINE NA 25 MCG TABLET (FP) ONE (06:13)
[2020-12-06] MEDS: INSULIN SLIDING SCALE (NOVOLOG) 1 VIAL SQ SCH ×5 (06:41→22:27)
[2020-12-06] MEDS: CEFTAZIDIME PENTAHYDRATE 1 GM in DEXTROSE 5%-WATER - 50 ML IVPB SCH ×5 (06:41→19:23)
[2020-12-06] MEDS ORDERED: cefTAZidime PENTAHYDRATE 1 GM VIAL (RESTRICTED TO ID) IVPB SCH ×2 (07:00→18:45)
[2020-12-06] MEDS ORDERED: LEVOTHYROXINE NA 25 MCG TABLET (FP) PO SCH (07:00)
[2020-12-06 08:15] LABS: BASO % 0.9 % (0-2.0); EOS % 2.6 % (0-4.5); HEMATOCRIT 30.3 % (35.4-49); HEMOGLOBIN 10.5 GM/dL (11.7-16.9); LYMPH % 16.2 % (8-40); MCH 29.9 pg (25.7-33.7); MCHC 34.5 g/dl (32.0-35.9); MEAN CELL VOLUME 86.4 fl (80-96); MEAN PLT VOLUME 7.1 fl (7.5-11.1); MONO % 10.1 % (3.8-10.2); NEUT % 70.2 % (42.8-82.8); PLATELET COUNT 106 K/MM3 (134-434); RDW 16.3 % (11.9-15.9); WHITE BLOOD COUNT 6.3 K/mm3 (4.0-10.0)
[2020-12-06 08:16] LABS: INR 1.09 (0.83-1.09); PROTHROMBIN TIME (PATIENT) 13.1 SEC (9.7-13.0)
[2020-12-06 08:18] LABS: ACTIVATED PTT 27.2 SECONDS (25.2-36.5)
[2020-12-06 08:26] LABS: POTASSIUM 4.6 mmol/L (3.5-5.1)
[2020-12-06 08:29] LABS: BLOOD UREA NITROGEN 37.7 mg/dL (7-18); CALCIUM 9.1 mg/dL (8.5-10.1)
[2020-12-06 08:30] LABS: ALBUMIN 2.3 g/dl (3.4-5.0); MAGNESIUM 2.3 mg/dL (1.8-2.4)
[2020-12-06 08:33] LABS: CREATININE 1.5 mg/dL (0.55-1.3); PHOSPHOROUS 3.3 mg/dL (2.5-4.9)
[2020-12-06 08:34] LABS: BILIRUBIN,TOTAL 1.1 mg/dL (0.2-1)
[2020-12-06] MEDS ORDERED: BUPIVACAINE HCL/PF 0.25% (2.5MG/ML) 10 ML VIAL ONE (10:22)
[2020-12-06] MEDS ORDERED: LIDOCAINE HCL 1%, 10 MG/ML (20ML VIAL) ONE (10:22)
[2020-12-06] MEDS ORDERED: LIDOCAINE HCL 2% (50ML VIAL) INF ONE (11:16)
[2020-12-06] MEDS ORDERED: BACITRACIN 50,000 UNITS VIAL TP ONE (11:30)
[2020-12-06] MEDS ORDERED: DAPTOMYCIN IVPB SCH (12:00)
[2020-12-06] MEDS ORDERED: DAPTOmycin 500 MG VIAL (RESTRICTED TO ID) IVPB SCH (12:00)
[2020-12-06] MEDS ORDERED: SODIUM CHLORIDE IVPB SCH (12:00)
[2020-12-06] MEDS ORDERED: BUPIVACAINE HCL/PF 0.5% (5MG/ML) 10 ML VIAL IJ ONE ×2 (12:15)
[2020-12-06] MEDS ORDERED: SODIUM CHLORIDE 1,000 ML IV SCH (13:00)
[2020-12-06] MEDS: MORPHINE SULFATE 2 MG/ML VIAL IVPUSH PRN ×2 (16:56→21:06)
[2020-12-06 17:26] VITALS: BMI 30.5
[2020-12-06] MEDS: CLOPIDOGREL BISULFATE 75 MG TABLET (FP) PO SCH (18:17)
[2020-12-06] MEDS ORDERED: INSULIN (NOVOLOG) ASPART 100 UNITS/ML 10ML VIAL ONE (18:42)
[2020-12-06] MEDS ORDERED: oxyCODONE HCL 5 MG TABLET PO ONE (18:45)
[2020-12-06] MEDS ORDERED: ACETAMINOPHEN 325 MG TABLET (FP) PO ONE ×3 (18:45→23:31)
[2020-12-06] MEDS: metoPROLOL SUCCINATE 25 MG TAB.SR.24H (FP) PO SCH (21:05)
[2020-12-06] MEDS ORDERED: metoPROLOL SUCCINATE 25 MG TAB.SR.24H (FP) PO SCH (22:00)
[2020-12-06] MEDS ORDERED: MELATONIN 5 MG TABLETS PO ONE (23:44)
[2020-12-07] MEDS ORDERED: cefTAZidime PENTAHYDRATE 1 GM VIAL (RESTRICTED TO ID) IVPB SCH (02:00)
[2020-12-07] MEDS: MORPHINE SULFATE 2 MG/ML VIAL IVPUSH PRN ×3 (02:55→10:49)
[2020-12-07] MEDS ORDERED: DEXTROSE 5%-WATER - 50 ML IVPB ONE ×2 (05:21→17:14)
[2020-12-07] MEDS ORDERED: cefTAZidime PENTAHYDRATE 1 GM VIAL (RESTRICTED TO ID) ONE ×2 (05:21→17:14)
[2020-12-07] MEDS: INSULIN SLIDING SCALE (NOVOLOG) 1 VIAL SQ SCH ×4 (06:04→21:18)
[2020-12-07] MEDS: LEVOTHYROXINE NA 25 MCG TABLET (FP) PO SCH (06:04)
[2020-12-07] MEDS: CEFTAZIDIME PENTAHYDRATE 1 GM in DEXTROSE 5%-WATER - 50 ML IVPB SCH ×2 (06:04→17:21)
[2020-12-07 07:48] LABS: EOS % 1.1 % (0-4.5); HEMATOCRIT 29.6 % (35.4-49); HEMOGLOBIN 10.2 GM/dL (11.7-16.9); LYMPH % 13.9 % (8-40); MCH 29.6 pg (25.7-33.7); MCHC 34.3 g/dl (32.0-35.9); MEAN CELL VOLUME 86.3 fl (80-96); MEAN PLT VOLUME 7.1 fl (7.5-11.1); MONO % 11.6 % (3.8-10.2); NEUT % 72.4 % (42.8-82.8); PLATELET COUNT 106 K/MM3 (134-434); RBC 3.43 M/mm3 (4.00-5.60); RDW 15.7 % (11.9-15.9); WHITE BLOOD COUNT 7.6 K/mm3 (4.0-10.0)
[2020-12-07 08:23] LABS: POTASSIUM 4.3 mmol/L (3.5-5.1)
[2020-12-07 08:42] LABS: BLOOD UREA NITROGEN 33.4 mg/dL (7-18)
[2020-12-07 08:43] LABS: ALBUMIN 2.4 g/dl (3.4-5.0); MAGNESIUM 2.1 mg/dL (1.8-2.4)
[2020-12-07 08:46] LABS: BILIRUBIN,TOTAL 1.2 mg/dL (0.2-1); CREATININE 1.5 mg/dL (0.55-1.3); PHOSPHOROUS 2.8 mg/dL (2.5-4.9); TOT PROT 5.9 g/dl (6.4-8.2)
[2020-12-07] MEDS: CHOLECALCIFEROL (VIT D3) 1,000 UNIT (25 MCG) TABLET PO SCH (10:48)
[2020-12-07] MEDS: CLOPIDOGREL BISULFATE 75 MG TABLET (FP) PO SCH (10:49)
[2020-12-07] MEDS: ASPIRIN COATED 81 MG TABLET.EC PO SCH (10:49)
[2020-12-07] MEDS ORDERED: SODIUM CHLORIDE IVPB SCH (12:00)
[2020-12-07] MEDS ORDERED: DAPTOMYCIN IVPB SCH (12:00)
[2020-12-07] MEDS ORDERED: ACETAMINOPHEN 325 MG TABLET (FP) PO SCH (12:15)
[2020-12-07] MEDS ORDERED: MORPHINE SULFATE 2 MG/ML VIAL IVPUSH PRN (12:16)
[2020-12-07] MEDS ORDERED: BISACODYL 5 MG TABLET.DR (FP) PO PRN (12:22)
[2020-12-07] MEDS: ACETAMINOPHEN 325 MG TABLET (FP) PO SCH ×2 (14:07→15:19)
[2020-12-07] MEDS ORDERED: traMADol HCL 50 MG TABLET PO PRN (15:15)
[2020-12-07] MEDS: metoPROLOL SUCCINATE 25 MG TAB.SR.24H (FP) PO SCH (21:10)
[2020-12-08] MEDS ORDERED: DEXTROSE 5%-WATER - 50 ML IVPB ONE ×2 (04:26→17:11)
[2020-12-08] MEDS ORDERED: cefTAZidime PENTAHYDRATE 1 GM VIAL (RESTRICTED TO ID) ONE ×2 (04:26→17:11)
[2020-12-08] MEDS: CEFTAZIDIME PENTAHYDRATE 1 GM in DEXTROSE 5%-WATER - 50 ML IVPB SCH ×2 (05:46→17:17)
[2020-12-08] MEDS: LEVOTHYROXINE NA 25 MCG TABLET (FP) PO SCH (06:27)
[2020-12-08] MEDS: INSULIN SLIDING SCALE (NOVOLOG) 1 VIAL SQ SCH ×4 (06:27→22:05)
[2020-12-08] MEDS: ASPIRIN COATED 81 MG TABLET.EC PO SCH (09:28)
[2020-12-08] MEDS: CLOPIDOGREL BISULFATE 75 MG TABLET (FP) PO SCH (09:28)
[2020-12-08] MEDS: CHOLECALCIFEROL (VIT D3) 1,000 UNIT (25 MCG) TABLET PO SCH (09:28)
[2020-12-08 10:31] LABS: BASO % 0.5 % (0-2.0); EOS % 1.4 % (0-4.5); HEMATOCRIT 28.9 % (35.4-49); HEMOGLOBIN 9.8 GM/dL (11.7-16.9); LYMPH % 13.6 % (8-40); MCH 29.5 pg (25.7-33.7); MCHC 33.9 g/dl (32.0-35.9); MEAN CELL VOLUME 87.1 fl (80-96); MEAN PLT VOLUME 7.5 fl (7.5-11.1); MONO % 9.3 % (3.8-10.2); NEUT % 75.2 % (42.8-82.8); PLATELET COUNT 108 K/MM3 (134-434); RBC 3.32 M/mm3 (4.00-5.60); RDW 15.9 % (11.9-15.9); WHITE BLOOD COUNT 8.2 K/mm3 (4.0-10.0)
[2020-12-08] MEDS ORDERED: traMADol HCL 50 MG TABLET PO SCH (11:00)
[2020-12-08 11:12] LABS: ALBUMIN 2.3 g/dl (3.4-5.0)
[2020-12-08 11:13] LABS: BLOOD UREA NITROGEN 31.7 mg/dL (7-18)
[2020-12-08 11:14] LABS: CALCIUM 8.9 mg/dL (8.5-10.1)
[2020-12-08 11:15] LABS: BILIRUBIN,TOTAL 1.2 mg/dL (0.2-1); CREATININE 1.4 mg/dL (0.55-1.3)
[2020-12-08 11:16] LABS: TOT PROT 5.9 g/dl (6.4-8.2)
[2020-12-08 11:17] LABS: POTASSIUM 4.3 mmol/L (3.5-5.1)
[2020-12-08] MEDS ORDERED: INSULIN (NOVOLOG) ASPART 100 UNITS/ML 10ML VIAL ONE ×3 (11:21→20:33)
[2020-12-08] MEDS: traMADol HCL 50 MG TABLET PO PRN ×2 (12:00→22:05)
[2020-12-08] MEDS: metoPROLOL SUCCINATE 25 MG TAB.SR.24H (FP) PO SCH (22:05)
[2020-12-09] MEDS ORDERED: cefTAZidime PENTAHYDRATE 1 GM VIAL (RESTRICTED TO ID) ONE ×2 (05:02→16:54)
[2020-12-09] MEDS ORDERED: DEXTROSE 5%-WATER - 50 ML IVPB ONE ×2 (05:03→16:55)
[2020-12-09] MEDS: CEFTAZIDIME PENTAHYDRATE 1 GM in DEXTROSE 5%-WATER - 50 ML IVPB SCH ×2 (05:33→17:39)
[2020-12-09] MEDS: INSULIN SLIDING SCALE (NOVOLOG) 1 VIAL SQ SCH ×4 (06:31→21:28)
[2020-12-09] MEDS ORDERED: LEVOTHYROXINE NA 50 MCG TABLET (FP) PO SCH ×2 (07:00)
[2020-12-09] MEDS: traMADol HCL 50 MG TABLET PO PRN ×2 (10:00→21:19)
[2020-12-09] MEDS: CLOPIDOGREL BISULFATE 75 MG TABLET (FP) PO SCH (10:00)
[2020-12-09] MEDS: ASPIRIN COATED 81 MG TABLET.EC PO SCH (10:00)
[2020-12-09] MEDS: CHOLECALCIFEROL (VIT D3) 1,000 UNIT (25 MCG) TABLET PO SCH (10:01)
[2020-12-09 10:20] LABS: BASO % 0.7 % (0-2.0); EOS % 2.4 % (0-4.5); HEMATOCRIT 28.8 % (35.4-49); LYMPH % 12.1 % (8-40); MCH 30.1 pg (25.7-33.7); MCHC 34.8 g/dl (32.0-35.9); MEAN CELL VOLUME 86.6 fl (80-96); MEAN PLT VOLUME 7.3 fl (7.5-11.1); MONO % 8.9 % (3.8-10.2); NEUT % 75.9 % (42.8-82.8); PLATELET COUNT 119 K/MM3 (134-434); RBC 3.32 M/mm3 (4.00-5.60); WHITE BLOOD COUNT 7.3 K/mm3 (4.0-10.0)
[2020-12-09 10:44] LABS: POTASSIUM 4.2 mmol/L (3.5-5.1)
[2020-12-09 10:49] LABS: CALCIUM 8.5 mg/dL (8.5-10.1)
[2020-12-09 10:50] LABS: ALBUMIN 2.3 g/dl (3.4-5.0); BLOOD UREA NITROGEN 31.3 mg/dL (7-18)
[2020-12-09 10:52] LABS: CREATININE 1.2 mg/dL (0.55-1.3)
[2020-12-09 10:56] LABS: BILIRUBIN,TOTAL 1.3 mg/dL (0.2-1)
[2020-12-09] MEDS: POLYETHYLENE GLYCOL 3350 119 GM BTL PO SCH ×2 (14:15→21:18)
[2020-12-09] MEDS: ACETAMINOPHEN 1000 MG/100 ML VIAL (NON FORMULARY) IVPB SCH (15:40)
[2020-12-09] MEDS: metoPROLOL SUCCINATE 25 MG TAB.SR.24H (FP) PO SCH (21:38)
[2020-12-09] MEDS ORDERED: MELATONIN 5 MG TABLETS PO SCH (22:00)
[2020-12-09] MEDS ORDERED: LORazepam 2 MG/ML SDV VIAL IVPUSH ONE (23:59)
[2020-12-10] MEDS: ACETAMINOPHEN 1000 MG/100 ML VIAL (NON FORMULARY) IVPB SCH ×2 (01:30→13:19)
[2020-12-10] MEDS ORDERED: cefTAZidime PENTAHYDRATE 1 GM VIAL (RESTRICTED TO ID) ONE (04:30)
[2020-12-10] MEDS ORDERED: DEXTROSE 5%-WATER - 50 ML IVPB ONE (04:31)
[2020-12-10] MEDS: CEFTAZIDIME PENTAHYDRATE 1 GM in DEXTROSE 5%-WATER - 50 ML IVPB SCH (05:38)
[2020-12-10] MEDS: INSULIN SLIDING SCALE (NOVOLOG) 1 VIAL SQ SCH ×4 (06:07→21:00)
[2020-12-10] MEDS: LEVOTHYROXINE NA 25 MCG TABLET (FP) PO SCH (06:07)
[2020-12-10 08:29] LABS: BASO % 0.8 % (0-2.0); EOS % 2.7 % (0-4.5); HEMATOCRIT 26.2 % (35.4-49); HEMOGLOBIN 8.8 GM/dL (11.7-16.9); LYMPH % 14.4 % (8-40); MCH 29.5 pg (25.7-33.7); MCHC 33.8 g/dl (32.0-35.9); MEAN CELL VOLUME 87.2 fl (80-96); MEAN PLT VOLUME 7.4 fl (7.5-11.1); MONO % 10.6 % (3.8-10.2); NEUT % 71.5 % (42.8-82.8); PLATELET COUNT 106 K/MM3 (134-434); RDW 15.9 % (11.9-15.9); WHITE BLOOD COUNT 5.6 K/mm3 (4.0-10.0)
[2020-12-10 08:59] LABS: POTASSIUM 4.2 mmol/L (3.5-5.1)
[2020-12-10 09:01] LABS: CALCIUM 8.4 mg/dL (8.5-10.1)
[2020-12-10 09:02] LABS: ALBUMIN 2.1 g/dl (3.4-5.0); BLOOD UREA NITROGEN 30.9 mg/dL (7-18)
[2020-12-10 09:05] LABS: CREATININE 1.1 mg/dL (0.55-1.3)
[2020-12-10 09:06] LABS: BILIRUBIN,TOTAL 1.2 mg/dL (0.2-1)
[2020-12-10 09:07] LABS: TOT PROT 5.5 g/dl (6.4-8.2)
[2020-12-10] MEDS: ASPIRIN COATED 81 MG TABLET.EC PO SCH (10:10)
[2020-12-10] MEDS: traMADol HCL 50 MG TABLET PO PRN ×2 (10:10→21:00)
[2020-12-10] MEDS: POLYETHYLENE GLYCOL 3350 119 GM BTL PO SCH (10:11)
[2020-12-10] MEDS: CHOLECALCIFEROL (VIT D3) 1,000 UNIT (25 MCG) TABLET PO SCH (10:11)
[2020-12-10] MEDS: CLOPIDOGREL BISULFATE 75 MG TABLET (FP) PO SCH (10:11)
[2020-12-10] MEDS: DAPTOMYCIN 500 MG in SODIUM CHLORIDE 50 ML IVPB SCH (14:15)
[2020-12-10] MEDS: metoPROLOL SUCCINATE 25 MG TAB.SR.24H (FP) PO SCH (21:00)
[2020-12-10] MEDS ORDERED: MELATONIN 5 MG TABLETS PO PRN (22:00)
[2020-12-10] MEDS ORDERED: MELATONIN 5 MG TABLETS PO SCH ×2 (22:00)
[2020-12-11] MEDS ORDERED: ACETAMINOPHEN 325 MG TABLET (FP) PO PRN (02:51)
[2020-12-11] MEDS ORDERED: MORPHINE SULFATE 2 MG/ML VIAL IVPUSH ONE (04:17)
[2020-12-11] MEDS: LEVOTHYROXINE NA 25 MCG TABLET (FP) PO SCH (06:20)
[2020-12-11] MEDS: INSULIN SLIDING SCALE (NOVOLOG) 1 VIAL SQ SCH ×3 (06:21→17:54)
[2020-12-11] MEDS ORDERED: INSULIN (NOVOLOG) ASPART 100 UNITS/ML 10ML VIAL ONE (06:47)
[2020-12-11 09:07] LABS: HEMATOCRIT 29.8 % (35.4-49); MCH 29.3 pg (25.7-33.7); MCHC 33.7 g/dl (32.0-35.9); MEAN CELL VOLUME 86.9 fl (80-96); MEAN PLT VOLUME 7.3 fl (7.5-11.1); PLATELET COUNT 157 K/MM3 (134-434); RBC 3.43 M/mm3 (4.00-5.60); RDW 16.3 % (11.9-15.9); WHITE BLOOD COUNT 6.7 K/mm3 (4.0-10.0)
[2020-12-11 09:37] LABS: POTASSIUM 4.3 mmol/L (3.5-5.1)
[2020-12-11 09:53] LABS: CALCIUM 8.6 mg/dL (8.5-10.1)
[2020-12-11 09:54] LABS: ALBUMIN 2.3 g/dl (3.4-5.0); BLOOD UREA NITROGEN 31.5 mg/dL (7-18); MAGNESIUM 1.9 mg/dL (1.8-2.4)
[2020-12-11 09:57] LABS: CREATININE 1.1 mg/dL (0.55-1.3); PHOSPHOROUS 3.3 mg/dL (2.5-4.9)
[2020-12-11 09:58] LABS: BILIRUBIN,TOTAL 1.5 mg/dL (0.2-1); TOT PROT 6.1 g/dl (6.4-8.2)
[2020-12-11] MEDS ORDERED: POLYETHYLENE GLYCOL 3350 119 GM BTL PO SCH (10:00)
[2020-12-11] MEDS ORDERED: PT OWN MED DRAWER 7, Y5N ONE (10:14)
[2020-12-11] MEDS: traMADol HCL 50 MG TABLET PO PRN (10:31)
[2020-12-11] MEDS: CHOLECALCIFEROL (VIT D3) 1,000 UNIT (25 MCG) TABLET PO SCH (10:32)
[2020-12-11] MEDS: CLOPIDOGREL BISULFATE 75 MG TABLET (FP) PO SCH (10:32)
[2020-12-11] MEDS: ASPIRIN COATED 81 MG TABLET.EC PO SCH (12:20)
[2020-12-11] MEDS: DAPTOMYCIN 500 MG in SODIUM CHLORIDE 50 ML IVPB SCH (13:18)
[2020-12-11 20:04] VITALS: BP 113/55; PULSE 75; TEMP 98.3
== END 2020-12-11 19:01 | disposition left against medical advice (07) | DRG 982 ==
LOC: JER 15:14 → JERBED 22:34 → J8W 12-06 16:37
PROVIDERS: ADMIT Hospitalist; ATTEND Internal Medicine
PROC: 0LBN0ZZ Excision of Right Lower Leg Tendon, Open Approach (ICD-10-PCS; 2020-12-06)
PROC: 0KBS0ZZ Excision of Right Lower Leg Muscle, Open Approach (ICD-10-PCS; 2020-12-06)
PROC: 0QBL0ZZ Excision of Right Tarsal, Open Approach (ICD-10-PCS; 2020-12-06)
PROC: 0QBL0ZZ Excision of Right Tarsal, Open Approach (ICD-10-PCS; principal; 2020-12-06 10:30)
DX: E11.52 Type 2 diabetes mellitus with diabetic peripheral angiopathy with gangrene (principal); J84.9 Interstitial pulmonary disease, unspecified; I13.0 Hypertensive heart and chronic kidney disease with heart failure and stage 1 through stage 4 chronic kidney disease, or unspecified chronic kidney disease; M86.671 Other chronic osteomyelitis, right ankle and foot; N17.9 Acute kidney failure, unspecified; I96 Gangrene, not elsewhere classified; L97.419 Non-pressure chronic ulcer of right heel and midfoot with unspecified severity; I50.9 Heart failure, unspecified; E11.69 Type 2 diabetes mellitus with other specified complication; K74.60 Unspecified cirrhosis of liver; I25.10 Atherosclerotic heart disease of native coronary artery without angina pectoris; Z95.0 Presence of cardiac pacemaker; I49.5 Sick sinus syndrome; E11.22 Type 2 diabetes mellitus with diabetic chronic kidney disease; N18.30 Chronic kidney disease, stage 3 unspecified; E11.621 Type 2 diabetes mellitus with foot ulcer; Z79.4 Long term (current) use of insulin; E78.5 Hyperlipidemia, unspecified; K21.9 Gastro-esophageal reflux disease without esophagitis; H54.8 Legal blindness, as defined in USA; Z95.2 Presence of prosthetic heart valve; E03.9 Hypothyroidism, unspecified; Z99.81 Dependence on supplemental oxygen; K75.81 Nonalcoholic steatohepatitis (NASH); D69.6 Thrombocytopenia, unspecified; F41.9 Anxiety disorder, unspecified; K59.09 Other constipation
CPT/HCPCS: 11042; 36415; 71046-TC-FY; 80053; 82962; 83605; 83735; 84100; 85025; 85027; 85610; 85730; 86850; 86900; 86901; 87040; 87070; 87075; 87076; 87186; 87205; 88304-TC; 88305-TC; 88311-TC; 93005; 93010; 93306-TC; 94760; 97116-GP; 97162-GP; 99285-25; C9803; G0277; G0463-25; J0131; J0878; U0003

== ENCOUNTER 2020-12-24 13:16 | Inpatient (IN) | payer OTHER, BC ==
[2020-12-24] MEDS ORDERED: morphine CARPU-JECT 4 MG/1 ML DISP.SYRIN IVPUSH ONE (14:27)
[2020-12-24] MEDS ORDERED: DAPTOMYCIN 500 MG in SODIUM CHLORIDE 50 ML IVPB ONE (14:34)
[2020-12-24] MEDS ORDERED: MEROPENEM 1 GM in DEXTROSE 5%-WATER 100 ML IVPB ONE (14:37)
[2020-12-24] MEDS ORDERED: MEROPENEM 1 GM VIAL (RESTRICTED TO ID) IVPB ONE (15:00)
[2020-12-24] MEDS ORDERED: morphine SULFATE 4 MG/ML VIAL ONE (15:00)
[2020-12-24 16:46] LABS: BASO % 0.1 % (0-2.0); HEMATOCRIT 28.7 % (35.4-49); HEMOGLOBIN 9.6 GM/dL (11.7-16.9); MCH 28.3 pg (25.7-33.7); MCHC 33.4 g/dl (32.0-35.9); MEAN CELL VOLUME 84.8 fl (80-96); MEAN PLT VOLUME 6.4 fl (7.5-11.1); MONO % 5.2 % (3.8-10.2); NEUT % 91.7 % (42.8-82.8); PLATELET COUNT 217 K/MM3 (134-434); RBC 3.39 M/mm3 (4.00-5.60); RDW 15.9 % (11.9-15.9); WHITE BLOOD COUNT 19.4 K/mm3 (4.0-10.0)
[2020-12-24 16:51] LABS: CHLORIDE 100 mmol/L (98-107); SODIUM 136 mmol/L (136-145)
[2020-12-24 16:54] LABS: CALCIUM 8.3 mg/dL (8.5-10.1)
[2020-12-24 16:55] LABS: ALBUMIN 2.1 g/dl (3.4-5.0); ANION GAP 11 MMOL/L (8-16); BLOOD UREA NITROGEN 31.2 mg/dL (7-18); CO2 25 mmol/L (21-32); GLUCOSE,RANDOM 137 mg/dL (74-106)
[2020-12-24 16:58] LABS: CREATININE 1.2 mg/dL (0.55-1.3); SGOT/AST 44 U/L (15-37); SGPT/ALT 25 U/L (13-61)
[2020-12-24 17:00] LABS: BILIRUBIN,TOTAL 1.2 mg/dL (0.2-1)
[2020-12-24 17:03] LABS: ALK PHOS 210 U/L (45-117)
[2020-12-24 17:12] LABS: INR 1.21 (0.83-1.09); PROTHROMBIN TIME (PATIENT) 14.6 SEC (9.7-13.0)
[2020-12-24 17:15] LABS: ACTIVATED PTT 28.9 SECONDS (25.2-36.5)
[2020-12-24 17:26] LABS: ANISOCYTOSIS 1+; MACROCYTOSIS 0; OVALOCYTE 1+; PLATELET ESTIMATE NORMAL
[2020-12-24] MEDS ORDERED: ALPRAZolam 0.25 MG TABLET PO PRN ×2 (18:36→20:44)
[2020-12-24] MEDS ORDERED: GABAPENTIN 100 MG CAPSULE PO SCH (22:00)
[2020-12-24] MEDS ORDERED: metoPROLOL SUCCINATE 25 MG TAB.SR.24H (FP) PO SCH (22:00)
[2020-12-24] MEDS ORDERED: metoPROLOL SUCCINATE 25 MG TAB.SR.24H (FP) ONE (22:47)
[2020-12-24] MEDS ORDERED: GABAPENTIN 100 MG CAPSULE ONE (22:47)
[2020-12-24] MEDS ORDERED: SPIRONOLACTONE 25 MG TABLET ONE (22:47)
[2020-12-24] MEDS: SPIRONOLACTONE 25 MG TABLET PO SCH (22:54)
[2020-12-24] MEDS: INSULIN SLIDING SCALE (NOVOLOG) 1 VIAL SQ SCH (22:55)
[2020-12-25] MEDS ORDERED: LIDOCAINE 5% TOPICAL PATCH TP ONE (00:01)
[2020-12-25] MEDS ORDERED: LIDOCAINE 5% TOPICAL PATCH ONE (00:04)
[2020-12-25] MEDS ORDERED: DEXTROSE 50%-WATER - 25 GM/50 ML VIAL IVPUSH PRN ×2 (06:21→18:49)
[2020-12-25] MEDS: INSULIN SLIDING SCALE (NOVOLOG) 1 VIAL SQ SCH ×3 (06:29→21:37)
[2020-12-25] MEDS ORDERED: LEVOTHYROXINE NA 25 MCG TABLET (FP) PO SCH (07:00)
[2020-12-25 08:34] LABS: BASO % 0.1 % (0-2.0); EOS % 0.5 % (0-4.5); HEMATOCRIT 28.7 % (35.4-49); HEMOGLOBIN 9.6 GM/dL (11.7-16.9); LYMPH % 3.9 % (8-40); MCH 28.4 pg (25.7-33.7); MCHC 33.5 g/dl (32.0-35.9); MEAN CELL VOLUME 84.8 fl (80-96); MEAN PLT VOLUME 6.3 fl (7.5-11.1); MONO % 6.4 % (3.8-10.2); NEUT % 89.1 % (42.8-82.8); PLATELET COUNT 238 K/MM3 (134-434); RBC 3.38 M/mm3 (4.00-5.60); RDW 15.9 % (11.9-15.9); WHITE BLOOD COUNT 19.1 K/mm3 (4.0-10.0)
[2020-12-25 08:58] LABS: BLOOD UREA NITROGEN 30.2 mg/dL (7-18); CALCIUM 8.3 mg/dL (8.5-10.1)
[2020-12-25 08:59] LABS: MAGNESIUM 1.9 mg/dL (1.8-2.4)
[2020-12-25 09:01] LABS: CREATININE 1.1 mg/dL (0.55-1.3); PHOSPHOROUS 3.5 mg/dL (2.5-4.9)
[2020-12-25 09:03] LABS: BILIRUBIN,TOTAL 1.6 mg/dL (0.2-1); TOT PROT 5.8 g/dl (6.4-8.2)
[2020-12-25] MEDS ORDERED: oxyCODONE HCL 5 MG TABLET PO PRN (09:06)
[2020-12-25] MEDS ORDERED: ACETAMINOPHEN 325 MG TABLET (FP) PO PRN ×2 (09:15)
[2020-12-25] MEDS ORDERED: ENOXAPARIN NA (PORCINE) 40 MG/0.4 ML DISP.SYRIN SQ SCH (10:00)
[2020-12-25] MEDS ORDERED: MEROPENEM 1 GM in DEXTROSE 5%-WATER 100 ML IVPB SCH ×2 (10:00→12:45)
[2020-12-25] MEDS ORDERED: ASPIRIN COATED 81 MG TABLET.EC PO SCH (10:00)
[2020-12-25] MEDS ORDERED: DAPTOmycin 500 MG VIAL (RESTRICTED TO ID) IVPB SCH (10:00)
[2020-12-25] MEDS: SPIRONOLACTONE 25 MG TABLET PO SCH ×2 (10:38→21:36)
[2020-12-25] MEDS ORDERED: SODIUM CHLORIDE 500 ML IV STA (10:56)
[2020-12-25] MEDS ORDERED: DEXTROSE 5%-NORMAL SALINE 1,000 ML IV SCH ×2 (11:00→18:49)
[2020-12-25] MEDS ORDERED: MEROPENEM 1 GM VIAL (RESTRICTED TO ID) IVPB ONE (13:09)
[2020-12-25] MEDS ORDERED: DEXTROSE 5%-WATER 100 ML IVPB ONE (13:10)
[2020-12-25] MEDS ORDERED: MIDAZOLAM HCL 2 MG/2 ML SINGLE DOSE VIAL ONE (15:43)
[2020-12-25] MEDS ORDERED: ROPIVACAINE HCL 0.5% 30ML VIAL ONE (15:44)
[2020-12-25] MEDS ORDERED: KETAMINE HCL 200 MG/20 ML VIAL ONE (16:14)
[2020-12-25] MEDS ORDERED: LIDOCAINE HCL 1% PRESERVATIVE FREE - 30ML VIAL IJ ONE (17:30)
[2020-12-25] MEDS ORDERED: LIDOCAINE HCL 1%, 10 MG/ML (20ML VIAL) ONE (17:31)
[2020-12-25] MEDS ORDERED: morphine CARPU-JECT 2 MG/1 ML DISP.SYRIN IVPUSH PRN (18:27)
[2020-12-25] MEDS ORDERED: INSULIN (NOVOLOG) ASPART 100 UNITS/ML 10ML VIAL ONE (21:11)
[2020-12-25] MEDS: metoPROLOL SUCCINATE 25 MG TAB.SR.24H (FP) PO SCH (21:36)
[2020-12-25] MEDS: GABAPENTIN 100 MG CAPSULE PO SCH (21:36)
[2020-12-25] MEDS ORDERED: LIDOCAINE PATCH REMOVAL MC ONE ×2 (22:00)
[2020-12-26] MEDS ORDERED: MEROPENEM 1 GM VIAL (RESTRICTED TO ID) IVPB ONE ×3 (00:01→17:31)
[2020-12-26] MEDS ORDERED: DEXTROSE 5%-WATER 100 ML IVPB ONE ×3 (00:02→17:31)
[2020-12-26] MEDS: MEROPENEM 1 GM in DEXTROSE 5%-WATER 100 ML IVPB SCH ×3 (01:39→17:32)
[2020-12-26] MEDS: LEVOTHYROXINE NA 25 MCG TABLET (FP) PO SCH (06:12)
[2020-12-26] MEDS: INSULIN SLIDING SCALE (NOVOLOG) 1 VIAL SQ SCH ×4 (06:13→22:14)
[2020-12-26] MEDS ORDERED: oxyCODONE HCL 5 MG TABLET PO PRN ×2 (07:59)
[2020-12-26] MEDS: ENOXAPARIN NA (PORCINE) 40 MG/0.4 ML DISP.SYRIN SQ SCH (09:57)
[2020-12-26] MEDS: SPIRONOLACTONE 25 MG TABLET PO SCH ×2 (09:57→22:16)
[2020-12-26] MEDS: ASPIRIN COATED 81 MG TABLET.EC PO SCH (09:57)
[2020-12-26] MEDS: POLYETHYLENE GLYCOL 3350 119 GM BTL PO SCH (09:58)
[2020-12-26 12:52] LABS: BASO % 0.2 % (0-2.0); EOS % 0.3 % (0-4.5); HEMATOCRIT 25.6 % (35.4-49); HEMOGLOBIN 8.7 GM/dL (11.7-16.9); LYMPH % 6.3 % (8-40); MCH 28.5 pg (25.7-33.7); MCHC 33.8 g/dl (32.0-35.9); MEAN CELL VOLUME 84.4 fl (80-96); MEAN PLT VOLUME 6.4 fl (7.5-11.1); MONO % 8.2 % (3.8-10.2); PLATELET COUNT 297 K/MM3 (134-434); RBC 3.04 M/mm3 (4.00-5.60); RDW 16.1 % (11.9-15.9); WHITE BLOOD COUNT 15.1 K/mm3 (4.0-10.0)
[2020-12-26 13:31] LABS: BLOOD UREA NITROGEN 33.9 mg/dL (7-18)
[2020-12-26 13:33] LABS: BILIRUBIN,TOTAL 1.4 mg/dL (0.2-1)
[2020-12-26 13:34] LABS: CALCIUM 7.6 mg/dL (8.5-10.1); CREATININE 1.3 mg/dL (0.55-1.3)
[2020-12-26 13:35] LABS: ALBUMIN 1.9 g/dl (3.4-5.0); MAGNESIUM 1.9 mg/dL (1.8-2.4); TOT PROT 5.4 g/dl (6.4-8.2)
[2020-12-26] MEDS: ALPRAZolam 0.25 MG TABLET PO PRN (16:48)
[2020-12-26] MEDS ORDERED: FAMOTIDINE 20 MG TABLET PO ONE (17:01)
[2020-12-26] MEDS: traMADol HCL 50 MG TABLET PO PRN (20:36)
[2020-12-26] MEDS ORDERED: INSULIN (NOVOLOG) ASPART 100 UNITS/ML 10ML VIAL ONE (22:02)
[2020-12-26] MEDS: DOCUSATE SODIUM 100 MG CAPSULE (FP) PO SCH (22:15)
[2020-12-26] MEDS: metoPROLOL SUCCINATE 25 MG TAB.SR.24H (FP) PO SCH (22:15)
[2020-12-26] MEDS: SENNOSIDES 8.6MG TABLET (FP) PO SCH (22:16)
[2020-12-26] MEDS: GABAPENTIN 100 MG CAPSULE PO SCH (22:16)
[2020-12-27] MEDS ORDERED: MEROPENEM 1 GM VIAL (RESTRICTED TO ID) IVPB ONE ×2 (02:08→09:35)
[2020-12-27] MEDS ORDERED: DEXTROSE 5%-WATER 100 ML IVPB ONE ×2 (02:08→09:35)
[2020-12-27] MEDS: MEROPENEM 1 GM in DEXTROSE 5%-WATER 100 ML IVPB SCH ×2 (02:27→09:46)
[2020-12-27] MEDS: traMADol HCL 50 MG TABLET PO PRN ×3 (03:44→23:08)
[2020-12-27] MEDS: LEVOTHYROXINE NA 25 MCG TABLET (FP) PO SCH (06:45)
[2020-12-27] MEDS: DOCUSATE SODIUM 100 MG CAPSULE (FP) PO SCH ×3 (06:45→23:09)
[2020-12-27] MEDS: INSULIN SLIDING SCALE (NOVOLOG) 1 VIAL SQ SCH ×4 (06:46→23:11)
[2020-12-27 07:54] LABS: BASO % 0.2 % (0-2.0); EOS % 0.4 % (0-4.5); HEMOGLOBIN 7.3 GM/dL (11.7-16.9); LYMPH % 8.2 % (8-40); MCH 27.9 pg (25.7-33.7); MCHC 33.2 g/dl (32.0-35.9); MEAN CELL VOLUME 84.1 fl (80-96); MEAN PLT VOLUME 6.5 fl (7.5-11.1); MONO % 8.1 % (3.8-10.2); NEUT % 83.1 % (42.8-82.8); PLATELET COUNT 219 K/MM3 (134-434); RBC 2.62 M/mm3 (4.00-5.60); RDW 15.6 % (11.9-15.9); WHITE BLOOD COUNT 13.2 K/mm3 (4.0-10.0)
[2020-12-27 08:27] LABS: ALBUMIN 1.7 g/dl (3.4-5.0); BLOOD UREA NITROGEN 37.4 mg/dL (7-18); CALCIUM 7.5 mg/dL (8.5-10.1); MAGNESIUM 1.9 mg/dL (1.8-2.4)
[2020-12-27 08:30] LABS: CREATININE 1.3 mg/dL (0.55-1.3)
[2020-12-27 08:32] LABS: BILIRUBIN,TOTAL 1.3 mg/dL (0.2-1)
[2020-12-27] MEDS: CLOPIDOGREL BISULFATE 75 MG TABLET (FP) PO SCH (09:45)
[2020-12-27] MEDS: ASPIRIN COATED 81 MG TABLET.EC PO SCH (09:45)
[2020-12-27] MEDS: SPIRONOLACTONE 25 MG TABLET PO SCH ×2 (09:46→23:07)
[2020-12-27] MEDS: ENOXAPARIN NA (PORCINE) 40 MG/0.4 ML DISP.SYRIN SQ SCH (09:46)
[2020-12-27] MEDS: POLYETHYLENE GLYCOL 3350 119 GM BTL PO SCH (09:47)
[2020-12-27] MEDS ORDERED: FUROSEMIDE 40 MG/4 ML INJECTABLE VIAL IVPUSH ONE (11:15)
[2020-12-27 16:13] LABS: BASO % 0.2 % (0-2.0); EOS % 0.5 % (0-4.5); HEMATOCRIT 22.7 % (35.4-49); HEMOGLOBIN 7.5 GM/dL (11.7-16.9); LYMPH % 6.6 % (8-40); MCHC 33.1 g/dl (32.0-35.9); MEAN CELL VOLUME 84.5 fl (80-96); MEAN PLT VOLUME 6.3 fl (7.5-11.1); MONO % 7.9 % (3.8-10.2); NEUT % 84.8 % (42.8-82.8); PLATELET COUNT 232 K/MM3 (134-434); RBC 2.69 M/mm3 (4.00-5.60); WHITE BLOOD COUNT 13.5 K/mm3 (4.0-10.0)
[2020-12-27] MEDS: ACETAMINOPHEN 325 MG TABLET (FP) PO PRN (23:07)
[2020-12-27] MEDS: GABAPENTIN 100 MG CAPSULE PO SCH (23:07)
[2020-12-27] MEDS: SENNOSIDES 8.6MG TABLET (FP) PO SCH (23:08)
[2020-12-27] MEDS: metoPROLOL SUCCINATE 25 MG TAB.SR.24H (FP) PO SCH (23:08)
[2020-12-28] MEDS: POLYETHYLENE GLYCOL 3350 119 GM BTL PO SCH ×3 (06:15→22:45)
[2020-12-28] MEDS: DOCUSATE SODIUM 100 MG CAPSULE (FP) PO SCH ×3 (06:15→22:45)
[2020-12-28] MEDS: traMADol HCL 50 MG TABLET PO PRN ×3 (06:15→22:41)
[2020-12-28] MEDS: LEVOTHYROXINE NA 25 MCG TABLET (FP) PO SCH (06:15)
[2020-12-28] MEDS: INSULIN SLIDING SCALE (NOVOLOG) 1 VIAL SQ SCH ×4 (06:16→23:05)
[2020-12-28 07:33] LABS: BASO % 0.2 % (0-2.0); HEMATOCRIT 25.7 % (35.4-49); HEMOGLOBIN 9.2 GM/dL (11.7-16.9); LYMPH % 7.7 % (8-40); MCH 30.3 pg (25.7-33.7); MCHC 35.7 g/dl (32.0-35.9); MEAN PLT VOLUME 6.5 fl (7.5-11.1); MONO % 8.8 % (3.8-10.2); NEUT % 82.3 % (42.8-82.8); PLATELET COUNT 284 K/MM3 (134-434); RBC 3.02 M/mm3 (4.00-5.60); RDW 15.7 % (11.9-15.9); WHITE BLOOD COUNT 14.6 K/mm3 (4.0-10.0)
[2020-12-28 08:24] LABS: INR 1.15 (0.83-1.09); PROTHROMBIN TIME (PATIENT) 14.1 SEC (9.7-13.0)
[2020-12-28 09:03] LABS: CALCIUM 7.8 mg/dL (8.5-10.1); MAGNESIUM 2.1 mg/dL (1.8-2.4)
[2020-12-28 09:04] LABS: ALBUMIN 1.8 g/dl (3.4-5.0)
[2020-12-28 09:05] LABS: BLOOD UREA NITROGEN 42.2 mg/dL (7-18)
[2020-12-28 09:08] LABS: CREATININE 1.3 mg/dL (0.55-1.3)
[2020-12-28 09:09] LABS: TOT PROT 5.3 g/dl (6.4-8.2)
[2020-12-28] MEDS: SPIRONOLACTONE 25 MG TABLET PO SCH ×2 (10:16→22:41)
[2020-12-28] MEDS: PANTOPRAZOLE 40 MG TABLET PO SCH ×2 (10:16→22:45)
[2020-12-28] MEDS: ASPIRIN COATED 81 MG TABLET.EC PO SCH (10:16)
[2020-12-28] MEDS: ENOXAPARIN NA (PORCINE) 40 MG/0.4 ML DISP.SYRIN SQ SCH (10:16)
[2020-12-28] MEDS: CLOPIDOGREL BISULFATE 75 MG TABLET (FP) PO SCH (10:16)
[2020-12-28] MEDS: ACETAMINOPHEN 325 MG TABLET (FP) PO PRN (10:16)
[2020-12-28] MEDS: ALPRAZolam 0.25 MG TABLET PO PRN ×2 (10:16→22:46)
[2020-12-28] MEDS: metoPROLOL SUCCINATE 25 MG TAB.SR.24H (FP) PO SCH (22:41)
[2020-12-28] MEDS: GABAPENTIN 100 MG CAPSULE PO SCH (22:41)
[2020-12-28] MEDS: SENNOSIDES 8.6MG TABLET (FP) PO SCH (22:46)
[2020-12-29] MEDS: traMADol HCL 50 MG TABLET PO PRN ×3 (06:10→21:41)
[2020-12-29] MEDS: POLYETHYLENE GLYCOL 3350 119 GM BTL PO SCH ×3 (06:10→21:11)
[2020-12-29] MEDS: DOCUSATE SODIUM 100 MG CAPSULE (FP) PO SCH ×3 (06:11→21:09)
[2020-12-29] MEDS: ALPRAZolam 0.25 MG TABLET PO PRN ×2 (06:12→21:10)
[2020-12-29] MEDS: INSULIN SLIDING SCALE (NOVOLOG) 1 VIAL SQ SCH ×4 (06:27→21:17)
[2020-12-29] MEDS: LEVOTHYROXINE NA 25 MCG TABLET (FP) PO SCH (06:27)
[2020-12-29 07:40] LABS: BASO % 0.4 % (0-2.0); EOS % 3.8 % (0-4.5); HEMATOCRIT 26.7 % (35.4-49); HEMOGLOBIN 9.2 GM/dL (11.7-16.9); LYMPH % 9.6 % (8-40); MCHC 34.3 g/dl (32.0-35.9); MEAN CELL VOLUME 84.6 fl (80-96); MEAN PLT VOLUME 6.2 fl (7.5-11.1); MONO % 8.4 % (3.8-10.2); NEUT % 77.8 % (42.8-82.8); PLATELET COUNT 246 K/MM3 (134-434); RBC 3.16 M/mm3 (4.00-5.60); WHITE BLOOD COUNT 9.3 K/mm3 (4.0-10.0)
[2020-12-29 08:03] LABS: CALCIUM 7.9 mg/dL (8.5-10.1)
[2020-12-29 08:04] LABS: ALBUMIN 1.7 g/dl (3.4-5.0); BLOOD UREA NITROGEN 44.7 mg/dL (7-18)
[2020-12-29 08:05] LABS: MAGNESIUM 2.3 mg/dL (1.8-2.4)
[2020-12-29 08:07] LABS: CREATININE 1.2 mg/dL (0.55-1.3)
[2020-12-29 08:09] LABS: BILIRUBIN,TOTAL 1.4 mg/dL (0.2-1); TOT PROT 5.2 g/dl (6.4-8.2)
[2020-12-29] MEDS: CLOPIDOGREL BISULFATE 75 MG TABLET (FP) PO SCH (09:31)
[2020-12-29] MEDS: PANTOPRAZOLE 40 MG TABLET PO SCH ×2 (09:31→21:09)
[2020-12-29] MEDS: ENOXAPARIN NA (PORCINE) 40 MG/0.4 ML DISP.SYRIN SQ SCH (09:32)
[2020-12-29] MEDS: ASPIRIN COATED 81 MG TABLET.EC PO SCH (09:32)
[2020-12-29] MEDS: SPIRONOLACTONE 25 MG TABLET PO SCH ×2 (09:32→21:09)
[2020-12-29] MEDS ORDERED: BISACODYL 10 MG SUPP.RECT PR ONE (12:01)
[2020-12-29] MEDS ORDERED: INSULIN (NOVOLOG) ASPART 100 UNITS/ML 10ML VIAL ONE (19:59)
[2020-12-29] MEDS: metoPROLOL SUCCINATE 25 MG TAB.SR.24H (FP) PO SCH (21:09)
[2020-12-29] MEDS: SENNOSIDES 8.6MG TABLET (FP) PO SCH (21:09)
[2020-12-29] MEDS: GABAPENTIN 100 MG CAPSULE PO SCH (21:09)
[2020-12-29] MEDS: FAMOTIDINE 20 MG TABLET PO SCH (21:13)
[2020-12-30] MEDS: ALPRAZolam 0.25 MG TABLET PO PRN ×2 (03:01→21:33)
[2020-12-30] MEDS: POLYETHYLENE GLYCOL 3350 119 GM BTL PO SCH ×3 (05:53→21:37)
[2020-12-30] MEDS: traMADol HCL 50 MG TABLET PO PRN ×3 (05:53→23:35)
[2020-12-30] MEDS: DOCUSATE SODIUM 100 MG CAPSULE (FP) PO SCH ×3 (05:54→21:33)
[2020-12-30] MEDS: INSULIN SLIDING SCALE (NOVOLOG) 1 VIAL SQ SCH ×4 (05:58→21:52)
[2020-12-30] MEDS ORDERED: LEVOTHYROXINE NA 25 MCG TABLET (FP) PO SCH (07:00)
[2020-12-30] MEDS ORDERED: LEVOTHYROXINE NA 50 MCG TABLET (FP) PO SCH (07:00)
[2020-12-30 08:11] LABS: BASO % 0.3 % (0-2.0); EOS % 1.4 % (0-4.5); HEMATOCRIT 26.9 % (35.4-49); HEMOGLOBIN 9.3 GM/dL (11.7-16.9); LYMPH % 9.2 % (8-40); MCH 29.3 pg (25.7-33.7); MCHC 34.4 g/dl (32.0-35.9); MEAN CELL VOLUME 85.2 fl (80-96); MEAN PLT VOLUME 6.3 fl (7.5-11.1); MONO % 7.7 % (3.8-10.2); NEUT % 81.4 % (42.8-82.8); PLATELET COUNT 257 K/MM3 (134-434); RBC 3.16 M/mm3 (4.00-5.60); RDW 15.9 % (11.9-15.9); WHITE BLOOD COUNT 13.7 K/mm3 (4.0-10.0)
[2020-12-30 08:30] LABS: ALBUMIN 1.8 g/dl (3.4-5.0)
[2020-12-30 08:31] LABS: BLOOD UREA NITROGEN 48.6 mg/dL (7-18); MAGNESIUM 2.3 mg/dL (1.8-2.4)
[2020-12-30 08:32] LABS: CALCIUM 7.9 mg/dL (8.5-10.1)
[2020-12-30 08:34] LABS: CREATININE 1.4 mg/dL (0.55-1.3)
[2020-12-30 08:35] LABS: BILIRUBIN,TOTAL 1.8 mg/dL (0.2-1); TOT PROT 5.5 g/dl (6.4-8.2)
[2020-12-30] MEDS: ASPIRIN COATED 81 MG TABLET.EC PO SCH (11:26)
[2020-12-30] MEDS: FAMOTIDINE 20 MG TABLET PO SCH ×2 (11:26→21:32)
[2020-12-30] MEDS: SPIRONOLACTONE 25 MG TABLET PO SCH ×2 (11:26→21:32)
[2020-12-30] MEDS: ENOXAPARIN NA (PORCINE) 40 MG/0.4 ML DISP.SYRIN SQ SCH (11:26)
[2020-12-30] MEDS: PANTOPRAZOLE 40 MG TABLET PO SCH ×2 (11:26→21:32)
[2020-12-30] MEDS: CLOPIDOGREL BISULFATE 75 MG TABLET (FP) PO SCH (11:26)
[2020-12-30] MEDS ORDERED: SIMETHICONE 80 MG TAB.CHEW (FP) PO PRN (12:26)
[2020-12-30] MEDS: GABAPENTIN 100 MG CAPSULE PO SCH (21:32)
[2020-12-30] MEDS: metoPROLOL SUCCINATE 25 MG TAB.SR.24H (FP) PO SCH (21:32)
[2020-12-30] MEDS: SENNOSIDES 8.6MG TABLET (FP) PO SCH (21:33)
[2020-12-31] MEDS: POLYETHYLENE GLYCOL 3350 119 GM BTL PO SCH ×3 (05:40→21:15)
[2020-12-31] MEDS: traMADol HCL 50 MG TABLET PO PRN ×2 (05:40→17:01)
[2020-12-31] MEDS: DOCUSATE SODIUM 100 MG CAPSULE (FP) PO SCH ×3 (05:40→21:15)
[2020-12-31] MEDS: ALPRAZolam 0.25 MG TABLET PO PRN (05:46)
[2020-12-31] MEDS: LEVOTHYROXINE NA 25 MCG TABLET (FP) PO SCH (05:59)
[2020-12-31] MEDS: INSULIN SLIDING SCALE (NOVOLOG) 1 VIAL SQ SCH ×4 (05:59→21:15)
[2020-12-31 08:29] LABS: BASO % 0.6 % (0-2.0); EOS % 2.6 % (0-4.5); HEMATOCRIT 27.2 % (35.4-49); HEMOGLOBIN 9.3 GM/dL (11.7-16.9); LYMPH % 8.5 % (8-40); MCH 29.1 pg (25.7-33.7); MCHC 34.3 g/dl (32.0-35.9); MEAN CELL VOLUME 84.8 fl (80-96); MEAN PLT VOLUME 6.1 fl (7.5-11.1); MONO % 7.6 % (3.8-10.2); NEUT % 80.7 % (42.8-82.8); PLATELET COUNT 268 K/MM3 (134-434); RDW 16.3 % (11.9-15.9); WHITE BLOOD COUNT 10.9 K/mm3 (4.0-10.0)
[2020-12-31 08:45] LABS: ALBUMIN 1.8 g/dl (3.4-5.0); BLOOD UREA NITROGEN 51.2 mg/dL (7-18); CALCIUM 7.9 mg/dL (8.5-10.1); MAGNESIUM 2.5 mg/dL (1.8-2.4)
[2020-12-31 08:48] LABS: CREATININE 1.4 mg/dL (0.55-1.3)
[2020-12-31 08:50] LABS: BILIRUBIN,TOTAL 1.5 mg/dL (0.2-1); TOT PROT 5.4 g/dl (6.4-8.2)
[2020-12-31] MEDS ORDERED: PT OWN MED DRAWER 7, Y5N ONE (09:37)
[2020-12-31] MEDS: PANTOPRAZOLE 40 MG TABLET PO SCH ×2 (09:43→21:14)
[2020-12-31] MEDS: ASPIRIN COATED 81 MG TABLET.EC PO SCH (09:43)
[2020-12-31] MEDS: SPIRONOLACTONE 25 MG TABLET PO SCH ×2 (09:43→21:14)
[2020-12-31] MEDS: CLOPIDOGREL BISULFATE 75 MG TABLET (FP) PO SCH (09:43)
[2020-12-31] MEDS: FAMOTIDINE 20 MG TABLET PO SCH ×2 (09:44→21:14)
[2020-12-31] MEDS: ENOXAPARIN NA (PORCINE) 40 MG/0.4 ML DISP.SYRIN SQ SCH (09:44)
[2020-12-31] MEDS ORDERED: INSULIN (NOVOLOG) ASPART 100 UNITS/ML 10ML VIAL ONE (10:36)
[2020-12-31] MEDS: GABAPENTIN 100 MG CAPSULE PO SCH (21:14)
[2020-12-31] MEDS: metoPROLOL SUCCINATE 25 MG TAB.SR.24H (FP) PO SCH (21:14)
[2020-12-31] MEDS: SENNOSIDES 8.6MG TABLET (FP) PO SCH (21:15)
[2020-12-31 22:13] VITALS: BMI 30.9
[2021-01-01] MEDS: DOCUSATE SODIUM 100 MG CAPSULE (FP) PO SCH ×3 (05:08→22:09)
[2021-01-01] MEDS: POLYETHYLENE GLYCOL 3350 119 GM BTL PO SCH ×3 (05:09→22:09)
[2021-01-01] MEDS: traMADol HCL 50 MG TABLET PO PRN ×3 (05:46→22:08)
[2021-01-01] MEDS: LEVOTHYROXINE NA 25 MCG TABLET (FP) PO SCH (06:02)
[2021-01-01] MEDS: INSULIN SLIDING SCALE (NOVOLOG) 1 VIAL SQ SCH ×4 (06:02→21:18)
[2021-01-01 08:59] LABS: BASO % 0.5 % (0-2.0); EOS % 2.9 % (0-4.5); HEMATOCRIT 26.5 % (35.4-49); HEMOGLOBIN 9.1 GM/dL (11.7-16.9); LYMPH % 8.5 % (8-40); MCHC 34.5 g/dl (32.0-35.9); MEAN CELL VOLUME 84.2 fl (80-96); MEAN PLT VOLUME 6.1 fl (7.5-11.1); MONO % 7.2 % (3.8-10.2); NEUT % 80.9 % (42.8-82.8); PLATELET COUNT 248 K/MM3 (134-434); RBC 3.15 M/mm3 (4.00-5.60); RDW 16.5 % (11.9-15.9); WHITE BLOOD COUNT 8.6 K/mm3 (4.0-10.0)
[2021-01-01 09:29] LABS: ALBUMIN 1.8 g/dl (3.4-5.0); BLOOD UREA NITROGEN 45.1 mg/dL (7-18); CALCIUM 8.1 mg/dL (8.5-10.1); MAGNESIUM 2.5 mg/dL (1.8-2.4)
[2021-01-01 09:33] LABS: CREATININE 1.4 mg/dL (0.55-1.3)
[2021-01-01 09:34] LABS: BILIRUBIN,TOTAL 1.5 mg/dL (0.2-1); TOT PROT 5.3 g/dl (6.4-8.2)
[2021-01-01] MEDS: PANTOPRAZOLE 40 MG TABLET PO SCH ×2 (10:21→22:08)
[2021-01-01] MEDS: ENOXAPARIN NA (PORCINE) 40 MG/0.4 ML DISP.SYRIN SQ SCH (10:21)
[2021-01-01] MEDS: CLOPIDOGREL BISULFATE 75 MG TABLET (FP) PO SCH (10:21)
[2021-01-01] MEDS: SPIRONOLACTONE 25 MG TABLET PO SCH ×3 (10:21→23:29)
[2021-01-01] MEDS: FAMOTIDINE 20 MG TABLET PO SCH ×2 (10:21→22:09)
[2021-01-01] MEDS: ASPIRIN COATED 81 MG TABLET.EC PO SCH (10:21)
[2021-01-01] MEDS: metoPROLOL SUCCINATE 25 MG TAB.SR.24H (FP) PO SCH (22:08)
[2021-01-01] MEDS: GABAPENTIN 100 MG CAPSULE PO SCH (22:08)
[2021-01-01] MEDS: SENNOSIDES 8.6MG TABLET (FP) PO SCH (22:10)
[2021-01-02] MEDS: DOCUSATE SODIUM 100 MG CAPSULE (FP) PO SCH ×2 (05:32→14:00)
[2021-01-02] MEDS: POLYETHYLENE GLYCOL 3350 119 GM BTL PO SCH ×2 (05:32→14:00)
[2021-01-02] MEDS: LEVOTHYROXINE NA 25 MCG TABLET (FP) PO SCH (06:09)
[2021-01-02] MEDS: traMADol HCL 50 MG TABLET PO PRN ×2 (06:09→13:26)
[2021-01-02] MEDS: INSULIN SLIDING SCALE (NOVOLOG) 1 VIAL SQ SCH ×2 (06:10→11:40)
[2021-01-02 07:27] LABS: BASO % 0.7 % (0-2.0); EOS % 2.1 % (0-4.5); HEMATOCRIT 27.3 % (35.4-49); HEMOGLOBIN 9.4 GM/dL (11.7-16.9); MCH 29.1 pg (25.7-33.7); MCHC 34.3 g/dl (32.0-35.9); MEAN CELL VOLUME 84.8 fl (80-96); MEAN PLT VOLUME 6.1 fl (7.5-11.1); MONO % 8.9 % (3.8-10.2); NEUT % 76.3 % (42.8-82.8); PLATELET COUNT 234 K/MM3 (134-434); RBC 3.22 M/mm3 (4.00-5.60); RDW 16.4 % (11.9-15.9); WHITE BLOOD COUNT 8.1 K/mm3 (4.0-10.0)
[2021-01-02 07:30] LABS: INR 1.07 (0.83-1.09); PROTHROMBIN TIME (PATIENT) 13.1 SEC (9.7-13.0)
[2021-01-02 07:49] LABS: BLOOD UREA NITROGEN 42.5 mg/dL (7-18)
[2021-01-02 07:50] LABS: ALBUMIN 1.8 g/dl (3.4-5.0); CALCIUM 7.9 mg/dL (8.5-10.1); MAGNESIUM 2.5 mg/dL (1.8-2.4)
[2021-01-02 07:53] LABS: CREATININE 1.3 mg/dL (0.55-1.3); TOT PROT 5.4 g/dl (6.4-8.2)
[2021-01-02] MEDS: CLOPIDOGREL BISULFATE 75 MG TABLET (FP) PO SCH (09:25)
[2021-01-02] MEDS: FAMOTIDINE 20 MG TABLET PO SCH (09:25)
[2021-01-02] MEDS: ASPIRIN COATED 81 MG TABLET.EC PO SCH (09:25)
[2021-01-02] MEDS: PANTOPRAZOLE 40 MG TABLET PO SCH (09:25)
[2021-01-02] MEDS: SPIRONOLACTONE 25 MG TABLET PO SCH (09:26)
[2021-01-02] MEDS: ENOXAPARIN NA (PORCINE) 40 MG/0.4 ML DISP.SYRIN SQ SCH (09:26)
[2021-01-02] MEDS ORDERED: FUROSEMIDE 20 MG TABLET (FP) PO SCH (10:00)
[2021-01-02] MEDS ORDERED: MULTIVITAMINS (DAILY MVI) TABLET (FP) PO SCH (10:00)
[2021-01-02 15:17] VITALS: BP 118/55; PULSE 69; TEMP 97.6
[2021-01-02] MEDS ORDERED: WITCH HAZEL 50% (TUCKS) 40 PAD/JAR PAD TP PRN (17:36)
== END 2021-01-02 18:23 | DRG 854 ==
LOC: JER 13:16 → JERBED 17:05 → J7W 12-25 02:07
PROVIDERS: ADMIT Internal Medicine; ATTEND Nurse Practitioner Acute Care
PROC: 0Y6H0Z2 Detachment at Right Lower Leg, Mid, Open Approach (ICD-10-PCS; principal; 2020-12-25 15:00)
PROC: 30233N1 Transfusion of Nonautologous Red Blood Cells into Peripheral Vein, Percutaneous Approach (ICD-10-PCS; 2020-12-27)
PROC: 05PY33Z Removal of Infusion Device from Upper Vein, Percutaneous Approach (ICD-10-PCS; 2021-01-02)
DX: A41.9 Sepsis, unspecified organism (principal); E11.52 Type 2 diabetes mellitus with diabetic peripheral angiopathy with gangrene; L97.419 Non-pressure chronic ulcer of right heel and midfoot with unspecified severity; M86.171 Other acute osteomyelitis, right ankle and foot; M86.671 Other chronic osteomyelitis, right ankle and foot; I70.261 Atherosclerosis of native arteries of extremities with gangrene, right leg; I50.32 Chronic diastolic (congestive) heart failure; R18.8 Other ascites; I13.0 Hypertensive heart and chronic kidney disease with heart failure and stage 1 through stage 4 chronic kidney disease, or unspecified chronic kidney disease; E87.2 Acidosis; N17.9 Acute kidney failure, unspecified; J84.9 Interstitial pulmonary disease, unspecified; E11.69 Type 2 diabetes mellitus with other specified complication; E11.21 Type 2 diabetes mellitus with diabetic nephropathy; R65.20 Severe sepsis without septic shock; I25.119 Atherosclerotic heart disease of native coronary artery with unspecified angina pectoris; Z95.1 Presence of aortocoronary bypass graft; Z95.5 Presence of coronary angioplasty implant and graft; I27.20 Pulmonary hypertension, unspecified; H54.8 Legal blindness, as defined in USA; E03.9 Hypothyroidism, unspecified; N18.9 Chronic kidney disease, unspecified; K21.9 Gastro-esophageal reflux disease without esophagitis; E11.621 Type 2 diabetes mellitus with foot ulcer; E11.40 Type 2 diabetes mellitus with diabetic neuropathy, unspecified; E11.319 Type 2 diabetes mellitus with unspecified diabetic retinopathy without macular edema; E66.9 Obesity, unspecified; Z68.30 Body mass index [BMI] 30.0-30.9, adult; D64.9 Anemia, unspecified
CPT/HCPCS: 36415; 36430; 36589; 71045-TC-FY; 76700-TC; 80053; 82105; 82140; 82962; 83605; 83735; 84100; 85025; 85610; 85651; 85730; 86140; 86850; 86900; 86901; 86922; 87040; 88307-TC; 88311-TC; 93005; 93010; 94010; 94760; 97116-GP; 97162-GP; 99285-25; C9803; J0878; P9058; U0003

== ENCOUNTER 2021-03-21 11:20 | Inpatient (IN) | payer OTHER, BC ==
[2021-03-21] MEDS ORDERED: VANCOMYCIN 1,000 MG in DEXTROSE 5%-WATER - 250 ML IVPB ONE (12:25)
[2021-03-21] MEDS ORDERED: VANCOMYCIN 1,000 MG VIAL (RESTRICTED TO ID ONLY) ONE (14:12)
[2021-03-21 14:22] LABS: BASO % 0.7 % (0-2.0); EOS % 4.3 % (0-4.5); HEMATOCRIT 33.2 % (35.4-49); HEMOGLOBIN 10.9 GM/dl (11.7-16.9); LYMPH % 15.6 % (8-40); MCH 29.1 pg (25.7-33.7); MCHC 32.9 g/dl (32.0-35.9); MEAN CELL VOLUME 88.6 fl (80-96); MEAN PLT VOLUME 6.9 fl (7.5-11.1); MONO % 7.7 % (3.8-10.2); NEUT % 71.7 % (42.8-82.8); PLATELET COUNT 155 K/MM3 (134-434); RBC 3.75 M/mm3 (4.00-5.60); RDW 14.5 % (11.9-15.9); WHITE BLOOD COUNT 6.2 K/mm3 (4.0-10.8)
[2021-03-21 14:45] LABS: ALBUMIN 2.7 g/dl (3.4-5.0); BILIRUBIN,TOTAL 1.9 mg/dl (0.2-1); CALCIUM 8.4 mg/dl (8.5-10); TOT PROT 5.8 g/dl (6.4-8.2)
[2021-03-21 14:50] LABS: ERYTHROCYTE SEDIMENTATION RATE 43 mm/hr (0-20)
[2021-03-21] MEDS ORDERED: INSULIN REGULAR HUMAN 100 UNITS/ML *VIAL IVPUSH ONE (15:34)
[2021-03-21] MEDS ORDERED: INSULIN REGULAR HUMAN 100 UNITS/ML *VIAL ONE (15:44)
[2021-03-21] MEDS ORDERED: SIMETHICONE 80 MG TAB.CHEW (FP) PO PRN (17:51)
[2021-03-21] MEDS ORDERED: ALPRAZolam 0.25 MG TABLET PO PRN (17:51)
[2021-03-21] MEDS ORDERED: POLYETHYLENE GLYCOL 3350 119 GM BTL PO PRN (17:51)
[2021-03-21] MEDS ORDERED: PIPERACILLIN/TAZOBACTAM 3.375 GM VIAL IVPB ONE (19:13)
[2021-03-21] MEDS: PIPERACILLIN/TAZOB 3.375 GM 3.375 GM in DEXTROSE 5%-WATER - 50 ML IVPB SCH (20:47)
[2021-03-21] MEDS ORDERED: PATIENT'S OWN MEDICATION (NON-FORMULARY) (Dorzolamide Hcl/Timolol Maleat [Cosopt Eye Drops OS SCH (22:00)
[2021-03-21] MEDS: traMADol HCL 50 MG TABLET PO PRN (22:11)
[2021-03-21] MEDS: INSULIN SLIDING SCALE (NOVOLOG) 1 VIAL SQ SCH (22:11)
[2021-03-21] MEDS: DOCUSATE SODIUM 100 MG CAPSULE (FP) PO SCH (22:11)
[2021-03-21] MEDS: SPIRONOLACTONE 25 MG TABLET PO SCH (22:15)
[2021-03-21] MEDS: metoPROLOL SUCCINATE 25 MG TAB.SR.24H (FP) PO SCH (22:15)
[2021-03-21] MEDS: DORZOLAMIDE 2% HCL OPHTHALMIC SOLUTION 10 ML BOTTLE OS SCH (22:39)
[2021-03-21] MEDS: TIMOLOL 0.5% OPHTHALMIC SOL 5 ML BOTTLE OS SCH (22:44)
[2021-03-22] MEDS ORDERED: PIPERACILLIN/TAZOBACTAM 3.375 GM VIAL IVPB ONE ×3 (02:31→17:20)
[2021-03-22] MEDS ORDERED: DEXTROSE 5%-WATER - 50 ML IVPB ONE ×2 (02:31→09:08)
[2021-03-22] MEDS: PIPERACILLIN/TAZOB 3.375 GM 3.375 GM in DEXTROSE 5%-WATER - 50 ML IVPB SCH ×4 (02:33→14:42)
[2021-03-22] MEDS: traMADol HCL 50 MG TABLET PO PRN (03:16)
[2021-03-22] MEDS: LEVOTHYROXINE NA 25 MCG TABLET (FP) PO SCH (06:45)
[2021-03-22] MEDS: INSULIN SLIDING SCALE (NOVOLOG) 1 VIAL SQ SCH ×4 (06:45→21:34)
[2021-03-22] MEDS: DOCUSATE SODIUM 100 MG CAPSULE (FP) PO SCH ×3 (06:45→21:35)
[2021-03-22] MEDS ORDERED: PT OWN MED DRAWER 7, Y5N ONE ×3 (08:08→17:20)
[2021-03-22] MEDS: LIPASE/PROTEASE/AMYLASE 36,000 UNIT CAPSULE PO SCH ×3 (08:12→17:24)
[2021-03-22 08:36] LABS: BASO % 0.5 % (0-2.0); EOS % 8.2 % (0-4.5); HEMOGLOBIN 10.8 GM/dl (11.7-16.9); LYMPH % 17.4 % (8-40); MCH 29.5 pg (25.7-33.7); MCHC 33.8 g/dl (32.0-35.9); MEAN CELL VOLUME 87.4 fl (80-96); MEAN PLT VOLUME 6.6 fl (7.5-11.1); MONO % 9.2 % (3.8-10.2); NEUT % 64.7 % (42.8-82.8); PLATELET COUNT 158 K/MM3 (134-434); RBC 3.66 M/mm3 (4.00-5.60); RDW 14.4 % (11.9-15.9)
[2021-03-22 08:44] LABS: ALBUMIN 2.6 g/dl (3.4-5.0); BILIRUBIN,TOTAL 1.8 mg/dl (0.2-1); CALCIUM 8.5 mg/dl (8.5-10); MAGNESIUM 1.8 mg/dL (1.8-2.4); TOT PROT 5.4 g/dl (6.4-8.2)
[2021-03-22] MEDS: CLOPIDOGREL BISULFATE 75 MG TABLET (FP) PO SCH (09:42)
[2021-03-22] MEDS: PANTOPRAZOLE 40 MG TABLET PO SCH (09:42)
[2021-03-22] MEDS: FUROSEMIDE 40 MG TABLET (FP) PO SCH (09:42)
[2021-03-22] MEDS: FERROUS SO4 325 MG TABLET (FP) PO SCH (09:42)
[2021-03-22] MEDS: SPIRONOLACTONE 25 MG TABLET PO SCH ×2 (09:42→21:35)
[2021-03-22] MEDS: ENOXAPARIN NA (PORCINE) 40 MG/0.4 ML DISP.SYRIN SQ SCH (09:44)
[2021-03-22] MEDS: TIMOLOL 0.5% OPHTHALMIC SOL 5 ML BOTTLE OS SCH ×2 (09:46→21:35)
[2021-03-22] MEDS: DORZOLAMIDE 2% HCL OPHTHALMIC SOLUTION 10 ML BOTTLE OS SCH ×2 (09:46→21:36)
[2021-03-22] MEDS ORDERED: PATIENT'S OWN MEDICATION (NON-FORMULARY) (Difluprednate [Durezol] 5 ML Drops) OD SCH (10:00)
[2021-03-22] MEDS ORDERED: PATIENT'S OWN MEDICATION (NON-FORMULARY) (Becaplermin [Regranex] 15 GM Gel..Gram.) TP SCH (10:00)
[2021-03-22] MEDS ORDERED: ACETAMINOPHEN 325 MG TABLET (FP) PO PRN (11:43)
[2021-03-22] MEDS: COLLAGENASE CLOSTRIDIUM HIST. 30 GRAMS TUBE TP SCH (12:35)
[2021-03-22] MEDS ORDERED: SODIUM CHLORIDE 50 ML IVPB ONE (17:20)
[2021-03-22] MEDS: PIPERACILLIN/TAZOB 3.375 GM 3.375 GM in SODIUM CHLORIDE 50 ML IVPB SCH (17:24)
[2021-03-22] MEDS: metoPROLOL SUCCINATE 25 MG TAB.SR.24H (FP) PO SCH (21:35)
[2021-03-23] MEDS ORDERED: PIPERACILLIN/TAZOBACTAM 3.375 GM VIAL IVPB ONE ×3 (01:02→17:51)
[2021-03-23] MEDS ORDERED: SODIUM CHLORIDE 50 ML IVPB ONE ×3 (01:03→17:51)
[2021-03-23] MEDS: PIPERACILLIN/TAZOB 3.375 GM 3.375 GM in SODIUM CHLORIDE 50 ML IVPB SCH ×3 (01:17→18:22)
[2021-03-23] MEDS: INSULIN SLIDING SCALE (NOVOLOG) 1 VIAL SQ SCH ×4 (06:28→21:36)
[2021-03-23] MEDS: DOCUSATE SODIUM 100 MG CAPSULE (FP) PO SCH (06:28)
[2021-03-23] MEDS: LEVOTHYROXINE NA 25 MCG TABLET (FP) PO SCH (06:28)
[2021-03-23] MEDS ORDERED: PT OWN MED DRAWER 7, Y5N ONE ×2 (08:06→16:22)
[2021-03-23] MEDS: PANTOPRAZOLE 40 MG TABLET PO SCH (09:04)
[2021-03-23] MEDS: LIPASE/PROTEASE/AMYLASE 36,000 UNIT CAPSULE PO SCH ×3 (09:04→16:30)
[2021-03-23] MEDS: FERROUS SO4 325 MG TABLET (FP) PO SCH (09:04)
[2021-03-23] MEDS: CLOPIDOGREL BISULFATE 75 MG TABLET (FP) PO SCH (09:04)
[2021-03-23] MEDS: SPIRONOLACTONE 25 MG TABLET PO SCH ×2 (09:04→21:36)
[2021-03-23] MEDS: FUROSEMIDE 40 MG TABLET (FP) PO SCH (09:04)
[2021-03-23] MEDS: COLLAGENASE CLOSTRIDIUM HIST. 30 GRAMS TUBE TP SCH (09:05)
[2021-03-23] MEDS: ENOXAPARIN NA (PORCINE) 40 MG/0.4 ML DISP.SYRIN SQ SCH (09:05)
[2021-03-23] MEDS: TIMOLOL 0.5% OPHTHALMIC SOL 5 ML BOTTLE OS SCH ×2 (09:06→21:42)
[2021-03-23] MEDS: DORZOLAMIDE 2% HCL OPHTHALMIC SOLUTION 10 ML BOTTLE OS SCH ×2 (09:07→21:42)
[2021-03-23] MEDS ORDERED: LACTULOSE 20 GM/30 ML UDC (FOR ORAL USE ONLY) PO PRN (09:29)
[2021-03-23] MEDS ORDERED: LACTULOSE 20 GM/30 ML UDC (FOR ORAL USE ONLY) PO SCH (09:30)
[2021-03-23] MEDS: LACTULOSE 20 GM/30 ML UDC (FOR ORAL USE ONLY) PO SCH ×3 (12:10→21:36)
[2021-03-23] MEDS: traMADol HCL 50 MG TABLET PO PRN (17:18)
[2021-03-23] MEDS: metoPROLOL SUCCINATE 25 MG TAB.SR.24H (FP) PO SCH (21:36)
[2021-03-24] MEDS ORDERED: PIPERACILLIN/TAZOBACTAM 3.375 GM VIAL IVPB ONE ×2 (00:38→08:53)
[2021-03-24] MEDS ORDERED: SODIUM CHLORIDE 50 ML IVPB ONE ×2 (00:39→08:53)
[2021-03-24] MEDS: PIPERACILLIN/TAZOB 3.375 GM 3.375 GM in SODIUM CHLORIDE 50 ML IVPB SCH ×3 (01:31→18:49)
[2021-03-24] MEDS: LACTULOSE 20 GM/30 ML UDC (FOR ORAL USE ONLY) PO SCH ×3 (06:08→22:02)
[2021-03-24] MEDS: INSULIN SLIDING SCALE (NOVOLOG) 1 VIAL SQ SCH ×4 (06:08→22:00)
[2021-03-24] MEDS ORDERED: LEVOTHYROXINE NA 50 MCG TABLET (FP) PO SCH (07:00)
[2021-03-24] MEDS ORDERED: PT OWN MED DRAWER 7, Y5N ONE (08:11)
[2021-03-24] MEDS: LIPASE/PROTEASE/AMYLASE 36,000 UNIT CAPSULE PO SCH ×3 (08:49→16:54)
[2021-03-24] MEDS: DORZOLAMIDE 2% HCL OPHTHALMIC SOLUTION 10 ML BOTTLE OS SCH ×2 (09:45→22:05)
[2021-03-24] MEDS: FUROSEMIDE 40 MG TABLET (FP) PO SCH (09:45)
[2021-03-24] MEDS: FERROUS SO4 325 MG TABLET (FP) PO SCH (09:45)
[2021-03-24] MEDS: PANTOPRAZOLE 40 MG TABLET PO SCH (09:45)
[2021-03-24] MEDS: CLOPIDOGREL BISULFATE 75 MG TABLET (FP) PO SCH (09:45)
[2021-03-24] MEDS: COLLAGENASE CLOSTRIDIUM HIST. 30 GRAMS TUBE TP SCH (09:45)
[2021-03-24] MEDS: TIMOLOL 0.5% OPHTHALMIC SOL 5 ML BOTTLE OS SCH ×2 (09:45→22:04)
[2021-03-24] MEDS: SPIRONOLACTONE 25 MG TABLET PO SCH ×2 (09:45→22:04)
[2021-03-24] MEDS: ENOXAPARIN NA (PORCINE) 40 MG/0.4 ML DISP.SYRIN SQ SCH (09:45)
[2021-03-24 11:10] LABS: BASO % 0.6 % (0-2.0); EOS % 6.7 % (0-4.5); HEMATOCRIT 31.6 % (35.4-49); HEMOGLOBIN 10.8 GM/dl (11.7-16.9); LYMPH % 20.3 % (8-40); MCH 29.8 pg (25.7-33.7); MEAN CELL VOLUME 87.5 fl (80-96); MEAN PLT VOLUME 6.6 fl (7.5-11.1); MONO % 9.6 % (3.8-10.2); NEUT % 62.8 % (42.8-82.8); PLATELET COUNT 151 K/MM3 (134-434); RBC 3.62 M/mm3 (4.00-5.60); RDW 14.5 % (11.9-15.9); WHITE BLOOD COUNT 6.6 K/mm3 (4.0-10.8)
[2021-03-24 11:30] LABS: ALBUMIN 2.4 g/dl (3.4-5.0); CALCIUM 8.3 mg/dl (8.5-10); CREATININE 1.1 mg/dl (0.55-1.3); MAGNESIUM 1.8 mg/dL (1.8-2.4); TOT PROT 5.6 g/dl (6.4-8.2)
[2021-03-24] MEDS: metoPROLOL SUCCINATE 25 MG TAB.SR.24H (FP) PO SCH (22:04)
[2021-03-25] MEDS: PIPERACILLIN/TAZOB 3.375 GM 3.375 GM in SODIUM CHLORIDE 50 ML IVPB SCH ×2 (02:49→09:26)
[2021-03-25] MEDS: LACTULOSE 20 GM/30 ML UDC (FOR ORAL USE ONLY) PO SCH ×2 (05:46→13:37)
[2021-03-25] MEDS: LEVOTHYROXINE NA 25 MCG TABLET (FP) PO SCH (07:17)
[2021-03-25] MEDS: INSULIN SLIDING SCALE (NOVOLOG) 1 VIAL SQ SCH ×2 (07:17→11:33)
[2021-03-25] MEDS ORDERED: AMINO ACIDS/PROTEIN HYDROLYS 30 ML LIQUID.PKT PO SCH (08:00)
[2021-03-25] MEDS: LIPASE/PROTEASE/AMYLASE 36,000 UNIT CAPSULE PO SCH ×2 (08:41→12:25)
[2021-03-25 09:18] LABS: BASO % 0.7 % (0-2.0); EOS % 5.1 % (0-4.5); HEMATOCRIT 31.2 % (35.4-49); HEMOGLOBIN 10.5 GM/dl (11.7-16.9); LYMPH % 23.8 % (8-40); MCH 29.8 pg (25.7-33.7); MCHC 33.5 g/dl (32.0-35.9); MEAN CELL VOLUME 88.9 fl (80-96); MEAN PLT VOLUME 6.9 fl (7.5-11.1); MONO % 10.7 % (3.8-10.2); NEUT % 59.7 % (42.8-82.8); PLATELET COUNT 141 K/MM3 (134-434); RBC 3.51 M/mm3 (4.00-5.60); RDW 14.1 % (11.9-15.9)
[2021-03-25 09:20] LABS: ALBUMIN 2.4 g/dl (3.4-5.0); BILIRUBIN,TOTAL 1.7 mg/dl (0.2-1); CALCIUM 8.4 mg/dl (8.5-10); CREATININE 1.1 mg/dl (0.55-1.3); MAGNESIUM 1.8 mg/dL (1.8-2.4); TOT PROT 5.3 g/dl (6.4-8.2)
[2021-03-25] MEDS: SPIRONOLACTONE 25 MG TABLET PO SCH (09:25)
[2021-03-25] MEDS: CLOPIDOGREL BISULFATE 75 MG TABLET (FP) PO SCH (09:25)
[2021-03-25] MEDS: COLLAGENASE CLOSTRIDIUM HIST. 30 GRAMS TUBE TP SCH (09:25)
[2021-03-25] MEDS: ENOXAPARIN NA (PORCINE) 40 MG/0.4 ML DISP.SYRIN SQ SCH (09:25)
[2021-03-25] MEDS: FERROUS SO4 325 MG TABLET (FP) PO SCH (09:25)
[2021-03-25] MEDS: FUROSEMIDE 40 MG TABLET (FP) PO SCH (09:25)
[2021-03-25] MEDS: PANTOPRAZOLE 40 MG TABLET PO SCH (09:25)
[2021-03-25] MEDS: TIMOLOL 0.5% OPHTHALMIC SOL 5 ML BOTTLE OS SCH (09:25)
[2021-03-25] MEDS: DORZOLAMIDE 2% HCL OPHTHALMIC SOLUTION 10 ML BOTTLE OS SCH (09:26)
[2021-03-25 09:41] VITALS: BP 130/47; PULSE 71; TEMP 98.2
[2021-03-25] MEDS: traMADol HCL 50 MG TABLET PO PRN (13:36)
== END 2021-03-25 15:17 | disposition home or self-care (01) | DRG 565 ==
LOC: FER 11:20 → FM/S 15:57
PROVIDERS: ADMIT Internal Medicine; ATTEND Nurse Practitioner Acute Care
DX: T87.43 Infection of amputation stump, right lower extremity (principal); L03.115 Cellulitis of right lower limb; R18.8 Other ascites; I50.32 Chronic diastolic (congestive) heart failure; E11.40 Type 2 diabetes mellitus with diabetic neuropathy, unspecified; K75.81 Nonalcoholic steatohepatitis (NASH); I11.0 Hypertensive heart disease with heart failure; E78.5 Hyperlipidemia, unspecified; I25.10 Atherosclerotic heart disease of native coronary artery without angina pectoris; I49.5 Sick sinus syndrome; I48.0 Paroxysmal atrial fibrillation; E03.9 Hypothyroidism, unspecified; F41.9 Anxiety disorder, unspecified; K74.60 Unspecified cirrhosis of liver; H40.9 Unspecified glaucoma; H54.8 Legal blindness, as defined in USA; Z95.5 Presence of coronary angioplasty implant and graft; Y83.9 Surgical procedure, unspecified as the cause of abnormal reaction of the patient, or of later complication, without mention of misadventure at the time of the procedure; Z95.1 Presence of aortocoronary bypass graft; K21.9 Gastro-esophageal reflux disease without esophagitis
CPT/HCPCS: 36415; 73564-TC-RT-FY; 80053; 82140; 82962; 83605; 83735; 84132; 85025; 85651; 86140; 87040; 87070; 87186; 87205; 93005; 97163-GP; 99285-25; C9803; U0003; U0005

== ENCOUNTER 2022-10-03 04:00 | Day surgery (SDC) | payer OTHER, BC ==
[2022-10-01 15:41] VITALS: BMI 30.6
[2022-10-03 06:49] VITALS: RESP 18
[2022-10-03] MEDS ORDERED: LIDOCAINE HCL/PF 1% SDV 5ML VIAL ONE (07:25)
[2022-10-03] MEDS ORDERED: BUPIVACAINE HCL/PF 0.25% (2.5MG/ML) 10 ML VIAL ONE (08:05)
[2022-10-03] MEDS ORDERED: LIDOCAINE HCL 1% PRESERVATIVE FREE - 30ML VIAL IJ ONE ×2 (08:50→08:52)
[2022-10-03] MEDS ORDERED: BUPIVACAINE HCL/PF 0.25% (2.5MG/ML) 10 ML VIAL IJ ONE (08:52)
[2022-10-03 12:29] VITALS: TEMP 98.2
[2022-10-03 12:32] VITALS: BP 138/58; PULSE 78
== END 2022-10-03 11:00 | disposition home or self-care (01) ==
LOC: JASU-SURG 04:00
PROVIDERS: ATTEND Pain Medicine Pain Medicine
PROC: 01HY0MZ Insertion of Neurostimulator Lead into Peripheral Nerve, Open Approach (ICD-10-PCS; principal; 2022-10-03 08:00)
DX: G89.4 Chronic pain syndrome (principal)
CPT/HCPCS: 64575; C1778

== ENCOUNTER 2023-04-17 04:02 | Day surgery (SDC) | payer OTHER, BC ==
[2023-04-15 11:45] VITALS: BMI 29.7
[2023-04-17] MEDS ORDERED: LIDOCAINE HCL/PF 1% SDV 5ML VIAL ONE (07:16)
[2023-04-17 07:39] VITALS: RESP 18
[2023-04-17] MEDS ORDERED: LIDOCAINE HCL 1% PRESERVATIVE FREE - 30ML VIAL IJ ONE ×2 (09:40→10:07)
[2023-04-17] MEDS ORDERED: BUPIVACAINE HCL/PF 0.25% (2.5MG/ML) 10 ML VIAL IJ ONE (10:07)
[2023-04-17] MEDS ORDERED: BUPIVACAINE HCL/PF 0.25% (2.5MG/ML) 10 ML VIAL ONE (10:55)
[2023-04-17] MEDS ORDERED: ACETAMINOPHEN 500 MG TABLET (FP) PO PRN (11:09)
[2023-04-17 12:23] VITALS: BP 150/82; PULSE 71; TEMP 98
== END 2023-04-17 12:10 | disposition home or self-care (01) ==
LOC: JASU-SURG 04:02
PROVIDERS: ATTEND Pain Medicine Pain Medicine
PROC: 01HY3MZ Insertion of Neurostimulator Lead into Peripheral Nerve, Percutaneous Approach (ICD-10-PCS; principal; 2023-04-17 08:45)
DX: G89.4 Chronic pain syndrome (principal)
CPT/HCPCS: 64555; C1778; 76000-TC-FY

== ENCOUNTER 2023-07-10 05:00 | Day surgery (SDC) | payer OTHER, BC ==
[2023-07-08 10:03] VITALS: BMI 29.2
[2023-07-10] MEDS ORDERED: ACETAMINOPHEN 1000 MG/100 ML BAG IVPB ONE (13:54)
[2023-07-10] MEDS ORDERED: DEXTROSE 5%-0.45% SALINE 1,000 ML IV SCH (14:00)
[2023-07-10] MEDS ORDERED: ceFAZolin SODIUM 1 GM VIAL IVPB ONE (14:20)
[2023-07-10] MEDS ORDERED: LIDOCAINE 1%/EPI 1:100000 (50 ML MULTI DOSE VIAL) INF ONE (14:21)
[2023-07-10] MEDS ORDERED: PROMETHAZINE HCL 25 MG/1 ML VIAL IVPB PRN (15:09)
[2023-07-10] MEDS ORDERED: LACTATED RINGERS SOLUTION 1,000 ML IV SCH (15:15)
[2023-07-10] MEDS ORDERED: ACETAMINOPHEN INJECTION 100 ML IVPB ONE (15:49)
[2023-07-10 16:37] VITALS: PULSE 70; RESP 20
[2023-07-10 16:55] VITALS: TEMP 97.8
[2023-07-10 17:46] VITALS: BP 106/54
== END 2023-07-10 18:54 | disposition home or self-care (01) ==
LOC: JASU-SURG 05:00
PROVIDERS: ATTEND Urology
PROC: 0JH70BZ Insertion of Single Array Stimulator Generator into Back Subcutaneous Tissue and Fascia, Open Approach (ICD-10-PCS; 2023-07-10)
PROC: 01PY0MZ Removal of Neurostimulator Lead from Peripheral Nerve, Open Approach (ICD-10-PCS; 2023-07-10)
PROC: 01HY0MZ Insertion of Neurostimulator Lead into Peripheral Nerve, Open Approach (ICD-10-PCS; 2023-07-10)
PROC: 0JPT0MZ Removal of Stimulator Generator from Trunk Subcutaneous Tissue and Fascia, Open Approach (ICD-10-PCS; principal; 2023-07-10 14:00)
DX: N39.41 Urge incontinence (principal)
CPT/HCPCS: 64581; 64590; C1767; C1778; 76000-TC-FY; 94760

== ENCOUNTER 2023-09-21 15:27 | Inpatient (IN) | payer OTHER, BC ==
[2023-09-21 15:49] VITALS: RESP 18
[2023-09-21] MEDS ORDERED: FAMOTIDINE 20 MG/50 ML IVPB 20 MG/50 ML MG IVPB ONE ×2 (17:00→17:22)
[2023-09-21] MEDS ORDERED: ACETAMINOPHEN 1000 MG/100 ML BAG IVPB ONE (17:00)
[2023-09-21] MEDS ORDERED: ACETAMINOPHEN INJECTION 100 ML IVPB ONE (17:22)
[2023-09-21 19:14] LABS: BASO % 1.1 % (0-2.0); EOS % 7.5 % (0-4.5); HEMATOCRIT 31.1 % (35.4-49); HEMOGLOBIN 10.4 GM/dL (11.7-16.9); LYMPH % 15.8 % (8-40); MCH 31.8 pg (25.7-33.7); MCHC 33.3 g/dl (32.0-35.9); MEAN CELL VOLUME 95.5 fl (80-96); MEAN PLT VOLUME 6.6 fl (7.5-11.1); NEUT % 66.6 % (42.8-82.8); PLATELET COUNT 130 10^3/uL (134-434); RBC 3.25 M/mm3 (4.00-5.60); RDW 17.9 % (11.9-15.9); WHITE BLOOD COUNT 4.6 K/mm3 (4.0-10.0)
[2023-09-21 19:25] LABS: INR 1.1 (0.83-1.09); PROTHROMBIN TIME (PATIENT) 12.8 SEC (9.7-13.0)
[2023-09-21 19:28] LABS: ACTIVATED PTT 27.6 SECONDS (25.2-36.5)
[2023-09-21 19:38] LABS: POTASSIUM 4.6 mmol/L (3.5-5.1)
[2023-09-21 19:42] LABS: ALBUMIN 3.3 g/dl (3.4-5.0); CALCIUM 8.7 mg/dL (8.5-10.1)
[2023-09-21 19:43] LABS: BLOOD UREA NITROGEN 41.1 mg/dL (7-18)
[2023-09-21 19:46] LABS: CREATININE 1.5 mg/dL (0.55-1.3)
[2023-09-21 19:48] LABS: BILIRUBIN,TOTAL 1.3 mg/dL (0.2-1); TOT PROT 6.9 g/dl (6.4-8.2)
[2023-09-21 23:22] LABS: BILIRUBIN,DIRECT 0.4 mg/dL (0.0-0.2)
[2023-09-22] MEDS ORDERED: HYDROmorphone HCL 2 MG TABLET PO PRN (01:52)
[2023-09-22] MEDS ORDERED: POLYETHYLENE GLYCOL (HEALTHYLAX) 3350 17 GM PACKET PO PRN (01:52)
[2023-09-22] MEDS ORDERED: NARATRIPTAN HCL 2.5 MG PO PRN (01:52)
[2023-09-22] MEDS ORDERED: PANTOPRAZOLE 40 MG TABLET PO PRN (01:52)
[2023-09-22 01:53] LABS: PH,URINE 5.5 (5.0-8.0); URINE APPEARANCE CLEAR; URINE BILIRUBIN NEGATIVE (NEGATIVE); URINE COLOR YELLOW; URINE GLUCOSE (UA) NEGATIVE (NEGATIVE); URINE KETONE NEGATIVE (NEGATIVE); URINE LEUK ESTERASE NEGATIVE (NEGATIVE); URINE NITRITE NEGATIVE (NEGATIVE); URINE PROTEIN NEGATIVE (NEGATIVE)
[2023-09-22] MEDS ORDERED: ACETAMINOPHEN 1000 MG/100 ML BAG IVPB PRN (01:55)
[2023-09-22] MEDS ORDERED: GLIMEPIRIDE 2 MG TABLET PO SCH (02:00)
[2023-09-22] MEDS: PANTOPRAZOLE SODIUM 40 MG VIAL IVPUSH SCH ×2 (02:12→11:11)
[2023-09-22 06:05] VITALS: BMI 31.4
[2023-09-22] MEDS ORDERED: FUROSEMIDE 40 MG TABLET (FP) PO SCH (07:00)
[2023-09-22] MEDS ORDERED: WHEAT DEXTRIN PO SCH (07:00)
[2023-09-22] MEDS: INSULIN SLIDING SCALE (NOVOLOG) 1 VIAL SQ SCH ×4 (07:03→22:04)
[2023-09-22] MEDS: LEVOTHYROXINE NA 50 MCG TABLET (FP) PO SCH (07:11)
[2023-09-22] MEDS ORDERED: FUROSEMIDE 40 MG/4 ML INJECTABLE VIAL IVPUSH SCH (08:15)
[2023-09-22 09:10] LABS: HEMATOCRIT 30.5 % (35.4-49); HEMOGLOBIN 10.6 GM/dL (11.7-16.9); MCH 32.9 pg (25.7-33.7); MCHC 34.6 g/dl (32.0-35.9); MEAN CELL VOLUME 95.1 fl (80-96); MEAN PLT VOLUME 6.9 fl (7.5-11.1); PLATELET COUNT 114 10^3/uL (134-434); RBC 3.21 M/mm3 (4.00-5.60); WHITE BLOOD COUNT 3.7 K/mm3 (4.0-10.0)
[2023-09-22 09:16] LABS: POTASSIUM 4.3 mmol/L (3.5-5.1)
[2023-09-22 09:23] LABS: BLOOD UREA NITROGEN 37.2 mg/dL (7-18); CALCIUM 8.6 mg/dL (8.5-10.1); MAGNESIUM 2.2 mg/dL (1.8-2.4)
[2023-09-22 09:26] LABS: BILIRUBIN,DIRECT 0.4 mg/dL (0.0-0.2); CREATININE 1.4 mg/dL (0.55-1.3)
[2023-09-22 09:27] LABS: PHOSPHOROUS 2.9 mg/dL (2.5-4.9)
[2023-09-22] MEDS ORDERED: SPIRONOLACTONE 25 MG TABLET PO SCH (10:00)
[2023-09-22] MEDS ORDERED: COLCHICINE 0.6 MG CAPSULE PO SCH (10:00)
[2023-09-22] MEDS ORDERED: PATIENT'S OWN MEDICATION (NON-FORMULARY) (Dorzolamide Hcl/Timolol Maleat [Cosopt Eye Drops OS SCH (10:00)
[2023-09-22] MEDS ORDERED: ENOXAPARIN NA (PORCINE) 40 MG/0.4 ML DISP.SYRIN SQ SCH (10:00)
[2023-09-22] MEDS: INSULIN (NOVOLOG) ASPART 100 UNITS/ML 10ML VIAL SQ SCH ×3 (10:18→16:50)
[2023-09-22] MEDS: INSULIN (NOVOLOG MIX 70/30) 100 UNITS/ML MDV SQ SCH ×3 (11:08→18:31)
[2023-09-22] MEDS: ALLOPURINOL 100 MG TABLET (FP) PO SCH (11:09)
[2023-09-22] MEDS: MULTIVITAMINS (DAILY MVI) TABLET (FP) PO SCH (11:09)
[2023-09-22] MEDS: ASPIRIN COATED 81 MG TABLET.EC PO SCH (11:09)
[2023-09-22] MEDS: CHOLECALCIFEROL (VIT D3) 1,000 UNIT (25 MCG) TABLET PO SCH (11:11)
[2023-09-22] MEDS: TIMOLOL 0.5% OPHTHALMIC SOL 5 ML BOTTLE OS SCH ×2 (12:28→22:05)
[2023-09-22] MEDS: DORZOLAMIDE 2% HCL OPHTHALMIC SOLUTION 10 ML BOTTLE OS SCH ×2 (12:29→22:06)
[2023-09-22] MEDS: COLCHICINE 0.6 MG TAB PO SCH (15:28)
[2023-09-22] MEDS: ALBUMIN HUMAN 25% 12.5 GM/50 ML VIAL IV SCH ×4 (17:35→21:51)
[2023-09-22 17:39] LABS: BF WBC & OTHER NUCLEATED CELLS 57 /mm3
[2023-09-22 20:43] LABS: BODY FLUID MONOCYTE 10 %
[2023-09-22] MEDS: metoPROLOL SUCCINATE 25 MG TAB.SR.24H (FP) PO SCH (22:03)
[2023-09-23] MEDS: INSULIN SLIDING SCALE (NOVOLOG) 1 VIAL SQ SCH ×4 (06:08→22:08)
[2023-09-23] MEDS ORDERED: LEVOTHYROXINE NA 25 MCG TABLET (FP) PO SCH (07:00)
[2023-09-23] MEDS: SPIRONOLACTONE 25 MG TABLET PO SCH (10:17)
[2023-09-23] MEDS: MULTIVITAMINS (DAILY MVI) TABLET (FP) PO SCH (10:17)
[2023-09-23] MEDS: POLYETHYLENE GLYCOL (HEALTHYLAX) 3350 17 GM PACKET PO SCH (10:17)
[2023-09-23] MEDS: PANTOPRAZOLE SODIUM 40 MG VIAL IVPUSH SCH (10:17)
[2023-09-23] MEDS: CHOLECALCIFEROL (VIT D3) 1,000 UNIT (25 MCG) TABLET PO SCH (10:17)
[2023-09-23] MEDS: ALLOPURINOL 100 MG TABLET (FP) PO SCH (10:17)
[2023-09-23] MEDS: COLCHICINE 0.6 MG TAB PO SCH (10:18)
[2023-09-23] MEDS: TIMOLOL 0.5% OPHTHALMIC SOL 5 ML BOTTLE OS SCH ×2 (10:18→22:05)
[2023-09-23] MEDS: DORZOLAMIDE 2% HCL OPHTHALMIC SOLUTION 10 ML BOTTLE OS SCH ×2 (10:18→22:05)
[2023-09-23] MEDS: ASPIRIN COATED 81 MG TABLET.EC PO SCH (10:18)
[2023-09-23 10:44] LABS: INR 1.22 (0.83-1.09); PROTHROMBIN TIME (PATIENT) 14.1 SEC (9.7-13.0)
[2023-09-23 10:48] LABS: BASO % 1.1 % (0-2.0); EOS % 9.1 % (0-4.5); HEMATOCRIT 29.2 % (35.4-49); HEMOGLOBIN 9.9 GM/dL (11.7-16.9); MCH 32.4 pg (25.7-33.7); MCHC 34.1 g/dl (32.0-35.9); MEAN CELL VOLUME 95.2 fl (80-96); MEAN PLT VOLUME 7.1 fl (7.5-11.1); MONO % 10.8 % (3.8-10.2); PLATELET COUNT 115 10^3/uL (134-434); RBC 3.07 M/mm3 (4.00-5.60); RDW 17.3 % (11.9-15.9); WHITE BLOOD COUNT 4.5 K/mm3 (4.0-10.0)
[2023-09-23 11:31] LABS: POTASSIUM 4.5 mmol/L (3.5-5.1)
[2023-09-23 11:37] LABS: ALBUMIN 3.3 g/dl (3.4-5.0); CALCIUM 8.4 mg/dL (8.5-10.1)
[2023-09-23 11:38] LABS: MAGNESIUM 2.3 mg/dL (1.8-2.4)
[2023-09-23 11:40] LABS: BILIRUBIN,DIRECT 0.5 mg/dL (0.0-0.2); PHOSPHOROUS 2.7 mg/dL (2.5-4.9)
[2023-09-23 11:41] LABS: CREATININE 1.5 mg/dL (0.55-1.3)
[2023-09-23 11:42] LABS: BILIRUBIN,TOTAL 1.6 mg/dL (0.2-1)
[2023-09-23] MEDS: metoPROLOL SUCCINATE 25 MG TAB.SR.24H (FP) PO SCH (22:08)
[2023-09-24] MEDS: INSULIN SLIDING SCALE (NOVOLOG) 1 VIAL SQ SCH ×3 (06:22→16:36)
[2023-09-24] MEDS: LEVOTHYROXINE NA 50 MCG TABLET (FP) PO SCH (06:22)
[2023-09-24 09:21] LABS: INR 1.13 (0.83-1.09); PROTHROMBIN TIME (PATIENT) 13.1 SEC (9.7-13.0)
[2023-09-24 09:24] LABS: HEMATOCRIT 30.7 % (35.4-49); HEMOGLOBIN 10.5 GM/dL (11.7-16.9); LYMPH % 17.2 % (8-40); MCH 32.7 pg (25.7-33.7); MCHC 34.3 g/dl (32.0-35.9); MEAN CELL VOLUME 95.4 fl (80-96); MEAN PLT VOLUME 7.1 fl (7.5-11.1); MONO % 10.5 % (3.8-10.2); NEUT % 64.3 % (42.8-82.8); PLATELET COUNT 115 10^3/uL (134-434); RBC 3.21 M/mm3 (4.00-5.60); RDW 17.3 % (11.9-15.9); WHITE BLOOD COUNT 4.7 K/mm3 (4.0-10.0)
[2023-09-24 09:49] LABS: POTASSIUM 4.6 mmol/L (3.5-5.1)
[2023-09-24] MEDS: POLYETHYLENE GLYCOL (HEALTHYLAX) 3350 17 GM PACKET PO SCH (09:59)
[2023-09-24] MEDS ORDERED: FUROSEMIDE 40 MG TABLET (FP) PO SCH (10:00)
[2023-09-24] MEDS: COLCHICINE 0.6 MG TAB PO SCH (10:05)
[2023-09-24] MEDS: ASPIRIN COATED 81 MG TABLET.EC PO SCH (10:05)
[2023-09-24] MEDS: MULTIVITAMINS (DAILY MVI) TABLET (FP) PO SCH (10:06)
[2023-09-24] MEDS: CHOLECALCIFEROL (VIT D3) 1,000 UNIT (25 MCG) TABLET PO SCH (10:06)
[2023-09-24] MEDS: ALLOPURINOL 100 MG TABLET (FP) PO SCH (10:06)
[2023-09-24] MEDS: PANTOPRAZOLE SODIUM 40 MG VIAL IVPUSH SCH (10:06)
[2023-09-24 10:10] LABS: CALCIUM 8.3 mg/dL (8.5-10.1)
[2023-09-24 10:11] LABS: ALBUMIN 3.1 g/dl (3.4-5.0); BLOOD UREA NITROGEN 38.1 mg/dL (7-18)
[2023-09-24] MEDS: DORZOLAMIDE 2% HCL OPHTHALMIC SOLUTION 10 ML BOTTLE OS SCH ×2 (10:11→11:55)
[2023-09-24] MEDS: TIMOLOL 0.5% OPHTHALMIC SOL 5 ML BOTTLE OS SCH ×2 (10:11→11:54)
[2023-09-24 10:13] LABS: BILIRUBIN,DIRECT 0.5 mg/dL (0.0-0.2); CREATININE 1.5 mg/dL (0.55-1.3)
[2023-09-24 10:15] LABS: BILIRUBIN,TOTAL 1.5 mg/dL (0.2-1)
[2023-09-24] MEDS: SPIRONOLACTONE 25 MG TABLET PO SCH (10:16)
[2023-09-24 10:18] LABS: TOT PROT 5.9 g/dl (6.4-8.2)
[2023-09-24 14:54] VITALS: PULSE 73
[2023-09-24 15:09] LABS: BODY FLUID ALBUMIN 1.7 g/dL (Not Estab.)
[2023-09-24 18:20] VITALS: BP 160/63; TEMP 97.5
== END 2023-09-24 18:55 | disposition home health service (06) | DRG 439 ==
LOC: JER 15:27 → JERBED 21:38 → OBSVTOIN 09-22 01:18 → J5S 09-22 05:39
PROVIDERS: ADMIT Internal Medicine; ATTEND Internal Medicine
PROC: 0W9G3ZX Drainage of Peritoneal Cavity, Percutaneous Approach, Diagnostic (ICD-10-PCS; principal; 2023-09-22)
PROC: BW40ZZZ Ultrasonography of Abdomen (ICD-10-PCS; 2023-09-22)
DX: K86.2 Cyst of pancreas (principal); I13.0 Hypertensive heart and chronic kidney disease with heart failure and stage 1 through stage 4 chronic kidney disease, or unspecified chronic kidney disease; R18.8 Other ascites; K76.6 Portal hypertension; I50.32 Chronic diastolic (congestive) heart failure; J84.9 Interstitial pulmonary disease, unspecified; E11.9 Type 2 diabetes mellitus without complications; K21.9 Gastro-esophageal reflux disease without esophagitis; I25.10 Atherosclerotic heart disease of native coronary artery without angina pectoris; E03.9 Hypothyroidism, unspecified; K74.60 Unspecified cirrhosis of liver; K75.81 Nonalcoholic steatohepatitis (NASH); N18.9 Chronic kidney disease, unspecified
CPT/HCPCS: 36415; 71045-TC-FY; 74176-TC; 76700-TC; 76942-TC; 80048; 80053; 80076; 81003; 82042; 82150; 82248; 82607; 82728; 82746; 82945; 82962; 83036; 83525; 83540; 83550; 83615; 83690; 83735; 84100; 84157; 84439; 84443; 84484; 85025; 85027; 85610; 85730; 86301; 87070; 87075; 87086; 87116; 87205; 87206; 93005; 93010; 93970-TC; 97116-GP; 97162-GP; 99285-25; G0378; P9047

== ENCOUNTER 2024-02-05 03:55 | Day surgery (SDC) | payer OTHER, BC ==
[2024-02-03 15:34] VITALS: BMI 27.4
[2024-02-05 06:40] VITALS: RESP 20
[2024-02-05] MEDS ORDERED: PROMETHAZINE HCL 25 MG/1 ML VIAL IVPB PRN (07:53)
[2024-02-05] MEDS ORDERED: ONDANSETRON 4 MG/2 ML VIAL IVPUSH PRN (07:53)
[2024-02-05] MEDS ORDERED: oxyCODONE HCL 5 MG TABLET PO PRN (07:53)
[2024-02-05] MEDS ORDERED: MIDAZOLAM HCL 2 MG/2 ML SINGLE DOSE VIAL ONE (07:55)
[2024-02-05] MEDS ORDERED: FENTANYL CITRATE/PF 50 MCG/ML VIAL ONE (07:55)
[2024-02-05] MEDS ORDERED: ceFAZolin SODIUM 1 GM VIAL ONE (08:00)
[2024-02-05] MEDS ORDERED: LACTATED RINGERS SOLUTION 1,000 ML IV SCH (08:00)
[2024-02-05] MEDS ORDERED: SODIUM CHLORIDE 0.9% P/F 10 ML VIAL IJ ONE (08:00)
[2024-02-05] MEDS: ceFAZolin SODIUM 1 GM VIAL IVPB ONE (08:15)
[2024-02-05] MEDS: LIDOCAINE HCL 1%, 10 MG/ML (50 mL VIAL) INF ONE (08:26)
[2024-02-05] MEDS: LIDOCAINE HCL 1% PRESERVATIVE FREE - 30ML VIAL IJ ONE ×3 (08:26)
[2024-02-05 10:08] VITALS: BP 126/57; PULSE 69; TEMP 97.1
[2024-02-05] MEDS ORDERED: ACETAMINOPHEN 500 MG TABLET (FP) PO PRN (12:52)
== END 2024-02-05 11:08 | disposition home or self-care (01) ==
LOC: JASU-SURG 03:55
PROVIDERS: ATTEND Pain Medicine Pain Medicine
PROC: 00HU3MZ Insertion of Neurostimulator Lead into Spinal Canal, Percutaneous Approach (ICD-10-PCS; principal; 2024-02-05 08:00)
DX: G57.71 Causalgia of right lower limb (principal); G54.6 Phantom limb syndrome with pain
CPT/HCPCS: 63650; C1897; 76000-TC-FY; 82962; C1889

== ENCOUNTER 2024-07-14 14:18 | Inpatient (IN) | payer OTHER, BC ==
[2024-07-14 15:13] LABS: VENOUS BASE EXCESS -1.5 mmol/L (-2-2); VENOUS O2 SATURATION 81.7 % (70-80); VENOUS PCO2 48.9 mmHg (38-52); VENOUS PH 7.323 (7.310-7.410)
[2024-07-14 15:14] LABS: BASO % 0.3 % (0-2.0); EOS % 0.1 % (0-4.5); HEMATOCRIT 27.1 % (35.4-49); HEMOGLOBIN 8.9 GM/dL (11.7-16.9); LYMPH % 4.8 % (8-40); MCHC 32.8 g/dl (32.0-35.9); MEAN CELL VOLUME 103.6 fl (80-96); MEAN PLT VOLUME 8.4 fl (7.5-11.1); MONO % 4.7 % (3.8-10.2); NEUT % 90.1 % (42.8-82.8); PLATELET COUNT 92 10^3/uL (134-434); RBC 2.62 M/mm3 (4.00-5.60); RDW 16.6 % (11.9-15.9); WHITE BLOOD COUNT 7.6 K/mm3 (4.0-10.0)
[2024-07-14 15:26] LABS: INR 1.15 (0.83-1.09); PROTHROMBIN TIME (PATIENT) 12.9 SEC (9.7-13.0)
[2024-07-14 15:35] LABS: CHLORIDE 102 mmol/L (98-107); SODIUM 138 mmol/L (136-145)
[2024-07-14 15:36] LABS: POTASSIUM 6.5 mmol/L (3.5-5.1)
[2024-07-14 15:37] LABS: ALBUMIN 2.7 g/dl (3.4-5.0); ANION GAP 12 mmol/L (4-13); CALCIUM 8.3 mg/dL (8.5-10.1); CO2 24 mmol/L (21-32)
[2024-07-14 15:38] LABS: GLUCOSE,RANDOM 220 mg/dL (74-106)
[2024-07-14 15:40] LABS: SGOT/AST 24 U/L (15-37)
[2024-07-14 15:41] LABS: CREATININE 5.8 mg/dL (0.55-1.3); SGPT/ALT 18 U/L (13-61)
[2024-07-14 15:42] LABS: BILIRUBIN,TOTAL 1.1 mg/dL (0.2-1); TOT PROT 6.1 g/dl (6.4-8.2)
[2024-07-14 15:44] LABS: ALK PHOS 177 U/L (45-117); BLOOD UREA NITROGEN 117.6 mg/dL (7-18)
[2024-07-14 15:47] LABS: LACTIC ACID 2.8 mmol/L (0.4-2.0)
[2024-07-14] MEDS ORDERED: DEXTROSE 50%-WATER 25 GM/50 ML DISP.SYRIN ONE (16:05)
[2024-07-14] MEDS ORDERED: INSULIN ASPART SLIDING SCALE (NOVOLOG) 1 VIAL SQ ONE (16:06)
[2024-07-14] MEDS: DEXTROSE 50%-WATER - 25 GM/50 ML VIAL IVPUSH ONE (16:15)
[2024-07-14] MEDS: INSULIN REGULAR HUMAN 100 UNITS/ML *VIAL IVPUSH ONE (16:15)
[2024-07-14] MEDS ORDERED: SODIUM BICARBONATE 8.4% 50 MEQ/50 ML DISP.SYRIN ONE (16:16)
[2024-07-14] MEDS ORDERED: PIPERACILLIN/TAZOB 4.5 GM 4.5 GM/100 ML BAG IVPB ONE (16:16)
[2024-07-14] MEDS: SODIUM BICARBONATE 8.4% 50 MEQ/50 ML DISP.SYRIN IVPUSH ONE (16:21)
[2024-07-14] MEDS: PIPERACILLIN/TAZOB 4.5 GM 4.5 GM in DEXTROSE 5%-WATER 100 ML IVPB ONE (16:27)
[2024-07-14] MEDS ORDERED: VANCOMYCIN 1 GRAM (PRE-DOCKED) 1,000 MG/250 ML BAG IVPB ONE (16:58)
[2024-07-14] MEDS: VANCOMYCIN 1,000 MG in DEXTROSE 5%-WATER - 250 ML IVPB ONE (17:21)
[2024-07-14] MEDS: SODIUM CHLORIDE 0.9% 500 ML INFUS.BAG IV ONE (17:21)
[2024-07-14] MEDS ORDERED: VANCOMYCIN 1,000 MG in DEXTROSE 5%-WATER - 250 ML IVPB SCH (19:45)
[2024-07-14] MEDS: PANTOPRAZOLE SODIUM 40 MG VIAL IVPUSH SCH (19:53)
[2024-07-14] MEDS: SODIUM CHLORIDE 1,000 ML IV SCH (19:53)
[2024-07-14] MEDS: HEPARIN NA (PORCINE) 5,000 UNITS/ML 1ML VIAL SQ SCH (21:23)
[2024-07-14] MEDS: CHLORHEXIDINE GLUCONATE 4% CLEANSER FOR DECOLONIZATION TP SCH (21:23)
[2024-07-14] MEDS: MUPIROCIN 2% TOPICAL OINTMENT FOR DECOLONIZATION NS SCH (21:23)
[2024-07-14 22:04] LABS: HEMOGLOBIN 7.9 GM/dL (11.7-16.9); MCH 33.8 pg (25.7-33.7); MCHC 31.6 g/dl (32.0-35.9); MEAN CELL VOLUME 106.9 fl (80-96); MEAN PLT VOLUME 8.3 fl (7.5-11.1); PLATELET COUNT 78 10^3/uL (134-434); RBC 2.34 M/mm3 (4.00-5.60); RDW 17.1 % (11.9-15.9); WHITE BLOOD COUNT 4.8 K/mm3 (4.0-10.0)
[2024-07-14 22:26] LABS: CHLORIDE 111 mmol/L (98-107); POTASSIUM 4.8 mmol/L (3.5-5.1); SODIUM 142 mmol/L (136-145)
[2024-07-14 22:28] LABS: ANION GAP 8 mmol/L (4-13); CO2 23 mmol/L (21-32); MAGNESIUM 1.7 mg/dL (1.8-2.4)
[2024-07-14 22:29] LABS: GLUCOSE,RANDOM 212 mg/dL (74-106)
[2024-07-14 22:32] LABS: CALCIUM 6.2 mg/dL (8.5-10.1); CREATININE 4.7 mg/dL (0.55-1.3); PHOSPHOROUS 3.5 mg/dL (2.5-4.9)
[2024-07-15] MEDS: PIPERACILLIN/TAZOB 2.25 GM 2.25 GM in DEXTROSE 5%-WATER - 50 ML IVPB SCH (01:03)
[2024-07-15 06:53] LABS: BASO % 0.3 % (0-2.0); EOS % 0.7 % (0-4.5); HEMOGLOBIN 9.1 GM/dL (11.7-16.9); LYMPH % 4.8 % (8-40); MCH 34.2 pg (25.7-33.7); MCHC 32.3 g/dl (32.0-35.9); MEAN CELL VOLUME 105.8 fl (80-96); MONO % 6.1 % (3.8-10.2); NEUT % 88.1 % (42.8-82.8); PLATELET COUNT 84 10^3/uL (134-434); RBC 2.65 M/mm3 (4.00-5.60); RDW 16.6 % (11.9-15.9); WHITE BLOOD COUNT 6.3 K/mm3 (4.0-10.0)
[2024-07-15 07:10] LABS: CHLORIDE 105 mmol/L (98-107); POTASSIUM 5.6 mmol/L (3.5-5.1); SODIUM 140 mmol/L (136-145)
[2024-07-15 07:13] LABS: ALBUMIN 2.4 g/dl (3.4-5.0); ANION GAP 11 mmol/L (4-13); CO2 24 mmol/L (21-32); GLUCOSE,RANDOM 193 mg/dL (74-106); MAGNESIUM 2.1 mg/dL (1.8-2.4)
[2024-07-15 07:16] LABS: CREATININE 5.8 mg/dL (0.55-1.3); SGOT/AST 15 U/L (15-37); SGPT/ALT 14 U/L (13-61)
[2024-07-15 07:17] LABS: INR 1.17 (0.83-1.09); PROTHROMBIN TIME (PATIENT) 13.2 SEC (9.7-13.0)
[2024-07-15 07:18] LABS: BILIRUBIN,TOTAL 0.8 mg/dL (0.2-1); TOT PROT 5.6 g/dl (6.4-8.2)
[2024-07-15 07:20] LABS: ACTIVATED PTT 28.1 SECONDS (25.2-36.5)
[2024-07-15 07:29] LABS: ALK PHOS 143 U/L (45-117); BLOOD UREA NITROGEN 118.7 mg/dL (7-18); CALCIUM 7.8 mg/dL (8.5-10.1)
[2024-07-15] MEDS: ALBUTEROL SULFATE 0.021% (0.63 MG/3 ML) VIAL.NEB NEB ONE (07:53)
[2024-07-15] MEDS: LACTATED RINGERS SOLUTION 1000 ML INFUS.BAG IV ONE ×2 (07:54)
[2024-07-15] MEDS: SODIUM CHLORIDE 0.9% 500 ML INFUS.BAG IV ONE (07:54)
[2024-07-15] MEDS: CALCIUM GLUC IN NACL, ISO-OSM 1 GM/50 ML BAG IVPB ONE (07:54)
[2024-07-15] MEDS: SODIUM BICARBONATE 8.4% 50 MEQ/50 ML VIAL IVPB ONE (07:54)
[2024-07-15] MEDS ORDERED: DEXTROSE 50%-WATER 25 GM/50 ML DISP.SYRIN ONE (08:01)
[2024-07-15] MEDS: INSULIN REGULAR HUMAN 100 UNITS/ML *VIAL IVPUSH ONE (08:07)
[2024-07-15] MEDS: DEXTROSE 50%-WATER - 25 GM/50 ML VIAL IVPUSH ONE (08:07)
[2024-07-15] MEDS: CALCIUM GLUCONATE 10% - 1,000 MG/10 ML VIAL IVPB ONE (08:08)
[2024-07-15 10:29] LABS: ANISOCYTOSIS 0; MACROCYTOSIS 2+
[2024-07-15] MEDS: SODIUM ZIRCONIUM CYCLOSILICATE (LOKELMA) 5 GM PACKET PO ONE (10:36)
[2024-07-15] MEDS: ALBUMIN HUMAN 25% 12.5 GM/50 ML VIAL IV ONE (11:11)
[2024-07-15] MEDS: SODIUM BICARBONATE 650 MG TABLET PO SCH (13:30)
[2024-07-15] MEDS: VANCOMYCIN ORAL SOLUTION 125 MG/2.5 ML PO SCH (13:31)
[2024-07-15] MEDS: FOLIC ACID 1 MG TABLET (FP) PO SCH (13:33)
[2024-07-15] MEDS: BRIMONIDINE TARTRATE 0.15% OPHTHALMIC 5 ML BOTTLE OU SCH (13:33)
[2024-07-15] MEDS: ALLOPURINOL 100 MG TABLET (FP) PO SCH (13:33)
[2024-07-15] MEDS: RIFAXIMIN 550 MG TABLET PO SCH (13:33)
[2024-07-15] MEDS ORDERED: SODIUM CHLORIDE 250 ML IV PRN (14:09)
[2024-07-15 15:23] LABS: EPI CELLS >36 /uL (0-25.1); HYALINE CASTS 42 /uL (0-3.1); PH,URINE 5.5 (5.0-8.0); URINE APPEARANCE TURBID; URINE BACTERIA 732 /uL (0-1359); URINE BILIRUBIN NEGATIVE (NEGATIVE); URINE COLOR DK YELLOW; URINE GLUCOSE (UA) NEGATIVE (NEGATIVE); URINE KETONE TRACE (NEGATIVE); URINE LEUK ESTERASE 3+ (NEGATIVE); URINE NITRITE NEGATIVE (NEGATIVE); URINE PROTEIN 4+ (NEGATIVE); URINE WBC 21493 /uL (0-25.8)
[2024-07-15 15:33] LABS: URINE RBC 1597 /uL (0-23.9)
[2024-07-15] MEDS: VANCOMYCIN/WATER FOR INJ (PEG) 1,000 MG/200 ML BAG IVPB ONE (16:54)
[2024-07-15] MEDS ORDERED: ALBUMIN HUMAN 25% 12.5 GM/50 ML VIAL IV SCH (19:00)
[2024-07-15] MEDS: ALBUMIN HUMAN 25% 12.5 GM/50 ML VIAL IV SCH (19:30)
[2024-07-15 22:53] LABS: LACTIC ACID 2.4 mmol/L (0.4-2.0)
[2024-07-16] MEDS: PIPERACILLIN/TAZOB 2.25 GM 2.25 GM in DEXTROSE 5%-WATER - 50 ML IVPB SCH (01:27)
[2024-07-16] MEDS: LEVOTHYROXINE NA 75 MCG TABLET (FP) PO SCH (06:03)
[2024-07-16 07:19] LABS: BASO % 0.4 % (0-2.0); EOS % 1.3 % (0-4.5); HEMATOCRIT 24.4 % (35.4-49); HEMOGLOBIN 7.8 GM/dL (11.7-16.9); LYMPH % 4.3 % (8-40); MCH 33.9 pg (25.7-33.7); MCHC 32.1 g/dl (32.0-35.9); MEAN CELL VOLUME 105.8 fl (80-96); MEAN PLT VOLUME 8.5 fl (7.5-11.1); MONO % 5.3 % (3.8-10.2); NEUT % 88.7 % (42.8-82.8); PLATELET COUNT 82 10^3/uL (134-434); RDW 16.8 % (11.9-15.9); WHITE BLOOD COUNT 6.9 K/mm3 (4.0-10.0)
[2024-07-16 07:39] LABS: POTASSIUM 4.7 mmol/L (3.5-5.1)
[2024-07-16 07:42] LABS: CALCIUM 8.1 mg/dL (8.5-10.1)
[2024-07-16 07:43] LABS: BLOOD UREA NITROGEN 93.7 mg/dL (7-18)
[2024-07-16 07:46] LABS: CREATININE 5.1 mg/dL (0.55-1.3); PHOSPHOROUS 3.4 mg/dL (2.5-4.9)
[2024-07-16 07:48] LABS: TOT PROT 5.7 g/dl (6.4-8.2)
[2024-07-16 07:52] LABS: ALBUMIN 3.1 g/dl (3.4-5.0)
[2024-07-16] MEDS: FAMOTIDINE 20 MG/50 ML IVPB 20 MG/50 ML MG IVPB SCH (09:05)
[2024-07-16] MEDS: FENTANYL CITRATE/PF 50 MCG/ML VIAL IVPUSH ONE (21:27)
[2024-07-16] MEDS: INSULIN ASPART SLIDING SCALE (NOVOLOG) 1 VIAL SQ SCH (22:40)
[2024-07-17] MEDS: oxyCODONE HCL 5 MG TABLET PO PRN ×2 (02:05→09:47)
[2024-07-17 06:51] LABS: POTASSIUM 4.7 mmol/L (3.5-5.1)
[2024-07-17 06:52] LABS: HEMATOCRIT 26.2 % (35.4-49); HEMOGLOBIN 8.4 GM/dL (11.7-16.9); MCH 34.2 pg (25.7-33.7); MEAN CELL VOLUME 106.7 fl (80-96); MEAN PLT VOLUME 8.1 fl (7.5-11.1); PLATELET COUNT 83 10^3/uL (134-434); RBC 2.46 M/mm3 (4.00-5.60); RDW 17.3 % (11.9-15.9); WHITE BLOOD COUNT 6.9 K/mm3 (4.0-10.0)
[2024-07-17 06:55] LABS: ALBUMIN 2.7 g/dl (3.4-5.0); BLOOD UREA NITROGEN 94.3 mg/dL (7-18); MAGNESIUM 2.1 mg/dL (1.8-2.4)
[2024-07-17 06:58] LABS: CREATININE 5.6 mg/dL (0.55-1.3)
[2024-07-17 06:59] LABS: BILIRUBIN,TOTAL 0.7 mg/dL (0.2-1)
[2024-07-17 07:00] LABS: TOT PROT 5.6 g/dl (6.4-8.2)
[2024-07-17] MEDS ORDERED: SODIUM CHLORIDE 250 ML IV PRN (08:11)
[2024-07-17 09:51] LABS: ANISOCYTOSIS 0; MACROCYTOSIS 2+
[2024-07-18 07:55] LABS: HEMATOCRIT 27.6 % (35.4-49); HEMOGLOBIN 8.8 GM/dL (11.7-16.9); MCH 33.9 pg (25.7-33.7); MCHC 31.8 g/dl (32.0-35.9); MEAN CELL VOLUME 106.5 fl (80-96); MEAN PLT VOLUME 8.2 fl (7.5-11.1); PLATELET COUNT 80 10^3/uL (134-434); RBC 2.59 M/mm3 (4.00-5.60); RDW 17.5 % (11.9-15.9)
[2024-07-18 08:14] LABS: POTASSIUM 4.9 mmol/L (3.5-5.1)
[2024-07-18 08:20] LABS: ALBUMIN 2.6 g/dl (3.4-5.0); BLOOD UREA NITROGEN 93.2 mg/dL (7-18); CALCIUM 8.3 mg/dL (8.5-10.1); MAGNESIUM 2.1 mg/dL (1.8-2.4)
[2024-07-18 08:24] LABS: BILIRUBIN,TOTAL 0.9 mg/dL (0.2-1); CREATININE 6.2 mg/dL (0.55-1.3); TOT PROT 5.5 g/dl (6.4-8.2)
[2024-07-18 09:25] LABS: ANISOCYTOSIS 0; MACROCYTOSIS 2+
[2024-07-18] MEDS ORDERED: INSULIN ASPART SLIDING SCALE (NOVOLOG) 1 VIAL SQ ONE ×2 (10:40→17:38)
[2024-07-18 14:46] VITALS: BMI 29.8
[2024-07-19 06:53] LABS: INR 1.32 (0.83-1.09); PROTHROMBIN TIME (PATIENT) 14.8 SEC (9.7-13.0)
[2024-07-19 06:56] LABS: HEMATOCRIT 27.7 % (35.4-49); HEMOGLOBIN 8.9 GM/dL (11.7-16.9); MCH 34.2 pg (25.7-33.7); MEAN PLT VOLUME 7.8 fl (7.5-11.1); PLATELET COUNT 62 10^3/uL (134-434); RBC 2.59 M/mm3 (4.00-5.60); RDW 16.7 % (11.9-15.9); WHITE BLOOD COUNT 5.3 K/mm3 (4.0-10.0)
[2024-07-19 07:08] LABS: POTASSIUM 4.7 mmol/L (3.5-5.1)
[2024-07-19 07:16] LABS: CALCIUM 8.4 mg/dL (8.5-10.1)
[2024-07-19 07:17] LABS: ALBUMIN 2.6 g/dl (3.4-5.0); BLOOD UREA NITROGEN 78.7 mg/dL (7-18); MAGNESIUM 2.1 mg/dL (1.8-2.4)
[2024-07-19 07:21] LABS: TOT PROT 5.6 g/dl (6.4-8.2)
[2024-07-19 07:23] LABS: BILIRUBIN,TOTAL 0.8 mg/dL (0.2-1)
[2024-07-19 08:52] LABS: ANISOCYTOSIS 0; MACROCYTOSIS 2+
[2024-07-19] MEDS ORDERED: SODIUM CHLORIDE 250 ML IV PRN (10:01)
[2024-07-19] MEDS: ERYTHROMYCIN 0.5% OPHTHALMIC OINTMENT 3.5 GM TUBE OS SCH (18:25)
[2024-07-19] MEDS ORDERED: INSULIN ASPART SLIDING SCALE (NOVOLOG) 1 VIAL SQ ONE (18:44)
[2024-07-19 19:22] LABS: BF WBC & OTHER NUCLEATED CELLS 81 /mm3
[2024-07-19 20:40] LABS: BODY FLUID MONOCYTE 6 %
[2024-07-19 20:41] LABS: BODY FLUID MACROPHAGES 16 %
[2024-07-20] MEDS: INSULIN (LEVEMIR) 100 UNITS/ML UNITS SQ SCH ×2 (12:07→22:00)
[2024-07-20 14:09] LABS: BODY FLUID ALBUMIN 1.5 g/dL (Not Estab.)
[2024-07-20] MEDS: FUROSEMIDE 40 MG/4 ML INJECTABLE VIAL IVPUSH ONE (14:10)
[2024-07-20] MEDS ORDERED: oxyCODONE HCL 5 MG TABLET PO PRN (16:31)
[2024-07-21] MEDS: VANCOMYCIN ORAL SOLUTION 125 MG/2.5 ML PO SCH (00:10)
[2024-07-21] MEDS ORDERED: HEPARIN NA (PORCINE) 5,000 UNITS/ML 1ML VIAL SQ SCH (10:00)
[2024-07-21] MEDS: FAMOTIDINE 20 MG/50 ML IVPB 20 MG/50 ML MG IVPB SCH (10:14)
[2024-07-21] MEDS: ALLOPURINOL 100 MG TABLET (FP) PO SCH (10:15)
[2024-07-21] MEDS: RIFAXIMIN 550 MG TABLET PO SCH (10:15)
[2024-07-21] MEDS: FOLIC ACID 1 MG TABLET (FP) PO SCH (10:15)
[2024-07-21] MEDS: BRIMONIDINE TARTRATE 0.15% OPHTHALMIC 5 ML BOTTLE OU SCH (10:16)
[2024-07-21 10:23] LABS: HEMATOCRIT 27.3 % (35.4-49); HEMOGLOBIN 8.8 GM/dL (11.7-16.9); MCH 33.7 pg (25.7-33.7); MCHC 32.4 g/dl (32.0-35.9); MEAN PLT VOLUME 7.9 fl (7.5-11.1); PLATELET COUNT 53 10^3/uL (134-434); RBC 2.62 M/mm3 (4.00-5.60); RDW 16.9 % (11.9-15.9); WHITE BLOOD COUNT 7.1 K/mm3 (4.0-10.0)
[2024-07-21 11:19] LABS: ANISOCYTOSIS 0; MACROCYTOSIS 0
[2024-07-21] MEDS: PANTOPRAZOLE 40 MG TABLET PO SCH (12:11)
[2024-07-21] MEDS: INSULIN ASPART SLIDING SCALE (NOVOLOG) 1 VIAL SQ SCH (12:16)
[2024-07-21 12:43] LABS: POTASSIUM 5.3 mmol/L (3.5-5.1)
[2024-07-21 12:50] LABS: BILIRUBIN,TOTAL 0.9 mg/dL (0.2-1)
[2024-07-21 12:54] LABS: TOT PROT 5.5 g/dl (6.4-8.2)
[2024-07-21 12:55] LABS: ALBUMIN 2.4 g/dl (3.4-5.0); BLOOD UREA NITROGEN 93.4 mg/dL (7-18); CALCIUM 8.9 mg/dL (8.5-10.1)
[2024-07-21 13:01] LABS: CREATININE 7.4 mg/dL (0.55-1.3)
[2024-07-21] MEDS ORDERED: SODIUM CHLORIDE 250 ML IV PRN (13:06)
[2024-07-21] MEDS ORDERED: LIDOCAINE HCL 1%, 10 MG/ML (20ML VIAL) ONE (14:17)
[2024-07-21] MEDS: LIDOCAINE HCL 1%, 10 MG/ML (20ML VIAL) SQ ONE (14:38)
[2024-07-21] MEDS: COLLAGENASE CLOSTRIDIUM HIST. 30 GRAMS TUBE TP SCH ×2 (16:18→21:58)
[2024-07-22] MEDS: oxyCODONE HCL 5 MG TABLET PO PRN (06:31)
[2024-07-22] MEDS: LEVOTHYROXINE NA 75 MCG TABLET (FP) PO SCH (06:32)
[2024-07-22 11:26] LABS: BASO % 0.4 % (0-2.0); EOS % 1.8 % (0-4.5); HEMATOCRIT 22.1 % (35.4-49); HEMOGLOBIN 7.1 GM/dL (11.7-16.9); LYMPH % 9.6 % (8-40); MCH 33.5 pg (25.7-33.7); MCHC 31.9 g/dl (32.0-35.9); MEAN PLT VOLUME 8.8 fl (7.5-11.1); MONO % 10.5 % (3.8-10.2); NEUT % 77.7 % (42.8-82.8); PLATELET COUNT 38 10^3/uL (134-434); RBC 2.11 M/mm3 (4.00-5.60); RDW 17.3 % (11.9-15.9)
[2024-07-22] MEDS ORDERED: INSULIN ASPART SLIDING SCALE (NOVOLOG) 1 VIAL SQ ONE ×2 (11:34→17:26)
[2024-07-22 11:53] LABS: ANISOCYTOSIS 0; MACROCYTOSIS 0
[2024-07-22 11:55] LABS: POTASSIUM 4.3 mmol/L (3.5-5.1)
[2024-07-22 11:59] LABS: CALCIUM 8.3 mg/dL (8.5-10.1)
[2024-07-22 12:01] LABS: ALBUMIN 2.7 g/dl (3.4-5.0); MAGNESIUM 2.2 mg/dL (1.8-2.4)
[2024-07-22 12:02] LABS: CREATININE 5.6 mg/dL (0.55-1.3)
[2024-07-22 12:03] LABS: BLOOD UREA NITROGEN 65.1 mg/dL (7-18)
[2024-07-22 12:04] LABS: BILIRUBIN,TOTAL 1.1 mg/dL (0.2-1)
[2024-07-22] MEDS ORDERED: SODIUM CHLORIDE 250 ML IV PRN (14:48)
[2024-07-22] MEDS: SODIUM CHLORIDE 1,000 ML IV SCH (15:37)
[2024-07-23 08:22] LABS: BASO % 0.4 % (0-2.0); EOS % 2.4 % (0-4.5); HEMATOCRIT 29.7 % (35.4-49); HEMOGLOBIN 9.8 GM/dL (11.7-16.9); LYMPH % 6.7 % (8-40); MCH 33.1 pg (25.7-33.7); MCHC 32.8 g/dl (32.0-35.9); MEAN CELL VOLUME 100.7 fl (80-96); MEAN PLT VOLUME 8.7 fl (7.5-11.1); MONO % 7.4 % (3.8-10.2); NEUT % 83.1 % (42.8-82.8); PLATELET COUNT 54 10^3/uL (134-434); RBC 2.95 M/mm3 (4.00-5.60); RDW 19.1 % (11.9-15.9); WHITE BLOOD COUNT 8.8 K/mm3 (4.0-10.0)
[2024-07-23 08:41] LABS: POTASSIUM 4.7 mmol/L (3.5-5.1)
[2024-07-23 08:50] LABS: ALBUMIN 2.7 g/dl (3.4-5.0); BLOOD UREA NITROGEN 70.8 mg/dL (7-18)
[2024-07-23 08:51] LABS: BILIRUBIN,TOTAL 2.3 mg/dL (0.2-1); CALCIUM 8.6 mg/dL (8.5-10.1); TOT PROT 5.4 g/dl (6.4-8.2)
[2024-07-23 08:53] LABS: CREATININE 6.1 mg/dL (0.55-1.3)
[2024-07-23] MEDS: ACETAMINOPHEN 500 MG TABLET (FP) PO PRN (13:26)
[2024-07-23] MEDS: EPOETIN ALFA-EPBX 10,000 UNIT/ML VIAL SQ ONE (16:54)
[2024-07-24 09:15] LABS: BASO % 0.5 % (0-2.0); HEMATOCRIT 31.2 % (35.4-49); HEMOGLOBIN 10.1 GM/dL (11.7-16.9); LYMPH % 7.2 % (8-40); MCHC 32.5 g/dl (32.0-35.9); MEAN CELL VOLUME 101.7 fl (80-96); MEAN PLT VOLUME 8.6 fl (7.5-11.1); MONO % 7.5 % (3.8-10.2); NEUT % 81.8 % (42.8-82.8); PLATELET COUNT 60 10^3/uL (134-434); RBC 3.07 M/mm3 (4.00-5.60); RDW 19.2 % (11.9-15.9); WHITE BLOOD COUNT 8.8 K/mm3 (4.0-10.0)
[2024-07-24 09:40] LABS: POTASSIUM 4.5 mmol/L (3.5-5.1)
[2024-07-24 09:51] LABS: CALCIUM 9.1 mg/dL (8.5-10.1)
[2024-07-24 09:52] LABS: ALBUMIN 2.8 g/dl (3.4-5.0); MAGNESIUM 2.2 mg/dL (1.8-2.4)
[2024-07-24 09:56] LABS: BILIRUBIN,TOTAL 1.6 mg/dL (0.2-1); TOT PROT 5.6 g/dl (6.4-8.2)
[2024-07-24 09:58] LABS: CREATININE 4.8 mg/dL (0.55-1.3)
[2024-07-24] MEDS: BISACODYL 5 MG TABLET.DR (FP) PO ONE (17:13)
[2024-07-24] MEDS: PEG 3350/NA SULF BICARB CL/KCL 4000 ML SOLN.RECON PO ONE (17:14)
[2024-07-25] MEDS: DEXTROSE 50%-WATER 25 GM/50 ML DISP.SYRIN IVPUSH ONE ×2 (06:40→13:31)
[2024-07-25 10:14] LABS: BASO % 0.5 % (0-2.0); EOS % 1.9 % (0-4.5); HEMATOCRIT 32.3 % (35.4-49); HEMOGLOBIN 10.4 GM/dL (11.7-16.9); LYMPH % 4.1 % (8-40); MCH 32.8 pg (25.7-33.7); MCHC 32.2 g/dl (32.0-35.9); MEAN CELL VOLUME 101.9 fl (80-96); MEAN PLT VOLUME 8.2 fl (7.5-11.1); MONO % 5.7 % (3.8-10.2); NEUT % 87.8 % (42.8-82.8); PLATELET COUNT 73 10^3/uL (134-434); RBC 3.17 M/mm3 (4.00-5.60); RDW 18.9 % (11.9-15.9); WHITE BLOOD COUNT 11.6 K/mm3 (4.0-10.0)
[2024-07-25 10:16] LABS: INR 1.19 (0.83-1.09); PROTHROMBIN TIME (PATIENT) 13.6 SEC (9.7-13.0)
[2024-07-25 10:41] LABS: POTASSIUM 4.2 mmol/L (3.5-5.1)
[2024-07-25 10:49] LABS: ALBUMIN 2.7 g/dl (3.4-5.0); CALCIUM 8.5 mg/dL (8.5-10.1)
[2024-07-25 10:50] LABS: BLOOD UREA NITROGEN 43.8 mg/dL (7-18)
[2024-07-25 10:54] LABS: CREATININE 5.6 mg/dL (0.55-1.3)
[2024-07-25 10:55] LABS: BILIRUBIN,TOTAL 1.4 mg/dL (0.2-1); TOT PROT 5.6 g/dl (6.4-8.2)
[2024-07-25] MEDS ORDERED: DEXTROSE 50%-WATER 25 GM/50 ML DISP.SYRIN ONE (13:23)
[2024-07-25] MEDS ORDERED: SODIUM CHLORIDE 250 ML IV PRN (15:34)
[2024-07-25] MEDS: DEXTROSE 5%-WATER 500 ML PVC-FREE INFUS.BAG IV ONE (19:14)
[2024-07-26] MEDS: POLYETHYLENE GLYCOL (HEALTHYLAX) 3350 17 GM PACKET PO SCH (09:06)
[2024-07-26 12:04] LABS: HEMATOCRIT 29.5 % (35.4-49); HEMOGLOBIN 9.5 GM/dL (11.7-16.9); MCH 33.2 pg (25.7-33.7); MCHC 32.2 g/dl (32.0-35.9); MEAN CELL VOLUME 103.3 fl (80-96); MEAN PLT VOLUME 8.2 fl (7.5-11.1); PLATELET COUNT 78 10^3/uL (134-434); RBC 2.86 M/mm3 (4.00-5.60); RDW 18.9 % (11.9-15.9); WHITE BLOOD COUNT 9.6 K/mm3 (4.0-10.0)
[2024-07-26 12:28] LABS: POTASSIUM 4.6 mmol/L (3.5-5.1)
[2024-07-26 12:29] LABS: CALCIUM 8.3 mg/dL (8.5-10.1)
[2024-07-26 12:30] LABS: ALBUMIN 2.5 g/dl (3.4-5.0); BLOOD UREA NITROGEN 47.4 mg/dL (7-18)
[2024-07-26 12:33] LABS: CREATININE 6.2 mg/dL (0.55-1.3)
[2024-07-26 12:34] LABS: BILIRUBIN,TOTAL 1.2 mg/dL (0.2-1)
[2024-07-26 12:35] LABS: TOT PROT 5.5 g/dl (6.4-8.2)
[2024-07-27 08:14] LABS: INR 1.16 (0.83-1.09); PROTHROMBIN TIME (PATIENT) 13.3 SEC (9.7-13.0)
[2024-07-27 08:35] LABS: POTASSIUM 4.5 mmol/L (3.5-5.1)
[2024-07-27 08:41] LABS: CALCIUM 8.1 mg/dL (8.5-10.1)
[2024-07-27 08:42] LABS: ALBUMIN 2.8 g/dl (3.4-5.0)
[2024-07-27 08:45] LABS: CREATININE 4.9 mg/dL (0.55-1.3); PHOSPHOROUS 4.1 mg/dL (2.5-4.9)
[2024-07-27 08:46] LABS: BILIRUBIN,TOTAL 1.4 mg/dL (0.2-1)
[2024-07-27 08:47] LABS: TOT PROT 5.8 g/dl (6.4-8.2)
[2024-07-27 08:55] LABS: BASO % 1.3 % (0-2.0); EOS % 2.1 % (0-4.5); HEMATOCRIT 31.1 % (35.4-49); HEMOGLOBIN 10.1 GM/dL (11.7-16.9); LYMPH % 5.7 % (8-40); MCH 33.6 pg (25.7-33.7); MCHC 32.4 g/dl (32.0-35.9); MEAN CELL VOLUME 103.8 fl (80-96); MONO % 7.4 % (3.8-10.2); NEUT % 83.5 % (42.8-82.8); PLATELET COUNT 56 10^3/uL (134-434); RDW 19.7 % (11.9-15.9); WHITE BLOOD COUNT 7.1 K/mm3 (4.0-10.0)
[2024-07-27] MEDS ORDERED: LIDOCAINE HCL 1%, 10 MG/ML (20ML VIAL) ONE ×2 (12:53→13:43)
[2024-07-27] MEDS ORDERED: SODIUM CHLORIDE 250 ML IV PRN (12:54)
[2024-07-27] MEDS ORDERED: MIDAZOLAM HCL 2 MG/2 ML SINGLE DOSE VIAL ONE (13:44)
[2024-07-27] MEDS: ceFAZolin SODIUM 1 GM VIAL IVPB ONE (13:45)
[2024-07-27] MEDS ORDERED: ceFAZolin SODIUM 1 GM VIAL ONE (13:45)
[2024-07-27] MEDS: LIDOCAINE HCL 1%, 10 MG/ML (50 mL VIAL) INF ONE ×2 (13:51)
[2024-07-27] MEDS: VANCOMYCIN ORAL SOLUTION 125 MG/2.5 ML PO SCH (17:12)
[2024-07-27] MEDS: INSULIN ASPART SLIDING SCALE (NOVOLOG) 1 VIAL SQ SCH (17:17)
[2024-07-27] MEDS: INSULIN (LEVEMIR) 100 UNITS/ML UNITS SQ SCH (21:42)
[2024-07-27] MEDS: RIFAXIMIN 550 MG TABLET PO SCH (21:43)
[2024-07-27] MEDS: BRIMONIDINE TARTRATE 0.15% OPHTHALMIC 5 ML BOTTLE OU SCH (21:43)
[2024-07-27 23:10] VITALS: RESP 18
[2024-07-28] MEDS: INSULIN (LEVEMIR) 100 UNITS/ML UNITS SQ SCH (06:18)
[2024-07-28] MEDS: LEVOTHYROXINE NA 75 MCG TABLET (FP) PO SCH (06:19)
[2024-07-28] MEDS ORDERED: SODIUM CHLORIDE 250 ML IV PRN (09:09)
[2024-07-28 10:26] LABS: BASO % 0.8 % (0-2.0); EOS % 2.6 % (0-4.5); HEMATOCRIT 26.2 % (35.4-49); HEMOGLOBIN 8.5 GM/dL (11.7-16.9); LYMPH % 7.2 % (8-40); MCH 33.1 pg (25.7-33.7); MCHC 32.2 g/dl (32.0-35.9); MEAN CELL VOLUME 102.8 fl (80-96); MEAN PLT VOLUME 8.5 fl (7.5-11.1); MONO % 9.9 % (3.8-10.2); NEUT % 79.5 % (42.8-82.8); PLATELET COUNT 79 10^3/uL (134-434); RBC 2.55 M/mm3 (4.00-5.60); RDW 19.6 % (11.9-15.9); WHITE BLOOD COUNT 6.1 K/mm3 (4.0-10.0)
[2024-07-28 10:41] LABS: POTASSIUM 4.7 mmol/L (3.5-5.1)
[2024-07-28 10:45] LABS: CALCIUM 8.4 mg/dL (8.5-10.1)
[2024-07-28 10:46] LABS: ALBUMIN 2.4 g/dl (3.4-5.0); BLOOD UREA NITROGEN 38.2 mg/dL (7-18); MAGNESIUM 2.2 mg/dL (1.8-2.4)
[2024-07-28 10:50] LABS: BILIRUBIN,TOTAL 1.1 mg/dL (0.2-1); CREATININE 5.6 mg/dL (0.55-1.3); TOT PROT 5.4 g/dl (6.4-8.2)
[2024-07-28] MEDS: EPOETIN ALFA-EPBX 3,000 UNIT/ML VIAL SQ ONE (11:53)
[2024-07-28] MEDS: ERYTHROMYCIN 0.5% OPHTHALMIC OINTMENT 3.5 GM TUBE OS SCH (12:00)
[2024-07-28] MEDS: COLLAGENASE CLOSTRIDIUM HIST. 30 GRAMS TUBE TP SCH (12:00)
[2024-07-28] MEDS: ALLOPURINOL 100 MG TABLET (FP) PO SCH (12:00)
[2024-07-28] MEDS: PANTOPRAZOLE 40 MG TABLET PO SCH (12:00)
[2024-07-28] MEDS: FAMOTIDINE 20 MG/50 ML IVPB 20 MG/50 ML MG IVPB SCH (12:00)
[2024-07-28] MEDS ORDERED: EPOETIN ALFA-EPBX 3,000 UNIT/ML VIAL SQ ONE (12:54)
[2024-07-28] MEDS: ACETAMINOPHEN 500 MG TABLET (FP) PO PRN (13:00)
[2024-07-28] MEDS: FOLIC ACID 1 MG TABLET (FP) PO SCH (14:35)
[2024-07-28] MEDS: POLYETHYLENE GLYCOL (HEALTHYLAX) 3350 17 GM PACKET PO SCH (14:36)
[2024-07-28] MEDS ORDERED: ACETAMINOPHEN 500 MG TABLET (FP) PO PRN (15:09)
[2024-07-28] MEDS: ACETAMINOPHEN 1000 MG/100 ML BAG IVPB PRN (15:25)
[2024-07-29 08:30] LABS: BASO % 1.3 % (0-2.0); EOS % 3.4 % (0-4.5); HEMATOCRIT 26.4 % (35.4-49); HEMOGLOBIN 8.6 GM/dL (11.7-16.9); LYMPH % 9.8 % (8-40); MCH 33.5 pg (25.7-33.7); MCHC 32.4 g/dl (32.0-35.9); MEAN CELL VOLUME 103.4 fl (80-96); MEAN PLT VOLUME 7.8 fl (7.5-11.1); MONO % 9.5 % (3.8-10.2); PLATELET COUNT 55 10^3/uL (134-434); RBC 2.55 M/mm3 (4.00-5.60); RDW 20.1 % (11.9-15.9); WHITE BLOOD COUNT 4.9 K/mm3 (4.0-10.0)
[2024-07-29] MEDS: HEPARIN NA (PORCINE) 5,000 UNITS/ML 1ML VIAL IVPUSH ONE (09:00)
[2024-07-29 09:01] LABS: POTASSIUM 3.9 mmol/L (3.5-5.1)
[2024-07-29 09:05] LABS: CALCIUM 8.3 mg/dL (8.5-10.1)
[2024-07-29 09:06] LABS: ALBUMIN 2.9 g/dl (3.4-5.0); BLOOD UREA NITROGEN 19.4 mg/dL (7-18)
[2024-07-29 09:09] LABS: CREATININE 3.6 mg/dL (0.55-1.3)
[2024-07-29 09:10] LABS: BILIRUBIN,TOTAL 1.4 mg/dL (0.2-1)
[2024-07-29 09:11] LABS: TOT PROT 5.7 g/dl (6.4-8.2)
[2024-07-29] MEDS ORDERED: SODIUM CHLORIDE 250 ML IV PRN (10:00)
[2024-07-29] MEDS: EPOETIN ALFA-EPBX 10,000 UNIT/ML VIAL SQ ONE (11:13)
[2024-07-29 22:24] VITALS: PULSE 84; TEMP 99
[2024-07-29 23:38] VITALS: BP 102/58
== END 2024-07-30 03:05 | DRG 871 ==
LOC: JER 14:18 → JERBED 17:09 → JICU 18:12 → J8W 07-20 19:38
PROVIDERS: ADMIT Internal Medicine Pulmonary Disease; ATTEND Nurse Practitioner Family
PROC: 06HM33Z Insertion of Infusion Device into Right Femoral Vein, Percutaneous Approach (ICD-10-PCS; principal; 2024-07-15)
PROC: B54BZZA Ultrasonography of Right Lower Extremity Veins, Guidance (ICD-10-PCS; 2024-07-15)
PROC: 5A1D70Z Performance of Urinary Filtration, Intermittent, Less than 6 Hours Per Day (ICD-10-PCS; 2024-07-15)
PROC: 0W9G3ZX Drainage of Peritoneal Cavity, Percutaneous Approach, Diagnostic (ICD-10-PCS; 2024-07-19)
PROC: 06HN33Z Insertion of Infusion Device into Left Femoral Vein, Percutaneous Approach (ICD-10-PCS; 2024-07-21)
PROC: B54CZZA Ultrasonography of Left Lower Extremity Veins, Guidance (ICD-10-PCS; 2024-07-21)
PROC: 5A1D70Z Performance of Urinary Filtration, Intermittent, Less than 6 Hours Per Day (ICD-10-PCS; 2024-07-21)
PROC: 30233N1 Transfusion of Nonautologous Red Blood Cells into Peripheral Vein, Percutaneous Approach (ICD-10-PCS; 2024-07-22)
PROC: 0DJD8ZZ Inspection of Lower Intestinal Tract, Via Natural or Artificial Opening Endoscopic (ICD-10-PCS; 2024-07-25)
PROC: 0JH63XZ Insertion of Tunneled Vascular Access Device into Chest Subcutaneous Tissue and Fascia, Percutaneous Approach (ICD-10-PCS; 2024-07-27)
PROC: 05HM33Z Insertion of Infusion Device into Right Internal Jugular Vein, Percutaneous Approach (ICD-10-PCS; 2024-07-27)
PROC: B513ZZA Fluoroscopy of Right Jugular Veins, Guidance (ICD-10-PCS; 2024-07-27)
PROC: 5A1D70Z Performance of Urinary Filtration, Intermittent, Less than 6 Hours Per Day (ICD-10-PCS; 2024-07-28)
PROC: 5A1D70Z Performance of Urinary Filtration, Intermittent, Less than 6 Hours Per Day (ICD-10-PCS; 2024-07-29)
DX: A41.89 Other specified sepsis (principal); G93.41 Metabolic encephalopathy; J18.9 Pneumonia, unspecified organism; J96.01 Acute respiratory failure with hypoxia; R53.2 Functional quadriplegia; N18.6 End stage renal disease; N17.9 Acute kidney failure, unspecified; R18.8 Other ascites; I13.2 Hypertensive heart and chronic kidney disease with heart failure and with stage 5 chronic kidney disease, or end stage renal disease; A04.72 Enterocolitis due to Clostridium difficile, not specified as recurrent; I50.32 Chronic diastolic (congestive) heart failure; R57.9 Shock, unspecified; K92.2 Gastrointestinal hemorrhage, unspecified; E11.22 Type 2 diabetes mellitus with diabetic chronic kidney disease; I25.10 Atherosclerotic heart disease of native coronary artery without angina pectoris; K21.9 Gastro-esophageal reflux disease without esophagitis; K76.0 Fatty (change of) liver, not elsewhere classified; E03.9 Hypothyroidism, unspecified; I27.20 Pulmonary hypertension, unspecified; I48.91 Unspecified atrial fibrillation; D49.0 Neoplasm of unspecified behavior of digestive system; H54.7 Unspecified visual loss; H10.9 Unspecified conjunctivitis; G47.30 Sleep apnea, unspecified; S62.352A Nondisplaced fracture of shaft of third metacarpal bone, right hand, initial encounter for closed fracture; S62.354A Nondisplaced fracture of shaft of fourth metacarpal bone, right hand, initial encounter for closed fracture; S62.356A Nondisplaced fracture of shaft of fifth metacarpal bone, right hand, initial encounter for closed fracture; L89.150 Pressure ulcer of sacral region, unstageable; D69.6 Thrombocytopenia, unspecified; N40.0 Benign prostatic hyperplasia without lower urinary tract symptoms; E86.0 Dehydration; K86.89 Other specified diseases of pancreas; K74.60 Unspecified cirrhosis of liver; E87.5 Hyperkalemia; K59.00 Constipation, unspecified; K57.90 Diverticulosis of intestine, part unspecified, without perforation or abscess without bleeding; Z99.81 Dependence on supplemental oxygen; Z95.0 Presence of cardiac pacemaker; Z95.1 Presence of aortocoronary bypass graft; Z89.511 Acquired absence of right leg below knee; W18.30XA Fall on same level, unspecified, initial encounter; Y93.9 Activity, unspecified; Y92.9 Unspecified place or not applicable; Y99.9 Unspecified external cause status
CPT/HCPCS: 0241U-QW; 36415; 36430; 70450-TC; 71045-TC-FY; 73110-TC-RT-FY; 73130-TC-RT-FY; 74176-TC; 76000-TC-FY; 76700-TC; 76775-TC; 76942-TC; 80048; 80053; 81003; 82042; 82140; 82150; 82465; 82803; 82945; 82962; 83516; 83605; 83615; 83735; 83986; 84100; 84157; 84478; 84484; 85025; 85027; 85610; 85730; 86160; 86704; 86705; 86803; 86850; 86900; 86901; 86922; 87040; 87070; 87075; 87102; 87116; 87205; 87206; 87210; 87324; 87340; 87449; 87517; 88108; 88305-TC; 93005; 93010; 93306-TC; 94760; 99291; C1750; J0131; J1644; P9047; P9058; Q5106

== ENCOUNTER 2024-08-01 13:45 | Inpatient (IN) | payer OTHER, BC ==
[2024-08-01 14:04] VITALS: TEMP 98.4; BMI 26.9
[2024-08-01 14:58] LABS: VENOUS BASE EXCESS 2.1 mmol/L (-2-2); VENOUS O2 SATURATION 57.7 % (70-80); VENOUS PCO2 61.3 mmHg (38-52); VENOUS PH 7.299 (7.310-7.410)
[2024-08-01 15:02] LABS: BASO % 0.4 % (0-2.0); EOS % 0.6 % (0-4.5); HEMATOCRIT 28.1 % (35.4-49); HEMOGLOBIN 8.8 GM/dL (11.7-16.9); LYMPH % 7.6 % (8-40); MCH 33.5 pg (25.7-33.7); MCHC 31.1 g/dl (32.0-35.9); MEAN CELL VOLUME 107.8 fl (80-96); MEAN PLT VOLUME 7.7 fl (7.5-11.1); MONO % 7.5 % (3.8-10.2); NEUT % 83.9 % (42.8-82.8); PLATELET COUNT 82 10^3/uL (134-434); RBC 2.61 M/mm3 (4.00-5.60); RDW 21.7 % (11.9-15.9); WHITE BLOOD COUNT 4.7 K/mm3 (4.0-10.0)
[2024-08-01 15:08] LABS: INR 1.14 (0.83-1.09); PROTHROMBIN TIME (PATIENT) 12.8 SEC (9.7-13.0)
[2024-08-01 15:11] LABS: ACTIVATED PTT 32.9 SECONDS (25.2-36.5)
[2024-08-01 15:20] LABS: POTASSIUM 5.6 mmol/L (3.5-5.1)
[2024-08-01 15:22] LABS: CALCIUM 8.1 mg/dL (8.5-10.1)
[2024-08-01 15:23] LABS: BLOOD UREA NITROGEN 26.2 mg/dL (7-18)
[2024-08-01 15:26] LABS: CREATININE 4.6 mg/dL (0.55-1.3)
[2024-08-01 15:28] LABS: BILIRUBIN,TOTAL 1.2 mg/dL (0.2-1); TOT PROT 6.3 g/dl (6.4-8.2)
[2024-08-01 15:29] LABS: ANISOCYTOSIS 1+; MACROCYTOSIS 2+
[2024-08-01] MEDS: SODIUM CHLORIDE 0.9% 500 ML INFUS.BAG IV ONE (16:58)
[2024-08-01] MEDS: PIPERACILLIN/TAZOB 3.375 GM 3.375 GM in DEXTROSE 5%-WATER - 50 ML IVPB ONE (16:58)
[2024-08-01] MEDS ORDERED: VANCOMYCIN 1 GRAM (PRE-DOCKED) 1,000 MG/250 ML BAG IVPB ONE (16:59)
[2024-08-01] MEDS ORDERED: PIPERACILLIN/TAZOB 3.375 GM 3.375 GM/50 ML BAG IVPB ONE (16:59)
[2024-08-01 18:42] VITALS: PULSE 74; RESP 14
[2024-08-01] MEDS: VANCOMYCIN/WATER 1250 MG 1,250 MG/250 ML BAG IVPB ONE (19:03)
[2024-08-01] MEDS: methylPREDNISolone NA SUCC 40 MG/1 ML VIAL IVPUSH ONE (19:03)
[2024-08-01] MEDS ORDERED: SODIUM CHLORIDE 1,000 ML IV STA (20:34)
[2024-08-01 21:42] LABS: POTASSIUM 4.8 mmol/L (3.5-5.1)
[2024-08-01 21:44] LABS: ALBUMIN 3.2 g/dl (3.4-5.0); BLOOD UREA NITROGEN 30.9 mg/dL (7-18); CALCIUM 8.6 mg/dL (8.5-10.1)
[2024-08-01 21:48] LABS: CREATININE 4.8 mg/dL (0.55-1.3)
[2024-08-01 21:49] LABS: TOT PROT 6.3 g/dl (6.4-8.2)
[2024-08-01 21:55] LABS: BILIRUBIN,TOTAL 1.4 mg/dL (0.2-1)
[2024-08-01 22:26] VITALS: BP 91/37
== END 2024-08-01 22:34 | disposition expired | DRG 871 ==
LOC: JER 13:45 → JERBED 17:27 → J4W 19:26
PROVIDERS: ADMIT Internal Medicine; ATTEND Internal Medicine
DX: A41.89 Other specified sepsis (principal); J18.9 Pneumonia, unspecified organism; N18.6 End stage renal disease; R65.21 Severe sepsis with septic shock; J96.01 Acute respiratory failure with hypoxia; I13.2 Hypertensive heart and chronic kidney disease with heart failure and with stage 5 chronic kidney disease, or end stage renal disease; I50.32 Chronic diastolic (congestive) heart failure; E03.9 Hypothyroidism, unspecified; I95.9 Hypotension, unspecified; D64.9 Anemia, unspecified; I46.9 Cardiac arrest, cause unspecified; I25.10 Atherosclerotic heart disease of native coronary artery without angina pectoris; E11.22 Type 2 diabetes mellitus with diabetic chronic kidney disease; Z88.1 Allergy status to other antibiotic agents
CPT/HCPCS: 0241U-QW; 36415; 70450-TC; 71045-TC-FY; 80053; 82803; 83605; 84484; 85025; 85610; 85730; 86850; 86900; 86901; 87040; 93005; 93010; 99285-25